=== PATIENT | female | born 1960 | race Caucasian/White ===

== ENCOUNTER → 2017-11-21 15:07 | Outpatient (CLI) | payer OTHER, SELFPAY ==
[2017-11-21 15:48] LABS: Absolute Neutrophil Count 3.5 X10^3/uL (2.0-7.7); Basophil# 0.02 X10^3/uL; Basophil% 0.3 % (0-1); Eosinophil# 0.22 X10^3/uL; Eosinophils% 3.3 % (0-5); Hematocrit 40.2 % (37-47); Hemoglobin 14.1 g/dl (12.0-15.0); Lymphocyte % 37.1 % (19-41); Mean Corp Hgb Conc 35.1 g/gl (32-36); Mean Corpuscular Hgb 29.1 pg (27.0-32.0); Mean Corpuscular Volume 82.9 fL (81-99); Mean Platelet Vol. 9.6 fl (6.2-12.0); Monocyte# 0.49 X10^3/uL; Monocyte% 7.3 % (0-10); Neutrophil % 51.9 % (47-70); Platelet Count 262 K/mm3 (150-450); RBC Distribution Width SD 39.2 fl (35.1-43.9); Red Blood Count 4.85 M/mm3 (4.2-5.4); White Blood Count 6.7 K/mm3 (4.4-11.0)
[2017-11-21 15:54] LABS: POSITIVE COUNT NO; POSITIVE DIFFERENTIAL NO; POSITIVE MORPHOLOGY NO
[2017-11-21 16:17] LABS: ALB/GLOB Ratio 1.4 RATIO (0.9-2.4); AST(SGOT) 40 U/L (15-37); Alanine Aminotransfer ALT/SGPT 40 U/L (13-56); Albumin, Serum 4.2 g/dL (3.2-5.0); Alkaline Phosphatase 118 U/L (45-117); Anion Gap 7 (5-15); BUN 13 mg/dL (7-18); BUN/Creat Ratio 18.6 RATIO (10-20); Calcium,Total 8.8 mg/dL (8.5-10.1); Chloride 103 mmol/L (98-107); EST Glomerular Filtration Rate 91 mL/min (>60); Est Glom Filt Rate - Afr Amer 111 mL/min (>60); Globulin 3.1 g/dL (2.2-4.2); Glucose 116 mg/dL (74-106); Potassium 3.9 mmol/L (3.5-5.1); Protein, Total 7.3 g/dL (6.4-8.2); Sodium Level 141 mmol/L (136-145)
== END ==
PROVIDERS: Family Provider Internal Medicine; PCP Internal Medicine; Visit Provider Internal Medicine Rheumatology
DX: L40.59 Other psoriatic arthropathy (principal); L40.8 Other psoriasis; K21.0 Gastro-esophageal reflux disease with esophagitis; H93.19 Tinnitus, unspecified ear; E78.5 Hyperlipidemia, unspecified; Z79.899 Other long term (current) drug therapy
CPT/HCPCS: 36415; 80053; 85025

== ENCOUNTER → 2018-02-07 10:54 | Outpatient (CLI) | payer OTHER, SELFPAY ==
[2018-02-07 12:28] LABS: ALB/GLOB Ratio 1.4 RATIO (0.9-2.4); AST(SGOT) 35 U/L (15-37); Alanine Aminotransfer ALT/SGPT 38 U/L (13-56); Albumin, Serum 4.2 g/dL (3.2-5.0); Alkaline Phosphatase 121 U/L (45-117); Anion Gap 6 (5-15); BUN 11 mg/dL (7-18); BUN/Creat Ratio 14.8 RATIO (10-20); Calcium,Total 8.9 mg/dL (8.5-10.1); Chloride 107 mmol/L (98-107); Creatinine, Serum 0.74 mg/dL (0.55-1.02); EST Glomerular Filtration Rate 85 mL/min (>60); Est Glom Filt Rate - Afr Amer 103 mL/min (>60); Glucose 111 mg/dL (74-106); Protein, Total 7.2 g/dL (6.4-8.2); Sodium Level 140 mmol/L (136-145)
== END ==
PROVIDERS: Family Provider Internal Medicine; PCP Internal Medicine; Visit Provider Internal Medicine Rheumatology
DX: L40.59 Other psoriatic arthropathy (principal); L40.8 Other psoriasis; K21.0 Gastro-esophageal reflux disease with esophagitis; H93.19 Tinnitus, unspecified ear; E78.5 Hyperlipidemia, unspecified; Z79.899 Other long term (current) drug therapy
CPT/HCPCS: 36415; 80053

== ENCOUNTER → 2018-05-07 13:33 | Outpatient (CLI) | payer OTHER, SELFPAY ==
[2018-05-07 15:15] LABS: Absolute Lymphocyte Count 1.66 X10^3/ul (0.83-4.51); Absolute Neutrophil Count 3.3 X10^3/uL (2.0-7.7); Basophil# 0.01 X10^3/uL; Basophil% 0.2 % (0-1); Eosinophil# 0.14 X10^3/uL; Eosinophils% 2.4 % (0-5); Hematocrit 39.2 % (37-47); Hemoglobin 13.5 g/dl (12.0-15.0); Lymphocyte # 1.66 X10^3/ul (4.0); Lymphocyte % 28.8 % (19-41); Mean Corp Hgb Conc 34.4 g/gl (32-36); Mean Corpuscular Hgb 28.8 pg (27.0-32.0); Mean Corpuscular Volume 83.8 fL (81-99); Mean Platelet Vol. 9.8 fl (6.2-12.0); Monocyte# 0.61 X10^3/uL; Monocyte% 10.6 % (0-10); Neutrophil # 3.34 X10^3/uL (2.7-7.7); Platelet Count 256 K/mm3 (150-450); RBC Distribution Width CV 13.2 % (11.6-14.6); RBC Distribution Width SD 39.8 fl (35.1-43.9); Red Blood Count 4.68 M/mm3 (4.2-5.4); White Blood Count 5.8 K/mm3 (4.4-11.0)
[2018-05-07 15:25] LABS: POSITIVE COUNT NO; POSITIVE DIFFERENTIAL NO; POSITIVE MORPHOLOGY NO
[2018-05-07 15:44] LABS: ALB/GLOB Ratio 1.4 RATIO (0.9-2.4); AST(SGOT) 37 U/L (15-37); Alanine Aminotransfer ALT/SGPT 39 U/L (13-56); Albumin, Serum 4.2 g/dL (3.2-5.0); Alkaline Phosphatase 106 U/L (45-117); Anion Gap 10 (5-15); BUN 13 mg/dL (7-18); BUN/Creat Ratio 19.5 RATIO (10-20); Calcium,Total 8.9 mg/dL (8.5-10.1); Chloride 102 mmol/L (98-107); Creatinine, Serum 0.67 mg/dL (0.55-1.02); EST Glomerular Filtration Rate 96 mL/min (>60); Est Glom Filt Rate - Afr Amer 116 mL/min (>60); Globulin 2.9 g/dL (2.2-4.2); Glucose 83 mg/dL (74-106); Protein, Total 7.1 g/dL (6.4-8.2); Sodium Level 140 mmol/L (136-145)
== END ==
PROVIDERS: Family Provider Internal Medicine; PCP Internal Medicine; Visit Provider Internal Medicine Rheumatology
DX: L40.8 Other psoriasis (principal); L40.59 Other psoriatic arthropathy; K21.0 Gastro-esophageal reflux disease with esophagitis; H93.19 Tinnitus, unspecified ear; E78.5 Hyperlipidemia, unspecified; I10 Essential (primary) hypertension; Z79.899 Other long term (current) drug therapy
CPT/HCPCS: 36415; 80053; 85025

== ENCOUNTER → 2018-07-29 11:06 | Outpatient (CLI) | payer OTHER, SELFPAY ==
[2018-07-29 12:24] LABS: Absolute Lymphocyte Count 2.22 X10^3/ul (0.83-4.51); Absolute Neutrophil Count 2.8 X10^3/uL (2.0-7.7); Basophil# 0.02 X10^3/uL; Basophil% 0.3 % (0-1); Eosinophils% 3.5 % (0-5); Hematocrit 41.2 % (37-47); Hemoglobin 14.3 g/dl (12.0-15.0); Lymphocyte # 2.22 X10^3/ul (4.0); Lymphocyte % 38.6 % (19-41); Mean Corp Hgb Conc 34.7 g/gl (32-36); Mean Corpuscular Hgb 29.2 pg (27.0-32.0); Mean Corpuscular Volume 84.3 fL (81-99); Mean Platelet Vol. 9.8 fl (6.2-12.0); Monocyte# 0.51 X10^3/uL; Monocyte% 8.9 % (0-10); Neutrophil # 2.79 X10^3/uL (2.7-7.7); Neutrophil % 48.5 % (47-70); Platelet Count 267 K/mm3 (150-450); RBC Distribution Width CV 13.3 % (11.6-14.6); RBC Distribution Width SD 40.2 fl (35.1-43.9); Red Blood Count 4.89 M/mm3 (4.2-5.4); White Blood Count 5.8 K/mm3 (4.4-11.0)
[2018-07-29 12:35] LABS: POSITIVE COUNT NO; POSITIVE DIFFERENTIAL NO; POSITIVE MORPHOLOGY NO
[2018-07-29 13:06] LABS: ALB/GLOB Ratio 1.3 RATIO (0.9-2.4); AST(SGOT) 41 U/L (15-37); Alanine Aminotransfer ALT/SGPT 41 U/L (13-56); Albumin, Serum 4.2 g/dL (3.2-5.0); Alkaline Phosphatase 129 U/L (45-117); Anion Gap 7 (5-15); BUN 16 mg/dL (7-18); BUN/Creat Ratio 22.2 RATIO (10-20); Calcium,Total 9.1 mg/dL (8.5-10.1); Chloride 105 mmol/L (98-107); Creatinine, Serum 0.72 mg/dL (0.55-1.02); EST Glomerular Filtration Rate 88 mL/min (>60); Est Glom Filt Rate - Afr Amer 106 mL/min (>60); Globulin 3.3 g/dL (2.2-4.2); Glucose 91 mg/dL (74-106); Potassium 4.2 mmol/L (3.5-5.1); Protein, Total 7.5 g/dL (6.4-8.2); Sodium Level 141 mmol/L (136-145)
--- OUTSIDE RECORDS SUMMARY | 2018-09-14 12:07 | XMS RPT_ITS ---
:1960 Author Organization OHIP Care Team Providers Name Role Phone Viviana Suggs Attending Unavailable Viviana Suggs Referring Unavailable Bonezzi, Jolly Primary Care Unavailable Viviana Suggs Attending Unavailable Es, Viviana Referring Unavailable Bonezzi, Jolly Primary Care Unavailable Viviana Suggs Attending Unavailable Joellanciara, Viviana Referring Unavailable Bonezzi, Jolly Primary Care Unavailable Viviana Suggs Attending Unavailable Joellanciara, Viviana Referring Unavailable Bonezzi, Jolly Primary Care Unavailable JoelViviana holt Attending Unavailable JoeltranViviana urbina Referring Unavailable Jolly Wright Primary Care Unavailable PROBLEMS PROBLEMS DATE TYPE CONDITION / CODE ATTENDING STATUS SOURCE 05/07/2018 Unknown Z79.899 - Other Es Viviana Active [facility] (current[facility] therapy / Repository Z79.899(ICD-10) 05/07/2018 Unknown L40.8 - Other Es Viviana Active [facility] psoriasis / Community L40.8(ICD-10) Hospital Repository 05/07/2018 Unknown K21.0 - Es Viviana Active [facility] reflux disease Hospital with esophagitis / Repository K21.0(ICD-10) 05/07/2018 Unknown H93.19 - Tinnitus, Es Viviana Active [facility] unspecified ear / Community H93.19(ICD-10) Hospital Repository 05/07/2018 Unknown E78.5 - Viviana Suggs Active [facility] Hyperlipidemia, Community unspecified / Hospital E78.5(ICD-10) Repository 05/07/2018 Unknown I10 - Essential Viviana Suggs Active [facility] (primary) [facility] hypertension / Hospital I10(ICD-10) Repository 02/07/2018 Unknown 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3 LAB L100.1820 35.1-43.9 fl Normal RDW SD 40.2 LAB L100.1900 150-450 K/mm3 Normal PLT 267 LAB L100.2000 6.2-12.0 fl Normal MPV 9.8 LAB L100.2100 47-70 % Normal NEUT% 48.5 LAB L100.2200 19-41 % Normal LY% 38.6 LAB L100.2300 0-10 % Normal MONO% 8.9 LAB L100.2400 0-5 % Normal EO% 3.5 LAB L100.2500 0-1 % Normal BASO% 0.3 LAB L100.2550 0.0-0.9 % Normal IM GRAN % 0.200 Result Comment: IG% - Immature Granulocytes (promyelocytes, myelocytes and metamyelocytes) > 1% indicates that a LEFT SHIFT is Present. LAB L100.2620 2.0-7.7 X10 3/uL Normal Absolute Neut 2.8 LAB L100.2720 0.83-4.51 X10 3/ul Normal Absolute Lymph 2.22 Performed By: #### L100.0100 #### [facility] [address] [place], [address] COMPREHENSIVE METABOLIC Collected: 07/29/2018 Status: F Source[facility] [place] [facility] CODE TESTS RESULT OUT OF RANGE REFERENCE UNITS LAB L501.0100 74-106 mg/dL Normal GLU 91 Result Comment: Please note revised GLUCOSE reference range effective 2017. LAB L501.1000 7-18 mg/dL Normal BUN 16 LAB L501.1100 0.55-1.02 mg/dL Normal CREAT,SERUM 0.72 Result Comment: The validity of the calculated GFR AND GFRAA in patients over 70 years has not been determined. Clinical correlation is essential. LAB L501.1110 >60 mL/min Normal EST GFR 88 Result Comment: Non- GFR Calc LAB L501.1115 >60 mL/min Normal EST GFR - AA 106 Result Comment: GFR Calc LAB L501.1300 10-20 RATIO High BUN/CRE 22.2 LAB L501.1500 6.4-8.2 g/dL T Normal PROT 7.5 LAB L501.1800 3.2-5.0 g/dL Normal ALB 4.2 LAB L501.1950 2.2-4.2 g/dL Normal GLOB 3.3 LAB L501.2000 0.9-2.4 RATIO Normal A/G 1.3 LAB L501.2200 8.5-10.1 mg/dL CA Normal 9.1 LAB L501.4100 15-37 U/L High AST 41 Result Comment: Moderate Hemolysis, Result may be falsely increased. LAB L501.4305 45-117 U/L High ALK P 129 LAB L501.4405 13-56 U/L Normal ALT 41 LAB L501.4600 0.20-1.00 mg/dL Normal T BILI 0.50 LAB L501.5300 136-145 mmol/L Normal NA 141 LAB L501.5600 3.5-5.1 mmol/L Normal K 4.2 Result Comment: Moderate Hemolysis, Result may be falsely increased. LAB L501.5900 98-107 mmol/L Normal CL 105 LAB L501.6100 21.0-32.0 mmol/L Normal CO2 29.0 LAB L501.6200 5-15 Normal 7 GAP Performed By: #### L500.4050 #### [facility] [address] [facility] [place], [place], [id number] CBC W/DIFF, AUTOMATED Collected: 05/07/2018 Status: F Source: [facility] 1:[place] [facility] [place] CODE TESTS RESULT OUT OF RANGE REFERENCE UNITS LAB L100.1000 4.4-11.0 K/mm3 Normal WBC 5.8 LAB L100.1200 4.2-5.4 M/mm3 Normal RBC 4.68 LAB L100.1300 12.0-15.0 g/dl Normal HGB 13.5 LAB L100.1400 37-47 % Normal HCT 39.2 LAB L100.1500 81-99 fL Normal MCV 83.8 LAB L100.1600 27.0-32.0 pg Normal MCH 28.8 LAB L100.1700 32-36 g/gl Normal MCHC 34.4 LAB L100.1810 11.6-14.6 % Normal RDW CV 13.2 LAB L100.1820 35.1-43.9 fl Normal RDW SD 39.8 LAB L100.1900 150-450 K/mm3 Normal PLT 256 LAB L100.2000 6.2-12.0 fl Normal MPV 9.8 LAB L100.2100 47-70 % Normal NEUT% 58.0 LAB L100.2200 19-41 % Normal LY% 28.8 LAB L100.2300 0-10 % High MONO% 10.6 LAB L100.2400 0-5 % Normal EO% 2.4 LAB L100.2500 0-1 % Normal BASO% 0.2 LAB L100.2550 0.0-0.9 % Normal IM GRAN % 0.000 Result Comment: IG% - Immature Granulocytes (promyelocytes, myelocytes and metamyelocytes) > 1% indicates that a LEFT SHIFT is Present. LAB L100.2620 2.0-7.7 X10 3/uL Normal Absolute Neut 3.3 LAB L100.2720 0.83-4.51 X10 3/ul Normal Absolute Lymph 1.66 Performed By: #### L100.0100 #### [facility] [address] [place] [place], [address] COMPREHENSIVE METABOLIC Collected: 05/07/2018 Status: F Source: [facility] 1[facility] [place] [facility] [place] CODE TESTS RESULT OUT OF RANGE REFERENCE UNITS LAB L501.0100 74-106 mg/dL Normal GLU 83 Result Comment: Please note revised GLUCOSE reference range effective 2017. LAB L501.1000 7-18 mg/dL Normal BUN 13 LAB L501.1100 0.55-1.02 mg/dL Normal CREAT,SERUM 0.67 Result Comment: The validity of the calculated GFR AND GFRAA in patients over 70 years has not been determined. Clinical correlation is essential. LAB L501.1110 >60 mL/min Normal EST GFR 96 Result Comment: Non- GFR Calc LAB L501.1115 >60 mL/min Normal EST GFR - AA 116 Result Comment: GFR Calc LAB L501.1300 10-20 RATIO Normal BUN/CRE 19.5 LAB L501.1500 6.4-8.2 g/dL T Normal PROT 7.1 LAB L501.1800 3.2-5.0 g/dL Normal ALB 4.2 LAB L501.1950 2.2-4.2 g/dL Normal GLOB 2.9 LAB L501.2000 0.9-2.4 RATIO Normal A/G 1.4 LAB L501.2200 8.5-10.1 mg/dL CA Normal 8.9 LAB L501.4100 15-37 U/L Normal AST 37 LAB L501.4305 45-117 U/L Normal ALK P 106 LAB L501.4405 13-56 U/L Normal ALT 39 LAB L501.4600 0.20-1.00 mg/dL T Normal BILI 0.60 LAB L501.5300 136-145 mmol/L NA Normal 140 LAB L501.5600 3.5-5.1 mmol/L K Normal 4.0 LAB L501.5900 98-107 mmol/L CL Normal 102 LAB L501.6100 21.0-32.0 mmol/L Normal CO2 28.0 LAB L501.6200 5-15 Normal GAP 10 Performed By: #### L500.4050 #### [facility] [address] [place] [place], [address] COMPREHENSIVE METABOLIC Collected: 02/07/2018 Status: F Source: [facility] 11:00 AM [facility] [place] CODE TESTS RESULT OUT OF RANGE REFERENCE UNITS LAB L501.0100 74-106 mg/dL High GLU 111 Result Comment: Fasting Glucose result from 100 to 125 mg/dL suggests IMPAIRED HOMEOSTASIS per A.D.A. criteria. Please note revised GLUCOSE reference range effective 2017. LAB L501.1000 7-18 mg/dL Normal BUN 11 LAB L501.1100 0.55-1.02 mg/dL Normal CREAT,SERUM 0.74 Result Comment: The validity of the calculated GFR AND GFRAA in patients over 70 years has not been determined. Clinical correlation is essential. LAB L501.1110 >60 mL/min Normal EST GFR 85 Result Comment: Non- GFR Calc LAB L501.1115 >60 mL/min Normal EST GFR - AA 103 Result Comment: GFR Calc LAB L501.1300 10-20 RATIO Normal BUN/CRE 14.8 LAB L501.1500 6.4-8.2 g/dL T Normal PROT 7.2 LAB L501.1800 3.2-5.0 g/dL Normal ALB 4.2 LAB L501.1950 2.2-4.2 g/dL Normal GLOB 3.0 LAB L501.2000 0.9-2.4 RATIO Normal A/G 1.4 LAB L501.2200 8.5-10.1 mg/dL CA Normal 8.9 LAB L501.4100 15-37 U/L Normal AST 35 LAB L501.4305 45-117 U/L High ALK P 121 LAB L501.4405 13-56 U/L Normal ALT 38 LAB L501.4600 0.20-1.00 mg/dL T Normal BILI 0.60 LAB L501.5300 136-145 mmol/L NA Normal 140 LAB L501.5600 3.5-5.1 mmol/L K Normal 4.0 LAB L501.5900 98-107 mmol/L CL Normal 107 LAB L501.6100 21.0-32.0 mmol/L Normal CO2 27.0 LAB L501.6200 5-15 Normal GAP 6 Performed By: #### L500.4050 #### [facility] [address] [place] [place], [address] CBC W/DIFF, AUTOMATED Collected: 11/21/2017 Status: F Source: [facility] 3:20 [place] [facility] [place] TYPE CODE TESTS RESULT OUT OF RANGE REFERENCE UNITS LAB L100.1000 4.4-11.0 K/mm3 Normal WBC 6.7 LAB L100.1200 4.2-5.4 M/mm3 Normal RBC 4.85 LAB L100.1300 12.0-15.0 g/dl Normal HGB 14.1 LAB L100.1400 37-47 % Normal HCT 40.2 LAB L100.1500 81-99 fL Normal MCV 82.9 LAB L100.1600 27.0-32.0 pg Normal MCH 29.1 LAB L100.1700 32-36 g/gl Normal MCHC 35.1 LAB L100.1810 11.6-14.6 % Normal RDW CV 13.0 LAB L100.1820 35.1-43.9 fl Normal RDW SD 39.2 LAB L100.1900 150-450 K/mm3 Normal PLT 262 LAB L100.2000 6.2-12.0 fl Normal MPV 9.6 LAB L100.2100 47-70 % Normal NEUT% 51.9 LAB L100.2200 19-41 % Normal LY% 37.1 LAB L100.2300 0-10 % Normal MONO% 7.3 LAB L100.2400 0-5 % Normal EO% 3.3 LAB L100.2500 0-1 % Normal BASO% 0.3 LAB L100.2550 0.0-0.9 % Normal IM GRAN % 0.100 Result Comment: IG% - Immature Granulocytes (promyelocytes, myelocytes and metamyelocytes) > 1% indicates that a LEFT SHIFT is Present. LAB L100.2620 2.0-7.7 X10 3/uL Normal Absolute Neut 3.5 LAB L100.2720 0.83-4.51 X10 3/ul Normal Absolute Lymph 2.50 Performed By: #### L100.0100 #### [facility] [address] [place], [address] COMPREHENSIVE METABOLIC Collected: 11/21/2017 Status: F Source: [facility] 3:20 PM [facility] [place] CODE TESTS RESULT OUT OF RANGE REFERENCE UNITS LAB L501.0100 74-106 mg/dL High GLU 116 Result Comment: Fasting Glucose result from 100 to 125 mg/dL suggests IMPAIRED HOMEOSTASIS per A.D.A. criteria. Please note revised GLUCOSE reference range effective 2017. LAB L501.1000 7-18 mg/dL Normal BUN 13 LAB L501.1100 0.55-1.02 mg/dL Normal CREAT,SERUM 0.70 Result Comment: The validity of the calculated GFR AND GFRAA in patients over 70 years has not been determined. Clinical correlation is essential. LAB L501.1110 >60 mL/min Normal EST GFR 91 Result Comment: Non- GFR Calc LAB L501.1115 >60 mL/min Normal EST GFR - AA 111 Result Comment: GFR Calc LAB L501.1300 10-20 RATIO Normal BUN/CRE 18.6 LAB L501.1500 6.4-8.2 g/dL T Normal PROT 7.3 LAB L501.1800 3.2-5.0 g/dL Normal ALB 4.2 LAB L501.1950 2.2-4.2 g/dL Normal GLOB 3.1 LAB L501.2000 0.9-2.4 RATIO Normal A/G 1.4 LAB L501.2200 8.5-10.1 mg/dL CA Normal 8.8 LAB L501.4100 15-37 U/L High AST 40 LAB L501.4305 45-117 U/L High ALK P 118 LAB L501.4405 13-56 U/L Normal ALT 40 Result Comment: Please note revised ALT reference range effective 2017. LAB L501.4600 0.20-1.00 mg/dL Normal T BILI 0.40 LAB L501.5300 136-145 mmol/L Normal NA 141 LAB L501.5600 3.5-5.1 mmol/L Normal K 3.9 LAB L501.5900 98-107 mmol/L Normal CL 103 LAB L501.6100 21.0-32.0 mmol/L Normal CO2 31.0 LAB L501.6200 5-15 Normal GAP 7 Performed By: #### L500.4050 #### [facility] [address] [place], [place] [address] [place], [address] CBC W/DIFF, AUTOMATED Collected: 09/10/2017 Status: F Source: [facility] 2:40 [place] [facility] [place] CODE TESTS RESULT OUT OF RANGE REFERENCE UNITS LAB L100.1000 4.4-11.0 K/mm3 Normal WBC 7.1 LAB L100.1200 4.2-5.4 M/mm3 Normal RBC 4.90 LAB L100.1300 12.0-15.0 g/dl Normal HGB 14.4 LAB L100.1400 37-47 % Normal HCT 41.2 LAB L100.1500 81-99 fL Normal MCV 84.1 LAB L100.1600 27.0-32.0 pg Normal MCH 29.4 LAB L100.1700 32-36 g/gl Normal MCHC 35.0 LAB L100.1810 11.6-14.6 % Normal RDW CV 12.8 LAB L100.1820 35.1-43.9 fl Normal RDW SD 38.6 LAB L100.1900 150-450 K/mm3 Normal PLT 296 LAB L100.2000 6.2-12.0 fl Normal MPV 10.1 LAB L100.2100 47-70 % Normal NEUT% 56.2 LAB L100.2200 19-41 % Normal LY% 32.8 LAB L100.2300 0-10 % Normal MONO% 8.5 LAB L100.2400 0-5 % Normal EO% 2.1 LAB L100.2500 0-1 % Normal BASO% 0.3 LAB L100.2550 0.0-0.9 % Normal IM GRAN % 0.100 Result Comment: IG% - Immature Granulocytes (promyelocytes, myelocytes and metamyelocytes) > 1% indicates that a LEFT SHIFT is Present. LAB L100.2620 2.0-7.7 X10 3/uL Normal Absolute Neut 4.0 LAB L100.2720 0.83-4.51 X10 3/ul Normal Absolute Lymph 2.31 Performed By: #### L100.0100 #### [facility] [address] [place], [address] COMPREHENSIVE METABOLIC Collected: 09/10/2017 Status: F Source: [facility] 2:40 PM [facility] [place] CODE TESTS RESULT OUT OF RANGE REFERENCE UNITS LAB L501.0100 70-110 mg/dL Normal GLU 95 LAB L501.1000 7-18 mg/dL Normal BUN 16 LAB L501.1100 0.55-1.02 mg/dL Normal 0.75 CREAT,SERUM Result Comment: The validity of the calculated GFR AND GFRAA in patients over 70 years has not been determined. Clinical correlation is essential. LAB L501.1110 >60 mL/min Normal EST GFR 85 Result Comment: Non- GFR Calc LAB L501.1115 >60 mL/min Normal EST GFR - AA 103 Result Comment: GFR Calc LAB L501.1300 10-20 RATIO High BUN/CRE 21.4 LAB L501.1500 6.4-8.2 g/dL T Normal PROT 7.3 LAB L501.1800 3.4-5.0 g/dL Normal ALB 4.4 Result Comment: Please note revised Albumin AND Globulin reference range effective 2017. LAB L501.1950 2.2-4.2 g/dL Normal GLOB 2.9 LAB L501.2000 0.9-2.4 RATIO Normal A/G 1.5 LAB L501.2200 8.5-10.1 mg/dL Normal CA 8.9 LAB L501.4100 15-37 U/L Normal AST 30 LAB L501.4305 45-117 U/L High ALK P 124 LAB L501.4405 12-78 U/L Normal ALT 39 LAB L501.4600 0.20-1.00 mg/dL Normal T BILI 0.70 LAB L501.5300 136-145 mmol/L Normal NA 140 LAB L501.5600 3.5-5.1 mmol/L Normal K 4.2 LAB L501.5900 98-107 mmol/L Normal CL 104 LAB L501.6100 21.0-32.0 mmol/L Normal CO2 29.0 LAB L501.6200 5-15 Normal GAP 7 Performed By: #### L500.4050 #### [facility] [address] [place], [address] ALLERGIES ALLERGIES No Allergies Records FoundENCOUNTERS ENCOUNTERS ADMIT/DISCHARGE ACCOUNT ADMITTING ENCOUNTER LOCATION SOURCE NUMBER CLASS 07/29/2018 [id number] [facility] ing:LAB Repository 05/07/2018 [id number] [facility] ing:LAB Repository 02/07/[id number] ing:LAB Repository 11/21/2017 [id number] [facility] 5 [facility] ing:LAB Repository 09/10/2017 [id number] [facility] 3 [facility] ing:LAB Repository PAYERS PAYERS ENCOUNTER GUARANTOR PAYER SUBSCRIBER SOURCE 07/29/2018 CHRISTINA Mcarthur Primary ALISON [id number] Insurance:MEDICAL HESSLERDOB: [facility] [id number] Number: Repository [address]Xsz: [phone] [id number] [phone] () Date:[id number] [address]BU: 07/29/2018 Secondary NOT GIVENSETH Stone Insurance:SELF PAY [facility] Number: Effective Repository Date:2018-07-29 05/07/2018 Christina Mcarthur Primary ALISON [id number] Insurance:MEDICAL HESSLERDOB: [facility] [id number] Number: Repository [id number]: 330 [id number] [phone] (HP) Date:3120-36-78GI [address] [place] [address]EV: 05/07/2018 Secondary NOT GIVENUNK [place] Insurance:SELF PAY [facility] Number: Effective Repository Date:2018-05-07 02/07/2018 Christina Mcarthur Primary ALISON Stone [id number] Insurance:MEDICAL HESSLERDOB: [facility] [id number] Number: Repository [id number]: 330 [id number] [phone] (HP) Date:7340-04-70TC [address] [address]CG: 02/07/2018 Secondary NOT GIVENUNK [place] Insurance:SELF PAY [facility] Number: Effective Repository Date:2018-02-07 11/21/2017 Christina Mcarthur Primary Alison Stone [id number] Insurance:MEDICAL HesslerDOB: [facility] [id number] Number: Repository [id number]: 330 [id number] [phone] (HP) Date:8651-96-48WN [address] [address]BZ: 11/21/2017 Secondary NOT GIVENUNK [place] Insurance:SELF PAY [facility] Number: Effective Repository Date:2017-11-21 09/10/2017 Christina Mcarthur Primary Alison Stone [id number] [facility] HesslerDOB: [facility] Number: [id number], [place] [id number] Repository [id number]: [phone]) Date:7722-96-64JM [phone] (HP) [address] [address]VL: 09/10/2017 Secondary NOT GIVENUNK [place] Insurance:SELF PAY [facility]: Effective Repository Date:2017-09-10
== END ==
PROVIDERS: Family Provider Internal Medicine; PCP Internal Medicine; Referring Provider Internal Medicine Rheumatology; Visit Provider Internal Medicine Rheumatology
DX: L40.59 Other psoriatic arthropathy (principal); L40.8 Other psoriasis; K21.0 Gastro-esophageal reflux disease with esophagitis; E78.5 Hyperlipidemia, unspecified; I10 Essential (primary) hypertension; Z79.899 Other long term (current) drug therapy
CPT/HCPCS: 36415; 80053; 85025

== ENCOUNTER → 2018-10-21 13:28 | Outpatient (CLI) | payer OTHER, SELFPAY ==
[2018-10-21 14:46] LABS: Absolute Lymphocyte Count 2.26 X10^3/ul (0.83-4.51); Absolute Neutrophil Count 4.1 X10^3/uL (2.0-7.7); Basophil# 0.03 X10^3/uL; Basophil% 0.4 % (0-1); Eosinophil# 0.18 X10^3/uL; Eosinophils% 2.5 % (0-5); Hematocrit 40.6 % (37-47); Hemoglobin 13.8 g/dl (12.0-15.0); Lymphocyte # 2.26 X10^3/ul (4.0); Lymphocyte % 31.8 % (19-41); Mean Corpuscular Hgb 28.9 pg (27.0-32.0); Mean Corpuscular Volume 85.1 fL (81-99); Monocyte# 0.52 X10^3/uL; Monocyte% 7.3 % (0-10); Neutrophil % 57.9 % (47-70); Platelet Count 260 K/mm3 (150-450); RBC Distribution Width CV 13.2 % (11.6-14.6); RBC Distribution Width SD 40.5 fl (35.1-43.9); Red Blood Count 4.77 M/mm3 (4.2-5.4); White Blood Count 7.1 K/mm3 (4.4-11.0)
[2018-10-21 14:49] LABS: POSITIVE COUNT NO; POSITIVE DIFFERENTIAL NO; POSITIVE MORPHOLOGY NO
[2018-10-21 15:07] LABS: ALB/GLOB Ratio 1.5 RATIO (0.9-2.4); AST(SGOT) 39 U/L (15-37); Alanine Aminotransfer ALT/SGPT 38 U/L (13-56); Albumin, Serum 4.3 g/dL (3.2-5.0); Alkaline Phosphatase 113 U/L (45-117); Anion Gap 5 (5-15); BUN 14 mg/dL (7-18); BUN/Creat Ratio 20.5 RATIO (10-20); Calcium,Total 8.8 mg/dL (8.5-10.1); Chloride 104 mmol/L (98-107); Creatinine, Serum 0.68 mg/dL (0.55-1.02); EST Glomerular Filtration Rate 94 mL/min (>60); Est Glom Filt Rate - Afr Amer 113 mL/min (>60); Globulin 2.9 g/dL (2.2-4.2); Glucose 90 mg/dL (74-106); Potassium 4.1 mmol/L (3.5-5.1); Protein, Total 7.2 g/dL (6.4-8.2); Sodium Level 138 mmol/L (136-145)
== END ==
PROVIDERS: Family Provider Internal Medicine; PCP Internal Medicine; Referring Provider Internal Medicine Rheumatology; Visit Provider Internal Medicine Rheumatology
DX: L40.59 Other psoriatic arthropathy (principal); L40.8 Other psoriasis; K21.0 Gastro-esophageal reflux disease with esophagitis; H93.19 Tinnitus, unspecified ear; E78.5 Hyperlipidemia, unspecified; I10 Essential (primary) hypertension; Z79.899 Other long term (current) drug therapy
CPT/HCPCS: 36415; 80053; 85025

== ENCOUNTER → 2019-01-26 | Outpatient (CLI) | payer OTHER, SELFPAY ==
[2019-01-26 15:01] LABS: Absolute Lymphocyte Count 2.12 X10^3/ul (0.83-4.51); Absolute Neutrophil Count 2.9 X10^3/uL (2.0-7.7); Basophil# 0.01 X10^3/uL; Basophil% 0.2 % (0-1); Eosinophil# 0.19 X10^3/uL; Eosinophils% 3.4 % (0-5); Hematocrit 38.4 % (37-47); Hemoglobin 13.1 g/dl (12.0-15.0); Lymphocyte # 2.12 X10^3/ul (4.0); Lymphocyte % 37.8 % (19-41); Mean Corp Hgb Conc 34.1 g/gl (32-36); Mean Corpuscular Hgb 28.7 pg (27.0-32.0); Mean Platelet Vol. 9.9 fl (6.2-12.0); Monocyte% 7.1 % (0-10); Neutrophil # 2.88 X10^3/uL (2.7-7.7); Neutrophil % 51.3 % (47-70); Platelet Count 230 K/mm3 (150-450); RBC Distribution Width CV 13.2 % (11.6-14.6); RBC Distribution Width SD 39.6 fl (35.1-43.9); Red Blood Count 4.57 M/mm3 (4.2-5.4); White Blood Count 5.6 K/mm3 (4.4-11.0)
[2019-01-26 15:03] LABS: POSITIVE COUNT NO; POSITIVE DIFFERENTIAL NO; POSITIVE MORPHOLOGY NO
[2019-01-26 15:21] LABS: ALB/GLOB Ratio 1.3 RATIO (0.9-2.4); AST(SGOT) 46 U/L (15-37); Alanine Aminotransfer ALT/SGPT 49 U/L (13-56); Alkaline Phosphatase 120 U/L (45-117); Anion Gap 9 (5-15); BUN 12 mg/dL (7-18); BUN/Creat Ratio 17.6 RATIO (10-20); Calcium,Total 9.3 mg/dL (8.5-10.1); Chloride 104 mmol/L (98-107); Creatinine, Serum 0.68 mg/dL (0.55-1.02); EST Glomerular Filtration Rate 94 mL/min (>60); Est Glom Filt Rate - Afr Amer 114 mL/min (>60); Glucose 102 mg/dL (74-106); Potassium 4.3 mmol/L (3.5-5.1); Sodium Level 144 mmol/L (136-145)
== END | disposition home or self-care (01) ==
LOC: LAB 14:27
PROVIDERS: Family Provider Internal Medicine; PCP Internal Medicine; Referring Provider Internal Medicine Rheumatology; Visit Provider Internal Medicine Rheumatology
DX: L40.59 Other psoriatic arthropathy (principal); L40.8 Other psoriasis; K21.0 Gastro-esophageal reflux disease with esophagitis; H93.19 Tinnitus, unspecified ear; E78.5 Hyperlipidemia, unspecified; I10 Essential (primary) hypertension; Z79.899 Other long term (current) drug therapy
CPT/HCPCS: 36415; 80053; 85025

== ENCOUNTER → 2019-03-24 | Outpatient (CLI) | payer OTHER, SELFPAY ==
--- NOTE | 2019-03-24 09:56 | BI_ITS ---
MAMMOGRAPHY - BILATERAL SCREENING REASON FOR EXAM: Female, 58 years old. Routine annual screening examination. PERTINENT HISTORY: Grandmother with breast cancer. TECHNIQUE: Digital bilateral breast alicia (3D mammographic acquisition) in the CC and MLO projections. 2-D mediolateral oblique (MLO) and craniocaudad (CC) views of both breasts were obtained. CAD: Full Field Digital Mammography with Computer Added Detection was performed. COMPARISON: Comparison is made with prior study dated September 18, 2016 and June 14, 2015. FINDINGS: Breast Composition: The breasts are heterogeneously dense, which may obscure small masses. There are no dominant masses or suspicious calcifications. No other significant abnormalities are identified. There has been no significant change since the prior study. BI/SCREEN MAMM (CAD) W/ALICIA BILAT IMPRESSION: Stable bilateral screening mammogram. Yearly follow-up mammogram recommended. (A) ASSESSMENT CATEGORY: BIRADS Category 1: Negative. A letter regarding these results will be sent to the patient by the facility within 30 days. Approximately 10% of breast cancers are not detected by mammography. A normal mammogram should not delay biopsy of a clinically suspicious abnormality. [id number] Electronically Signed: Sheldon Mcdaniel, at 12:32 EDT , Service support ,
--- NOTE | 2019-03-24 10:13 | BD_ITS ---
STUDY: DUAL ENERGY X-RAY ABSORPTIOMETRY / DXA REASON FOR EXAM: Female, 58 years old. The patient is postmenopausal. Loss of height. TECHNIQUE: Bone Mineral Density (BMD) measurements of lumbar spine and bilateral hips were obtained. COMPARISON: Comparison is made with prior study dated September 18, 2016. FINDINGS: Lumbar Spine (L1-L4): g/cm2 (0.934) / T-score (-1.9) / Z-score (-0.7) Findings are suggestive of osteopenia with a moderate fracture risk. Left Femur Total: g/cm2 (0.860) / T-score (-1.2) / Z-score (-0.3) Left Femoral Neck: g/cm2 (0.776) / T-score (-1.9) / Z-score (-0.7) Right Femur Total: g/cm2 (0.863) / T-score (-1.2) / Z-score (-0.2) Right Femoral Neck: g/cm2 (0.787) / T-score (-1.8) / Z-score (-0.6) The T-Scores on the most recent prior examination were: Lumbar Spine (L1-L4): There has been worsening of bone density since the previous examination. Left Femur Total: which represents a worsening of 6.3%. Right Femur Total: which represents a worsening of 2.8%. BD/Dexa Bone Density Study IMPRESSION: The patient is considered osteopenic as outlined below according to World Cristi Organization (WHO) criteria with a moderate fracture risk. There has been worsening of bone density since the previous examination. Reference Information: The T-score is the number of standard deviations above or below the standard which is normal for young adults at their peak bone mineral density. The World Health Organization (WHO) interprets the T-scores as follows: Above -1 Normal bone density Between -1 and -2.5 Osteopenia Equal to / or below -2.5 Osteoporosis As a practical clinical guideline, osteopenia may be graded as follows: Mild -1 through -1.5 Moderate -1.6 through -2.0 Severe -2.1 through -2.4 The Z-score is the number of standard deviations above or below age-matched controls. A Z-score of less than -1.5 would be considered abnormal. References: 1. NIH Osteoporosis and Related Bone Diseases http://www.osteo.org 2. International Society for Clinical Densitometry http://www.iscd.org 3. National Osteoporosis Foundation http://www.nof.org Electronically Signed: Sheldon Mcdaniel, at 15:54 EDT , Service support ,
== END | disposition home or self-care (01) ==
LOC: OPBD 09:53
PROVIDERS: Family Provider Internal Medicine; PCP Internal Medicine; Referring Provider Internal Medicine; Visit Provider Internal Medicine
DX: Z12.31 Encounter for screening mammogram for malignant neoplasm of breast (principal); M85.80 Other specified disorders of bone density and structure, unspecified site
CPT/HCPCS: 77063; 77067; 77080

== ENCOUNTER → 2019-04-24 | Outpatient (CLI) | payer OTHER, SELFPAY ==
[2019-04-24 13:59] LABS: Absolute Lymphocyte Count 1.82 X10^3/uL (0.83-4.51); Absolute Neutrophil Count 3.4 X10^3/uL (2.0-7.7); Basophil# 0.02 X10^3/uL; Basophil% 0.3 % (0-1); Eosinophils% 3.4 % (0-5); Hematocrit 39.7 % (37-47); Hemoglobin 13.4 g/dL (12.0-15.0); Lymphocyte # 1.82 X10^3/ul (4.0); Lymphocyte % 30.5 % (19-41); Mean Corp Hgb Conc 33.8 g/dL (32-36); Mean Corpuscular Hgb 28.8 pg (27.0-32.0); Mean Corpuscular Volume 85.4 fL (81-99); Mean Platelet Vol. 9.8 fl (6.2-12.0); Monocyte# 0.55 X10^3/uL; Monocyte% 9.2 % (0-10); NRBC Flagged by Analyzer 0 % (0-5); Neutrophil # 3.35 X10^3/uL (2.7-7.7); Neutrophil % 56.3 % (47-70); Platelet Count 238 K/mm3 (150-450); RBC Distribution Width CV 13.2 % (11.6-14.6); RBC Distribution Width SD 40.6 fl (35.1-43.9); Red Blood Count 4.65 M/mm3 (4.2-5.4)
[2019-04-24 14:25] LABS: BUN 13 mg/dL (7-18); Creatinine, Serum 0.73 mg/dL (0.55-1.02); Glucose 90 mg/dL (74-106)
[2019-04-24 14:26] LABS: ALB/GLOB Ratio 1.3 RATIO (0.9-2.4); AST(SGOT) 32 U/L (15-37); Alanine Aminotransfer ALT/SGPT 37 U/L (13-56); Albumin, Serum 4.1 g/dL (3.2-5.0); Alkaline Phosphatase 146 U/L (45-117); Anion Gap 2 (5-15); BUN/Creat Ratio 17.9 RATIO (10-20); Chloride 106 mmol/L (98-107); EST Glomerular Filtration Rate 87 mL/min (>60); Est Glom Filt Rate - Afr Amer 105 mL/min (>60); Globulin 3.1 g/dL (2.2-4.2); Protein, Total 7.2 g/dL (6.4-8.2); Sodium Level 139 mmol/L (136-145)
== END | disposition home or self-care (01) ==
LOC: LAB 13:30
PROVIDERS: Family Provider Internal Medicine; PCP Internal Medicine; Referring Provider Internal Medicine Rheumatology; Visit Provider Internal Medicine Rheumatology
DX: L40.59 Other psoriatic arthropathy (principal); L40.8 Other psoriasis; K21.0 Gastro-esophageal reflux disease with esophagitis; H93.19 Tinnitus, unspecified ear; E78.5 Hyperlipidemia, unspecified; I10 Essential (primary) hypertension; Z79.899 Other long term (current) drug therapy
CPT/HCPCS: 36415; 80053; 85025

== ENCOUNTER → 2019-07-24 13:19 | Outpatient (CLI) | payer OTHER, SELFPAY ==
[2019-07-24 14:08] LABS: Absolute Lymphocyte Count 2.15 X10^3/uL (0.83-4.51); Absolute Neutrophil Count 3.3 X10^3/uL (2.0-7.7); Basophil# 0.02 X10^3/uL; Basophil% 0.3 % (0-1); Eosinophil# 0.18 X10^3/uL; Eosinophils% 2.9 % (0-5); Hematocrit 41.2 % (37-47); Lymphocyte # 2.15 X10^3/ul (4.0); Lymphocyte % 34.7 % (19-41); Mean Corpuscular Hgb 29.1 pg (27.0-32.0); Mean Corpuscular Volume 85.7 fL (81-99); Mean Platelet Vol. 9.8 fl (6.2-12.0); Monocyte# 0.51 X10^3/uL; Monocyte% 8.2 % (0-10); NRBC Flagged by Analyzer 0 % (0-5); Neutrophil # 3.32 X10^3/uL (2.7-7.7); Neutrophil % 53.7 % (47-70); Platelet Count 263 K/mm3 (150-450); RBC Distribution Width SD 40.1 fl (35.1-43.9); Red Blood Count 4.81 M/mm3 (4.2-5.4); White Blood Count 6.2 K/mm3 (4.4-11.0)
[2019-07-24 14:24] LABS: ALB/GLOB Ratio 1.5 RATIO (0.9-2.4); AST(SGOT) 34 U/L (15-37); Alanine Aminotransfer ALT/SGPT 44 U/L (13-56); Albumin, Serum 4.4 g/dL (3.2-5.0); Alkaline Phosphatase 148 U/L (45-117); Anion Gap 5 (5-15); BUN 13 mg/dL (7-18); BUN/Creat Ratio 17.2 RATIO (10-20); Calcium,Total 9.3 mg/dL (8.5-10.1); Chloride 106 mmol/L (98-107); Creatinine, Serum 0.76 mg/dL (0.55-1.02); EST Glomerular Filtration Rate 83 mL/min (>60); Est Glom Filt Rate - Afr Amer 100 mL/min (>60); Glucose 90 mg/dL (74-106); Potassium 3.9 mmol/L (3.5-5.1); Protein, Total 7.4 g/dL (6.4-8.2); Sodium Level 141 mmol/L (136-145)
== END ==
PROVIDERS: Family Provider Internal Medicine; PCP Internal Medicine; Referring Provider Internal Medicine Rheumatology; Visit Provider Internal Medicine Rheumatology
DX: L40.59 Other psoriatic arthropathy (principal); L40.8 Other psoriasis; K21.0 Gastro-esophageal reflux disease with esophagitis; H93.19 Tinnitus, unspecified ear; E78.5 Hyperlipidemia, unspecified; I10 Essential (primary) hypertension; M65.351 Trigger finger, right little finger; Z79.899 Other long term (current) drug therapy
CPT/HCPCS: 36415; 80053; 85025

== ENCOUNTER → 2019-10-15 13:00 | Outpatient (CLI) | payer OTHER, SELFPAY ==
[2019-10-15 13:32] LABS: Absolute Lymphocyte Count 1.88 X10^3/uL (0.83-4.51); Absolute Neutrophil Count 3.7 X10^3/uL (2.0-7.7); Basophil# 0.03 X10^3/uL; Basophil% 0.5 % (0-1); Eosinophil# 0.14 X10^3/uL; Eosinophils% 2.3 % (0-5); Hematocrit 40.6 % (37-47); Hemoglobin 13.7 g/dL (12.0-15.0); Lymphocyte # 1.88 X10^3/ul (4.0); Lymphocyte % 30.9 % (19-41); Mean Corp Hgb Conc 33.7 g/dL (32-36); Mean Corpuscular Hgb 28.1 pg (27.0-32.0); Mean Corpuscular Volume 83.4 fL (81-99); Mean Platelet Vol. 9.5 fl (6.2-12.0); Monocyte# 0.38 X10^3/uL; Monocyte% 6.2 % (0-10); NRBC Flagged by Analyzer 0 % (0-5); Neutrophil # 3.65 X10^3/uL (2.7-7.7); Neutrophil % 59.9 % (47-70); Platelet Count 248 K/mm3 (150-450); RBC Distribution Width CV 13.2 % (11.6-14.6); RBC Distribution Width SD 40.2 fl (35.1-43.9); Red Blood Count 4.87 M/mm3 (4.2-5.4); White Blood Count 6.1 K/mm3 (4.4-11.0)
[2019-10-15 14:08] LABS: ALB/GLOB Ratio 1.2 RATIO (0.9-2.4); AST(SGOT) 36 U/L (15-37); Alanine Aminotransfer ALT/SGPT 45 U/L (13-56); Albumin, Serum 4.1 g/dL (3.2-5.0); Alkaline Phosphatase 133 U/L (45-117); Anion Gap 6 (5-15); BUN 11 mg/dL (7-18); BUN/Creat Ratio 13.9 RATIO (10-20); Chloride 105 mmol/L (98-107); Creatinine, Serum 0.79 mg/dL (0.55-1.02); EST Glomerular Filtration Rate 79 mL/min (>60); Est Glom Filt Rate - Afr Amer 95 mL/min (>60); Globulin 3.3 g/dL (2.2-4.2); Glucose 110 mg/dL (74-106); Protein, Total 7.4 g/dL (6.4-8.2); Sodium Level 138 mmol/L (136-145)
== END ==
PROVIDERS: PCP Internal Medicine; Visit Provider Internal Medicine Rheumatology
DX: L40.59 Other psoriatic arthropathy (principal); L40.8 Other psoriasis; K21.0 Gastro-esophageal reflux disease with esophagitis; H93.19 Tinnitus, unspecified ear; E78.5 Hyperlipidemia, unspecified; I10 Essential (primary) hypertension; M65.351 Trigger finger, right little finger; Z79.899 Other long term (current) drug therapy
CPT/HCPCS: 36415; 80053; 85025

== ENCOUNTER → 2020-01-14 08:49 | Outpatient (CLI) | payer OTHER, SELFPAY ==
[2020-01-14 09:55] LABS: Absolute Lymphocyte Count 1.55 X10^3/uL (0.83-4.51); Absolute Neutrophil Count 3.4 X10^3/uL (2.0-7.7); Basophil# 0.03 X10^3/uL; Basophil% 0.5 % (0-1); Eosinophil# 0.13 X10^3/uL; Eosinophils% 2.3 % (0-5); Hematocrit 43.1 % (37-47); Hemoglobin 14.2 g/dL (12.0-15.0); Lymphocyte # 1.55 X10^3/ul (4.0); Lymphocyte % 27.7 % (19-41); Mean Corp Hgb Conc 32.9 g/dL (32-36); Mean Corpuscular Hgb 28.6 pg (27.0-32.0); Mean Corpuscular Volume 86.7 fL (81-99); Mean Platelet Vol. 9.7 fl (6.2-12.0); Monocyte# 0.47 X10^3/uL; Monocyte% 8.4 % (0-10); NRBC Flagged by Analyzer 0 % (0-5); Neutrophil % 60.9 % (47-70); Platelet Count 295 K/mm3 (150-450); RBC Distribution Width CV 13.2 % (11.6-14.6); RBC Distribution Width SD 41.1 fl (35.1-43.9); Red Blood Count 4.97 M/mm3 (4.2-5.4); White Blood Count 5.6 K/mm3 (4.4-11.0)
[2020-01-14 10:26] LABS: ALB/GLOB Ratio 1.2 RATIO (0.9-2.4); AST(SGOT) 49 U/L (15-37); Alanine Aminotransfer ALT/SGPT 50 U/L (13-56); Alkaline Phosphatase 115 U/L (45-117); Anion Gap 5 (5-15); BUN 14 mg/dL (7-18); BUN/Creat Ratio 17.4 RATIO (10-20); Calcium,Total 9.3 mg/dL (8.5-10.1); Chloride 105 mmol/L (98-107); EST Glomerular Filtration Rate 77 mL/min (>60); Est Glom Filt Rate - Afr Amer 94 mL/min (>60); Globulin 3.4 g/dL (2.2-4.2); Glucose 103 mg/dL (74-106); Potassium 4.1 mmol/L (3.5-5.1); Protein, Total 7.4 g/dL (6.4-8.2); Sodium Level 140 mmol/L (136-145)
== END ==
PROVIDERS: PCP Internal Medicine; Referring Provider Internal Medicine Rheumatology; Visit Provider Internal Medicine Rheumatology
DX: L40.59 Other psoriatic arthropathy (principal); L40.8 Other psoriasis; K21.0 Gastro-esophageal reflux disease with esophagitis; H93.19 Tinnitus, unspecified ear; E78.5 Hyperlipidemia, unspecified; I10 Essential (primary) hypertension; M65.351 Trigger finger, right little finger; Z79.899 Other long term (current) drug therapy
CPT/HCPCS: 36415; 80053; 85025

== ENCOUNTER → 2020-03-10 09:01 | Outpatient (CLI) | payer OTHER, SELFPAY ==
[2020-03-10 09:36] LABS: Absolute Neutrophil Count 2.8 X10^3/uL (2.0-7.7); Basophil# 0.04 X10^3/uL; Basophil% 0.8 % (0-1); Eosinophil# 0.14 X10^3/uL; Eosinophils% 2.7 % (0-5); Hemoglobin 14.3 g/dL (12.0-15.0); Lymphocyte % 33.3 % (19-41); Mean Corp Hgb Conc 33.3 g/dL (32-36); Mean Corpuscular Hgb 28.9 pg (27.0-32.0); Mean Platelet Vol. 9.5 fl (6.2-12.0); Monocyte# 0.43 X10^3/uL; Monocyte% 8.4 % (0-10); NRBC Flagged by Analyzer 0 % (0-5); Neutrophil # 2.78 X10^3/uL (2.7-7.7); Neutrophil % 54.6 % (47-70); Platelet Count 243 K/mm3 (150-450); RBC Distribution Width CV 12.9 % (11.6-14.6); RBC Distribution Width SD 39.8 fl (35.1-43.9); Red Blood Count 4.94 M/mm3 (4.2-5.4); White Blood Count 5.1 K/mm3 (4.4-11.0)
[2020-03-10 09:57] LABS: ALB/GLOB Ratio 1.2 RATIO (0.9-2.4); AST(SGOT) 39 U/L (15-37); Alanine Aminotransfer ALT/SGPT 42 U/L (13-56); Alkaline Phosphatase 151 U/L (45-117); Anion Gap 1 (5-15); BUN 12 mg/dL (7-18); BUN/Creat Ratio 15.1 RATIO (10-20); Calcium,Total 8.8 mg/dL (8.5-10.1); Chloride 107 mmol/L (98-107); EST Glomerular Filtration Rate 78 mL/min (>60); Est Glom Filt Rate - Afr Amer 94 mL/min (>60); Globulin 3.3 g/dL (2.2-4.2); Glucose 99 mg/dL (74-106); Potassium 4.3 mmol/L (3.5-5.1); Protein, Total 7.3 g/dL (6.4-8.2); Sodium Level 139 mmol/L (136-145)
== END ==
PROVIDERS: PCP Internal Medicine; Referring Provider Internal Medicine Rheumatology; Visit Provider Internal Medicine Rheumatology
DX: L40.59 Other psoriatic arthropathy (principal); L40.8 Other psoriasis; K21.0 Gastro-esophageal reflux disease with esophagitis; H93.19 Tinnitus, unspecified ear; E78.5 Hyperlipidemia, unspecified; I10 Essential (primary) hypertension; M65.351 Trigger finger, right little finger; Z79.899 Other long term (current) drug therapy
CPT/HCPCS: 80053; 85025

== ENCOUNTER 2020-05-30 09:43 | Outpatient (RCR) | payer OTHER, SELFPAY ==
[2020-05-30 10:49] LABS: Absolute Lymphocyte Count 1.47 X10^3/uL (0.83-4.51); Absolute Neutrophil Count 2.9 X10^3/uL (2.0-7.7); Basophil# 0.03 X10^3/uL; Basophil% 0.6 % (0-1); Eosinophil# 0.15 X10^3/uL; Eosinophils% 3.1 % (0-5); Hemoglobin 13.8 g/dL (12.0-15.0); Lymphocyte # 1.47 X10^3/ul (4.0); Lymphocyte % 30.1 % (19-41); Mean Corp Hgb Conc 32.9 g/dL (32-36); Mean Corpuscular Hgb 28.3 pg (27.0-32.0); Mean Corpuscular Volume 86.2 fL (81-99); Mean Platelet Vol. 9.8 fl (6.2-12.0); Monocyte# 0.37 X10^3/uL; Monocyte% 7.6 % (0-10); NRBC Flagged by Analyzer 0 % (0-5); Neutrophil # 2.86 X10^3/uL (2.7-7.7); Neutrophil % 58.4 % (47-70); Platelet Count 278 K/mm3 (150-450); RBC Distribution Width SD 40.2 fl (35.1-43.9); Red Blood Count 4.87 M/mm3 (4.2-5.4); White Blood Count 4.9 K/mm3 (4.4-11.0)
[2020-05-30 11:22] LABS: ALB/GLOB Ratio 1.2 RATIO (0.9-2.4); AST(SGOT) 32 U/L (15-37); Alanine Aminotransfer ALT/SGPT 40 U/L (13-56); Alkaline Phosphatase 121 U/L (45-117); Anion Gap 4 (5-15); BUN 14 mg/dL (7-18); BUN/Creat Ratio 16.1 RATIO (10-20); Calcium,Total 9.2 mg/dL (8.5-10.1); Chloride 108 mmol/L (98-107); Creatinine, Serum 0.87 mg/dL (0.55-1.02); EST Glomerular Filtration Rate 70 mL/min (>60); Est Glom Filt Rate - Afr Amer 85 mL/min (>60); Globulin 3.3 g/dL (2.2-4.2); Glucose 92 mg/dL (74-106); Potassium 4.2 mmol/L (3.5-5.1); Protein, Total 7.3 g/dL (6.4-8.2); Sodium Level 141 mmol/L (136-145)
== END 2020-05-30 18:00 | disposition home or self-care (01) ==
LOC: LAB 09:43
PROVIDERS: PCP Internal Medicine; Referring Provider Internal Medicine Rheumatology; Visit Provider Internal Medicine Rheumatology
DX: L40.59 Other psoriatic arthropathy (principal); Z79.899 Other long term (current) drug therapy; L40.8 Other psoriasis; H93.19 Tinnitus, unspecified ear; E78.5 Hyperlipidemia, unspecified; I10 Essential (primary) hypertension; M65.351 Trigger finger, right little finger; K21.00 Gastro-esophageal reflux disease with esophagitis, without bleeding
CPT/HCPCS: 36415; 80053; 85025

== ENCOUNTER → 2020-06-15 07:08 | Outpatient (CLI) | payer OTHER, SELFPAY ==
[2020-06-15 08:10] LABS: ALB/GLOB Ratio 1.3 RATIO (0.9-2.4); AST(SGOT) 31 U/L (15-37); Alanine Aminotransfer ALT/SGPT 36 U/L (13-56); Albumin, Serum 4.1 g/dL (3.2-5.0); Alkaline Phosphatase 127 U/L (45-117); Anion Gap 1 (5-15); BUN 12 mg/dL (7-18); BUN/Creat Ratio 14.4 RATIO (10-20); Calcium,Total 9.1 mg/dL (8.5-10.1); Chloride 105 mmol/L (98-107); Cholesterol 194 mg/dL (200); Creatinine, Serum 0.84 mg/dL (0.55-1.02); EST Glomerular Filtration Rate 74 mL/min (>60); Est Glom Filt Rate - Afr Amer 89 mL/min (>60); Globulin 3.1 g/dL (2.2-4.2); Glucose 94 mg/dL (74-106); High Density Lipoprotein 36 mg/dL; Potassium 3.7 mmol/L (3.5-5.1); Protein, Total 7.2 g/dL (6.4-8.2); Sodium Level 138 mmol/L (136-145); Triglycerides 416 mg/dL
== END ==
PROVIDERS: PCP Internal Medicine; Referring Provider Internal Medicine; Visit Provider Internal Medicine
DX: I10 Essential (primary) hypertension (principal)
CPT/HCPCS: 36415; 80053; 80061

== ENCOUNTER 2020-07-22 09:30 | Outpatient (RCR) | payer OTHER, SELFPAY ==
[2020-07-22 10:52] LABS: Absolute Lymphocyte Count 2.12 X10^3/uL (0.83-4.51); Absolute Neutrophil Count 3.2 X10^3/uL (2.0-7.7); Basophil# 0.03 X10^3/uL; Basophil% 0.5 % (0-1); Eosinophil# 0.13 X10^3/uL; Eosinophils% 2.2 % (0-5); Hematocrit 41.1 % (37-47); Hemoglobin 13.6 g/dL (12.0-15.0); Lymphocyte # 2.12 X10^3/ul (4.0); Lymphocyte % 35.6 % (19-41); Mean Corp Hgb Conc 33.1 g/dL (32-36); Mean Corpuscular Hgb 28.3 pg (27.0-32.0); Mean Corpuscular Volume 85.4 fL (81-99); Mean Platelet Vol. 9.6 fl (6.2-12.0); Monocyte# 0.43 X10^3/uL; Monocyte% 7.2 % (0-10); NRBC Flagged by Analyzer 0 % (0-5); Neutrophil # 3.24 X10^3/uL (2.7-7.7); Neutrophil % 54.3 % (47-70); Platelet Count 254 K/mm3 (150-450); RBC Distribution Width CV 12.7 % (11.6-14.6); RBC Distribution Width SD 39.8 fl (35.1-43.9); Red Blood Count 4.81 M/mm3 (4.2-5.4)
[2020-07-22 11:04] LABS: ALB/GLOB Ratio 1.3 RATIO (0.9-2.4); AST(SGOT) 28 U/L (15-37); Alanine Aminotransfer ALT/SGPT 40 U/L (13-56); Albumin, Serum 3.9 g/dL (3.2-5.0); Alkaline Phosphatase 140 U/L (45-117); Anion Gap 4 (5-15); BUN 15 mg/dL (7-18); BUN/Creat Ratio 20.2 RATIO (10-20); Calcium,Total 8.9 mg/dL (8.5-10.1); Chloride 107 mmol/L (98-107); Creatinine, Serum 0.74 mg/dL (0.55-1.02); EST Glomerular Filtration Rate 84 mL/min (>60); Est Glom Filt Rate - Afr Amer 102 mL/min (>60); Glucose 91 mg/dL (74-106); Protein, Total 6.9 g/dL (6.4-8.2); Sodium Level 141 mmol/L (136-145)
== END 2020-07-22 18:00 | disposition home or self-care (01) ==
LOC: LAB 09:30
PROVIDERS: PCP Internal Medicine; Referring Provider Internal Medicine Rheumatology; Visit Provider Internal Medicine Rheumatology
DX: L40.59 Other psoriatic arthropathy (principal); Z79.899 Other long term (current) drug therapy; L40.8 Other psoriasis; K21.00 Gastro-esophageal reflux disease with esophagitis, without bleeding; H93.19 Tinnitus, unspecified ear; E78.5 Hyperlipidemia, unspecified; I10 Essential (primary) hypertension; M65.351 Trigger finger, right little finger
CPT/HCPCS: 36415; 80053; 85025

== ENCOUNTER 2020-10-06 13:03 | Outpatient (RCR) | payer OTHER, SELFPAY ==
[2020-10-06 13:37] LABS: Absolute Lymphocyte Count 1.93 X10^3/uL (0.83-4.51); Absolute Neutrophil Count 3.5 X10^3/uL (2.0-7.7); Basophil# 0.04 X10^3/uL; Basophil% 0.6 % (0-1); Eosinophil# 0.16 X10^3/uL; Eosinophils% 2.6 % (0-5); Hematocrit 39.8 % (37-47); Hemoglobin 13.4 g/dL (12.0-15.0); Lymphocyte # 1.93 X10^3/ul (4.0); Mean Corp Hgb Conc 33.7 g/dL (32-36); Mean Corpuscular Hgb 28.4 pg (27.0-32.0); Mean Corpuscular Volume 84.3 fL (81-99); Mean Platelet Vol. 9.7 fl (6.2-12.0); Monocyte# 0.56 X10^3/uL; NRBC Flagged by Analyzer 0 % (0-5); Neutrophil # 3.52 X10^3/uL (2.7-7.7); Neutrophil % 56.5 % (47-70); Platelet Count 256 K/mm3 (150-450); RBC Distribution Width SD 39.4 fl (35.1-43.9); Red Blood Count 4.72 M/mm3 (4.2-5.4); White Blood Count 6.2 K/mm3 (4.4-11.0)
[2020-10-06 14:12] LABS: ALB/GLOB Ratio 1.3 RATIO (0.9-2.4); AST(SGOT) 34 U/L (15-37); Alanine Aminotransfer ALT/SGPT 35 U/L (13-56); Alkaline Phosphatase 130 U/L (45-117); Anion Gap 3 (5-15); BUN 12 mg/dL (7-18); BUN/Creat Ratio 15.4 RATIO (10-20); Calcium,Total 8.8 mg/dL (8.5-10.1); Chloride 105 mmol/L (98-107); Creatinine, Serum 0.78 mg/dL (0.55-1.02); EST Glomerular Filtration Rate 80 mL/min (>60); Est Glom Filt Rate - Afr Amer 96 mL/min (>60); Glucose 94 mg/dL (74-106); Potassium 4.1 mmol/L (3.5-5.1); Sodium Level 139 mmol/L (136-145)
== END 2020-10-06 18:00 | disposition home or self-care (01) ==
LOC: LAB 13:03
PROVIDERS: PCP Internal Medicine; Referring Provider Internal Medicine Rheumatology; Visit Provider Internal Medicine Rheumatology
DX: L40.59 Other psoriatic arthropathy (principal); Z79.899 Other long term (current) drug therapy; L40.8 Other psoriasis; K21.00 Gastro-esophageal reflux disease with esophagitis, without bleeding; H93.19 Tinnitus, unspecified ear; E78.5 Hyperlipidemia, unspecified; I10 Essential (primary) hypertension; M65.351 Trigger finger, right little finger
CPT/HCPCS: 36415; 80053; 85025

== ENCOUNTER → 2020-12-29 10:56 | Outpatient (CLI) | payer OTHER, SELFPAY ==
[2020-12-29 11:54] LABS: Absolute Lymphocyte Count 1.75 X10^3/uL (0.83-4.51); Absolute Neutrophil Count 2.8 X10^3/uL (2.0-7.7); Basophil# 0.02 X10^3/uL; Basophil% 0.4 % (0-1); Eosinophil# 0.16 X10^3/uL; Eosinophils% 3.1 % (0-5); Hematocrit 39.4 % (37-47); Lymphocyte # 1.75 X10^3/ul (0.83-4.51); Lymphocyte % 33.7 % (19-41); Mean Corpuscular Hgb 28.7 pg (27.0-32.0); Mean Platelet Vol. 9.6 fl (6.2-12.0); Monocyte# 0.47 X10^3/uL; Monocyte% 9.1 % (0-10); NRBC Flagged by Analyzer 0 % (0-5); Neutrophil # 2.78 X10^3/uL (2.7-7.7); Neutrophil % 53.5 % (47-70); Platelet Count 259 K/mm3 (150-450); RBC Distribution Width CV 13.2 % (11.6-14.6); RBC Distribution Width SD 41.1 fl (35.1-43.9); Red Blood Count 4.53 M/mm3 (4.2-5.4); White Blood Count 5.2 K/mm3 (4.4-11.0)
[2020-12-29 12:13] LABS: ALB/GLOB Ratio 1.1 RATIO (0.9-2.4); AST(SGOT) 36 U/L (15-37); Alanine Aminotransfer ALT/SGPT 40 U/L (13-56); Albumin, Serum 3.7 g/dL (3.2-5.0); Alkaline Phosphatase 127 U/L (45-117); Anion Gap 4 (5-15); BUN 11 mg/dL (7-18); BUN/Creat Ratio 15.5 RATIO (10-20); Calcium,Total 8.8 mg/dL (8.5-10.1); Chloride 105 mmol/L (98-107); Creatinine, Serum 0.71 mg/dL (0.55-1.02); EST Glomerular Filtration Rate 89 mL/min (>60); Est Glom Filt Rate - Afr Amer 108 mL/min (>60); Globulin 3.3 g/dL (2.2-4.2); Glucose 100 mg/dL (74-106); Potassium 4.1 mmol/L (3.5-5.1); Sodium Level 138 mmol/L (136-145)
== END ==
PROVIDERS: PCP Internal Medicine; Referring Provider Internal Medicine Rheumatology; Visit Provider Internal Medicine Rheumatology
DX: L40.59 Other psoriatic arthropathy (principal); L40.8 Other psoriasis; K21.00 Gastro-esophageal reflux disease with esophagitis, without bleeding; H93.19 Tinnitus, unspecified ear; E78.5 Hyperlipidemia, unspecified; I10 Essential (primary) hypertension; M65.351 Trigger finger, right little finger; Z79.899 Other long term (current) drug therapy
CPT/HCPCS: 36415; 80053; 85025

== ENCOUNTER → 2021-01-06 08:44 | Outpatient (CLI) | payer OTHER, SELFPAY ==
--- NOTE | 2021-01-06 08:48 | BI_ITS ---
MAMMOGRAPHY - BILATERAL SCREENING 3-D TOMOSYNTHESIS REASON FOR EXAM: Female, 60 years old. Routine screening PERTINENT HISTORY: Grandmother with breast cancer.. TECHNIQUE: 2-D mammograms and 3-D Tomosynthesis of the breast (s) were performed. CAD was performed. COMPARISON: 03/24/2019 FINDINGS: The breast composition is composed of scattered fibroglandular density. Scattered benign calcifications are seen. No dense spiculated masses or suspicious microcalcifications are identified. No architectural distortion is identified. There is no skin thickening or retraction. There has been no significant change since the prior study. BI/SCRN MAMM (CAD)W/ALICIA BILAT IMPRESSION: No mammographic signs of malignancy. Routine yearly mammograms recommended. ASSESSMENT CATEGORY: BIRADS Category 2: Benign. A letter regarding these results will be sent to the patient by the facility within 30 days. FOLLOW UP RECOMMENDATION: Yearly follow up mammogram recommended. (A) Approximately 10% of breast cancers are not detected by mammography. A normal mammogram should not delay biopsy of a clinically suspicious abnormality. Electronically Signed: Agustin Lynne MD at 10:17 EDT , Service support ,
== END ==
PROVIDERS: PCP Internal Medicine; Referring Provider Internal Medicine; Visit Provider Internal Medicine
DX: Z12.31 Encounter for screening mammogram for malignant neoplasm of breast (principal)
CPT/HCPCS: 77063; 77067

== ENCOUNTER → 2021-03-28 09:49 | Outpatient (CLI) | payer OTHER, SELFPAY ==
--- NOTE | 2021-03-28 09:55 | BD_ITS ---
STUDY: DUAL ENERGY X-RAY ABSORPTIOMETRY / DXA REASON FOR EXAM: Female, 60 years old. [id number]. The patient is postmenopausal. TECHNIQUE: Bone Mineral Density (BMD) measurements of lumbar spine and bilateral hips were obtained. COMPARISON: Comparison is made with prior study 03/24/2019 and 09/18/2016. FINDINGS: Lumbar Spine (L1-L4): g/cm2 (0.812) / T-score (-1.5) / Z-score (0.1) Findings are suggestive of osteopenia with a low fracture risk. Left Femur Total: g/cm2 (0.803) / T-score (-1.1) / Z-score (-0.1) Left Femoral Neck: g/cm2 (0.605) / T-score (-2.2) / Z-score (-0.8) Right Femur Total: g/cm2 (0.774) / T-score (-1.4) / Z-score (-0.3) Right Femoral Neck: g/cm2 (0.624) / T-score (-2.0) / Z-score (-0.7) The T-Scores on the most recent prior examination were: Lumbar Spine (L1-L4): There has been worsening of bone density since the previous examination. Left Femur Total: which represents an improvement of 0.6%. Right Femur Total: which represents a worsening of 3.3%. BD/Dexa Bone Density Study IMPRESSION: The patient is considered osteopenic as outlined below according to World Cristi Organization (WHO) criteria with a high fracture risk. There has been worsening of bone density since the previous examination. Reference Information: The T-score is the number of standard deviations above or below the standard which is normal for young adults at their peak bone mineral density. The World Health Organization (WHO) interprets the T-scores as follows: Above -1 Normal bone density Between -1 and -2.5 Osteopenia Equal to / or below -2.5 Osteoporosis As a practical clinical guideline, osteopenia may be graded as follows: Mild -1 through -1.5 Moderate -1.6 through -2.0 Severe -2.1 through -2.4 The Z-score is the number of standard deviations above or below age-matched controls. A Z-score of less than -1.5 would be considered abnormal. References: 1. NIH Osteoporosis and Related Bone Diseases www osteo.org 2. International Society for Clinical Densitometry www iscd.org 3. National Osteoporosis Foundation www nof.org Electronically Signed: Sheldon Mcdaniel MD at 14:08 EDT , Service support ,
[2021-03-28 11:04] LABS: Absolute Lymphocyte Count 1.78 X10^3/uL (0.83-4.51); Absolute Neutrophil Count 3.7 X10^3/uL (2.0-7.7); Basophil# 0.05 X10^3/uL; Basophil% 0.8 % (0-1); Eosinophil# 0.19 X10^3/uL; Eosinophils% 3.1 % (0-5); Hematocrit 41.4 % (37-47); Hemoglobin 13.8 g/dL (12.0-15.0); Lymphocyte # 1.78 X10^3/ul (0.83-4.51); Lymphocyte % 28.6 % (19-41); Mean Corp Hgb Conc 33.3 g/dL (32-36); Mean Corpuscular Hgb 28.1 pg (27.0-32.0); Mean Corpuscular Volume 84.3 fL (81-99); Mean Platelet Vol. 9.5 fl (6.2-12.0); Monocyte# 0.49 X10^3/uL; Monocyte% 7.9 % (0-10); NRBC Flagged by Analyzer 0 % (0-5); Neutrophil # 3.69 X10^3/uL (2.7-7.7); Neutrophil % 59.3 % (47-70); Platelet Count 275 K/mm3 (150-450); RBC Distribution Width SD 39.6 fl (35.1-43.9); Red Blood Count 4.91 M/mm3 (4.2-5.4); White Blood Count 6.2 K/mm3 (4.4-11.0)
[2021-03-28 11:34] LABS: ALB/GLOB Ratio 1.3 RATIO (0.9-2.4); AST(SGOT) 29 U/L (15-37); Alanine Aminotransfer ALT/SGPT 40 U/L (13-56); Alkaline Phosphatase 122 U/L (45-117); Anion Gap 4 (5-15); BUN 12 mg/dL (7-18); BUN/Creat Ratio 17.9 RATIO (10-20); Calcium,Total 9.6 mg/dL (8.5-10.1); Chloride 104 mmol/L (98-107); Creatinine, Serum 0.67 mg/dL (0.55-1.02); EST Glomerular Filtration Rate 95 mL/min (>60); Est Glom Filt Rate - Afr Amer 115 mL/min (>60); Globulin 3.1 g/dL (2.2-4.2); Glucose 87 mg/dL (74-106); Potassium 4.5 mmol/L (3.5-5.1); Protein, Total 7.1 g/dL (6.4-8.2); Sodium Level 139 mmol/L (136-145)
== END ==
PROVIDERS: Internal Medicine Rheumatology; PCP Internal Medicine; Referring Provider Internal Medicine; Visit Provider Internal Medicine
DX: Z78.0 Asymptomatic menopausal state (principal); M85.80 Other specified disorders of bone density and structure, unspecified site; L40.59 Other psoriatic arthropathy; L40.8 Other psoriasis; H93.19 Tinnitus, unspecified ear; E78.5 Hyperlipidemia, unspecified; I10 Essential (primary) hypertension; M65.351 Trigger finger, right little finger; Z79.899 Other long term (current) drug therapy
CPT/HCPCS: 36415; 77080; 80053; 85025

== ENCOUNTER → 2021-05-05 12:30 | Outpatient (CLI) | payer SELFPAY ==
--- NOTE | 2021-05-05 12:41 | CT_ITS ---
STUDY: CARDIAC CALCIUM SCORING - CT CHEST REASON FOR EXAM: Female, 61 years old. SCREENING. Overread of the coronary calcium scoring examination. RADIATION DOSAGE (If Supplied By Facility): CTDIvol = ( 12.19 ) mGy, DLP = ( 219.42 ) mGycm TECHNIQUE: Axial non-enhanced images were acquired through the heart for the sole purpose of measuring coronary artery calcium. Individualized dose optimization techniques were used for this CT. COMPARISON: None. FINDINGS: Small mediastinal lymph nodes. Calcified right hilar lymph nodes. No pulmonary abnormalities. CT/Limited Chest CT w/CCTA IMPRESSION: No pulmonary abnormality is seen. Electronically Signed: Sheldon Mcdaniel MD at 13:42 EDT , Service support ,
[2021-05-05 12:49] VITALS: BP 136/81; PULSE 62; RESP 16; O2SAT 99; BMI 24.5
--- NOTE | 2021-05-05 17:25 | CA.SCORE ---
Calcium Scoring Date of Study:: 05/05/21 Coronary Calcium Scoring: High-resolution Computed Tomographic imaging of the chest was performed on 05/05/2021 with particular attention paid to the coronary arteries. Images from the examination were analyzed for the presence and extent of coronary artery calcification , using coronary calcium quantification software. The patient tolerated the procedure well and there were no complications. The results of the coronary calcification analysis are provided below. Findings Coronary Artery Left Main (LM): 0 Left Anterior Descending (LAD): 0 Left Circumflex (LCX): 0 Right Coronary Artery (RCA): 0 Total Agatston Score: 0 Percentile Ranking: Based on prepublished reference tables 25% of people of the same gender/similar age had the same/lower scores Calcium Scoring Interpretation: 0 No identifiable atherosclerotic plaque. Very low cardiovascular disease risk. <5% chance of presence coronary artery disease A Negative Examination 1-10 Minimal Plaque burden. Significant coronary artery disease very unlikely. 11-100 Mild plaque burden. Likely mild or minimal coronary atherosclerosis. 101-400 Moderate plaque burden Moderate non-obstructive coronary artery disease highly likely. Over 400 Extensive plaque burden. High likelihood of at least one significant coronary stenosis (>50% diameter) Calcium Score: 0 Negative Examination Conclusion: Continue cardiovascular risk factor evaluation and care as deemed appropriate. This note was generated using a voice recognition system and there may be incorrect words, spelling or punctuation that were not noted when reviewing the office note prior to saving.
== END | disposition home or self-care (01) ==
PROVIDERS: PCP Internal Medicine; Referring Provider Internal Medicine; Visit Provider Internal Medicine
DX: E78.1 Pure hyperglyceridemia (principal)
CPT/HCPCS: 75574; 76380

== ENCOUNTER → 2021-05-10 10:45 | Outpatient (CLI) | payer OTHER, SELFPAY ==
[2021-05-10 11:29] LABS: Absolute Lymphocyte Count 2.23 X10^3/uL (0.83-4.51); Absolute Neutrophil Count 3.9 X10^3/uL (2.0-7.7); Basophil# 0.03 X10^3/uL; Basophil% 0.4 % (0-1); Eosinophil# 0.13 X10^3/uL; Eosinophils% 1.9 % (0-5); Hematocrit 40.3 % (37-47); Hemoglobin 13.5 g/dL (12.0-15.0); Lymphocyte # 2.23 X10^3/ul (0.83-4.51); Lymphocyte % 32.4 % (19-41); Mean Corp Hgb Conc 33.5 g/dL (32-36); Mean Corpuscular Hgb 28.9 pg (27.0-32.0); Mean Corpuscular Volume 86.3 fL (81-99); Mean Platelet Vol. 9.6 fl (6.2-12.0); Monocyte% 8.7 % (0-10); NRBC Flagged by Analyzer 0 % (0-5); Neutrophil # 3.88 X10^3/uL (2.7-7.7); Neutrophil % 56.3 % (47-70); Platelet Count 274 K/mm3 (150-450); RBC Distribution Width CV 13.4 % (11.6-14.6); RBC Distribution Width SD 41.4 fl (35.1-43.9); Red Blood Count 4.67 M/mm3 (4.2-5.4); White Blood Count 6.9 K/mm3 (4.4-11.0)
[2021-05-10 12:04] LABS: ALB/GLOB Ratio 1.2 RATIO (0.9-2.4); AST(SGOT) 30 U/L (15-37); Alanine Aminotransfer ALT/SGPT 33 U/L (13-56); Albumin, Serum 3.8 g/dL (3.2-5.0); Alkaline Phosphatase 117 U/L (45-117); Anion Gap 4 (5-15); BUN 14 mg/dL (7-18); BUN/Creat Ratio 19.4 RATIO (10-20); Chloride 104 mmol/L (98-107); Creatinine, Serum 0.72 mg/dL (0.55-1.02); EST Glomerular Filtration Rate 87 mL/min (>60); Est Glom Filt Rate - Afr Amer 105 mL/min (>60); Ferritin 165 ng/mL (8-252); Globulin 3.3 g/dL (2.2-4.2); Glucose 87 mg/dL (74-106); Potassium 4.2 mmol/L (3.5-5.1); Protein, Total 7.1 g/dL (6.4-8.2); Sodium Level 137 mmol/L (136-145); Thyroid Stim Hormone (TSH) 0.88 uIU/mL (0.358-3.74)
[2021-05-11 10:32] LABS: Thyroid Peroxidase AB < 8 IU/mL (0-34)
[2021-05-11 17:11] LABS: ANTINUCLEAR ANTIBODIES DIRECT Negative (Negative)
== END ==
PROVIDERS: PCP Internal Medicine; Visit Provider Dermatology
DX: L65.9 Nonscarring hair loss, unspecified (principal)
CPT/HCPCS: 36415; 80053; 82728; 84439; 84443; 85025; 86038; 86376

== ENCOUNTER → 2021-06-15 07:49 | Outpatient (CLI) | payer OTHER, SELFPAY ==
[2021-06-15 09:14] LABS: Absolute Lymphocyte Count 1.96 X10^3/uL (0.83-4.51); Absolute Neutrophil Count 3.4 X10^3/uL (2.0-7.7); Basophil# 0.03 X10^3/uL; Basophil% 0.5 % (0-1); Eosinophil# 0.19 X10^3/uL; Eosinophils% 3.2 % (0-5); Hematocrit 41.8 % (37-47); Hemoglobin 14.3 g/dL (12.0-15.0); Lymphocyte # 1.96 X10^3/ul (0.83-4.51); Lymphocyte % 32.6 % (19-41); Mean Corp Hgb Conc 34.2 g/dL (32-36); Mean Corpuscular Hgb 28.9 pg (27.0-32.0); Mean Corpuscular Volume 84.6 fL (81-99); Mean Platelet Vol. 9.4 fl (6.2-12.0); Monocyte# 0.45 X10^3/uL; Monocyte% 7.5 % (0-10); NRBC Flagged by Analyzer 0 % (0-5); Neutrophil # 3.37 X10^3/uL (2.7-7.7); Neutrophil % 55.9 % (47-70); Platelet Count 293 K/mm3 (150-450); RBC Distribution Width CV 13.1 % (11.6-14.6); RBC Distribution Width SD 39.8 fl (35.1-43.9); Red Blood Count 4.94 M/mm3 (4.2-5.4)
[2021-06-15 09:43] LABS: ALB/GLOB Ratio 1.1 RATIO (0.9-2.4); AST(SGOT) 27 U/L (15-37); Alanine Aminotransfer ALT/SGPT 34 U/L (13-56); Albumin, Serum 3.9 g/dL (3.2-5.0); Alkaline Phosphatase 134 U/L (45-117); Anion Gap 6 (5-15); BUN 14 mg/dL (7-18); BUN/Creat Ratio 17.9 RATIO (10-20); Calcium,Total 9.2 mg/dL (8.5-10.1); Chloride 103 mmol/L (98-107); Cholesterol 183 mg/dL (200); Creatinine, Serum 0.78 mg/dL (0.55-1.02); EST Glomerular Filtration Rate 79 mL/min (>60); Est Glom Filt Rate - Afr Amer 96 mL/min (>60); Globulin 3.5 g/dL (2.2-4.2); Glucose 95 mg/dL (74-106); High Density Lipoprotein 38 mg/dL; Potassium 4.2 mmol/L (3.5-5.1); Protein, Total 7.4 g/dL (6.4-8.2); Sodium Level 140 mmol/L (136-145); Triglycerides 313 mg/dL; Very Low Density Lipoprotein 63 mg/dL (5-40)
== END ==
PROVIDERS: PCP Internal Medicine; Referring Provider Internal Medicine; Visit Provider Internal Medicine
DX: I10 Essential (primary) hypertension (principal); L40.59 Other psoriatic arthropathy; L40.8 Other psoriasis; K21.9 Gastro-esophageal reflux disease without esophagitis; H93.19 Tinnitus, unspecified ear; E78.5 Hyperlipidemia, unspecified; Z79.899 Other long term (current) drug therapy
CPT/HCPCS: 36415; 80053; 80061; 85025

== ENCOUNTER 2021-09-19 12:40 | Outpatient (CLI) | payer OTHER, SELFPAY ==
[2021-09-19 13:14] LABS: Absolute Lymphocyte Count 1.88 X10^3/uL (0.83-4.51); Absolute Neutrophil Count 3.8 X10^3/uL (2.0-7.7); Basophil# 0.03 X10^3/uL; Basophil% 0.5 % (0-1); Eosinophil# 0.16 X10^3/uL; Eosinophils% 2.5 % (0-5); Hematocrit 38.3 % (37-47); Hemoglobin 13.1 g/dL (12.0-15.0); Lymphocyte # 1.88 X10^3/ul (0.83-4.51); Lymphocyte % 29.4 % (19-41); Mean Corp Hgb Conc 34.2 g/dL (32-36); Mean Corpuscular Hgb 28.2 pg (27.0-32.0); Mean Corpuscular Volume 82.4 fL (81-99); Mean Platelet Vol. 9.4 fl (6.2-12.0); Monocyte# 0.53 X10^3/uL; Monocyte% 8.3 % (0-10); NRBC Flagged by Analyzer 0 % (0-5); Neutrophil # 3.78 X10^3/uL (2.7-7.7); Neutrophil % 59.1 % (47-70); Platelet Count 266 K/mm3 (150-450); RBC Distribution Width SD 38.4 fl (35.1-43.9); Red Blood Count 4.65 M/mm3 (4.2-5.4); White Blood Count 6.4 K/mm3 (4.4-11.0)
[2021-09-19 13:46] LABS: ALB/GLOB Ratio 1.2 RATIO (0.9-2.4); AST(SGOT) 27 U/L (15-37); Alanine Aminotransfer ALT/SGPT 34 U/L (13-56); Albumin, Serum 3.8 g/dL (3.2-5.0); Alkaline Phosphatase 117 U/L (45-117); Anion Gap 3 (5-15); BUN 16 mg/dL (7-18); Chloride 106 mmol/L (98-107); EST Glomerular Filtration Rate 77 mL/min (>60); Est Glom Filt Rate - Afr Amer 93 mL/min (>60); Globulin 3.1 g/dL (2.2-4.2); Glucose 97 mg/dL (74-106); Potassium 4.8 mmol/L (3.5-5.1); Protein, Total 6.9 g/dL (6.4-8.2); Sodium Level 138 mmol/L (136-145)
== END 2021-09-19 23:59 | disposition short-term general hospital (02) ==
LOC: LAB 12:44
PROVIDERS: PCP Internal Medicine; Visit Provider Internal Medicine Rheumatology
DX: L40.59 Other psoriatic arthropathy (principal); L40.8 Other psoriasis; K21.00 Gastro-esophageal reflux disease with esophagitis, without bleeding; H93.19 Tinnitus, unspecified ear; E78.5 Hyperlipidemia, unspecified; I10 Essential (primary) hypertension; M65.351 Trigger finger, right little finger; M85.80 Other specified disorders of bone density and structure, unspecified site
CPT/HCPCS: 36415; 80053; 85025

== ENCOUNTER → 2021-12-14 | Outpatient (CLI) | payer OTHER, SELFPAY ==
[2021-12-14 11:20] LABS: Absolute Lymphocyte Count 2.28 X10^3/uL (0.83-4.51); Absolute Neutrophil Count 3.6 X10^3/uL (2.0-7.7); Basophil# 0.04 X10^3/uL; Basophil% 0.6 % (0-1); Eosinophil# 0.15 X10^3/uL; Eosinophils% 2.3 % (0-5); Hematocrit 40.6 % (37-47); Hemoglobin 13.9 g/dL (12.0-15.0); Lymphocyte # 2.28 X10^3/ul (0.83-4.51); Lymphocyte % 34.4 % (19-41); Mean Corp Hgb Conc 34.2 g/dL (32-36); Mean Corpuscular Hgb 29.3 pg (27.0-32.0); Mean Corpuscular Volume 85.5 fL (81-99); Mean Platelet Vol. 9.6 fl (6.2-12.0); Monocyte# 0.54 X10^3/uL; Monocyte% 8.2 % (0-10); NRBC Flagged by Analyzer 0 % (0-5); Neutrophil % 54.3 % (47-70); Platelet Count 280 K/mm3 (150-450); RBC Distribution Width CV 12.9 % (11.6-14.6); RBC Distribution Width SD 39.6 fl (35.1-43.9); Red Blood Count 4.75 M/mm3 (4.2-5.4); White Blood Count 6.6 K/mm3 (4.4-11.0)
[2021-12-14 11:34] LABS: ALB/GLOB Ratio 1.4 RATIO (0.9-2.4); AST(SGOT) 34 U/L (15-37); Alanine Aminotransfer ALT/SGPT 39 U/L (13-56); Albumin, Serum 4.2 g/dL (3.2-5.0); Alkaline Phosphatase 110 U/L (45-117); Anion Gap 4 (5-15); BUN 15 mg/dL (7-18); BUN/Creat Ratio 19.4 RATIO (10-20); Calcium,Total 8.8 mg/dL (8.5-10.1); Chloride 104 mmol/L (98-107); Creatinine, Serum 0.77 mg/dL (0.55-1.02); EST Glomerular Filtration Rate 80 mL/min (>60); Est Glom Filt Rate - Afr Amer 97 mL/min (>60); Globulin 2.9 g/dL (2.2-4.2); Glucose 87 mg/dL (74-106); Potassium 4.6 mmol/L (3.5-5.1); Protein, Total 7.1 g/dL (6.4-8.2); Sodium Level 138 mmol/L (136-145)
== END | disposition home or self-care (01) ==
LOC: LAB 10:23
PROVIDERS: PCP Internal Medicine; Referring Provider Internal Medicine Rheumatology; Visit Provider Internal Medicine Rheumatology
DX: L40.59 Other psoriatic arthropathy (principal); L40.8 Other psoriasis; K21.00 Gastro-esophageal reflux disease with esophagitis, without bleeding; H93.19 Tinnitus, unspecified ear; E78.5 Hyperlipidemia, unspecified; I10 Essential (primary) hypertension; M65.351 Trigger finger, right little finger; M85.80 Other specified disorders of bone density and structure, unspecified site; Z79.899 Other long term (current) drug therapy
CPT/HCPCS: 36415; 80053; 85025

== ENCOUNTER 2022-03-09 12:34 | Outpatient (RCR) | payer OTHER, SELFPAY ==
[2022-03-09 13:57] LABS: Absolute Lymphocyte Count 1.69 X10^3/uL (0.83-4.51); Absolute Neutrophil Count 5.4 X10^3/uL (2.0-7.7); Basophil# 0.03 X10^3/uL; Basophil% 0.4 % (0-1); Eosinophil# 0.14 X10^3/uL; Eosinophils% 1.8 % (0-5); Hematocrit 40.4 % (37-47); Hemoglobin 13.7 g/dL (12.0-15.0); Lymphocyte # 1.69 X10^3/ul (0.83-4.51); Lymphocyte % 21.6 % (19-41); Mean Corp Hgb Conc 33.9 g/dL (32-36); Mean Corpuscular Hgb 28.8 pg (27.0-32.0); Mean Corpuscular Volume 84.9 fL (81-99); Mean Platelet Vol. 9.7 fl (6.2-12.0); Monocyte# 0.51 X10^3/uL; Monocyte% 6.5 % (0-10); NRBC Flagged by Analyzer 0 % (0-5); Neutrophil # 5.42 X10^3/uL (2.7-7.7); Neutrophil % 69.4 % (47-70); Platelet Count 301 K/mm3 (150-450); RBC Distribution Width CV 12.9 % (11.6-14.6); RBC Distribution Width SD 39.7 fl (35.1-43.9); Red Blood Count 4.76 M/mm3 (4.2-5.4); White Blood Count 7.8 K/mm3 (4.4-11.0)
[2022-03-09 14:34] LABS: ALB/GLOB Ratio 1.2 RATIO (0.9-2.4); AST(SGOT) 36 U/L (15-37); Alanine Aminotransfer ALT/SGPT 38 U/L (13-56); Albumin, Serum 3.9 g/dL (3.2-5.0); Alkaline Phosphatase 123 U/L (45-117); Anion Gap 5 (5-15); BUN 15 mg/dL (7-18); BUN/Creat Ratio 19.2 RATIO (10-20); Calcium,Total 9.2 mg/dL (8.5-10.1); Chloride 107 mmol/L (98-107); Creatinine, Serum 0.78 mg/dL (0.55-1.02); EST Glomerular Filtration Rate 79 mL/min (>60); Est Glom Filt Rate - Afr Amer 96 mL/min (>60); Globulin 3.2 g/dL (2.2-4.2); Glucose 102 mg/dL (74-106); Potassium 4.5 mmol/L (3.5-5.1); Protein, Total 7.1 g/dL (6.4-8.2); Sodium Level 140 mmol/L (136-145)
== END 2022-03-18 02:14 | disposition home or self-care (01) ==
LOC: LAB 12:34
PROVIDERS: PCP Internal Medicine; Referring Provider Internal Medicine Rheumatology; Visit Provider Internal Medicine Rheumatology
DX: L40.59 Other psoriatic arthropathy (principal); L40.8 Other psoriasis; K21.00 Gastro-esophageal reflux disease with esophagitis, without bleeding; H93.19 Tinnitus, unspecified ear; E78.5 Hyperlipidemia, unspecified; I10 Essential (primary) hypertension; M65.351 Trigger finger, right little finger; M85.80 Other specified disorders of bone density and structure, unspecified site; Z79.899 Other long term (current) drug therapy
CPT/HCPCS: 36415; 80053; 85025

== ENCOUNTER → 2022-09-05 | Outpatient (CLI) | payer OTHER, SELFPAY ==
[2022-09-05 10:59] LABS: Absolute Lymphocyte Count 1.78 X10^3/uL (0.83-4.51); Absolute Neutrophil Count 3.1 X10^3/uL (2.0-7.7); Basophil# 0.03 X10^3/uL; Basophil% 0.6 % (0-1); Eosinophil# 0.11 X10^3/uL; Hematocrit 39.4 % (37-47); Hemoglobin 13.4 g/dL (12.0-15.0); Lymphocyte # 1.78 X10^3/ul (0.83-4.51); Lymphocyte % 32.9 % (19-41); Mean Corpuscular Volume 85.3 fL (81-99); Mean Platelet Vol. 9.7 fl (6.2-12.0); Monocyte# 0.37 X10^3/uL; Monocyte% 6.8 % (0-10); NRBC Flagged by Analyzer 0 % (0-5); Neutrophil # 3.11 X10^3/uL (2.7-7.7); Neutrophil % 57.5 % (47-70); Platelet Count 268 K/mm3 (150-450); RBC Distribution Width CV 13.2 % (11.6-14.6); RBC Distribution Width SD 40.7 fl (35.1-43.9); Red Blood Count 4.62 M/mm3 (4.2-5.4); White Blood Count 5.4 K/mm3 (4.4-11.0)
[2022-09-05 11:25] LABS: ALB/GLOB Ratio 1.2 RATIO (0.9-2.4); AST(SGOT) 28 U/L (15-37); Alanine Aminotransfer ALT/SGPT 31 U/L (13-56); Alkaline Phosphatase 114 U/L (45-117); Anion Gap 5 (5-15); BUN 17 mg/dL (7-18); Calcium,Total 9.1 mg/dL (8.5-10.1); Chloride 104 mmol/L (98-107); Creatinine, Serum 0.85 mg/dL (0.55-1.02); EST Glomerular Filtration Rate 72 mL/min (>60); Est Glom Filt Rate - Afr Amer 87 mL/min (>60); Globulin 3.2 g/dL (2.2-4.2); Glucose 91 mg/dL (74-106); Potassium 4.3 mmol/L (3.5-5.1); Protein, Total 7.2 g/dL (6.4-8.2); Sodium Level 138 mmol/L (136-145)
== END | disposition home or self-care (01) ==
PROVIDERS: PCP Internal Medicine; Referring Provider Internal Medicine Rheumatology; Visit Provider Internal Medicine Rheumatology
DX: L40.59 Other psoriatic arthropathy (principal); L40.8 Other psoriasis; K21.00 Gastro-esophageal reflux disease with esophagitis, without bleeding; H93.A2 Pulsatile tinnitus, left ear; E78.5 Hyperlipidemia, unspecified; I10 Essential (primary) hypertension; M65.351 Trigger finger, right little finger; M85.80 Other specified disorders of bone density and structure, unspecified site; Z79.899 Other long term (current) drug therapy
CPT/HCPCS: 36415; 80053; 85025

== ENCOUNTER → 2022-09-25 | Outpatient (CLI) | payer OTHER, SELFPAY ==
--- NOTE | 2022-09-25 09:30 | BI_ITS ---
MAMMOGRAPHY - BILATERAL SCREENING REASON FOR EXAM: Female, 62 years old. Routine annual screening examination. PERTINENT HISTORY: Grandmothers with breast cancer. TECHNIQUE: Digital bilateral breast alicia (3D mammographic acquisition) in the CC and MLO projections. 2-D mediolateral oblique (MLO) and craniocaudad (CC) views of both breasts were obtained. CAD: Full Field Digital Mammography with Computer Added Detection was performed. COMPARISON: Comparison is made with prior study dated 01/06/2021 and 03/24/2019. FINDINGS: Breast Composition: There are scattered areas of fibroglandular density. There are no dominant masses or suspicious calcifications. No other significant abnormalities are identified. There has been no significant change since the prior study. BI/SCRN MAMM (CAD)W/ALICIA BILAT IMPRESSION: Stable bilateral screening mammogram. Yearly follow-up mammogram recommended. (A) ASSESSMENT CATEGORY: BIRADS Category 1: Negative. A letter regarding these results will be sent to the patient by the facility within 30 days. Approximately 10% of breast cancers are not detected by mammography. A normal mammogram should not delay biopsy of a clinically suspicious abnormality. [id number] Electronically Signed: Sheldon Mcdaniel MD at 11:27 EST ,
== END | disposition home or self-care (01) ==
LOC: OPBI 09:29
PROVIDERS: PCP Internal Medicine; Referring Provider Internal Medicine; Visit Provider Internal Medicine
DX: Z12.31 Encounter for screening mammogram for malignant neoplasm of breast (principal)
CPT/HCPCS: 77063; 77067

== ENCOUNTER → 2022-11-29 | Outpatient (CLI) | payer OTHER, SELFPAY ==
[2022-11-29 13:20] LABS: Absolute Lymphocyte Count 2.24 X10^3/uL (0.83-4.51); Absolute Neutrophil Count 3.2 X10^3/uL (2.0-7.7); Basophil# 0.04 X10^3/uL; Basophil% 0.7 % (0-1); Eosinophil# 0.13 X10^3/uL; Eosinophils% 2.1 % (0-5); Hematocrit 40.6 % (37-47); Hemoglobin 13.5 g/dL (12.0-15.0); Lymphocyte # 2.24 X10^3/ul (0.83-4.51); Lymphocyte % 36.5 % (19-41); Mean Corp Hgb Conc 33.3 g/dL (32-36); Mean Corpuscular Hgb 28.5 pg (27.0-32.0); Mean Corpuscular Volume 85.7 fL (81-99); Mean Platelet Vol. 9.7 fl (6.2-12.0); Monocyte% 8.1 % (0-10); NRBC Flagged by Analyzer 0 % (0-5); Neutrophil # 3.22 X10^3/uL (2.7-7.7); Neutrophil % 52.4 % (47-70); Platelet Count 288 K/mm3 (150-450); RBC Distribution Width SD 39.9 fl (35.1-43.9); Red Blood Count 4.74 M/mm3 (4.2-5.4); White Blood Count 6.1 K/mm3 (4.4-11.0)
[2022-11-29 13:55] LABS: ALB/GLOB Ratio 1.2 RATIO (0.9-2.4); AST(SGOT) 39 U/L (15-37); Alanine Aminotransfer ALT/SGPT 40 U/L (13-56); Albumin, Serum 3.9 g/dL (3.2-5.0); Alkaline Phosphatase 131 U/L (45-117); Anion Gap 4 (5-15); BUN 15 mg/dL (7-18); BUN/Creat Ratio 19.9 RATIO (10-20); Calcium,Total 9.1 mg/dL (8.5-10.1); Chloride 104 mmol/L (98-107); Creatinine, Serum 0.75 mg/dL (0.55-1.02); EST Glomerular Filtration Rate 82 mL/min (>60); Est Glom Filt Rate - Afr Amer 100 mL/min (>60); Globulin 3.2 g/dL (2.2-4.2); Glucose 95 mg/dL (74-106); Potassium 4.8 mmol/L (3.5-5.1); Protein, Total 7.1 g/dL (6.4-8.2); Sodium Level 136 mmol/L (136-145)
== END | disposition home or self-care (01) ==
PROVIDERS: PCP Internal Medicine; Referring Provider Internal Medicine Rheumatology; Visit Provider Internal Medicine Rheumatology
DX: L40.59 Other psoriatic arthropathy (principal); L40.8 Other psoriasis; K21.00 Gastro-esophageal reflux disease with esophagitis, without bleeding; H93.19 Tinnitus, unspecified ear; E78.5 Hyperlipidemia, unspecified; I10 Essential (primary) hypertension; M65.351 Trigger finger, right little finger; M85.80 Other specified disorders of bone density and structure, unspecified site; Z79.899 Other long term (current) drug therapy
CPT/HCPCS: 36415; 80053; 85025

== ENCOUNTER → 2022-12-20 | Outpatient (CLI) | payer OTHER, SELFPAY ==
--- NOTE | 2022-12-20 08:49 | ECHOCS_ITS ---
Reason For Study: MURMUR Procedure This was a 2D Doppler, Color Flow transthoracic echocardiogram. The study was technically difficult. Contrast injection was performed. Exam performed in department. Left Ventricle Normal left ventricle. The left ventricular ejection fraction is 65 %. Normal diastology for age. Right Ventricle Normal right ventricle. Atria The left and right atria are normal. Mitral Valve Trivial mitral valve insufficiency. Tricuspid Valve Trivial tricuspid valve insufficiency. Unable to estimate RV systolic pressure due to insufficient tricuspid regurgitant envelope. Aortic Valve The aortic valve is not well visualized in the short axis view. There is no aortic stenosis. No aortic valve insufficiency. Pulmonic Valve The pulmonic valve is not well visualized. Great Vessels Normal sized aortic root. Pericardium/Pleural No pericardial effusion. Medication 22 gauge I.V. with prn adaptor inserted into right arm. Diluted definity 1ml given slow IV push to enhance endocardial definition. MMode/2D Measurements & Calculations LVIDd: 4.4 cm IVSd: 0.79 cm Ao root diam: 2.7 cm LVIDs: 2.9 cm LVPWd: 0.87 cm FS: 35.3 % LAV(MOD-bp): 38.7 ml LVAd ap4: 28.2 cm2 SV(MOD-sp4): 46.8 ml LAV(MOD-bp) Indexed: 24.7 ml/m2 LVLd ap4: 7.9 cm LAV(MOD-sp2): 45.5 ml EDV(MOD-sp4): 83.9 ml LAV(MOD-sp4): 30.7 ml EDV(sp4-el): 85.6 ml LVAs ap4: 16.2 cm2 LVLs ap4: 6.2 cm ESV(MOD-sp4): 37.1 ml ESV(sp4-el): 35.8 ml EF(MOD-sp4): 55.8 % EF(sp4-el): 58.1 % SV(sp4-el): 49.8 ml LA A4 area: 13.4 cm2 LA dimension(2D): 2.9 cm RA A4 area: 16.7 cm2 Time Measurements MV dec time: 0.24 sec Doppler Measurements & Calculations MV E max joel: 60.2 cm/sec Lat Peak E' Joel: 11.2 cm/sec Med Peak E' Joel: 7.9 cm/sec MV A max joel: 68.3 cm/sec E/E' lat: 5.4 E/E' med: 7.6 MV E/A: 0.88 MV V2 max: 93.3 cm/sec MV dec slope: 271.1 cm/sec2 Ao V2 max: 143.8 cm/sec MV max P.5 mmHg Ao max P.3 mmHg MV V2 mean: 48.2 cm/sec Ao V2 mean: 95.4 cm/sec MV mean P.1 mmHg Ao mean P.2 mmHg MV V2 VTI: 24.4 cm Ao V2 VTI: 30.0 cm AV (velocity ratio): 0.81 LV V1 max: 121.9 cm/sec LV V1 max P.9 mmHg LV V1 mean P.9 mmHg LV V1 mean: 79.2 cm/sec LV V1 VTI: 24.4 cm ECHO/Echo Complete W/ Contrast Interpretation Summary The left ventricular ejection fraction is 65 %. Trivial to mild mitral valve insufficiency. Ordering Physician: Jolly Wright Referring Physician: Jolly Wright Performed By: Karina Bah RCS
== END | disposition home or self-care (01) ==
LOC: CVS 08:48
PROVIDERS: PCP Internal Medicine; Referring Provider Internal Medicine; Visit Provider Internal Medicine
DX: R01.1 Cardiac murmur, unspecified (principal)
CPT/HCPCS: 93306; Q9957; A4216; C8929

== ENCOUNTER → 2023-02-20 | Outpatient (CLI) | payer OTHER, SELFPAY ==
[2023-02-20 15:39] LABS: Absolute Lymphocyte Count 2.55 X10^3/uL (0.83-4.51); Absolute Neutrophil Count 4.1 X10^3/uL (2.0-7.7); Basophil# 0.04 X10^3/uL; Basophil% 0.5 % (0-1); Eosinophil# 0.25 X10^3/uL; Eosinophils% 3.3 % (0-5); Hematocrit 40.3 % (37-47); Hemoglobin 13.7 g/dL (12.0-15.0); Lymphocyte # 2.55 X10^3/ul (0.83-4.51); Lymphocyte % 33.4 % (19-41); Mean Corpuscular Hgb 29.2 pg (27.0-32.0); Mean Corpuscular Volume 85.9 fL (81-99); Mean Platelet Vol. 9.7 fl (6.2-12.0); Monocyte# 0.67 X10^3/uL; Monocyte% 8.8 % (0-10); NRBC Flagged by Analyzer 0 % (0-5); Neutrophil % 53.7 % (47-70); Platelet Count 290 K/mm3 (150-450); RBC Distribution Width CV 13.1 % (11.6-14.6); Red Blood Count 4.69 M/mm3 (4.2-5.4); White Blood Count 7.6 K/mm3 (4.4-11.0)
[2023-02-20 16:26] LABS: ALB/GLOB Ratio 1.2 RATIO (0.9-2.4); AST(SGOT) 31 U/L (15-37); Alanine Aminotransfer ALT/SGPT 42 U/L (13-56); Albumin, Serum 3.7 g/dL (3.2-5.0); Alkaline Phosphatase 136 U/L (45-117); Anion Gap 4 (5-15); BUN 13 mg/dL (7-18); BUN/Creat Ratio 16.9 RATIO (10-20); Calcium,Total 8.4 mg/dL (8.5-10.1); Chloride 105 mmol/L (98-107); Creatinine, Serum 0.77 mg/dL (0.55-1.02); EST Glomerular Filtration Rate 81 mL/min (>60); Est Glom Filt Rate - Afr Amer 97 mL/min (>60); Globulin 3.2 g/dL (2.2-4.2); Glucose 120 mg/dL (74-106); Potassium 4.1 mmol/L (3.5-5.1); Protein, Total 6.9 g/dL (6.4-8.2); Sodium Level 137 mmol/L (136-145)
== END | disposition home or self-care (01) ==
LOC: LAB 15:00
PROVIDERS: PCP Internal Medicine; Referring Provider Internal Medicine Rheumatology; Visit Provider Internal Medicine Rheumatology
DX: L40.59 Other psoriatic arthropathy (principal); Z79.899 Other long term (current) drug therapy
CPT/HCPCS: 36415; 80053; 85025

== ENCOUNTER → 2023-04-02 | Outpatient (CLI) | payer OTHER, SELFPAY ==
--- NOTE | 2023-04-02 09:57 | BD_ITS ---
STUDY: DUAL ENERGY X-RAY ABSORPTIOMETRY / DXA REASON FOR EXAM: Female, 62 years old. 733.90OsteopeniaBONE DENSITY REASON FOR EXAM TECHNIQUE: Bone Mineral Density (BMD) measurements of lumbar spine and bilateral hips were obtained. COMPARISON: Comparison is made with prior study March 28, 2021. FINDINGS: Lumbar Spine (L1-L4): g/cm2 (0.859) / T-score (-1.4) / Z-score (0.2) Findings are suggestive of osteopenia with a low fracture risk. Left Femur Total: g/cm2 (0.814) / T-score (-1.0) / Z-score (0.1) Left Femoral Neck: g/cm2 (0.615) / T-score (-2.1) / Z-score (-0.6) Right Femur Total: g/cm2 (0.770) / T-score (-1.4) / Z-score (-0.2) Right Femoral Neck: g/cm2 (0.596) / T-score (-2.3) / Z-score (-0.8) The T-Scores on the most recent prior examination were: Lumbar Spine (L1-L4): There has been worsening of bone density since the previous examination. Left Femur Total: which represents an improvement of 1.4%. Right Femur Total: which represents a worsening of 0.5%. BD/Dexa Bone Density Study IMPRESSION: The patient is considered osteopenic as outlined below according to World Cristi Organization (WHO) criteria with a high fracture risk. There has been worsening of bone density since the previous examination. Reference Information: The T-score is the number of standard deviations above or below the standard which is normal for young adults at their peak bone mineral density. The World Health Organization (WHO) interprets the T-scores as follows: Above -1 Normal bone density Between -1 and -2.5 Osteopenia Equal to / or below -2.5 Osteoporosis As a practical clinical guideline, osteopenia may be graded as follows: Mild -1 through -1.5 Moderate -1.6 through -2.0 Severe -2.1 through -2.4 The Z-score is the number of standard deviations above or below age-matched controls. A Z-score of less than -1.5 would be considered abnormal. References: 1. NIH Osteoporosis and Related Bone Diseases www osteo.org 2. International Society for Clinical Densitometry www iscd.org 3. National Osteoporosis Foundation www nof.org Electronically Signed: Sheldon Mcdaniel MD at 10:44 EDT ,
== END | disposition home or self-care (01) ==
LOC: OPBD 09:49
PROVIDERS: PCP Internal Medicine; Referring Provider Internal Medicine; Visit Provider Internal Medicine
DX: M85.80 Other specified disorders of bone density and structure, unspecified site (principal)
CPT/HCPCS: 77080

== ENCOUNTER → 2023-04-30 | Outpatient (CLI) | payer OTHER, SELFPAY ==
--- NOTE | 2023-04-30 14:18 | US_ITS ---
STUDY: ULTRASOUND BREAST - RIGHT REASON FOR EXAM: Female, 63 years old. Nipple discharge in the right breast. TECHNIQUE: Axial and longitudinal images of the RIGHT breast were performed with a high resolution ultrasound transducer. # OF IMAGES: 15 COMPARISON: Comparison is made with prior mammogram dated April 30, 2023. FINDINGS: RIGHT Breast: The retroareolar region of the right breast was examined with ultrasound. No sonographic abnormality is seen. US/Breast Limited Unilateral IMPRESSION: Unremarkable targeted ultrasound of the right breast. ASSESSMENT CATEGORY: BIRADS Category 1: Negative. A letter regarding these results will be sent to the patient by the facility within 30 days. Electronically Signed: Sheldon Mcdaniel MD at 14:59 EDT ,
--- NOTE | 2023-04-30 14:18 | BI_ITS ---
MAMMOGRAPHY - UNILATERAL DIAGNOSTIC: RIGHT BREAST REASON FOR EXAM: Female, 63 years old. Right nipple dimpling with clear discharge. PERTINENT HISTORY: Sister with breast cancer. Grandmothers with breast cancer. TECHNIQUE: Digital unilateral breast jazmin (3D mammographic acquisition) in the CC and MLO projections. 2-D mediolateral oblique (MLO) and craniocaudad (CC) views of both breasts were obtained. CAD: Full Field Digital Mammography with Computer Added Detection was performed. COMPARISON: Comparison is made with prior study dated September 25, 2022 and January 06, 2021. FINDINGS: Breast Composition: The breasts are heterogeneously dense, which may obscure small masses. There are no dominant masses or suspicious calcifications. No other significant abnormalities are identified. There has been no significant change since the prior study. BI/DIAG MAMM W/CAD, UNILAT IMPRESSION: Stable unilateral diagnostic mammogram. With the patient''s history of left nipple dimpling and discharge sonographic correlation is recommended. ASSESSMENT CATEGORY: BIRADS Category 0: Incomplete. Need additional imaging evaluation. A letter regarding these results will be sent to the patient by the facility within 30 days. Approximately 10% of breast cancers are not detected by mammography. A normal mammogram should not delay biopsy of a clinically suspicious abnormality. Electronically Signed: Sheldon Mcdaniel MD at 15:21 EDT ,
== END | disposition home or self-care (01) ==
PROVIDERS: PCP Internal Medicine; Referring Provider Internal Medicine; Visit Provider Internal Medicine
DX: N64.52 Nipple discharge (principal)
CPT/HCPCS: 76642; 77061; 77065; G0279

== ENCOUNTER → 2023-05-27 | Outpatient (CLI) | payer OTHER, SELFPAY ==
[2023-05-27 10:12] LABS: Absolute Lymphocyte Count 1.74 X10^3/uL (0.83-4.51); Absolute Neutrophil Count 4.2 X10^3/uL (2.0-7.7); Basophil# 0.04 X10^3/uL; Basophil% 0.6 % (0-1); Eosinophil# 0.14 X10^3/uL; Eosinophils% 2.1 % (0-5); Hematocrit 40.3 % (37-47); Hemoglobin 13.3 g/dL (12.0-15.0); Lymphocyte # 1.74 X10^3/ul (0.83-4.51); Lymphocyte % 26.3 % (19-41); Mean Corpuscular Hgb 28.7 pg (27.0-32.0); Mean Corpuscular Volume 86.9 fL (81-99); Mean Platelet Vol. 9.6 fl (6.2-12.0); Monocyte# 0.47 X10^3/uL; Monocyte% 7.1 % (0-10); NRBC Flagged by Analyzer 0 % (0-5); Neutrophil # 4.21 X10^3/uL (2.7-7.7); Neutrophil % 63.7 % (47-70); Platelet Count 267 K/mm3 (150-450); RBC Distribution Width CV 13.1 % (11.6-14.6); RBC Distribution Width SD 41.1 fl (35.1-43.9); Red Blood Count 4.64 M/mm3 (4.2-5.4); White Blood Count 6.6 K/mm3 (4.4-11.0)
[2023-05-27 11:11] LABS: ALB/GLOB Ratio 1.4 RATIO (0.9-2.4); AST(SGOT) 26 U/L (15-37); Alanine Aminotransfer ALT/SGPT 36 U/L (13-56); Albumin, Serum 4.1 g/dL (3.2-5.0); Alkaline Phosphatase 132 U/L (45-117); Anion Gap 7 (5-15); BUN 10 mg/dL (7-18); BUN/Creat Ratio 14.5 RATIO (10-20); Calcium,Total 8.8 mg/dL (8.5-10.1); Chloride 105 mmol/L (98-107); Creatinine, Serum 0.69 mg/dL (0.55-1.02); EST Glomerular Filtration Rate 91 mL/min (>60); Est Glom Filt Rate - Afr Amer 110 mL/min (>60); Glucose 90 mg/dL (74-106); Potassium 3.8 mmol/L (3.5-5.1); Protein, Total 7.1 g/dL (6.4-8.2); Sodium Level 141 mmol/L (136-145)
== END | disposition home or self-care (01) ==
LOC: LAB 09:37
PROVIDERS: PCP Internal Medicine; Referring Provider Internal Medicine Rheumatology; Visit Provider Internal Medicine Rheumatology
DX: L40.59 Other psoriatic arthropathy (principal); L40.8 Other psoriasis; Z79.899 Other long term (current) drug therapy
CPT/HCPCS: 36415; 80053; 85025

== ENCOUNTER → 2023-06-12 | Outpatient (CLI) | payer OTHER, SELFPAY ==
--- NOTE | 2023-06-12 11:19 | MRI_ITS ---
STUDY: BILATERAL BREAST MR WITHOUT AND WITH CONTRAST REASON FOR EXAM: Female, 63 years old. Sister with breast cancer. Right nipple discharge. TECHNIQUE: Multi-sequence multi-echo imaging of both breasts was performed with a dedicated breast coil. T1-weighted and T2-weighted images were performed before the administration of contrast. T1-weighted images were also performed after the intravenous administration of 12ml of Clariscan. COMPARISON: Bilateral mammograms dated April 02, 2023 and September 25, 2022. Unilateral right mammogram dated April 30, 2023 and right breast ultrasound dated April 30, 2023. FINDINGS: RIGHT BREAST: Scattered fibroglandular densities with minimal background enhancement. Nicol abnormal enhancing masses or areas of non-mass enhancement in the right breast. LEFT BREAST: Scattered fibroglandular densities with minimal background enhancement. Nicol abnormal enhancing masses or areas of non-mass enhancement in the right breast. No enlarged or abnormal lymph nodes. No abnormality in the visualized regions of the chest or liver. MRI/Breast Bilateral W/O and W IMPRESSION: No abnormality on the breast MRI examination with contrast. Follow-up annual mammogram recommended. CATEGORY: BIRADS Category 2: Benign. A letter regarding these results will be sent to the patient by the facility within 30 days. Electronically Signed: Kishan Watson MD at 14:12 EDT ,
== END | disposition home or self-care (01) ==
PROVIDERS: PCP Internal Medicine; Referring Provider Internal Medicine; Visit Provider Internal Medicine
DX: N64.52 Nipple discharge (principal)
CPT/HCPCS: 77049; A9575; A4216; C8908

== ENCOUNTER → 2023-08-22 | Outpatient (CLI) | payer OTHER, SELFPAY ==
--- OUTSIDE RECORDS SUMMARY | 2023-08-22 09:38 | XMS RPT_ITS | CCD ---
Author Name Unknown Address [address] [place] [address] Organization [facility] Care Team Providers Care Acid Treater Name Role Phone Jolly Wright Unavailable Skylar Sanchez Unavailable Miles Oconnor Unavailable SHI Harrell Unavailable Unavailable Unavailable Unavailable Jolly Wright MD Unavailable Skylar Sanchez Unavailable Miles Oconnor MD Unavailable SHI Harrell LPN Unavailable Unavailable Starla Miller CMA Unavailable Unavailabl e Unavailable Unavailable Jolly Wright MD Unavailable Gwendolyn Juan LPN Unavailable Unavailable Beatriz Barnett MA Unavailable Unavailable Jolly Wright MD Attending Unavailable Jolly Wright MD Referring Unavailable Jolly Wright MD Consulting Unavailable Medications Current Medications Medication Drug Class(es) Dates Sig (Normalized) Sig (Original) ramipril 2.5 mg oral capsule (20 sources) Angiotensin Converting Enzyme Inhibitor Start: 06-10-2023 take 1 capsule by mouth in the morning ramipriL 2.5 mg oral capsule 1 (one) Capsule in am for 30 days Quantity: 30 {Capsule} Refills: 6 Ordered: 10-Jun-2023 Jolly Wright MD, MD, Dana M Start : 10-Jun-2023 Active Completed/Discontinued Medications Medication Drug Class(es) Dates Sig (Normalized) Sig (Original) acetaminophen 500 mg oral capsule (20 sources) End: 06-26-2013 take 1 capsule by mouth once as needed TYLENOL, 500MG (PO Cap) 1 PRN for 0 days Refills: 0 Ordered: 26-Jun-2013 Julio Cesar AMIESHI End : 26-Jun-2013 Discontinued Comments: This order discontinued per -Span. Problems Active Problems Problem Classification Problem Date Documented Da te Episodic/Chronic Administrative/social admission (2 sources) Pneumococcal vaccination given; Translations: [Pneumococcal vaccination given] Resolved: 02-21-2017 02-21-2017 Episodic Anxiety disorders (20 sources) Acute stress disorder; Translations: [Stress reaction (Renamed from Acute reaction to stress)] 02-10-2019 Chronic Past or Other Problems Problem Classification Problem Date Documented Da te Episodic/Chronic Other non-traumatic joint disorders (19 sources) Knee pain; Translations: [Acute pain of right knee] Resolved: 02-21-2017 02-21-2017 Episodic Results Test Name Value Interpretation Reference Range Facil ity Vital Signs Date Time Vital Sign Value Performing Clinician Facility 04-25-2023 14:55-0400 Body height 154.43 cm Gwendolyn Juan LPN [facility]; [facility] Work Phone: 04-25-2023 14:55-0400 Body mass index (BMI) [Ratio] 24.53 kg/m2 Gwendolyn Juan LPN [facility]; [facility] Work Phone: 04-25-2023 14:55-0400 Body surface area Derived from formula 1.56 m2 [facility]; [facility] Work Phone: 04-25-2023 14:55-0400 Body temperature 98 [degF] Gwendolyn Juan LPN [facility]; [facility] Work Phone: 04-25-2023 14:55-0400 Body weight 58.51 kg Gwendolyn Juan LPN [facility]; [facility] Work Phone: 04-25-2023 14:55-0400 Diastolic blood pressure 90 mm[Hg] Gwendolyn Juan LPN [facility]; [facility] Work Phone: Encounters Encounter Date Encounter Type Care Provider Facility Start: 05-17-2023 Review Jolly Chavira Work Phone: [facility] Start: 05-07-2023 End: 05-07-2023 Annotation/Addendum Jolly Wright MD Work Phone: [facility] Start: 04-25-2023 End: 04-25-2023 Office outpatient visit 15 minutes Jolly Wright MD Work Phone: [facility] Start: 11-21-2022 End: 11-21-2022 Office outpatient visit 25 minutes Jolly Wright MD Work Phone: [facility] Start: 11-21-2022 End: 11-21-2022 Patient encounter status Jolly Wright MD Work Phone: [facility] Work Phone: Procedures Date Procedure Procedure Detail Performing Clinician Start: 04-30-2023 End: 05-01-2023 Breast Limited Unilateral Procedure Note: See Note; NOTES: [facility] Services [address] [place] [address] Breast Limited Unilateral MR#: [id number] Acct: [id number] Name: CHRISTINA US Rep #: [id number] : 1960 F 63 From: Sheldon mcdonough MD PCP: Dr. Jolly Wright MD Status: REG CLI Study: Breast Limited Unilateral Date of Exam: Exam# [id number] Ordering Dr: Jolly Wright MD STUDY: ULTRASOUND BREAST - RIGHT REASON FOR EXAM: Female, 63 years old. Nipple discharge in the right breast. TECHNIQUE: Axial and longitudinal images of the RIGHT breast were performed with a high resolution ultrasound transducer. # OF IMAGES: 15 COMPARISON: Comparison is made with prior mammogram dated April 30, 2023. FINDINGS: RIGHT Breast: The retroareolar region of the right breast was examined with ultrasound. No sonographic abnormality is seen. US/Breast Limited Unilateral IMPRESSION: Unremarkable targeted ultrasound of the right breast. ASSESSMENT CATEGORY: BIRADS Category 1: Negative. A letter regarding these results will be sent to the patient by the facility within 30 days. Electronically Signed: Sheldon Mcdaniel MD at 14:59 EDT , CC: Dr. Jolly Wright MD Associate Trainer: Signed Jolly Wright MD Work Phone: Start: 04-30-2023 End: 04-30-2023 DIAG MAMM W/CAD, UNILAT Procedure Note: See Note; NOTES: Imaging Services [address] [place] [address] DIAG MAMM W/CAD, UNILAT MR#: [id number] Acct: [id number] Name: CHRISTINA US Rep #: [id number] : 1960 F 63 From: Sheldon mcdonough MD PCP: Dr. Jolly Wright MD Status: [facility] Study: DIAG MAMM W/CAD, UNILAT Date of Exam: 04/30/23 Exam# [id number] Ordering Dr: Jolly Wright MD MAMMOGRAPHY - UNILATERAL DIAGNOSTIC: RIGHT BREAST REASON FOR EXAM: Female, 63 years old. Right nipple dimpling with clear discharge. PERTINENT HISTORY: Sister with breast cancer. Grandmothers with breast cancer. TECHNIQUE: Digital unilateral breast alicia (3D mammographic acquisition) in the CC and MLO projections. 2-D mediolateral oblique (MLO) and craniocaudad (CC) views of both breasts were obtained. CAD: Full Field Digital Mammography with Computer Added Detection was performed. COMPARISON: Comparison is made with prior study dated September 25, 2022 and January 06, 2021. FINDINGS: Breast Composition: The breasts are heterogeneously dense, which may obscure small masses. There are no dominant masses or suspicious calcifications. No other significant abnormalities are identified. There has been no significant change since the prior study. BI/DIAG MAMM W/CAD, UNILAT IMPRESSION: Stable unilateral diagnostic mammogram. With the patient''s history of left nipple dimpling and discharge sonographic correlation is recommended. ASSESSMENT CATEGORY: BIRADS Category 0: Incomplete. Need additional imaging evaluation. A letter regarding these results will be sent to the patient by the facility within 30 days. Approximately 10% of breast cancers are not detected by mammography. A normal mammogram should not delay biopsy of a clinically suspicious abnormality. Electronically Signed: Sheldon Mcdaniel MD at 15:21 EDT Reading Location ID and State: [facility] / [place] , Service support , CC: Dr. Jolly Wright MD Associate Trainer: Signed Jolly Wright MD Work Phone: Start: 04-02-2023 End: 04-03-2023 Dexa Bone Density Study Procedure Note: See Note; NOTES: Imaging Services [address] [place] [address] Dexa Bone Density Study MR#: [id number] Acct: [id number] Name: CHRISTINA US Rep #: [id number] : 1960 F 62 From: Sheldon mcdonough MD PCP: Dr. Jolly Wright MD Status: [facility] Study: Dexa Bone Density Study Date of Exam: 04/02/23 Exam# [id number] Ordering Dr: Jolly Wright MD STUDY: DUAL ENERGY X-RAY ABSORPTIOMETRY / DXA REASON FOR EXAM: Female, 62 years old. 733.90OsteopeniaBONE DENSITY REASON FOR EXAM TECHNIQUE: Bone Mineral Density (BMD) measurements of lumbar spine and bilateral hips were obtained. COMPARISON: Comparison is made with prior study March 28, 2021. FINDINGS: Lumbar Spine (L1-L4): g/cm2 (0.859) / T-score (-1.4) / Z-score (0.2) Findings are suggestive of osteopenia with a low fracture risk. Left Femur Total: g/cm2 (0.814) / T-score (-1.0) / Z-score (0.1) Left Femoral Neck: g/cm2 (0.615) / T-score (-2.1) / Z-score (-0.6) Right Femur Total: g/cm2 (0.770) / T-score (-1.4) / Z-score (-0.2) Right Femoral Neck: g/cm2 (0.596) / T-score (-2.3) / Z-score (-0.8) The T-Scores on the most recent prior examination were: Lumbar Spine (L1-L4): There has been worsening of bone density since the previous examination. Left Femur Total: which represents an improvement of 1.4%. Right Femur Total: which represents a worsening of 0.5%. BD/Dexa Bone Density Study IMPRESSION: The patient is considered osteopenic as outlined below according to World Cristi Organization (WHO) criteria with a high fracture risk. There has been worsening of bone density since the previous examination. Reference Information: The T-score is the number of standard deviations above or below the standard which is normal for young adults at their peak bone mineral density. The World Health Organization (WHO) interprets the T-scores as follows: Above -1 Normal bone density Between -1 and -2.5 Osteopenia Equal to / or below -2.5 Osteoporosis As a practical clinical guideline, osteopenia may be graded as follows: Mild -1 through -1.5 Moderate -1.6 through -2.0 Severe -2.1 through -2.4 The Z-score is the number of standard deviations above or below age-matched controls. A Z-score of less than -1.5 would be considered abnormal. References: 1. NIH Osteoporosis and Related Bone Diseases www osteo.org 2. International Society for Clinical Densitometry www iscd.org 3. National Osteoporosis Foundation www nof.org Electronically Signed: Sheldon Mcdaniel MD at 10:44 EDT Reading Location ID and State: [facility] / [place] , Service support , CC: Dr. Jolly Wright MD Associate Trainer: Signed Jolly Wright MD Work Phone: Start: 12-20-2022 End: 12-20-2022 Echo Complete W/ Contrast Procedure Note: See Note; NOTES: [facility] [address] [place] [address] Echo Complete W/ Contrast 12/20/22 0856 MR#: [id number] Acct: [id number] Name: CHRISTINA US Rep #: [id number] : 1960 62 From: James Armas MD Attending Dr: Dr. Jolly Wright MD Status: REG CLI Ordering Dr: Jolly Wright MD Date: 12/20/22 Location: [facility] Sex: F C Admitted: Reason For Study: MURMUR Procedure This was a 2D Doppler, Color Flow transthoracic echocardiogram. The study was technically difficult. Contrast injection was performed. Exam performed in department. Left Ventricle Normal left ventricle. The left ventricular ejection fraction is 65 %. Normal diastology for age. Right Ventricle Normal right ventricle. Atria The left and right atria are normal. Mitral Valve Trivial mitral valve insufficiency. Tricuspid Valve Trivial tricuspid valve insufficiency. Unable to estimate RV systolic pressure due to insufficient tricuspid regurgitant envelope. Aortic Valve The aortic valve is not well visualized in the short axis view. There is no aortic stenosis. No aortic valve insufficiency. Pulmonic Valve The pulmonic valve is not well visualized. Great Vessels Normal sized aortic root. Pericardium/Pleural No pericardial effusion. Medication 22 gauge I.V. with prn adaptor inserted into right arm. Diluted definity 1ml given slow IV push to enhance endocardial definition. MMode/2D Measurements Calculations LVIDd: 4.4 cm IVSd: 0.79 cm Ao root diam: 2.7 cm LVIDs: 2.9 cm LVPWd: 0.87 cm FS: 35.3 % LAV(MOD-bp): 38.7 ml LVAd ap4: 28.2 cm2 SV(MOD-sp4): 46.8 ml LAV(MOD-bp) Indexed: 24.7 ml/m2 LVLd ap4: 7.9 cm LAV(MOD-sp2): 45.5 ml EDV(MOD-sp4): 83.9 ml LAV(MOD-sp4): 30.7 ml EDV(sp4-el): 85.6 ml LVAs ap4: 16.2 cm2 LVLs ap4: 6.2 cm ESV(MOD-sp4): 37.1 ml ESV(sp4-el): 35.8 ml EF(MOD-sp4): 55.8 % EF(sp4-el): 58.1 % SV(sp4-el): 49.8 ml LA A4 area: 13.4 cm2 LA dimension(2D): 2.9 cm RA A4 area: 16.7 cm2 Time Measurements MV dec time: 0.24 sec Doppler Measurements Calculations MV E max joel: 60.2 cm/sec Lat Peak E' Joel: 11.2 cm/sec Med Peak E' Joel: 7.9 cm/sec MV A max joel: 68.3 cm/sec E/E' lat: 5.4 E/E' med: 7.6 MV E/A: 0.88 MV V2 max: 93.3 cm/sec MV dec slope: 271.1 cm/sec2 Ao V2 max: 143.8 cm/sec MV max P.5 mmHg Ao max P.3 mmHg MV V2 mean: 48.2 cm/sec Ao V2 mean: 95.4 cm/sec MV mean P.1 mmHg Ao mean P.2 mmHg MV V2 VTI: 24.4 cm Ao V2 VTI: 30.0 cm AV (velocity ratio): 0.81 LV V1 max: 121.9 cm/sec LV V1 max P.9 mmHg LV V1 mean P.9 mmHg LV V1 mean: 79.2 cm/sec LV V1 VTI: 24.4 cm ECHO/Echo Complete W/ Contrast Interpretation Summary The left ventricular ejection fraction is 65 %. Trivial to mild mitral valve insufficiency. Ordering Physician: Jolly Wright Referring Physician: Jolly Wright Performed By: Karina Bah RCS 12/20/22 1304 Date James Armas MD CC: Dr. Jolly Wright MD Date Dictated: 12/20/2256 Date Transcribed: 12/20/22 1304 Associate Trainer: Signed Jolly Wright MD Work Phone: Start: 09-25-2022 End: 09-25-2022 SCRN MAMM (CAD)W/ALICIA BILAT Procedure Note: See Note; NOTES: Imaging Services [address] [place] [address] SCRN MAMM (CAD)W/ALICIA BILAT MR#: [id number] Acct: [id number] Name: CHRISTINA US Rep #: [id number] : 1960 F 62 From: Sheldon mcdonough MD PCP: Dr. Jolly Wright MD Status: [facility] Study: SCRN MAMM (CAD)W/ALICIA BILAT Date of Exam: 03/10 Exam# [id number] Ordering Dr: Jolly Wright MD MAMMOGRAPHY - BILATERAL SCREENING REASON FOR EXAM: Female, 62 years old. Routine annual screening examination. PERTINENT HISTORY: Grandmothers with breast cancer. TECHNIQUE: Digital bilateral breast alicia (3D mammographic acquisition) in the CC and MLO projections. 2-D mediolateral oblique (MLO) and craniocaudad (CC) views of both breasts were obtained. CAD: Full Field Digital Mammography with Computer Added Detection was performed. COMPARISON: Comparison is made with prior study dated 01/06/2021 and 03/24/2019. FINDINGS: Breast Composition: There are scattered areas of fibroglandular density. There are no dominant masses or suspicious calcifications. No other significant abnormalities are identified. There has been no significant change since the prior study. BI/SCRN MAMM (CAD)W/ALICIA BILAT IMPRESSION: Stable bilateral screening mammogram. Yearly follow-up mammogram recommended. (A) ASSESSMENT CATEGORY: BIRADS Category 1: Negative. A letter regarding these results will be sent to the patient by the facility within 30 days. Approximately 10% of breast cancers are not detected by mammography. A normal mammogram should not delay biopsy of a clinically suspicious abnormality. [id number] Electronically Signed: Sheldon Mcdaniel MD at 11:27 EST Reading Location ID and State: [facility] / [place] , Service support , CC: Dr. Jolly Wright MD Associate Trainer: Signed Jolly Wright MD Work Phone: Start: 05-05-2021 End: 05-05-[address] Comments: See Note; NOTES: Imaging Services [address] [place] [address] 05/05/21 1725 MR#: [id number] Acct: [id number] Name: MAGENCHRISTINA RAI Rep #: [id number] : 1960 61 From: Jad Mason MD PCP: Dr. Jolly Wright MD Status:REG CLI Y Location: CT Calcium Scoring Date of Study:: 05/05/21 Coronary Calcium Scoring: High-resolution Computed Tomographic imaging of the chest was performed on 05/05/2021 with particular attention paid to the coronary arteries. Images from the examination were analyzed for the presence and extent of coronary artery calcification , using coronary calcium quantification software. The patient tolerated the procedure well and there were no complications. The results of the coronary calcification analysis are provided below. Findings Coronary Artery Left Main (LM): 0 Left Anterior Descending (LAD): 0 Left Circumflex (LCX): 0 Right Coronary Artery (RCA): 0 Total Agatston Score: 0 Percentile Ranking: Based on prepublished reference tables 25% of people of the same gender/similar age had the same/lower scores Calcium Scoring Interpretation: 0 No identifiable atherosclerotic plaque. Very low cardiovascular disease risk. <5% chance of presence coronary artery disease A Negative Examination 1-10 Minimal Plaque burden. Significant coronary artery disease very unlikely. 11-100 Mild plaque burden. Likely mild or minimal coronary atherosclerosis. 101-400 Moderate plaque burden Moderate non-obstructive coronary artery disease highly likely. Over 400 Extensive plaque burden. High likelihood of at least one significant coronary stenosis (>50% diameter) Calcium Score: 0 Negative Examination Conclusion: Continue cardiovascular risk factor evaluation and care as deemed appropriate. This note was generated using a voice recognition system and there may be incorrect words, spelling or punctuation that were not noted when reviewing the office note prior to saving. 05/05/21 1726 <Electronically signed by Jad Mason MD> Date Jad Mason MD Cosigner Signature (if applicable): Date CC: Dr. Jolly Wright MD Signed Jolly Wright MD Work Phone: Start: 05-05-2021 End: 05-05-[address] w/CCTA Comments: See Note; NOTES: Imaging Services [address] [place] [address] w/CCTA MR#: [id number] Acct: [id number] Name: CHRISTINA US Rep #: [id number] : 1960 F 61 From: Sheldon mcdonough MD PCP: Dr. Jolly Wright MD Status: [facility] Study: Limited Chest CT w/CCTA Date of Exam: 05/05/21 Exam# [id number] Ordering Dr: Jolly Wright MD STUDY: CARDIAC CALCIUM SCORING - CT CHEST REASON FOR EXAM: Female, 61 years old. SCREENING. Overread of the coronary calcium scoring examination. RADIATION DOSAGE (If Supplied By Facility): CTDIvol = ( 12.19 ) mGy, DLP = ( 219.42 ) mGycm TECHNIQUE: Axial non-enhanced images were acquired through the heart for the sole purpose of measuring coronary artery calcium. Individualized dose optimization techniques were used for this CT. COMPARISON: None. FINDINGS: Small mediastinal lymph nodes. Calcified right hilar lymph nodes. No pulmonary abnormalities. CT/Limited Chest CT w/CCTA IMPRESSION: No pulmonary abnormality is seen. Electronically Signed: Sheldon Mcdaniel MD at 13:42 EDT , Service support , CC: Dr. Jolly Wright MD Associate Trainer: Signed Jolly Wright MD Work Phone: Start: 03-28-2021 End: 03-29-2021 Dexa Bone Density Study Comments: See Note; NOTES: Imaging Services [address] [place] [address] Dexa Bone Density Study MR#: [id number] Acct: [id number] Name: CHRISTINA US Rep #: [id number] : 1960 F 60 From: Sheldon mcdonough MD PCP: Dr. Jolly Wright MD Status: [facility] Study: Dexa Bone Density Study Date of Exam: 03/28/21 Exam# [id number] Ordering Dr: Jolly Wright MD STUDY: DUAL ENERGY X-RAY ABSORPTIOMETRY / DXA REASON FOR EXAM: Female, 60 years old. [id number]. The patient is postmenopausal. TECHNIQUE: Bone Mineral Density (BMD) measurements of lumbar spine and bilateral hips were obtained. COMPARISON: Comparison is made with prior study 03/24/2019 and 09/18/2016. FINDINGS: Lumbar Spine (L1-L4): g/cm2 (0.812) / T-score (-1.5) / Z-score (0.1) Findings are suggestive of osteopenia with a low fracture risk. Left Femur Total: g/cm2 (0.803) / T-score (-1.1) / Z-score (-0.1) Left Femoral Neck: g/cm2 (0.605) / T-score (-2.2) / Z-score (-0.8) Right Femur Total: g/cm2 (0.774) / T-score (-1.4) / Z-score (-0.3) Right Femoral Neck: g/cm2 (0.624) / T-score (-2.0) / Z-score (-0.7) The T-Scores on the most recent prior examination were: Lumbar Spine (L1-L4): There has been worsening of bone density since the previous examination. Left Femur Total: which represents an improvement of 0.6%. Right Femur Total: which represents a worsening of 3.3%. BD/Dexa Bone Density Study IMPRESSION: The patient is considered osteopenic as outlined below according to World Cristi Organization (WHO) criteria with a high fracture risk. There has been worsening of bone density since the previous examination. Reference Information: The T-score is the number of standard deviations above or below the standard which is normal for young adults at their peak bone mineral density. The World Health Organization (WHO) interprets the T-scores as follows: Above -1 Normal bone density Between -1 and -2.5 Osteopenia Equal to / or below -2.5 Osteoporosis As a practical clinical guideline, osteopenia may be graded as follows: Mild -1 through -1.5 Moderate -1.6 through -2.0 Severe -2.1 through -2.4 The Z-score is the number of standard deviations above or below age-matched controls. A Z-score of less than -1.5 would be considered abnormal. References: 1. NIH Osteoporosis and Related Bone Diseases www osteo.org 2. International Society for Clinical Densitometry www iscd.org 3. National Osteoporosis Foundation www nof.org Electronically Signed: Sheldon Mcdaniel MD at 14:08 EDT , Service support , CC: Dr. Jolly Wright MD Associate Trainer: Signed Jolly Wright MD Work Phone: Start: 01-06-2021 End: 01-06-2021 SCRN MAMM (CAD)W/ALICIA BILAT Comments: See Note; NOTES: Imaging Services [address] [place] [address] SCRN MAMM (CAD)W/ALICIA BILAT MR#: [id number] Acct: [id number] Name: CHRISTINA US Rep #: [id number] : 1960 F 60 From: Dandy Lynne MD PCP: Dr. Jolly Wright MD Status: REG CLI Study: SCRN MAMM (CAD)W/ALICIA BILAT Date of Exam: 12/18 09/08 Exam# [id number] Ordering Dr: Jolly Wright MD MAMMOGRAPHY - BILATERAL SCREENING 3-D TOMOSYNTHESIS REASON FOR EXAM: Female, 60 years old. Routine screening PERTINENT HISTORY: Grandmother with breast cancer.. TECHNIQUE: 2-D mammograms and 3-D Tomosynthesis of the breast (s) were performed. CAD was performed. COMPARISON: 03/24/2019 FINDINGS: The breast composition is composed of scattered fibroglandular density. Scattered benign calcifications are seen. No dense spiculated masses or suspicious microcalcifications are identified. No architectural distortion is identified. There is no skin thickening or retraction. There has been no significant change since the prior study. BI/SCRN MAMM (CAD)W/ALICIA BILAT IMPRESSION: No mammographic signs of malignancy. Routine yearly mammograms recommended. ASSESSMENT CATEGORY: BIRADS Category 2: Benign. A letter regarding these results will be sent to the patient by the facility within 30 days. FOLLOW UP RECOMMENDATION: Yearly follow up mammogram recommended. (A) Approximately 10% of breast cancers are not detected by mammography. A normal mammogram should not delay biopsy of a clinically suspicious abnormality. Electronically Signed: Agustin Lynne MD at 10:17 EDT , Service support , CC: Dr. Jolly Wright MD Associate Trainer: Signed Jolly Wright MD Work Phone: Start: 03-24-2019 End: 03-24-2019 Dexa Bone Density Study Comments: See Note; NOTES: Imaging Services [address] [place] [address] Dexa Bone Density Study MR#: [id number] Acct: [id number] Name: CHRISTINA US Rep #: [id number] : 1960 F 58 From: Sheldon Mcdaniel MD PCP: Jolly Wright MD Status: REG CLI Study: Dexa Bone Density Study Date of Exam: 03/24/19 Exam# [id number] Ordering Dr: Jolly Wright MD STUDY: DUAL ENERGY X-RAY ABSORPTIOMETRY / DXA REASON FOR EXAM: Female, 58 years old. The patient is postmenopausal. Loss of height. TECHNIQUE: Bone Mineral Density (BMD) measurements of lumbar spine and bilateral hips were obtained. COMPARISON: Comparison is made with prior study dated September 18, 2016. FINDINGS: Lumbar Spine (L1-L4): g/cm2 (0.934) / T-score (-1.9) / Z-score (-0.7) Findings are suggestive of osteopenia with a moderate fracture risk. Left Femur Total: g/cm2 (0.860) / T-score (-1.2) / Z-score (-0.3) Left Femoral Neck: g/cm2 (0.776) / T-score (-1.9) / Z-score (-0.7) Right Femur Total: g/cm2 (0.863) / T-score (-1.2) / Z-score (-0.2) Right Femoral Neck: g/cm2 (0.787) / T-score (-1.8) / Z-score (-0.6) The T-Scores on the most recent prior examination were: Lumbar Spine (L1-L4): There has been worsening of bone density since the previous examination. Left Femur Total: which represents a worsening of 6.3%. Right Femur Total: which represents a worsening of 2.8%. BD/Dexa Bone Density Study IMPRESSION: The patient is considered osteopenic as outlined below according to World Cristi Organization (WHO) criteria with a moderate fracture risk. There has been worsening of bone density since the previous examination. Reference Information: The T-score is the number of standard deviations above or below the standard which is normal for young adults at their peak bone mineral density. The World Health Organization (WHO) interprets the T-scores as follows: Above -1 Normal bone density Between -1 and -2.5 Osteopenia Equal to / or below -2.5 Osteoporosis As a practical clinical guideline, osteopenia may be graded as follows: Mild -1 through -1.5 Moderate -1.6 through -2.0 Severe -2.1 through -2.4 The Z-score is the number of standard deviations above or below age-matched controls. A Z-score of less than -1.5 would be considered abnormal. References: 1. NIH Osteoporosis and Related Bone Diseases http://www.osteo.org 2. International Society for Clinical Densitometry http://www.iscd.org 3. National Osteoporosis Foundation http://www.nof.org Electronically Signed: Sheldon Mcdaniel, at 15:54 EDT , Service support , CC: Jolly Wright MD Associate Trainer: Signed oJlly Wright Work Phone: Start: 03-24-2019 End: 03-24-2019 SCREEN MAMM (CAD) W/ALICIA BILAT Comments: See Note; NOTES: Imaging Services [address] [place] [address] SCREEN MAMM (CAD) W/ALICIA BILAT MR#: [id number] Acct: [id number] Name: CHRISTINA US Rep #: [id number] : 1960 F 58 From: Sheldon cMdaniel MD PCP: Jolly Wright MD Status: REG CLI Study: SCREEN MAMM (CAD) W/ALICIA BILAT Date of Exam: 03/24/19 Exam# [id number] Ordering Dr: Jolly Wright MD MAMMOGRAPHY - BILATERAL SCREENING REASON FOR EXAM: Female, 58 years old. Routine annual screening examination. PERTINENT HISTORY: Grandmother with breast cancer. TECHNIQUE: Digital bilateral breast alicia (3D mammographic acquisition) in the CC and MLO projections. 2-D mediolateral oblique (MLO) and craniocaudad (CC) views of both breasts were obtained. CAD: Full Field Digital Mammography with Computer Added Detection was performed. COMPARISON: Comparison is made with prior study dated September 18, 2016 and June 14, 2015. FINDINGS: Breast Composition: The breasts are heterogeneously dense, which may obscure small masses. There are no dominant masses or suspicious calcifications. No other significant abnormalities are identified. There has been no significant change since the prior study. BI/SCREEN MAMM (CAD) W/ALICIA BILAT IMPRESSION: Stable bilateral screening mammogram. Yearly follow-up mammogram recommended. (A) ASSESSMENT CATEGORY: BIRADS Category 1: Negative. A letter regarding these results will be sent to the patient by the facility within 30 days. Approximately 10% of breast cancers are not detected by mammography. A normal mammogram should not delay biopsy of a clinically suspicious abnormality. [id number] Electronically Signed: Sheldon Mcdaniel, at 12:32 EDT , Service support , CC: Jolly Wright MD Associate Trainer: Signed Jolly Wright Work Phone: Start: 05-27-2017 End: 05-27-2017 Echocardiogram Complete Comments: See Note; NOTES: Cardiovascular Services [address] [place] [address] Echo Complete 05/27/17 1054 MR#: [id number] Acct: [id number] Name: MAGENCHRISTINA L Rep #: [id number] : 1960 57 From: Jad Mason MD Attending Dr: Jolly Wright MD Status: REG CLI Ordering Dr: Jolly Wright MD Date: 05/27/17 Location: [facility] Sex: F C Admitted: Reason For Study: murmur Procedure This was a 2D Doppler, Color Flow transthoracic echocardiogram. The exam was of adequate technical quality. Exam performed in department. Left Ventricle Normal LV size. Apical false tendon noted. Left ventricular systolic function is normal. The estimated ejection fraction is 65 %. No regional wall motion abnormalities noted. Right Ventricle Normal RV size. Normal systolic function. Atria Normal left atrium. Normal right atrium. No doppler evidence for ASD. Mitral Valve There is no mitral annular calcification. Normal mitral valve. Mild (1+) mitral valve insufficiency. Tricuspid Valve Normal tricuspid valve. Mild eccentric tricuspid valve insufficiency. Right ventricular systolic pressure estimated to be 20 mmHg. Aortic Valve Trisinus/trileaflet aortic valve. Mild focal aortic valve thickening. Pulmonic Valve The pulmonic valve is not well visualized. Great Vessels Normal sized aortic root. Pericardium/Pleural No pericardial effusion. MMode/2D Measurements AND Calculations LVIDd: 4.5 cm IVSd: 0.76 cm Ao root diam: 2.5 cm LVIDs: 3.1 cm LVPWd: 0.81 cm LA dimension: 3.8 cm RVDd: 3.1 cm FS: 30.6 % LAV(MOD-bp): 42.4 ml LA A4 area: 15.2 cm2 RA A4 area: 15.5 cm2 LAV(MOD-bp) Indexed: 27.6 ml/m2 LAV(MOD-sp2): 49.2 ml LAV(MOD-sp4): 36.9 ml Doppler Measurements AND Calculations MV E max joel: 81.4 cm/sec Lat Peak E' Joel: 9.5 cm/sec Med Peak E' Joel: 11.0 cm/sec MV A max joel: 81.4 cm/sec E/E' lat: 8.6 E/E' med: 7.4 MV E/A: 1.0 Ao V2 max: 133.3 cm/sec LV V1 max: 114.5 cm/sec PA V2 max: 73.9 cm/sec Ao max P.1 mmHg LV V1 max P.2 mmHg TR max joel: 206.2 cm/sec TR max P.0 mmHg Interpretation Summary Left ventricular systolic function is normal. The estimated ejection fraction is 65 %. Apical false tendon noted. Mild (1+) mitral valve insufficiency. Mild eccentric tricuspid valve insufficiency. Mild focal aortic valve thickening. Right ventricular systolic pressure estimated to be 20 mmHg. Ordering Physician: Jolly Wright Performed By: Fouzia Darnell, TIAGO, RVT 05/27/17 1547 Date Jad Mason MD CC: Jolly Wright MD Date Dictated: 05/27/17 1054 Date Transcribed: 05/27/17 1547 Associate Trainer: Signed Jolly Wright Work Phone: Start: 09-24-2016 End: 09-24-2016 Breast Limited Unilateral Comments: See Note; NOTES: Imaging Services [address] [place] [address] Verdana 4d Breast Limited Unilateral MR#: [id number] Acct: [id number] Name: CHRISTINA US Rep #: [id number] : 1960 F 56 From: Sheldon Mcdaniel MD PCP: Jolly Wright MD Status: REG CLI Study: Breast Limited Unilateral Date of Exam: 09/24/16 Exam# [id number] Ordering Dr: Jolly Wright MD STUDY: ULTRASOUND BREAST - LEFT REASON FOR EXAM: Female, 56 years old. Abnormal screening mammogram. TECHNIQUE: Axial and longitudinal images of the LEFT breast were performed with a high resolution ultrasound transducer. COMPARISON: Comparison is made with prior mammogram dated September 18, 2016 and September 24, 2016. FINDINGS: LEFT Breast: The lateral aspect of the left breast was examined. No abnormality is seen. US/Breast Limited Unilateral IMPRESSION: Unremarkable examination. ASSESSMENT CATEGORY: BIRADS Category 1: Negative. A letter regarding these results will be sent to the patient by the facility within 30 days. Electronically Signed: Sheldon Mcdaniel MD at 10:55 EST Tel [phone], Service support [phone], CC: Jolly Wright MD Associate Trainer: Signed Jolly Wright Work Phone: Start: 09-24-2016 End: 09-24-2016 DIAG MAMM W/CAD, UNILAT Comments: See Note; NOTES: Imaging Services [address] [place] [address] Verdana 4d DIAG MAMM W/CAD, UNILAT MR#: [id number] Acct: [id number] Name: CHRISTINA US Rep #: [id number] : 1960 F 56 From: Sheldon Mcdaniel MD PCP: Jolly Wright MD Status: REG CLI Study: DIAG MAMM W/CAD, UNILAT Date of Exam: 09/24/16 Exam# [id number] Ordering Dr: Jolly Wright MD MAMMOGRAPHY - UNILATERAL DIAGNOSTIC: LEFT BREAST REASON FOR EXAM: Female, 56 years old. The patient was recalled for additional views of the left breast. PERTINENT HISTORY: TECHNIQUE: Rolled medial and lateral views of the left breast were obtained. CAD: Full Field Digital Mammography with Computer Added Detection was performed. COMPARISON: Comparison is made with prior study dated September 18, 2016. FINDINGS: Breast Composition: The breasts are heterogeneously dense, which may obscure small masses. There are no dominant masses or suspicious calcifications. No other significant abnormalities are identified. Correlation with ultrasound is recommended. [facility]/DIAG MAMM W/CAD, UNILAT IMPRESSION: Stable unilateral diagnostic mammogram. Correlation with ultrasound is recommended. ASSESSMENT CATEGORY: BIRADS Category 0: Incomplete. Need additional imaging evaluation. A letter regarding these results will be sent to the patient by the facility within 30 days. Approximately 10% of breast cancers are not detected by mammography. A normal mammogram should not delay biopsy of a clinically suspicious abnormality. Electronically Signed: Sheldon Mcdaniel MD at 12:23 EST Tel [phone], Service support [phone], CC: Jolly Wright MD Associate Trainer: Signed Jolly Wright Work Phone: Start: 09-18-2016 End: 09-18-2016 Dexa Bone Density Study (HP) Comments: See Note; NOTES: Imaging Services [address] [place] [address] Verdana 4d Dexa Bone Density Study (HP) MR#: [id number] Acct: [id number] Name: CHRISTINA US Rep #: [id number] : 1960 F 56 From: Sheldon Mcdaniel MD PCP: Jolly Wright MD Status: REG CLI Study: Dexa Bone Density Study (HP) Date of Exam: 09/18/16 Exam# [id number] Ordering Dr: Jolly Wright MD STUDY: DUAL ENERGY X-RAY ABSORPTIOMETRY / DXA REASON FOR EXAM: Female, 56 years old. The patient is postmenopausal. Loss of height. TECHNIQUE: Bone Mineral Density (BMD) measurements of lumbar spine and bilateral hips were obtained. COMPARISON: Comparison is made with prior study dated June 18, 2013. FINDINGS: Lumbar Spine (L1-L4): g/cm2 (1.120) / T-score (-0.4) / Z-score (0.6) Findings are suggestive of normal bone density with a low fracture risk. Left Femur Total: g/cm2 (0.918) / T-score (-0.7) / Z-score (0.1) Left Femoral Neck: g/cm2 (0.826) / T-score (-1.5) / Z-score (-0.4) Right Femur Total: g/cm2 (0.888) / T-score (-0.9) / Z-score (-0.2) Right Femoral Neck: g/cm2 (0.825) / T-score (-1.5) / Z-score (-0.4) The T-Scores on the most recent prior examination were: Lumbar Spine (L1-L4): There has been worsening of bone density since the previous examination. Left Femur Total: which represents a worsening of 3.8%. Right Femur Total: which represents a worsening of 3.2%. HPBD/Dexa Bone Density Study (HP) IMPRESSION: The patient is considered osteopenic at the level of the femoral neck as outlined below according to World Cristi Organization (WHO) criteria with a moderate fracture risk. There has been worsening of bone density since the previous examination. Reference Information: The T-score is the number of standard deviations above or below the standard which is normal for young adults at their peak bone mineral density. The World Health Organization (WHO) interprets the T-scores as follows: Above -1 Normal bone density Between -1 and -2.5 Osteopenia Equal to / or below -2.5 Osteoporosis As a practical clinical guideline, osteopenia may be graded as follows: Mild -1 through -1.5 Moderate -1.6 through -2.0 Severe -2.1 through -2.4 The Z-score is the number of standard deviations above or below age-matched controls. A Z-score of less than -1.5 would be considered abnormal. References: 1. NIH Osteoporosis and Related Bone Diseases http://www.osteo.org 2. International Society for Clinical Densitometry http://www.iscd.org 3. National Osteoporosis Foundation http://www.nof.org Electronically Signed: Sheldon Mcdaniel MD at 15:46 EST Tel [phone], Service support [phone], CC: Jolly Wright MD Associate Trainer: Signed Jolly Wright Work Phone: Start: 09-18-2016 End: 09-19-2016 SCREENING MAMM (CAD), BILAT Comments: See Note; NOTES: [facility] Imaging Services [address] [place] [address] Verdana 4d SCREENING MAMM (CAD), BILAT MR#: [id number] Acct: [id number] Name: CHRISTINA US Rep #: [id number] : 1960 F 56 From: Sheldon Mcdaniel MD PCP: Jolly Wright MD Status: REG CLI Study: SCREENING MAMM (CAD), BILAT Date of Exam: 09/18/16 Exam# [id number] Ordering Dr: Jolly Wright MD MAMMOGRAPHY - BILATERAL SCREENING REASON FOR EXAM: Female, 56 years old. Routine annual screening examination. PERTINENT HISTORY: Grandmother with breast cancer. TECHNIQUE: Digital bilateral breast alicia (3D mammographic acquisition) in the CC and MLO projections. 2-D mediolateral oblique (MLO) and craniocaudad (CC) views of both breasts were obtained. CAD: Full Field Digital Mammography with Computer Added Detection was performed. COMPARISON: Comparison is made with prior study dated June 14, 2015 and June 18, 2013. FINDINGS: Breast Composition: The breasts are heterogeneously dense, which may obscure small masses. There is a focal area of architectural distortion in the lateral aspect of the left breast as seen on the craniocaudad view. The patient will be recalled for additional views including compression spot views. No other significant abnormalities are identified. HPBI/SCREENING MAMM (CAD), BILAT IMPRESSION: Focal area of architectural distortion in the outer aspect of the left breast as seen on the craniocaudad view. The patient will be recalled for additional views including compression spot views. Recall Side: Left Breast ASSESSMENT CATEGORY: BIRADS Category 0: Incomplete. Need additional imaging evaluation. A letter regarding these results will be sent to the patient by the facility within 30 days. Approximately 10% of breast cancers are not detected by mammography. A normal mammogram should not delay biopsy of a clinically suspicious abnormality. [id number] Electronically Signed: Sheldon Mcdaniel MD at 7:52 EST Tel [phone], Service support [phone], CC: Jolly Wright MD Associate Trainer: Signed Jolly Wright Work Phone: Start: 02-10-2016 End: 02-10-2016 PT D/C Summary (1) Comments: See Note; NOTES: [facility] [facility] [place] [address] Fax REHABILITATION SERVICES DISCHARGE SUMMARY MR#: [id number] Acct: [id number] Name: CHRISTINA US Rep #: [id number] : 1960 55 From: Nelida Patel MPT Referring Dr.: Jolly Wright MD Status: REG R Insurance: [employer] - PT D/C Summary It has been my pleasure to treat CHRISTINA US under orders from Jolly Wright, for the diagnosis of It Band, Hip bursitis for a total of 12 visit(s). Discharge Date: 02/10/16 Please see the following information for a summary of their discharge status. - Subjective Subjective: Pt wants to start an exercise program at home as well as through [facility]. - Pain R hip and leg pain Pain Intensity (Out of 10): 1 - Objective Objective/Function: LE mmt: hip flex, hip abd, knee flex and knee ext bilat 4/5. - Goals Goal 1:: I HEP Goal Progress: Goal Met Goal 2:: Decrease R hip pain to 1/10 with ADL's Goal Progress: Goal Met Goal 3:: Increase R hip and LE strength to 4+/5 R hip abd, knee flex, and knee ext. Goal Progress: Progressing - Plan Plan: DC PT to [facility]. Pt was given [facility] and [facility] program sheet to set up an appointment with [facility]. - D/C Information Discharge Comments: DC to [facility] and [facility] If there are questions or concerns regarding this patient's physical therapy, please feel free to call me at [phone]. Thank you for the referral of this patient. Sincerely, Nelida Patel <Electronically signed by Nelida HERNANDEZ> 02/10/16 1418 CC: Jolly Wright MD Signed Jolly Wright Start: 01-04-2016 End: 01-04-2016 Inital Evaluation (1) - PT Comments: See Note; NOTES: [facility] [address] [place], [place] [address] Fax REHABILITATION SERVICES INITIAL EVALUATION MR#: [id number] Acct: [id number] Name: CHRISTINA US Rep #: [id number] : 1960 55 From: Nelida HERANNDEZ Referring Dr.: Jolly Wright MD Status: REG RCR Insurance: [employer] Patient's Visit Information CHRISTINA US is a 55 year old F referred to Physical Therapy by Jolly Wright with a diagnosis of It Band, Hip bursitis. Date of Evaluation: 01/04/16 Physical Therapist: Nelida Patel - Visit Plan Frequency: 2x /Week Duration: 6 Weeks - Subjective Subjective: Pt was Dx 6 years ago with RA and sees Dr miller. Pt has R hip pain and pains down the leg. Dr Wright said IT Band and hip bursitis and gave her a shot in the R lateral side of her hip. X-ray of the hip was good. Pt already on pain meds and that was not helping the R hip pain for months. It wakes her up in the middle of the night. There is no rhyme or reason to her pain. Pain goes down the front of the thigh and down the side fo the leg. Pt has N AND T all the way down the leg....not really bad but it goes sometimes into the feet. Pain only lasts 2-5 minutes. Pt is able to lay on the R hip. Pt may have some slight discomfort possibly at the end of the day with stairs. Pt has some weakness that is transient when the pain comes on. Pt feels that her leg is twisted in the wrong direction. The episodes have increased to daily and then on the bad days it was like every hour. Pt has had back problems on and off over the years for just back pain. Pt feels that the shot may have helped some cause she feels she has had less sharp pain episodes. - Pain R hip and leg pain Pain Intensity (Out of 10): 3 Pain Intensity Range: 9 - Objective Gait: Pt ambulates with normal gait. Trunk AROM of Lumbar spine: flex 100%, ext 25%, SB bilat 50%. Pt could only get to 1/4 normal ROM press up. LE MMT: hip flex 4-/5 bilat, hip abd 4-/5 bilat, knee flex and knee ext bilat 4-/5. Pt is able to heel and toe walk....Some increase discomfort with walking on heels in the R hip. Pt has tight R piriformis and tight bilat HS. Pt's IT Band is tight on the R. Palpation: pt was tender on the R grt trochanter to palpation and along the length of the IT band on the R. - Goals Goal 1:: I HEP Goal Time Frame: 4-6 Weeks Goal 2:: Decrease R hip pain to 1/10 with ADL's Goal Time Frame: 4-6 Weeks Goal 3:: Increase R hip and LE strength to 4+/5 R hip abd, knee flex, and knee ext. Goal Time Frame: 4-6 Weeks - Rehabilitation Potential Rehabilitation Potential: Good - Anticipated Interventions Therapeutic Exercise to Include: Strength training, Flexibilty training, Active ROM, Dynamic Lumbar Stabilization For the Purpose of:: To increase ROM, To improve muscle performance and motor function, To increase flexibility/ROM Manual Therapy Techniques to Include: Passive ROM, Soft tissue mobilization, Other Comment: manual foam roll For the Purpose of:: To decrease pain, To increase ROM, To decrease soft tissue restriction, To increase flexibility/ROM Cryotherapy (ice pack, ice massage): Yes Ultrasound (thermal/non thermal): Yes For the Purpose of:: To decrease pain, To decrease swelling/inflammation, To increase ROM, To improve nutrient delivery to tissue, To decrease soft tissue restriction Thank you for the opportunity to evaluate your patient. For Medicare and Medicare HMO plans, please review the plan of care and approve it. It will need to be FAXED BACK to us at [phone] for Medicare purposes. Please let me know if there are questions or concerns regarding this plan of care. Physician Signature: ___Date: <Electronically signed by Nelida Patel MPT> 01/04/16 1414 CC: Jolly Wright MD Signed For Medicare only, by signing this I certify the plan of care. Physicians Signature Date Jolly Wright Start: 12-30-2015 End: 12-30-2015 Hip 2-3 Views with Pelvis Comments: See Note; NOTES: Imaging Services [address] [place] [address] Ver[place] 4d Hip 2-3 Views with Pelvis MR#: [id number] Acct: [id number] Name: CHRISTINA US Rep #: [id number] : 1960 F 55 From: Sheldon Mcdaniel MD PCP: Jolly Wright MD Status: REG CLI Study: Hip 2-3 Views with Pelvis Date of Exam: 12/30/15 Exam# [id number] Ordering Dr: Jolly Wright MD STUDY: X-RAY - PELVIS AND RIGHT HIP REASON FOR EXAM: Female, 55 years old. Pain. History of rheumatoid arthritis. TECHNIQUE: Radiological exam, hip, unilateral, with pelvis when performed; 2 or 3 views. COMPARISON: None. FINDINGS: Large amount of fecal material is seen in the colon. There are multiple calcified phleboliths. Disc space narrowing of the lower lumbar spine. Normal bilateral iliac wings, sacroiliac joints and visualized sacrum. Normal bilateral superior and inferior pubic rami. Normal pubic symphysis. Normal bilateral ischial tuberosities. Normal visualized femoral head. Normal acetabulum. Normal hip joint. IMPRESSION: Degenerative changes in the lower lumbar spine. Electronically Signed: Sheldon Mcdaniel MD at 14:37 EDT Tel [phone], Service support [phone], RAD/Hip 2-3 Views with Pelvis IMPRESSION: Degenerative changes in the lower lumbar spine. Electronically Signed: Sheldon Mcdaniel MD at 14:37 EDT Tel [phone], Service support [phone], CC: Jolly Wrihgt MD Associate Trainer: Signed Jolly Wright Work Phone: Start: 12-30-2015 End: 12-30-2015 Knee 4 or More Views Comments: See Note; NOTES: Imaging Services [address] [place] [address] [place] 4d Knee 4 or More Views MR#: [id number] Acct: [id number] Name: CHRISTINA US Rep #: [id number] : 1960 F 55 From: Sheldon Mcdaniel MD PCP: Jolly Wright MD Status: REG CLI Study: Knee 4 or More Views Date of Exam: 12/30/15 Exam# [id number] Ordering Dr: Jolly Wright MD STUDY: X-RAY - RIGHT KNEE REASON FOR EXAM: Female, 55 years old. Knee pain. History of rheumatoid arthritis. TECHNIQUE: 4 view(s) of the knee. COMPARISON: None. FINDINGS: Normal visualized distal femur. Normal visualized proximal tibia and fibula. Normal proximal tibiofibular articulation. Normal medial femorotibial compartment. Normal lateral femorotibial compartment. Normal patellofemoral articulation. The soft tissue structures are unremarkable. IMPRESSION: Normal x-ray examination of the knee. Electronically Signed: Sheldon Mcdaniel MD at 14:39 EDT Tel [phone], Service support [phone], RAD/Knee 4 or More Views IMPRESSION: Normal x-ray examination of the knee. Electronically Signed: Sheldon Mcdaniel MD at 14:39 EDT Tel [phone], Service support [phone], CC: Jolly Wright MD Associate Trainer: Signed Jolly Wright Work Phone: Start: 06-14-2015 End: 06-14-2015 Bilat Scrn Digital AND CAD Comments: See Note; NOTES: Imaging Services [address] [place] [address] Verd[place] 4d Bilat Scrn Digital AND CAD MR#: [id number] Acct: [id number] Name: CHRISTINA US Rep #: [id number] : 1960 F 55 From: Sheldon Mcdaniel MD PCP: Jolly Wright MD Status: REG CLI Study: Bilat Scrn Digital AND CAD Date of Exam: 06/14/15 Exam# [id number] Ordering Dr: Jolly Wright MD MAMMOGRAPHY - BILATERAL SCREENING REASON FOR EXAM: Female, 55 years old. Routine annual screening examination. PERTINENT HISTORY: Grandmother with breast cancer. TECHNIQUE: Digital examination. Mediolateral oblique (MLO) and craniocaudad (CC) views of both breasts were obtained. CAD: CAD was performed on this study. COMPARISON: Comparison is made with prior examination dated June 18, 2013 and January 23, 2011. FINDINGS: Breast Composition: There are scattered areas of fibroglandular density. There are no dominant masses or suspicious calcifications. No other significant abnormalities are identified. There has been no significant change since the prior study. IMPRESSION: Stable bilateral screening mammogram. Yearly follow-up recommended. (A) ASSESSMENT CATEGORY: BIRADS Category 1: Negative. A letter regarding these results will be sent to the patient by the facility within 30 days. Approximately 10% of breast cancers are not detected by mammography. A normal mammogram should not delay biopsy of a clinically suspicious abnormality. Electronically Signed: Sheldon Mcdaniel MD at 15:42 EDT Tel [phone], Service support [phone], CC: Jolly Wright MD Associate Trainer: Signed Jolly Wright Work Phone: Start: 06-18-2013 End: 06-18-2013 Bilat Scrn Digital & CAD Comments: See Note; NOTES: Imaging Services [address] [place] [address] Breast Imaging Report MR#: [id number] Acct: [id number] Name: CHRISTINA US Rep #: [id number] : 1960 F 53 From: Sheldon Mcdaniel MD PCP: Status: REG [facility] Exam# [id number] Ordering Dr: Jolly Wright MD MAMMOGRAPHY - BILATERAL SCREENING REASON FOR EXAM: Female, 53 years old. Routine annual screening examination. PERTINENT HISTORY: Grandmother with breast cancer. TECHNIQUE: Digital examination. Mediolateral oblique (MLO) and craniocaudad (CC) views of both breasts were obtained. CAD: CAD was performed on this study. COMPARISON: Comparison is made with prior study dated January 23, 2011 and September 21, 2009. FINDINGS: The breast composition is heterogeneously dense - ranging from 51% to 75% of the breast tissue. There are no dominant masses or suspicious calcifications. No other significant abnormalities are identified. There has been no significant change since the prior study. IMPRESSION: Stable bilateral screening mammogram. Yearly follow-up recommended. (A) ASSESSMENT CATEGORY: BIRADS Category 2: Benign finding(s). A letter regarding these results will be sent to the patient by the facility within 30 days. Approximately 10% of breast cancers are not detected by mammography. A normal mammogram should not delay biopsy of a clinically suspicious abnormality. Signed: Sheldon Mcdaniel M.D. June 18, 2013 at 1:28:42 PM EDT [phone] Electronically Signed GP/GP If you are the referring physician and would like to consult with the radiologist who provided this interpretation, please contact Sheldon Mcdaniel M.D. at [phone]. If this radiologist is unavailable, you will be directed to another radiologist to assist. If you are a patient with a question regarding this report, please contact your referring physician directly. Professional Interpretation Provided By: [employer], Phone , These documents contain legally protected and confidential health information intended only for the use of the individual or entity named above. If you are not the intended recipient, you are hereby notified that any disclosure, copying, distribution, or other use of these documents is strictly prohibited. If you have received this information in error, please notify the sender immediately and arrange for the return or destruction of these documents. CC: Jolly Wright MD Associate Trainer: Signed Jolly Wright Work Phone: Start: 06-18-2013 End: 06-18-2013 Dexa Bone Density Study (HP) Comments: See Note; NOTES: [facility] [address] [place] [id number] Bone Density Report MR#: [id number] Acct: [id number] Name: CHRISTINA US Rep #: [id number] : 1960 F 53 From: Sheldon Mcdaniel MD PCP: Status: REG CLI Study: Dexa Bone Density Study () Date of Exam: 06/18/13 Exam# [id number] Ordering Dr: Jolly Wright MD STUDY: DUAL ENERGY X-RAY ABSORPTIOMETRY / DXA REASON FOR EXAM: Female, 53 years old. The patient is postmenopausal. TECHNIQUE: Bone Mineral Density (BMD) measurements of lumbar spine and bilateral hips were obtained. COMPARISON: Comparison is made with prior study dated January 23, 2011. FINDINGS: Lumbar Spine (L1-L4): g/cm2 (1.146) / T-score (-0.2) / Z-score (0.6) Findings are suggestive of normal bone density with a low fracture risk. Left Femur Total: g/cm2 (0.954) / T-score (-0.4) / Z-score (0.2) Left Femoral Neck: g/cm2 (0.869) / T-score (-1.2) / Z-score (-0.2) Right Femur Total: g/cm2 (0.917) / T-score (-0.7) / Z-score (-0.1) Right Femoral Neck: g/cm2 (0.838) / T-score (-1.4) / Z-score (-0.5) The T-Scores on the most recent prior examination were: Lumbar Spine (L1-L4): There has been worsening of bone density since the previous examination. Left Femur Total: which represents a worsening of 6.7%. Right Femur Total: which represents a worsening of 7.7%. IMPRESSION: The patient is considered osteopenic as outlined below according to World Cristi Organization (WHO) criteria with a moderate fracture risk. There has been worsening of bone density since the previous examination. Reference Information: The T-score is the number of standard deviations above or below the standard which is normal for young adults at their peak bone mineral density. The World Health Organization (WHO) interprets the T-scores as follows: Above -1 Normal bone density Between -1 and -2.5 Osteopenia Equal to / or below -2.5 Osteoporosis As a practical clinical guideline, osteopenia may be graded as follows: Mild -1 through -1.5 Moderate -1.6 through -2.0 Severe -2.1 through -2.4 The Z-score is the number of standard deviations above or below age-matched controls. A Z-score of less than -1.5 would be considered abnormal. References: 1. NIH Osteoporosis and Related Bone Diseases http://www.osteo.org 2. International Society for Clinical Densitometry http://www.iscd.org 3. National Osteoporosis Foundation http://www.nof.org Signed: Sheldon Mcdaniel M.D. June 18, 2013 at 2:12:42 PM EDT [phone] Electronically Signed GP/GP If you are the referring physician and would like to consult with the radiologist who provided this interpretation, please contact Sheldon Mcdaniel M.D. at [phone]. If this radiologist is unavailable, you will be directed to another radiologist to assist. If you are a patient with a question regarding this report, please contact your referring physician directly. Professional Interpretation Provided By: [employer], Phone , These documents contain legally protected and confidential health information intended only for the use of the individual or entity named above. If you are not the intended recipient, you are hereby notified that any disclosure, copying, distribution, or other use of these documents is strictly prohibited. If you have received this information in error, please notify the sender immediately and arrange for the return or destruction of these documents. CC: Jolly Wright MD Associate Trainer: Signed Jolly Wright Work Phone: section [facility] section Jolly estrada Work Phone: section Jolly estrada Work Phone: section [facility] H/O: section Jolly Wright Work Phone: H/O: section SHICARLENE Harerll H/O: section Jolly Wright MD Work Phone: H/O: section Gwendolyn Drake COMPONENT DESIGN ENGINEER H/O: section Beatriz Barnett MA H/O: section Gwendolyn Drake COMPONENT DESIGN ENGINEER H/O: tubal ligation Jolly rm Work Phone: H/O: tubal ligation [facility] jackson H/O: tubal ligation Jolly rm MD Work Phone: H/O: tubal ligation Gwendolyn Co ffman COMPONENT DESIGN ENGINEER H/O: tubal ligation Beatriz brooks MA H/O: tubal ligation Gwendolyn Co ffman COMPONENT DESIGN ENGINEER Ligation of fallopia n tube [facility] Julio Cesar Ligation of fallopia n tube Jolly Wright Work Phone: Ligation of fallopia n tube Jolly Wright Work Phone: Ligation of fallopia n tube [facility] Julio Csear Plan of Treatment Date Care Activity Detail Author Start: 04-25-2023 Cytp smrs any oth sr c prepj scr&interpj CYTOPATHOLOGY,PREP/ SCREEN/INTERPRET (40802) [facility] Work Phone: Immunizations Immunization Date Immunization Notes Care Provider Fa cili 07-19-2022 influenza, injectabl e, quadrivalent, preservative free Jolly Wright MD Work Phone: [facility] Work Phone: Payers Date Payer Category Payer Unknown [id number] 2020 Unknown [id number] 2018 Unknown [id number] 2016 Unknown [id number] 2010 Unknown [id number] 2007 Unknown [id number] 1960 Unknown [id number] Unknown Social History Date Type Detail Facility Alcohol Use Never smoker [facility] Work Phone: Clinical Notes Note Date & Type Note Facility [facility] Work Phone: Instructions* Name Dates Details Patient Instructions Indication:Hypertriglyceridemia, essential Start:04-Oct-2020 Instruction Type:Provider Instructions for Treatment How to Access Health Informa tion Online using Patient Portal and [employer] Apps Indication:Hypertriglyceridemia, essential Start:04-Oct-2020 Instruction Type:Patient Education How to access health informa tion online Indication:Well Woman Exam (V72.31) (Pap,Mammo,Routine Female) (Renamed from Well Woman Exam (Pap,Mammo,Routine Female)) Start:20-Jun-2020 Instruction Type:Patient Education How to access health informa tion online - Detail Indication:Well Woman Exam (V72.31) (Pap,Mammo,Routine Female) (Renamed from Well Woman Exam (Pap,Mammo,Routine Female)) Start:20-Jun-2020 Instruction Type:Patient Education Patient Instructions Indication:Well Woman Exam (V72.31) (Pap,Mammo,Routine Female) (Renamed from Well Woman Exam (Pap,Mammo,Routine Female)) Start:20-Jun-2020 Instruction Type:Provider Instructions for Treatment How to access health informa tion online Indication:Well Woman Exam (V72.31) (Pap,Mammo,Routine Female) (Renamed from Well Woman Exam (Pap,Mammo,Routine Female)) Start:10-Feb-2019 Instruction Type:Patient Education How to access health informa tion online - Detail Indication:Well Woman Exam (V72.31) (Pap,Mammo,Routine Female) (Renamed from Well Woman Exam (Pap,Mammo,Routine Female)) Start:10-Feb-2019 Instruction Type:Patient Education Patient Instructions Indication:Well Woman Exam (V72.31) (Pap,Mammo,Routine Female) (Renamed from Well Woman Exam (Pap,Mammo,Routine Female)) Start:10-Feb-2019 Instruction Type:Provider Instructions for Treatment How to access health informa tion online Indication:Well Woman Exam (V72.31) (Pap,Mammo,Routine Female) (Renamed from Well Woman Exam (Pap,Mammo,Routine Female)) Start:19-Dec-2017 Instruction Type:Patient Education How to access health informa tion online - Detail Indication:Well Woman Exam (V72.31) (Pap,Mammo,Routine Female) (Renamed from Well Woman Exam (Pap,Mammo,Routine Female)) Start:19-Dec-2017 Instruction Type:Patient Education Patient Instructions Indication:Well Woman Exam (V72.31) (Pap,Mammo,Routine Female) (Renamed from Well Woman Exam (Pap,Mammo,Routine Female)) Start:19-Dec-2017 Instruction Type:Provider Instructions for Treatment How to access health informa tion online Indication:BMI 22.0-22.9, adult Start:14-Jun-2017 Instruction Type:Patient Education How to access health informa tion online - Detail Indication:BMI 22.0-22.9, adult Start:14-Jun-2017 Instruction Type:Patient Education Patient Instructions Indication:BMI 22.0-22.9, adult Start:14-Jun-2017 Instruction Type:Provider Instructions for Treatment How to access health informa tion online Indication:Blood pressure elevated without history of HTN Start:08-Feb-2017 Instruction Type:Patient Education How to access health informa tion online - Detail Indication:Blood pressure elevated without history of HTN Start:08-Feb-2017 Instruction Type:Patient Education Patient Instructions Indication:Blood pressure elevated without history of HTN Start:08-Feb-2017 Instruction Type:Provider Instructions for Treatment How to access health informa tion online Indication:Body mass index (BMI) of 24.0 to 24.9 in adult Start:09-Oct-2016 Instruction Type:Patient Education How to access health informa tion online - Detail Indication:Body mass index (BMI) of 24.0 to 24.9 in adult Start:09-Oct-2016 Instruction Type:Patient Education Patient Instructions Indication:Body mass index (BMI) of 24.0 to 24.9 in adult Start:09-Oct-2016 Instruction Type:Provider Instructions for Treatment How to access health informa tion online Indication:BMI 25.0-25.9,adult Start:27-Aug-2016 Instruction Type:Patient Education How to access health informa tion online - Detail Indication:BMI 25.0-25.9,adult Start:27-Aug-2016 Instruction Type:Patient Education Patient Instructions Indication:BMI 25.0-25.9,adult Start:27-Aug-2016 Instruction Type:Provider Instructions for Treatment How to access health informa tion online Indication:Hip pain, acute, right Start:13-Jan-2016 Instruction Type:Patient Education How to access health informa tion online - Detail Indication:Hip pain, acute, right Start:13-Jan-2016 Instruction Type:Patient Education Patient Instructions Indication:Hip pain, acute, right Start:13-Jan-2016 Instruction Type:Provider Instructions for Treatment How to access health informa tion online Indication:Hip pain, acute, right Start:30-Dec-2015 Instruction Type:Patient Education How to access health informa tion online - Detail Indication:Hip pain, acute, right Start:30-Dec-2015 Instruction Type:Patient Education Patient Instructions Indication:Hip pain, acute, right Start:30-Dec-2015 Instruction Type:Provider Instructions for Treatment How to access health informa tion online Indication:Vaginal irritation Start:08-Jul-2015 Instruction Type:Patient Education How to access health informa tion online - Detail Indication:Vaginal irritation Start:08-Jul-2015 Instruction Type:Patient Education Patient Instructions Indication:Vaginal irritation Start:08-Jul-2015 Instruction Type:Provider Instructions for Treatment How to access health informa tion online Indication:Vaginal irritation Start:27-May-2015 Instruction Type:Patient Education How to access health informa tion online - Detail Indication:Vaginal irritation Start:27-May-2015 Instruction Type:Patient Education Patient Instructions Indication:Vaginal irritation Start:27-May-2015 Instruction Type:Provider Instructions for Treatment Patient Instructions Indication:Well Woman Exam (V72.31) (Pap,Mammo,Routine Female) (Renamed from Well Woman Exam (Pap,Mammo,Routine Female)) Start:26-Jun-2013 Instruction Type:Provider Instructions for Treatment [facility] Work Phone: Instructions* Name Dates Details Patient Instructions Indication:Hypertriglyceridemia, essential Start:04-Oct-2020 Instruction Type:Provider Instructions for Treatment How to Access Health Informa tion Online using Patient Portal and [employer] Apps Indication:Hypertriglyceridemia, essential Start:04-Oct-2020 Instruction Type:Patient Education How to access health informa tion online Indication:Well Woman Exam (V72.31) (Pap,Mammo,Routine Female) (Renamed from Well Woman Exam (Pap,Mammo,Routine Female)) Start:20-Jun-2020 Instruction Type:Patient Education How to access health informa tion online - Detail Indication:Well Woman Exam (V72.31) (Pap,Mammo,Routine Female) (Renamed from Well Woman Exam (Pap,Mammo,Routine Female)) Start:20-Jun-2020 Instruction Type:Patient Education Patient Instructions Indication:Well Woman Exam (V72.31) (Pap,Mammo,Routine Female) (Renamed from Well Woman Exam (Pap,Mammo,Routine Female)) Start:20-Jun-2020 Instruction Type:Provider Instructions for Treatment How to access health informa tion online Indication:Well Woman Exam (V72.31) (Pap,Mammo,Routine Female) (Renamed from Well Woman Exam (Pap,Mammo,Routine Female)) Start:10-Feb-2019 Instruction Type:Patient Education How to access health informa tion online - Detail Indication:Well Woman Exam (V72.31) (Pap,Mammo,Routine Female) (Renamed from Well Woman Exam (Pap,Mammo,Routine Female)) Start:10-Feb-2019 Instruction Type:Patient Education Patient Instructions Indication:Well Woman Exam (V72.31) (Pap,Mammo,Routine Female) (Renamed from Well Woman Exam (Pap,Mammo,Routine Female)) Start:10-Feb-2019 Instruction Type:Provider Instructions for Treatment How to access health informa tion online Indication:Well Woman Exam (V72.31) (Pap,Mammo,Routine Female) (Renamed from Well Woman Exam (Pap,Mammo,Routine Female)) Start:19-Dec-2017 Instruction Type:Patient Education How to access health informa tion online - Detail Indication:Well Woman Exam (V72.31) (Pap,Mammo,Routine Female) (Renamed from Well Woman Exam (Pap,Mammo,Routine Female)) Start:19-Dec-2017 Instruction Type:Patient Education Patient Instructions Indication:Well Woman Exam (V72.31) (Pap,Mammo,Routine Female) (Renamed from Well Woman Exam (Pap,Mammo,Routine Female)) Start:19-Dec-2017 Instruction Type:Provider Instructions for Treatment How to access health informa tion online Indication:BMI 22.0-22.9, adult Start:14-Jun-2017 Instruction Type:Patient Education How to access health informa tion online - Detail Indication:BMI 22.0-22.9, adult Start:14-Jun-2017 Instruction Type:Patient Education Patient Instructions Indication:BMI 22.0-22.9, adult Start:14-Jun-2017 Instruction Type:Provider Instructions for Treatment How to access health informa tion online Indication:Blood pressure elevated without history of HTN Start:08-Feb-2017 Instruction Type:Patient Education How to access health informa tion online - Detail Indication:Blood pressure elevated without history of HTN Start:08-Feb-2017 Instruction Type:Patient Education Patient Instructions Indication:Blood pressure elevated without history of HTN Start:08-Feb-2017 Instruction Type:Provider Instructions for Treatment How to access health informa tion online Indication:Body mass index (BMI) of 24.0 to 24.9 in adult Start:09-Oct-2016 Instruction Type:Patient Education How to access health informa tion online - Detail Indication:Body mass index (BMI) of 24.0 to 24.9 in adult Start:09-Oct-2016 Instruction Type:Patient Education Patient Instructions Indication:Body mass index (BMI) of 24.0 to 24.9 in adult Start:09-Oct-2016 Instruction Type:Provider Instructions for Treatment How to access health informa tion online Indication:BMI 25.0-25.9,adult Start:27-Aug-2016 Instruction Type:Patient Education How to access health informa tion online - Detail Indication:BMI 25.0-25.9,adult Start:27-Aug-2016 Instruction Type:Patient Education Patient Instructions Indication:BMI 25.0-25.9,adult Start:27-Aug-2016 Instruction Type:Provider Instructions for Treatment How to access health informa tion online Indication:Hip pain, acute, right Start:13-Jan-2016 Instruction Type:Patient Education How to access health informa tion online - Detail Indication:Hip pain, acute, right Start:13-Jan-2016 Instruction Type:Patient Education Patient Instructions Indication:Hip pain, acute, right Start:13-Jan-2016 Instruction Type:Provider Instructions for Treatment How to access health informa tion online Indication:Hip pain, acute, right Start:30-Dec-2015 Instruction Type:Patient Education How to access health informa tion online - Detail Indication:Hip pain, acute, right Start:30-Dec-2015 Instruction Type:Patient Education Patient Instructions Indication:Hip pain, acute, right Start:30-Dec-2015 Instruction Type:Provider Instructions for Treatment How to access health informa tion online Indication:Vaginal irritation Start:08-Jul-2015 Instruction Type:Patient Education How to access health informa tion online - Detail Indication:Vaginal irritation Start:08-Jul-2015 Instruction Type:Patient Education Patient Instructions Indication:Vaginal irritation Start:08-Jul-2015 Instruction Type:Provider Instructions for Treatment How to access health informa tion online Indication:Vaginal irritation Start:27-May-2015 Instruction Type:Patient Education How to access health informa tion online - Detail Indication:Vaginal irritation Start:27-May-2015 Instruction Type:Patient Education Patient Instructions Indication:Vaginal irritation Start:27-May-2015 Instruction Type:Provider Instructions for Treatment Patient Instructions Indication:Well Woman Exam (V72.31) (Pap,Mammo,Routine Female) (Renamed from Well Woman Exam (Pap,Mammo,Routine Female)) Start:26-Jun-2013 Instruction Type:Provider Instructions for Treatment [facility] Work Phone: Instructions* Name Dates Details Patient Instructions Indication:Hypertriglyceridemia, essential Start:04-Oct-2020 Instruction Type:Provider Instructions for Treatment How to Access Health Informa tion Online using Patient Portal and [employer] Apps Indication:Hypertriglyceridemia, essential Start:04-Oct-2020 Instruction Type:Patient Education How to access health informa tion online Indication:Well Woman Exam (V72.31) (Pap,Mammo,Routine Female) (Renamed from Well Woman Exam (Pap,Mammo,Routine Female)) Start:20-Jun-2020 Instruction Type:Patient Education How to access health informa tion online - Detail Indication:Well Woman Exam (V72.31) (Pap,Mammo,Routine Female) (Renamed from Well Woman Exam (Pap,Mammo,Routine Female)) Start:20-Jun-2020 Instruction Type:Patient Education Patient Instructions Indication:Well Woman Exam (V72.31) (Pap,Mammo,Routine Female) (Renamed from Well Woman Exam (Pap,Mammo,Routine Female)) Start:20-Jun-2020 Instruction Type:Provider Instructions for Treatment How to access health informa tion online Indication:Well Woman Exam (V72.31) (Pap,Mammo,Routine Female) (Renamed from Well Woman Exam (Pap,Mammo,Routine Female)) Start:10-Feb-2019 Instruction Type:Patient Education How to access health informa tion online - Detail Indication:Well Woman Exam (V72.31) (Pap,Mammo,Routine Female) (Renamed from Well Woman Exam (Pap,Mammo,Routine Female)) Start:10-Feb-2019 Instruction Type:Patient Education Patient Instructions Indication:Well Woman Exam (V72.31) (Pap,Mammo,Routine Female) (Renamed from Well Woman Exam (Pap,Mammo,Routine Female)) Start:10-Feb-2019 Instruction Type:Provider Instructions for Treatment How to access health informa tion online Indication:Well Woman Exam (V72.31) (Pap,Mammo,Routine Female) (Renamed from Well Woman Exam (Pap,Mammo,Routine Female)) Start:19-Dec-2017 Instruction Type:Patient Education How to access health informa tion online - Detail Indication:Well Woman Exam (V72.31) (Pap,Mammo,Routine Female) (Renamed from Well Woman Exam (Pap,Mammo,Routine Female)) Start:19-Dec-2017 Instruction Type:Patient Education Patient Instructions Indication:Well Woman Exam (V72.31) (Pap,Mammo,Routine Female) (Renamed from Well Woman Exam (Pap,Mammo,Routine Female)) Start:19-Dec-2017 Instruction Type:Provider Instructions for Treatment How to access health informa tion online Indication:BMI 22.0-22.9, adult Start:14-Jun-2017 Instruction Type:Patient Education How to access health informa tion online - Detail Indication:BMI 22.0-22.9, adult Start:14-Jun-2017 Instruction Type:Patient Education Patient Instructions Indication:BMI 22.0-22.9, adult Start:14-Jun-2017 Instruction Type:Provider Instructions for Treatment How to access health informa tion online Indication:Blood pressure elevated without history of HTN Start:08-Feb-2017 Instruction Type:Patient Education How to access health informa tion online - Detail Indication:Blood pressure elevated without history of HTN Start:08-Feb-2017 Instruction Type:Patient Education Patient Instructions Indication:Blood pressure elevated without history of HTN Start:08-Feb-2017 Instruction Type:Provider Instructions for Treatment How to access health informa tion online Indication:Body mass index (BMI) of 24.0 to 24.9 in adult Start:09-Oct-2016 Instruction Type:Patient Education How to access health informa tion online - Detail Indication:Body mass index (BMI) of 24.0 to 24.9 in adult Start:09-Oct-2016 Instruction Type:Patient Education Patient Instructions Indication:Body mass index (BMI) of 24.0 to 24.9 in adult Start:09-Oct-2016 Instruction Type:Provider Instructions for Treatment How to access health informa tion online Indication:BMI 25.0-25.9,adult Start:27-Aug-2016 Instruction Type:Patient Education How to access health informa tion online - Detail Indication:BMI 25.0-25.9,adult Start:27-Aug-2016 Instruction Type:Patient Education Patient Instructions Indication:BMI 25.0-25.9,adult Start:27-Aug-2016 Instruction Type:Provider Instructions for Treatment How to access health informa tion online Indication:Hip pain, acute, right Start:13-Jan-2016 Instruction Type:Patient Education How to access health informa tion online - Detail Indication:Hip pain, acute, right Start:13-Jan-2016 Instruction Type:Patient Education Patient Instructions Indication:Hip pain, acute, right Start:13-Jan-2016 Instruction Type:Provider Instructions for Treatment How to access health informa tion online Indication:Hip pain, acute, right Start:30-Dec-2015 Instruction Type:Patient Education How to access health informa tion online - Detail Indication:Hip pain, acute, right Start:30-Dec-2015 Instruction Type:Patient Education Patient Instructions Indication:Hip pain, acute, right Start:30-Dec-2015 Instruction Type:Provider Instructions for Treatment How to access health informa tion online Indication:Vaginal irritation Start:08-Jul-2015 Instruction Type:Patient Education How to access health informa tion online - Detail Indication:Vaginal irritation Start:08-Jul-2015 Instruction Type:Patient Education Patient Instructions Indication:Vaginal irritation Start:08-Jul-2015 Instruction Type:Provider Instructions for Treatment How to access health informa tion online Indication:Vaginal irritation Start:27-May-2015 Instruction Type:Patient Education How to access health informa tion online - Detail Indication:Vaginal irritation Start:27-May-2015 Instruction Type:Patient Education Patient Instructions Indication:Vaginal irritation Start:27-May-2015 Instruction Type:Provider Instructions for Treatment Patient Instructions Indication:Well Woman Exam (V72.31) (Pap,Mammo,Routine Female) (Renamed from Well Woman Exam (Pap,Mammo,Routine Female)) Start:26-Jun-2013 Instruction Type:Provider Instructions for Treatment [facility]; [facility] Work Phone: Instructions* Name Dates Details Patient Instructions Indication:Hypertriglyceridemia, essential Start:04-Oct-2020 Instruction Type:Provider Instructions for Treatment How to Access Health Informa tion Online using Patient Portal and [employer] Apps Indication:Hypertriglyceridemia, essential Start:04-Oct-2020 Instruction Type:Patient Education How to access health informa tion online Indication:Well Woman Exam (V72.31) (Pap,Mammo,Routine Female) (Renamed from Well Woman Exam (Pap,Mammo,Routine Female)) Start:20-Jun-2020 Instruction Type:Patient Education How to access health informa tion online - Detail Indication:Well Woman Exam (V72.31) (Pap,Mammo,Routine Female) (Renamed from Well Woman Exam (Pap,Mammo,Routine Female)) Start:20-Jun-2020 Instruction Type:Patient Education Patient Instructions Indication:Well Woman Exam (V72.31) (Pap,Mammo,Routine Female) (Renamed from Well Woman Exam (Pap,Mammo,Routine Female)) Start:20-Jun-2020 Instruction Type:Provider Instructions for Treatment How to access health informa tion online Indication:Well Woman Exam (V72.31) (Pap,Mammo,Routine Female) (Renamed from Well Woman Exam (Pap,Mammo,Routine Female)) Start:10-Feb-2019 Instruction Type:Patient Education How to access health informa tion online - Detail Indication:Well Woman Exam (V72.31) (Pap,Mammo,Routine Female) (Renamed from Well Woman Exam (Pap,Mammo,Routine Female)) Start:10-Feb-2019 Instruction Type:Patient Education Patient Instructions Indication:Well Woman Exam (V72.31) (Pap,Mammo,Routine Female) (Renamed from Well Woman Exam (Pap,Mammo,Routine Female)) Start:10-Feb-2019 Instruction Type:Provider Instructions for Treatment How to access health informa tion online Indication:Well Woman Exam (V72.31) (Pap,Mammo,Routine Female) (Renamed from Well Woman Exam (Pap,Mammo,Routine Female)) Start:19-Dec-2017 Instruction Type:Patient Education How to access health informa tion online - Detail Indication:Well Woman Exam (V72.31) (Pap,Mammo,Routine Female) (Renamed from Well Woman Exam (Pap,Mammo,Routine Female)) Start:19-Dec-2017 Instruction Type:Patient Education Patient Instructions Indication:Well Woman Exam (V72.31) (Pap,Mammo,Routine Female) (Renamed from Well Woman Exam (Pap,Mammo,Routine Female)) Start:19-Dec-2017 Instruction Type:Provider Instructions for Treatment How to access health informa tion online Indication:BMI 22.0-22.9, adult Start:14-Jun-2017 Instruction Type:Patient Education How to access health informa tion online - Detail Indication:BMI 22.0-22.9, adult Start:14-Jun-2017 Instruction Type:Patient Education Patient Instructions Indication:BMI 22.0-22.9, adult Start:14-Jun-2017 Instruction Type:Provider Instructions for Treatment How to access health informa tion online Indication:Blood pressure elevated without history of HTN Start:08-Feb-2017 Instruction Type:Patient Education How to access health informa tion online - Detail Indication:Blood pressure elevated without history of HTN Start:08-Feb-2017 Instruction Type:Patient Education Patient Instructions Indication:Blood pressure elevated without history of HTN Start:08-Feb-2017 Instruction Type:Provider Instructions for Treatment How to access health informa tion online Indication:Body mass index (BMI) of 24.0 to 24.9 in adult Start:09-Oct-2016 Instruction Type:Patient Education How to access health informa tion online - Detail Indication:Body mass index (BMI) of 24.0 to 24.9 in adult Start:09-Oct-2016 Instruction Type:Patient Education Patient Instructions Indication:Body mass index (BMI) of 24.0 to 24.9 in adult Start:09-Oct-2016 Instruction Type:Provider Instructions for Treatment How to access health informa tion online Indication:BMI 25.0-25.9,adult Start:27-Aug-2016 Instruction Type:Patient Education How to access health informa tion online - Detail Indication:BMI 25.0-25.9,adult Start:27-Aug-2016 Instruction Type:Patient Education Patient Instructions Indication:BMI 25.0-25.9,adult Start:27-Aug-2016 Instruction Type:Provider Instructions for Treatment How to access health informa tion online Indication:Hip pain, acute, right Start:13-Jan-2016 Instruction Type:Patient Education How to access health informa tion online - Detail Indication:Hip pain, acute, right Start:13-Jan-2016 Instruction Type:Patient Education Patient Instructions Indication:Hip pain, acute, right Start:13-Jan-2016 Instruction Type:Provider Instructions for Treatment How to access health informa tion online Indication:Hip pain, acute, right Start:30-Dec-2015 Instruction Type:Patient Education How to access health informa tion online - Detail Indication:Hip pain, acute, right Start:30-Dec-2015 Instruction Type:Patient Education Patient Instructions Indication:Hip pain, acute, right Start:30-Dec-2015 Instruction Type:Provider Instructions for Treatment How to access health informa tion online Indication:Vaginal irritation Start:08-Jul-2015 Instruction Type:Patient Education How to access health informa tion online - Detail Indication:Vaginal irritation Start:08-Jul-2015 Instruction Type:Patient Education Patient Instructions Indication:Vaginal irritation Start:08-Jul-2015 Instruction Type:Provider Instructions for Treatment How to access health informa tion online Indication:Vaginal irritation Start:27-May-2015 Instruction Type:Patient Education How to access health informa tion online - Detail Indication:Vaginal irritation Start:27-May-2015 Instruction Type:Patient Education Patient Instructions Indication:Vaginal irritation Start:27-May-2015 Instruction Type:Provider Instructions for Treatment Patient Instructions Indication:Well Woman Exam (V72.31) (Pap,Mammo,Routine Female) (Renamed from Well Woman Exam (Pap,Mammo,Routine Female)) Start:26-Jun-2013 Instruction Type:Provider Instructions for Treatment [facility]; [facility] Work Phone: Instructions* Name Dates Details Patient Instructions Indication:Hypertriglyceridemia, essential Start:04-Oct-2020 Instruction Type:Provider Instructions for Treatment How to Access Health Informa tion Online using Patient Portal and [employer] Apps Indication:Hypertriglyceridemia, essential Start:04-Oct-2020 Instruction Type:Patient Education How to access health informa tion online Indication:Well Woman Exam (V72.31) (Pap,Mammo,Routine Female) (Renamed from Well Woman Exam (Pap,Mammo,Routine Female)) Start:20-Jun-2020 Instruction Type:Patient Education How to access health informa tion online - Detail Indication:Well Woman Exam (V72.31) (Pap,Mammo,Routine Female) (Renamed from Well Woman Exam (Pap,Mammo,Routine Female)) Start:20-Jun-2020 Instruction Type:Patient Education Patient Instructions Indication:Well Woman Exam (V72.31) (Pap,Mammo,Routine Female) (Renamed from Well Woman Exam (Pap,Mammo,Routine Female)) Start:20-Jun-2020 Instruction Type:Provider Instructions for Treatment How to access health informa tion online Indication:Well Woman Exam (V72.31) (Pap,Mammo,Routine Female) (Renamed from Well Woman Exam (Pap,Mammo,Routine Female)) Start:10-Feb-2019 Instruction Type:Patient Education How to access health informa tion online - Detail Indication:Well Woman Exam (V72.31) (Pap,Mammo,Routine Female) (Renamed from Well Woman Exam (Pap,Mammo,Routine Female)) Start:10-Feb-2019 Instruction Type:Patient Education Patient Instructions Indication:Well Woman Exam (V72.31) (Pap,Mammo,Routine Female) (Renamed from Well Woman Exam (Pap,Mammo,Routine Female)) Start:10-Feb-2019 Instruction Type:Provider Instructions for Treatment How to access health informa tion online Indication:Well Woman Exam (V72.31) (Pap,Mammo,Routine Female) (Renamed from Well Woman Exam (Pap,Mammo,Routine Female)) Start:19-Dec-2017 Instruction Type:Patient Education How to access health informa tion online - Detail Indication:Well Woman Exam (V72.31) (Pap,Mammo,Routine Female) (Renamed from Well Woman Exam (Pap,Mammo,Routine Female)) Start:19-Dec-2017 Instruction Type:Patient Education Patient Instructions Indication:Well Woman Exam (V72.31) (Pap,Mammo,Routine Female) (Renamed from Well Woman Exam (Pap,Mammo,Routine Female)) Start:19-Dec-2017 Instruction Type:Provider Instructions for Treatment How to access health informa tion online Indication:BMI 22.0-22.9, adult Start:14-Jun-2017 Instruction Type:Patient Education How to access health informa tion online - Detail Indication:BMI 22.0-22.9, adult Start:14-Jun-2017 Instruction Type:Patient Education Patient Instructions Indication:BMI 22.0-22.9, adult Start:14-Jun-2017 Instruction Type:Provider Instructions for Treatment How to access health informa tion online Indication:Blood pressure elevated without history of HTN Start:08-Feb-2017 Instruction Type:Patient Education How to access health informa tion online - Detail Indication:Blood pressure elevated without history of HTN Start:08-Feb-2017 Instruction Type:Patient Education Patient Instructions Indication:Blood pressure elevated without history of HTN Start:08-Feb-2017 Instruction Type:Provider Instructions for Treatment How to access health informa tion online Indication:Body mass index (BMI) of 24.0 to 24.9 in adult Start:09-Oct-2016 Instruction Type:Patient Education How to access health informa tion online - Detail Indication:Body mass index (BMI) of 24.0 to 24.9 in adult Start:09-Oct-2016 Instruction Type:Patient Education Patient Instructions Indication:Body mass index (BMI) of 24.0 to 24.9 in adult Start:09-Oct-2016 Instruction Type:Provider Instructions for Treatment How to access health informa tion online Indication:BMI 25.0-25.9,adult Start:27-Aug-2016 Instruction Type:Patient Education How to access health informa tion online - Detail Indication:BMI 25.0-25.9,adult Start:27-Aug-2016 Instruction Type:Patient Education Patient Instructions Indication:BMI 25.0-25.9,adult Start:27-Aug-2016 Instruction Type:Provider Instructions for Treatment How to access health informa tion online Indication:Hip pain, acute, right Start:13-Jan-2016 Instruction Type:Patient Education How to access health informa tion online - Detail Indication:Hip pain, acute, right Start:13-Jan-2016 Instruction Type:Patient Education Patient Instructions Indication:Hip pain, acute, right Start:13-Jan-2016 Instruction Type:Provider Instructions for Treatment How to access health informa tion online Indication:Hip pain, acute, right Start:30-Dec-2015 Instruction Type:Patient Education How to access health informa tion online - Detail Indication:Hip pain, acute, right Start:30-Dec-2015 Instruction Type:Patient Education Patient Instructions Indication:Hip pain, acute, right Start:30-Dec-2015 Instruction Type:Provider Instructions for Treatment How to access health informa tion online Indication:Vaginal irritation Start:08-Jul-2015 Instruction Type:Patient Education How to access health informa tion online - Detail Indication:Vaginal irritation Start:08-Jul-2015 Instruction Type:Patient Education Patient Instructions Indication:Vaginal irritation Start:08-Jul-2015 Instruction Type:Provider Instructions for Treatment How to access health informa tion online Indication:Vaginal irritation Start:27-May-2015 Instruction Type:Patient Education How to access health informa tion online - Detail Indication:Vaginal irritation Start:27-May-2015 Instruction Type:Patient Education Patient Instructions Indication:Vaginal irritation Start:27-May-2015 Instruction Type:Provider Instructions for Treatment Patient Instructions Indication:Well Woman Exam (V72.31) (Pap,Mammo,Routine Female) (Renamed from Well Woman Exam (Pap,Mammo,Routine Female)) Start:26-Jun-2013 Instruction Type:Provider Instructions for Treatment [facility]; [facility] Work Phone: Instructions* Name Dates Details Patient Instructions Indication:Hypertriglyceridemia, essential Start:04-Oct-2020 Instruction Type:Provider Instructions for Treatment How to Access Health Informa tion Online using Patient Portal and [employer] Apps Indication:Hypertriglyceridemia, essential Start:04-Oct-2020 Instruction Type:Patient Education How to access health informa tion online Indication:Well Woman Exam (V72.31) (Pap,Mammo,Routine Female) (Renamed from Well Woman Exam (Pap,Mammo,Routine Female)) Start:20-Jun-2020 Instruction Type:Patient Education How to access health informa tion online - Detail Indication:Well Woman Exam (V72.31) (Pap,Mammo,Routine Female) (Renamed from Well Woman Exam (Pap,Mammo,Routine Female)) Start:20-Jun-2020 Instruction Type:Patient Education Patient Instructions Indication:Well Woman Exam (V72.31) (Pap,Mammo,Routine Female) (Renamed from Well Woman Exam (Pap,Mammo,Routine Female)) Start:20-Jun-2020 Instruction Type:Provider Instructions for Treatment How to access health informa tion online Indication:Well Woman Exam (V72.31) (Pap,Mammo,Routine Female) (Renamed from Well Woman Exam (Pap,Mammo,Routine Female)) Start:10-Feb-2019 Instruction Type:Patient Education How to access health informa tion online - Detail Indication:Well Woman Exam (V72.31) (Pap,Mammo,Routine Female) (Renamed from Well Woman Exam (Pap,Mammo,Routine Female)) Start:10-Feb-2019 Instruction Type:Patient Education Patient Instructions Indication:Well Woman Exam (V72.31) (Pap,Mammo,Routine Female) (Renamed from Well Woman Exam (Pap,Mammo,Routine Female)) Start:10-Feb-2019 Instruction Type:Provider Instructions for Treatment How to access health informa tion online Indication:Well Woman Exam (V72.31) (Pap,Mammo,Routine Female) (Renamed from Well Woman Exam (Pap,Mammo,Routine Female)) Start:19-Dec-2017 Instruction Type:Patient Education How to access health informa tion online - Detail Indication:Well Woman Exam (V72.31) (Pap,Mammo,Routine Female) (Renamed from Well Woman Exam (Pap,Mammo,Routine Female)) Start:19-Dec-2017 Instruction Type:Patient Education Patient Instructions Indication:Well Woman Exam (V72.31) (Pap,Mammo,Routine Female) (Renamed from Well Woman Exam (Pap,Mammo,Routine Female)) Start:19-Dec-2017 Instruction Type:Provider Instructions for Treatment How to access health informa tion online Indication:BMI 22.0-22.9, adult Start:14-Jun-2017 Instruction Type:Patient Education How to access health informa tion online - Detail Indication:BMI 22.0-22.9, adult Start:14-Jun-2017 Instruction Type:Patient Education Patient Instructions Indication:BMI 22.0-22.9, adult Start:14-Jun-2017 Instruction Type:Provider Instructions for Treatment How to access health informa tion online Indication:Blood pressure elevated without history of HTN Start:08-Feb-2017 Instruction Type:Patient Education How to access health informa tion online - Detail Indication:Blood pressure elevated without history of HTN Start:08-Feb-2017 Instruction Type:Patient Education Patient Instructions Indication:Blood pressure elevated without history of HTN Start:08-Feb-2017 Instruction Type:Provider Instructions for Treatment How to access health informa tion online Indication:Body mass index (BMI) of 24.0 to 24.9 in adult Start:09-Oct-2016 Instruction Type:Patient Education How to access health informa tion online - Detail Indication:Body mass index (BMI) of 24.0 to 24.9 in adult Start:09-Oct-2016 Instruction Type:Patient Education Patient Instructions Indication:Body mass index (BMI) of 24.0 to 24.9 in adult Start:09-Oct-2016 Instruction Type:Provider Instructions for Treatment How to access health informa tion online Indication:BMI 25.0-25.9,adult Start:27-Aug-2016 Instruction Type:Patient Education How to access health informa tion online - Detail Indication:BMI 25.0-25.9,adult Start:27-Aug-2016 Instruction Type:Patient Education Patient Instructions Indication:BMI 25.0-25.9,adult Start:27-Aug-2016 Instruction Type:Provider Instructions for Treatment How to access health informa tion online Indication:Hip pain, acute, right Start:13-Jan-2016 Instruction Type:Patient Education How to access health informa tion online - Detail Indication:Hip pain, acute, right Start:13-Jan-2016 Instruction Type:Patient Education Patient Instructions Indication:Hip pain, acute, right Start:13-Jan-2016 Instruction Type:Provider Instructions for Treatment How to access health informa tion online Indication:Hip pain, acute, right Start:30-Dec-2015 Instruction Type:Patient Education How to access health informa tion online - Detail Indication:Hip pain, acute, right Start:30-Dec-2015 Instruction Type:Patient Education Patient Instructions Indication:Hip pain, acute, right Start:30-Dec-2015 Instruction Type:Provider Instructions for Treatment How to access health informa tion online Indication:Vaginal irritation Start:08-Jul-2015 Instruction Type:Patient Education How to access health informa tion online - Detail Indication:Vaginal irritation Start:08-Jul-2015 Instruction Type:Patient Education Patient Instructions Indication:Vaginal irritation Start:08-Jul-2015 Instruction Type:Provider Instructions for Treatment How to access health informa tion online Indication:Vaginal irritation Start:27-May-2015 Instruction Type:Patient Education How to access health informa tion online - Detail Indication:Vaginal irritation Start:27-May-2015 Instruction Type:Patient Education Patient Instructions Indication:Vaginal irritation Start:27-May-2015 Instruction Type:Provider Instructions for Treatment Patient Instructions Indication:Well Woman Exam (V72.31) (Pap,Mammo,Routine Female) (Renamed from Well Woman Exam (Pap,Mammo,Routine Female)) Start:26-Jun-2013 Instruction Type:Provider Instructions for Treatment [facility]; [facility] Work Phone: Instructions* Name Dates Details Patient Instructions Indication:Hypertriglyceridemia, essential Start:04-Oct-2020 Instruction Type:Provider Instructions for Treatment How to Access Health Informa tion Online using Patient Portal and [employer] Apps Indication:Hypertriglyceridemia, essential Start:04-Oct-2020 Instruction Type:Patient Education How to access health informa tion online Indication:Well Woman Exam (V72.31) (Pap,Mammo,Routine Female) (Renamed from Well Woman Exam (Pap,Mammo,Routine Female)) Start:20-Jun-2020 Instruction Type:Patient Education How to access health informa tion online - Detail Indication:Well Woman Exam (V72.31) (Pap,Mammo,Routine Female) (Renamed from Well Woman Exam (Pap,Mammo,Routine Female)) Start:20-Jun-2020 Instruction Type:Patient Education Patient Instructions Indication:Well Woman Exam (V72.31) (Pap,Mammo,Routine Female) (Renamed from Well Woman Exam (Pap,Mammo,Routine Female)) Start:20-Jun-2020 Instruction Type:Provider Instructions for Treatment How to access health informa tion online Indication:Well Woman Exam (V72.31) (Pap,Mammo,Routine Female) (Renamed from Well Woman Exam (Pap,Mammo,Routine Female)) Start:10-Feb-2019 Instruction Type:Patient Education How to access health informa tion online - Detail Indication:Well Woman Exam (V72.31) (Pap,Mammo,Routine Female) (Renamed from Well Woman Exam (Pap,Mammo,Routine Female)) Start:10-Feb-2019 Instruction Type:Patient Education Patient Instructions Indication:Well Woman Exam (V72.31) (Pap,Mammo,Routine Female) (Renamed from Well Woman Exam (Pap,Mammo,Routine Female)) Start:10-Feb-2019 Instruction Type:Provider Instructions for Treatment How to access health informa tion online Indication:Well Woman Exam (V72.31) (Pap,Mammo,Routine Female) (Renamed from Well Woman Exam (Pap,Mammo,Routine Female)) Start:19-Dec-2017 Instruction Type:Patient Education How to access health informa tion online - Detail Indication:Well Woman Exam (V72.31) (Pap,Mammo,Routine Female) (Renamed from Well Woman Exam (Pap,Mammo,Routine Female)) Start:19-Dec-2017 Instruction Type:Patient Education Patient Instructions Indication:Well Woman Exam (V72.31) (Pap,Mammo,Routine Female) (Renamed from Well Woman Exam (Pap,Mammo,Routine Female)) Start:19-Dec-2017 Instruction Type:Provider Instructions for Treatment How to access health informa tion online Indication:BMI 22.0-22.9, adult Start:14-Jun-2017 Instruction Type:Patient Education How to access health informa tion online - Detail Indication:BMI 22.0-22.9, adult Start:14-Jun-2017 Instruction Type:Patient Education Patient Instructions Indication:BMI 22.0-22.9, adult Start:14-Jun-2017 Instruction Type:Provider Instructions for Treatment How to access health informa tion online Indication:Blood pressure elevated without history of HTN Start:08-Feb-2017 Instruction Type:Patient Education How to access health informa tion online - Detail Indication:Blood pressure elevated without history of HTN Start:08-Feb-2017 Instruction Type:Patient Education Patient Instructions Indication:Blood pressure elevated without history of HTN Start:08-Feb-2017 Instruction Type:Provider Instructions for Treatment How to access health informa tion online Indication:Body mass index (BMI) of 24.0 to 24.9 in adult Start:09-Oct-2016 Instruction Type:Patient Education How to access health informa tion online - Detail Indication:Body mass index (BMI) of 24.0 to 24.9 in adult Start:09-Oct-2016 Instruction Type:Patient Education Patient Instructions Indication:Body mass index (BMI) of 24.0 to 24.9 in adult Start:09-Oct-2016 Instruction Type:Provider Instructions for Treatment How to access health informa tion online Indication:BMI 25.0-25.9,adult Start:27-Aug-2016 Instruction Type:Patient Education How to access health informa tion online - Detail Indication:BMI 25.0-25.9,adult Start:27-Aug-2016 Instruction Type:Patient Education Patient Instructions Indication:BMI 25.0-25.9,adult Start:27-Aug-2016 Instruction Type:Provider Instructions for Treatment How to access health informa tion online Indication:Hip pain, acute, right Start:13-Jan-2016 Instruction Type:Patient Education How to access health informa tion online - Detail Indication:Hip pain, acute, right Start:13-Jan-2016 Instruction Type:Patient Education Patient Instructions Indication:Hip pain, acute, right Start:13-Jan-2016 Instruction Type:Provider Instructions for Treatment How to access health informa tion online Indication:Hip pain, acute, right Start:30-Dec-2015 Instruction Type:Patient Education How to access health informa tion online - Detail Indication:Hip pain, acute, right Start:30-Dec-2015 Instruction Type:Patient Education Patient Instructions Indication:Hip pain, acute, right Start:30-Dec-2015 Instruction Type:Provider Instructions for Treatment How to access health informa tion online Indication:Vaginal irritation Start:08-Jul-2015 Instruction Type:Patient Education How to access health informa tion online - Detail Indication:Vaginal irritation Start:08-Jul-2015 Instruction Type:Patient Education Patient Instructions Indication:Vaginal irritation Start:08-Jul-2015 Instruction Type:Provider Instructions for Treatment How to access health informa tion online Indication:Vaginal irritation Start:27-May-2015 Instruction Type:Patient Education How to access health informa tion online - Detail Indication:Vaginal irritation Start:27-May-2015 Instruction Type:Patient Education Patient Instructions Indication:Vaginal irritation Start:27-May-2015 Instruction Type:Provider Instructions for Treatment Patient Instructions Indication:Well Woman Exam (V72.31) (Pap,Mammo,Routine Female) (Renamed from Well Woman Exam (Pap,Mammo,Routine Female)) Start:26-Jun-2013 Instruction Type:Provider Instructions for Treatment [facility]; [facility] Work Phone: Instructions* Name Dates Details Patient Instructions Indication:Body mass index [BMI] 23.0-23.9, adult Start:22-May-2022 Instruction Type:Provider Instructions for Treatment How to Access Health Informa tion Online using Patient Portal and [employer] Indication:Body mass index [BMI] 23.0-23.9, adult Start:22-May-2022 Instruction Type:Patient Education Patient Instructions Indication:Hypertriglyceridemia, essential Start:04-Oct-2020 Instruction Type:Provider Instructions for Treatment How to Access Health Informa tion Online using Patient Portal and [employer] Apps Indication:Hypertriglyceridemia, essential Start:04-Oct-2020 Instruction Type:Patient Education How to access health informa tion online Indication:Encounter for well adult exam with abnormal findings Start:20-Jun-2020 Instruction Type:Patient Education How to access health informa tion online - Detail Indication:Encounter for well adult exam with abnormal findings Start:20-Jun-2020 Instruction Type:Patient Education Patient Instructions Indication:Encounter for well adult exam with abnormal findings Start:20-Jun-2020 Instruction Type:Provider Instructions for Treatment How to access health informa tion online Indication:Encounter for well adult exam with abnormal findings Start:10-Feb-2019 Instruction Type:Patient Education How to access health informa tion online - Detail Indication:Encounter for well adult exam with abnormal findings Start:10-Feb-2019 Instruction Type:Patient Education Patient Instructions Indication:Encounter for well adult exam with abnormal findings Start:10-Feb-2019 Instruction Type:Provider Instructions for Treatment How to access health informa tion online Indication:Encounter for well adult exam with abnormal findings Start:19-Dec-2017 Instruction Type:Patient Education How to access health informa tion online - Detail Indication:Encounter for well adult exam with abnormal findings Start:19-Dec-2017 Instruction Type:Patient Education Patient Instructions Indication:Encounter for well adult exam with abnormal findings Start:19-Dec-2017 Instruction Type:Provider Instructions for Treatment How to access health informa tion online Indication:BMI 22.0-22.9, adult Start:14-Jun-2017 Instruction Type:Patient Education How to access health informa tion online - Detail Indication:BMI 22.0-22.9, adult Start:14-Jun-2017 Instruction Type:Patient Education Patient Instructions Indication:BMI 22.0-22.9, adult Start:14-Jun-2017 Instruction Type:Provider Instructions for Treatment How to access health informa tion online Indication:Blood pressure elevated without history of HTN Start:08-Feb-2017 Instruction Type:Patient Education How to access health informa tion online - Detail Indication:Blood pressure elevated without history of HTN Start:08-Feb-2017 Instruction Type:Patient Education Patient Instructions Indication:Blood pressure elevated without history of HTN Start:08-Feb-2017 Instruction Type:Provider Instructions for Treatment How to access health informa tion online Indication:Body mass index (BMI) of 24.0 to 24.9 in adult Start:09-Oct-2016 Instruction Type:Patient Education How to access health informa tion online - Detail Indication:Body mass index (BMI) of 24.0 to 24.9 in adult Start:09-Oct-2016 Instruction Type:Patient Education Patient Instructions Indication:Body mass index (BMI) of 24.0 to 24.9 in adult Start:09-Oct-2016 Instruction Type:Provider Instructions for Treatment How to access health informa tion online Indication:BMI 25.0-25.9,adult Start:27-Aug-2016 Instruction Type:Patient Education How to access health informa tion online - Detail Indication:BMI 25.0-25.9,adult Start:27-Aug-2016 Instruction Type:Patient Education Patient Instructions Indication:BMI 25.0-25.9,adult Start:27-Aug-2016 Instruction Type:Provider Instructions for Treatment How to access health informa tion online Indication:Hip pain, acute, right Start:13-Jan-2016 Instruction Type:Patient Education How to access health informa tion online - Detail Indication:Hip pain, acute, right Start:13-Jan-2016 Instruction Type:Patient Education Patient Instructions Indication:Hip pain, acute, right Start:13-Jan-2016 Instruction Type:Provider Instructions for Treatment How to access health informa tion online Indication:Hip pain, acute, right Start:30-Dec-2015 Instruction Type:Patient Education How to access health informa tion online - Detail Indication:Hip pain, acute, right Start:30-Dec-2015 Instruction Type:Patient Education Patient Instructions Indication:Hip pain, acute, right Start:30-Dec-2015 Instruction Type:Provider Instructions for Treatment How to access health informa tion online Indication:Vaginal irritation Start:08-Jul-2015 Instruction Type:Patient Education How to access health informa tion online - Detail Indication:Vaginal irritation Start:08-Jul-2015 Instruction Type:Patient Education Patient Instructions Indication:Vaginal irritation Start:08-Jul-2015 Instruction Type:Provider Instructions for Treatment How to access health informa tion online Indication:Vaginal irritation Start:27-May-2015 Instruction Type:Patient Education How to access health informa tion online - Detail Indication:Vaginal irritation Start:27-May-2015 Instruction Type:Patient Education Patient Instructions Indication:Vaginal irritation Start:27-May-2015 Instruction Type:Provider Instructions for Treatment Patient Instructions Indication:Encounter for well adult exam with abnormal findings Start:26-Jun-2013 Instruction Type:Provider Instructions for Treatment [facility]; [facility] Work Phone: Instructions* Name Dates Details Patient Instructions Indication:Body mass index [BMI] 23.0-23.9, adult Start:22-May-2022 Instruction Type:Provider Instructions for Treatment How to Access Health Informa tion Online using Patient Portal and [employer] Apps Indication:Body mass index [BMI] 23.0-23.9, adult Start:22-May-2022 Instruction Type:Patient Education Patient Instructions Indication:Hypertriglyceridemia, essential Start:04-Oct-2020 Instruction Type:Provider Instructions for Treatment How to Access Health Informa tion Online using Patient Portal and [employer] Apps Indication:Hypertriglyceridemia, essential Start:04-Oct-2020 Instruction Type:Patient Education How to access health informa tion online Indication:Encounter for well adult exam with abnormal findings Start:20-Jun-2020 Instruction Type:Patient Education How to access health informa tion online - Detail Indication:Encounter for well adult exam with abnormal findings Start:20-Jun-2020 Instruction Type:Patient Education Patient Instructions Indication:Encounter for well adult exam with abnormal findings Start:20-Jun-2020 Instruction Type:Provider Instructions for Treatment How to access health informa tion online Indication:Encounter for well adult exam with abnormal findings Start:10-Feb-2019 Instruction Type:Patient Education How to access health informa tion online - Detail Indication:Encounter for well adult exam with abnormal findings Start:10-Feb-2019 Instruction Type:Patient Education Patient Instructions Indication:Encounter for well adult exam with abnormal findings Start:10-Feb-2019 Instruction Type:Provider Instructions for Treatment How to access health informa tion online Indication:Encounter for well adult exam with abnormal findings Start:19-Dec-2017 Instruction Type:Patient Education How to access health informa tion online - Detail Indication:Encounter for well adult exam with abnormal findings Start:19-Dec-2017 Instruction Type:Patient Education Patient Instructions Indication:Encounter for well adult exam with abnormal findings Start:19-Dec-2017 Instruction Type:Provider Instructions for Treatment How to access health informa tion online Indication:BMI 22.0-22.9, adult Start:14-Jun-2017 Instruction Type:Patient Education How to access health informa tion online - Detail Indication:BMI 22.0-22.9, adult Start:14-Jun-2017 Instruction Type:Patient Education Patient Instructions Indication:BMI 22.0-22.9, adult Start:14-Jun-2017 Instruction Type:Provider Instructions for Treatment How to access health informa tion online Indication:Blood pressure elevated without history of HTN Start:08-Feb-2017 Instruction Type:Patient Education How to access health informa tion online - Detail Indication:Blood pressure elevated without history of HTN Start:08-Feb-2017 Instruction Type:Patient Education Patient Instructions Indication:Blood pressure elevated without history of HTN Start:08-Feb-2017 Instruction Type:Provider Instructions for Treatment How to access health informa tion online Indication:Body mass index (BMI) of 24.0 to 24.9 in adult Start:09-Oct-2016 Instruction Type:Patient Education How to access health informa tion online - Detail Indication:Body mass index (BMI) of 24.0 to 24.9 in adult Start:09-Oct-2016 Instruction Type:Patient Education Patient Instructions Indication:Body mass index (BMI) of 24.0 to 24.9 in adult Start:09-Oct-2016 Instruction Type:Provider Instructions for Treatment How to access health informa tion online Indication:BMI 25.0-25.9,adult Start:27-Aug-2016 Instruction Type:Patient Education How to access health informa tion online - Detail Indication:BMI 25.0-25.9,adult Start:27-Aug-2016 Instruction Type:Patient Education Patient Instructions Indication:BMI 25.0-25.9,adult Start:27-Aug-2016 Instruction Type:Provider Instructions for Treatment How to access health informa tion online Indication:Hip pain, acute, right Start:13-Jan-2016 Instruction Type:Patient Education How to access health informa tion online - Detail Indication:Hip pain, acute, right Start:13-Jan-2016 Instruction Type:Patient Education Patient Instructions Indication:Hip pain, acute, right Start:13-Jan-2016 Instruction Type:Provider Instructions for Treatment How to access health informa tion online Indication:Hip pain, acute, right Start:30-Dec-2015 Instruction Type:Patient Education How to access health informa tion online - Detail Indication:Hip pain, acute, right Start:30-Dec-2015 Instruction Type:Patient Education Patient Instructions Indication:Hip pain, acute, right Start:30-Dec-2015 Instruction Type:Provider Instructions for Treatment How to access health informa tion online Indication:Vaginal irritation Start:08-Jul-2015 Instruction Type:Patient Education How to access health informa tion online - Detail Indication:Vaginal irritation Start:08-Jul-2015 Instruction Type:Patient Education Patient Instructions Indication:Vaginal irritation Start:08-Jul-2015 Instruction Type:Provider Instructions for Treatment How to access health informa tion online Indication:Vaginal irritation Start:27-May-2015 Instruction Type:Patient Education How to access health informa tion online - Detail Indication:Vaginal irritation Start:27-May-2015 Instruction Type:Patient Education Patient Instructions Indication:Vaginal irritation Start:27-May-2015 Instruction Type:Provider Instructions for Treatment Patient Instructions Indication:Encounter for well adult exam with abnormal findings Start:26-Jun-2013 Instruction Type:Provider Instructions for Treatment [facility]; [facility] Work Phone: Instructions* Name Dates Details Patient Instructions Indication:Body mass index [BMI] 23.0-23.9, adult Start:22-May-2022 Instruction Type:Provider Instructions for Treatment How to Access Health Informa tion Online using Patient Portal and [employer] Indication:Body mass index [BMI] 23.0-23.9, adult Start:22-May-2022 Instruction Type:Patient Education Patient Instructions Indication:Hypertriglyceridemia, essential Start:04-Oct-2020 Instruction Type:Provider Instructions for Treatment How to Access Health Informa tion Online using Patient Portal and [employer] Indication:Hypertriglyceridemia, essential Start:04-Oct-2020 Instruction Type:Patient Education How to access health informa tion online Indication:Encounter for well adult exam with abnormal findings Start:20-Jun-2020 Instruction Type:Patient Education How to access health informa tion online - Detail Indication:Encounter for well adult exam with abnormal findings Start:20-Jun-2020 Instruction Type:Patient Education Patient Instructions Indication:Encounter for well adult exam with abnormal findings Start:20-Jun-2020 Instruction Type:Provider Instructions for Treatment How to access health informa tion online Indication:Encounter for well adult exam with abnormal findings Start:10-Feb-2019 Instruction Type:Patient Education How to access health informa tion online - Detail Indication:Encounter for well adult exam with abnormal findings Start:10-Feb-2019 Instruction Type:Patient Education Patient Instructions Indication:Encounter for well adult exam with abnormal findings Start:10-Feb-2019 Instruction Type:Provider Instructions for Treatment How to access health informa tion online Indication:Encounter for well adult exam with abnormal findings Start:19-Dec-2017 Instruction Type:Patient Education How to access health informa tion online - Detail Indication:Encounter for well adult exam with abnormal findings Start:19-Dec-2017 Instruction Type:Patient Education Patient Instructions Indication:Encounter for well adult exam with abnormal findings Start:19-Dec-2017 Instruction Type:Provider Instructions for Treatment How to access health informa tion online Indication:BMI 22.0-22.9, adult Start:14-Jun-2017 Instruction Type:Patient Education How to access health informa tion online - Detail Indication:BMI 22.0-22.9, adult Start:14-Jun-2017 Instruction Type:Patient Education Patient Instructions Indication:BMI 22.0-22.9, adult Start:14-Jun-2017 Instruction Type:Provider Instructions for Treatment How to access health informa tion online Indication:Blood pressure elevated without history of HTN Start:08-Feb-2017 Instruction Type:Patient Education How to access health informa tion online - Detail Indication:Blood pressure elevated without history of HTN Start:08-Feb-2017 Instruction Type:Patient Education Patient Instructions Indication:Blood pressure elevated without history of HTN Start:08-Feb-2017 Instruction Type:Provider Instructions for Treatment How to access health informa tion online Indication:Body mass index (BMI) of 24.0 to 24.9 in adult Start:09-Oct-2016 Instruction Type:Patient Education How to access health informa tion online - Detail Indication:Body mass index (BMI) of 24.0 to 24.9 in adult Start:09-Oct-2016 Instruction Type:Patient Education Patient Instructions Indication:Body mass index (BMI) of 24.0 to 24.9 in adult Start:09-Oct-2016 Instruction Type:Provider Instructions for Treatment How to access health informa tion online Indication:BMI 25.0-25.9,adult Start:27-Aug-2016 Instruction Type:Patient Education How to access health informa tion online - Detail Indication:BMI 25.0-25.9,adult Start:27-Aug-2016 Instruction Type:Patient Education Patient Instructions Indication:BMI 25.0-25.9,adult Start:27-Aug-2016 Instruction Type:Provider Instructions for Treatment How to access health informa tion online Indication:Hip pain, acute, right Start:13-Jan-2016 Instruction Type:Patient Education How to access health informa tion online - Detail Indication:Hip pain, acute, right Start:13-Jan-2016 Instruction Type:Patient Education Patient Instructions Indication:Hip pain, acute, right Start:13-Jan-2016 Instruction Type:Provider Instructions for Treatment How to access health informa tion online Indication:Hip pain, acute, right Start:30-Dec-2015 Instruction Type:Patient Education How to access health informa tion online - Detail Indication:Hip pain, acute, right Start:30-Dec-2015 Instruction Type:Patient Education Patient Instructions Indication:Hip pain, acute, right Start:30-Dec-2015 Instruction Type:Provider Instructions for Treatment How to access health informa tion online Indication:Vaginal irritation Start:08-Jul-2015 Instruction Type:Patient Education How to access health informa tion online - Detail Indication:Vaginal irritation Start:08-Jul-2015 Instruction Type:Patient Education Patient Instructions Indication:Vaginal irritation Start:08-Jul-2015 Instruction Type:Provider Instructions for Treatment How to access health informa tion online Indication:Vaginal irritation Start:27-May-2015 Instruction Type:Patient Education How to access health informa tion online - Detail Indication:Vaginal irritation Start:27-May-2015 Instruction Type:Patient Education Patient Instructions Indication:Vaginal irritation Start:27-May-2015 Instruction Type:Provider Instructions for Treatment Patient Instructions Indication:Encounter for well adult exam with abnormal findings Start:26-Jun-2013 Instruction Type:Provider Instructions for Treatment [facility]; [facility] Work Phone: Instructions* Name Dates Details Patient Instructions Indication:Body mass index [BMI] 23.0-23.9, adult Start:22-May-2022 Instruction Type:Provider Instructions for Treatment How to Access Health Informa tion Online using Patient Portal and [employer] Indication:Body mass index [BMI] 23.0-23.9, adult Start:22-May-2022 Instruction Type:Patient Education Patient Instructions Indication:Hypertriglyceridemia, essential Start:04-Oct-2020 Instruction Type:Provider Instructions for Treatment How to Access Health Informa tion Online using Patient Portal and [employer] Indication:Hypertriglyceridemia, essential Start:04-Oct-2020 Instruction Type:Patient Education How to access health informa tion online Indication:Encounter for well adult exam with abnormal findings Start:20-Jun-2020 Instruction Type:Patient Education How to access health informa tion online - Detail Indication:Encounter for well adult exam with abnormal findings Start:20-Jun-2020 Instruction Type:Patient Education Patient Instructions Indication:Encounter for well adult exam with abnormal findings Start:20-Jun-2020 Instruction Type:Provider Instructions for Treatment How to access health informa tion online Indication:Encounter for well adult exam with abnormal findings Start:10-Feb-2019 Instruction Type:Patient Education How to access health informa tion online - Detail Indication:Encounter for well adult exam with abnormal findings Start:10-Feb-2019 Instruction Type:Patient Education Patient Instructions Indication:Encounter for well adult exam with abnormal findings Start:10-Feb-2019 Instruction Type:Provider Instructions for Treatment How to access health informa tion online Indication:Encounter for well adult exam with abnormal findings Start:19-Dec-2017 Instruction Type:Patient Education How to access health informa tion online - Detail Indication:Encounter for well adult exam with abnormal findings Start:19-Dec-2017 Instruction Type:Patient Education Patient Instructions Indication:Encounter for well adult exam with abnormal findings Start:19-Dec-2017 Instruction Type:Provider Instructions for Treatment How to access health informa tion online Indication:BMI 22.0-22.9, adult Start:14-Jun-2017 Instruction Type:Patient Education How to access health informa tion online - Detail Indication:BMI 22.0-22.9, adult Start:14-Jun-2017 Instruction Type:Patient Education Patient Instructions Indication:BMI 22.0-22.9, adult Start:14-Jun-2017 Instruction Type:Provider Instructions for Treatment How to access health informa tion online Indication:Blood pressure elevated without history of HTN Start:08-Feb-2017 Instruction Type:Patient Education How to access health informa tion online - Detail Indication:Blood pressure elevated without history of HTN Start:08-Feb-2017 Instruction Type:Patient Education Patient Instructions Indication:Blood pressure elevated without history of HTN Start:08-Feb-2017 Instruction Type:Provider Instructions for Treatment How to access health informa tion online Indication:Body mass index (BMI) of 24.0 to 24.9 in adult Start:09-Oct-2016 Instruction Type:Patient Education How to access health informa tion online - Detail Indication:Body mass index (BMI) of 24.0 to 24.9 in adult Start:09-Oct-2016 Instruction Type:Patient Education Patient Instructions Indication:Body mass index (BMI) of 24.0 to 24.9 in adult Start:09-Oct-2016 Instruction Type:Provider Instructions for Treatment How to access health informa tion online Indication:BMI 25.0-25.9,adult Start:27-Aug-2016 Instruction Type:Patient Education How to access health informa tion online - Detail Indication:BMI 25.0-25.9,adult Start:27-Aug-2016 Instruction Type:Patient Education Patient Instructions Indication:BMI 25.0-25.9,adult Start:27-Aug-2016 Instruction Type:Provider Instructions for Treatment How to access health informa tion online Indication:Hip pain, acute, right Start:13-Jan-2016 Instruction Type:Patient Education How to access health informa tion online - Detail Indication:Hip pain, acute, right Start:13-Jan-2016 Instruction Type:Patient Education Patient Instructions Indication:Hip pain, acute, right Start:13-Jan-2016 Instruction Type:Provider Instructions for Treatment How to access health informa tion online Indication:Hip pain, acute, right Start:30-Dec-2015 Instruction Type:Patient Education How to access health informa tion online - Detail Indication:Hip pain, acute, right Start:30-Dec-2015 Instruction Type:Patient Education Patient Instructions Indication:Hip pain, acute, right Start:30-Dec-2015 Instruction Type:Provider Instructions for Treatment How to access health informa tion online Indication:Vaginal irritation Start:08-Jul-2015 Instruction Type:Patient Education How to access health informa tion online - Detail Indication:Vaginal irritation Start:08-Jul-2015 Instruction Type:Patient Education Patient Instructions Indication:Vaginal irritation Start:08-Jul-2015 Instruction Type:Provider Instructions for Treatment How to access health informa tion online Indication:Vaginal irritation Start:27-May-2015 Instruction Type:Patient Education How to access health informa tion online - Detail Indication:Vaginal irritation Start:27-May-2015 Instruction Type:Patient Education Patient Instructions Indication:Vaginal irritation Start:27-May-2015 Instruction Type:Provider Instructions for Treatment Patient Instructions Indication:Encounter for well adult exam with abnormal findings Start:26-Jun-2013 Instruction Type:Provider Instructions for Treatment [facility]; [facility] Work Phone: Instructions* Name Dates Details Patient Instructions Indication:Body mass index [BMI] 23.0-23.9, adult Start:22-May-2022 Instruction Type:Provider Instructions for Treatment How to Access Health Informa tion Online using Patient Portal and [employer] Indication:Body mass index [BMI] 23.0-23.9, adult Start:22-May-2022 Instruction Type:Patient Education Patient Instructions Indication:Hypertriglyceridemia, essential Start:04-Oct-2020 Instruction Type:Provider Instructions for Treatment How to Access Health Informa tion Online using Patient Portal and [employer] Indication:Hypertriglyceridemia, essential Start:04-Oct-2020 Instruction Type:Patient Education How to access health informa tion online Indication:Encounter for well adult exam with abnormal findings Start:20-Jun-2020 Instruction Type:Patient Education How to access health informa tion online - Detail Indication:Encounter for well adult exam with abnormal findings Start:20-Jun-2020 Instruction Type:Patient Education Patient Instructions Indication:Encounter for well adult exam with abnormal findings Start:20-Jun-2020 Instruction Type:Provider Instructions for Treatment How to access health informa tion online Indication:Encounter for well adult exam with abnormal findings Start:10-Feb-2019 Instruction Type:Patient Education How to access health informa tion online - Detail Indication:Encounter for well adult exam with abnormal findings Start:10-Feb-2019 Instruction Type:Patient Education Patient Instructions Indication:Encounter for well adult exam with abnormal findings Start:10-Feb-2019 Instruction Type:Provider Instructions for Treatment How to access health informa tion online Indication:Encounter for well adult exam with abnormal findings Start:19-Dec-2017 Instruction Type:Patient Education How to access health informa tion online - Detail Indication:Encounter for well adult exam with abnormal findings Start:19-Dec-2017 Instruction Type:Patient Education Patient Instructions Indication:Encounter for well adult exam with abnormal findings Start:19-Dec-2017 Instruction Type:Provider Instructions for Treatment How to access health informa tion online Indication:BMI 22.0-22.9, adult Start:14-Jun-2017 Instruction Type:Patient Education How to access health informa tion online - Detail Indication:BMI 22.0-22.9, adult Start:14-Jun-2017 Instruction Type:Patient Education Patient Instructions Indication:BMI 22.0-22.9, adult Start:14-Jun-2017 Instruction Type:Provider Instructions for Treatment How to access health informa tion online Indication:Blood pressure elevated without history of HTN Start:08-Feb-2017 Instruction Type:Patient Education How to access health informa tion online - Detail Indication:Blood pressure elevated without history of HTN Start:08-Feb-2017 Instruction Type:Patient Education Patient Instructions Indication:Blood pressure elevated without history of HTN Start:08-Feb-2017 Instruction Type:Provider Instructions for Treatment How to access health informa tion online Indication:Body mass index (BMI) of 24.0 to 24.9 in adult Start:09-Oct-2016 Instruction Type:Patient Education How to access health informa tion online - Detail Indication:Body mass index (BMI) of 24.0 to 24.9 in adult Start:09-Oct-2016 Instruction Type:Patient Education Patient Instructions Indication:Body mass index (BMI) of 24.0 to 24.9 in adult Start:09-Oct-2016 Instruction Type:Provider Instructions for Treatment How to access health informa tion online Indication:BMI 25.0-25.9,adult Start:27-Aug-2016 Instruction Type:Patient Education How to access health informa tion online - Detail Indication:BMI 25.0-25.9,adult Start:27-Aug-2016 Instruction Type:Patient Education Patient Instructions Indication:BMI 25.0-25.9,adult Start:27-Aug-2016 Instruction Type:Provider Instructions for Treatment How to access health informa tion online Indication:Hip pain, acute, right Start:13-Jan-2016 Instruction Type:Patient Education How to access health informa tion online - Detail Indication:Hip pain, acute, right Start:13-Jan-2016 Instruction Type:Patient Education Patient Instructions Indication:Hip pain, acute, right Start:13-Jan-2016 Instruction Type:Provider Instructions for Treatment How to access health informa tion online Indication:Hip pain, acute, right Start:30-Dec-2015 Instruction Type:Patient Education How to access health informa tion online - Detail Indication:Hip pain, acute, right Start:30-Dec-2015 Instruction Type:Patient Education Patient Instructions Indication:Hip pain, acute, right Start:30-Dec-2015 Instruction Type:Provider Instructions for Treatment How to access health informa tion online Indication:Vaginal irritation Start:08-Jul-2015 Instruction Type:Patient Education How to access health informa tion online - Detail Indication:Vaginal irritation Start:08-Jul-2015 Instruction Type:Patient Education Patient Instructions Indication:Vaginal irritation Start:08-Jul-2015 Instruction Type:Provider Instructions for Treatment How to access health informa tion online Indication:Vaginal irritation Start:27-May-2015 Instruction Type:Patient Education How to access health informa tion online - Detail Indication:Vaginal irritation Start:27-May-2015 Instruction Type:Patient Education Patient Instructions Indication:Vaginal irritation Start:27-May-2015 Instruction Type:Provider Instructions for Treatment Patient Instructions Indication:Encounter for well adult exam with abnormal findings Start:26-Jun-2013 Instruction Type:Provider Instructions for Treatment [facility]; [facility] Work Phone: Instructions* Name Dates Details Patient Instructions Indication:Current nonsmoker (Renamed from Current non-smoker) Start:21-Nov-2022 Instruction Type:Provider Instructions for Treatment How to Access Health Informa tion Online using Patient Portal and [employer]rd [employer] Apps Indication:Current nonsmoker (Renamed from Current non-smoker) Start:21-Nov-2022 Instruction Type:Patient Education Patient Instructions Indication:Body mass index [BMI] 23.0-23.9, adult Start:22-May-2022 Instruction Type:Provider Instructions for Treatment How to Access Health Informa tion Online using Patient Portal and [employer]rd [employer] Apps Indication:Body mass index [BMI] 23.0-23.9, adult Start:22-May-2022 Instruction Type:Patient Education Patient Instructions Indication:Hypertriglyceridemia, essential Start:04-Oct-2020 Instruction Type:Provider Instructions for Treatment How to Access Health Informa tion Online using Patient Portal and [employer]rd [employer] Apps Indication:Hypertriglyceridemia, essential Start:04-Oct-2020 Instruction Type:Patient Education How to access health informa tion online Indication:Encounter for well adult exam with abnormal findings Start:20-Jun-2020 Instruction Type:Patient Education How to access health informa tion online - Detail Indication:Encounter for well adult exam with abnormal findings Start:20-Jun-2020 Instruction Type:Patient Education Patient Instructions Indication:Encounter for well adult exam with abnormal findings Start:20-Jun-2020 Instruction Type:Provider Instructions for Treatment How to access health informa tion online Indication:Encounter for well adult exam with abnormal findings Start:10-Feb-2019 Instruction Type:Patient Education How to access health informa tion online - Detail Indication:Encounter for well adult exam with abnormal findings Start:10-Feb-2019 Instruction Type:Patient Education Patient Instructions Indication:Encounter for well adult exam with abnormal findings Start:10-Feb-2019 Instruction Type:Provider Instructions for Treatment How to access health informa tion online Indication:Encounter for well adult exam with abnormal findings Start:19-Dec-2017 Instruction Type:Patient Education How to access health informa tion online - Detail Indication:Encounter for well adult exam with abnormal findings Start:19-Dec-2017 Instruction Type:Patient Education Patient Instructions Indication:Encounter for well adult exam with abnormal findings Start:19-Dec-2017 Instruction Type:Provider Instructions for Treatment How to access health informa tion online Indication:BMI 22.0-22.9, adult Start:14-Jun-2017 Instruction Type:Patient Education How to access health informa tion online - Detail Indication:BMI 22.0-22.9, adult Start:14-Jun-2017 Instruction Type:Patient Education Patient Instructions Indication:BMI 22.0-22.9, adult Start:14-Jun-2017 Instruction Type:Provider Instructions for Treatment How to access health informa tion online Indication:Blood pressure elevated without history of HTN Start:08-Feb-2017 Instruction Type:Patient Education How to access health informa tion online - Detail Indication:Blood pressure elevated without history of HTN Start:08-Feb-2017 Instruction Type:Patient Education Patient Instructions Indication:Blood pressure elevated without history of HTN Start:08-Feb-2017 Instruction Type:Provider Instructions for Treatment How to access health informa tion online Indication:Body mass index (BMI) of 24.0 to 24.9 in adult Start:09-Oct-2016 Instruction Type:Patient Education How to access health informa tion online - Detail Indication:Body mass index (BMI) of 24.0 to 24.9 in adult Start:09-Oct-2016 Instruction Type:Patient Education Patient Instructions Indication:Body mass index (BMI) of 24.0 to 24.9 in adult Start:09-Oct-2016 Instruction Type:Provider Instructions for Treatment How to access health informa tion online Indication:BMI 25.0-25.9,adult Start:27-Aug-2016 Instruction Type:Patient Education How to access health informa tion online - Detail Indication:BMI 25.0-25.9,adult Start:27-Aug-2016 Instruction Type:Patient Education Patient Instructions Indication:BMI 25.0-25.9,adult Start:27-Aug-2016 Instruction Type:Provider Instructions for Treatment How to access health informa tion online Indication:Hip pain, acute, right Start:13-Jan-2016 Instruction Type:Patient Education How to access health informa tion online - Detail Indication:Hip pain, acute, right Start:13-Jan-2016 Instruction Type:Patient Education Patient Instructions Indication:Hip pain, acute, right Start:13-Jan-2016 Instruction Type:Provider Instructions for Treatment How to access health informa tion online Indication:Hip pain, acute, right Start:30-Dec-2015 Instruction Type:Patient Education How to access health informa tion online - Detail Indication:Hip pain, acute, right Start:30-Dec-2015 Instruction Type:Patient Education Patient Instructions Indication:Hip pain, acute, right Start:30-Dec-2015 Instruction Type:Provider Instructions for Treatment How to access health informa tion online Indication:Vaginal irritation Start:08-Jul-2015 Instruction Type:Patient Education How to access health informa tion online - Detail Indication:Vaginal irritation Start:08-Jul-2015 Instruction Type:Patient Education Patient Instructions Indication:Vaginal irritation Start:08-Jul-2015 Instruction Type:Provider Instructions for Treatment How to access health informa tion online Indication:Vaginal irritation Start:27-May-2015 Instruction Type:Patient Education How to access health informa tion online - Detail Indication:Vaginal irritation Start:27-May-2015 Instruction Type:Patient Education Patient Instructions Indication:Vaginal irritation Start:27-May-2015 Instruction Type:Provider Instructions for Treatment Patient Instructions Indication:Encounter for well adult exam with abnormal findings Start:26-Jun-2013 Instruction Type:Provider Instructions for Treatment [facility]; [facility] Work Phone: Instructions* Name Dates Details Patient Instructions Indication:Current nonsmoker (Renamed from Current non-smoker) Start:21-Nov-2022 Instruction Type:Provider Instructions for Treatment How to Access Health Informa tion Online using Patient Portal and [employer]rd [employer] Apps Indication:Current nonsmoker (Renamed from Current non-smoker) Start:21-Nov-2022 Instruction Type:Patient Education Patient Instructions Indication:Body mass index [BMI] 23.0-23.9, adult Start:22-May-2022 Instruction Type:Provider Instructions for Treatment How to Access Health Informa tion Online using Patient Portal and [employer]rd [employer] Apps Indication:Body mass index [BMI] 23.0-23.9, adult Start:22-May-2022 Instruction Type:Patient Education Patient Instructions Indication:Hypertriglyceridemia, essential Start:04-Oct-2020 Instruction Type:Provider Instructions for Treatment How to Access Health Informa tion Online using Patient Portal and [employer]rd [employer] Apps Indication:Hypertriglyceridemia, essential Start:04-Oct-2020 Instruction Type:Patient Education How to access health informa tion online Indication:Encounter for well adult exam with abnormal findings Start:20-Jun-2020 Instruction Type:Patient Education How to access health informa tion online - Detail Indication:Encounter for well adult exam with abnormal findings Start:20-Jun-2020 Instruction Type:Patient Education Patient Instructions Indication:Encounter for well adult exam with abnormal findings Start:20-Jun-2020 Instruction Type:Provider Instructions for Treatment How to access health informa tion online Indication:Encounter for well adult exam with abnormal findings Start:10-Feb-2019 Instruction Type:Patient Education How to access health informa tion online - Detail Indication:Encounter for well adult exam with abnormal findings Start:10-Feb-2019 Instruction Type:Patient Education Patient Instructions Indication:Encounter for well adult exam with abnormal findings Start:10-Feb-2019 Instruction Type:Provider Instructions for Treatment How to access health informa tion online Indication:Encounter for well adult exam with abnormal findings Start:19-Dec-2017 Instruction Type:Patient Education How to access health informa tion online - Detail Indication:Encounter for well adult exam with abnormal findings Start:19-Dec-2017 Instruction Type:Patient Education Patient Instructions Indication:Encounter for well adult exam with abnormal findings Start:19-Dec-2017 Instruction Type:Provider Instructions for Treatment How to access health informa tion online Indication:BMI 22.0-22.9, adult Start:14-Jun-2017 Instruction Type:Patient Education How to access health informa tion online - Detail Indication:BMI 22.0-22.9, adult Start:14-Jun-2017 Instruction Type:Patient Education Patient Instructions Indication:BMI 22.0-22.9, adult Start:14-Jun-2017 Instruction Type:Provider Instructions for Treatment How to access health informa tion online Indication:Blood pressure elevated without history of HTN Start:08-Feb-2017 Instruction Type:Patient Education How to access health informa tion online - Detail Indication:Blood pressure elevated without history of HTN Start:08-Feb-2017 Instruction Type:Patient Education Patient Instructions Indication:Blood pressure elevated without history of HTN Start:08-Feb-2017 Instruction Type:Provider Instructions for Treatment How to access health informa tion online Indication:Body mass index (BMI) of 24.0 to 24.9 in adult Start:09-Oct-2016 Instruction Type:Patient Education How to access health informa tion online - Detail Indication:Body mass index (BMI) of 24.0 to 24.9 in adult Start:09-Oct-2016 Instruction Type:Patient Education Patient Instructions Indication:Body mass index (BMI) of 24.0 to 24.9 in adult Start:09-Oct-2016 Instruction Type:Provider Instructions for Treatment How to access health informa tion online Indication:BMI 25.0-25.9,adult Start:27-Aug-2016 Instruction Type:Patient Education How to access health informa tion online - Detail Indication:BMI 25.0-25.9,adult Start:27-Aug-2016 Instruction Type:Patient Education Patient Instructions Indication:BMI 25.0-25.9,adult Start:27-Aug-2016 Instruction Type:Provider Instructions for Treatment How to access health informa tion online Indication:Hip pain, acute, right Start:13-Jan-2016 Instruction Type:Patient Education How to access health informa tion online - Detail Indication:Hip pain, acute, right Start:13-Jan-2016 Instruction Type:Patient Education Patient Instructions Indication:Hip pain, acute, right Start:13-Jan-2016 Instruction Type:Provider Instructions for Treatment How to access health informa tion online Indication:Hip pain, acute, right Start:30-Dec-2015 Instruction Type:Patient Education How to access health informa tion online - Detail Indication:Hip pain, acute, right Start:30-Dec-2015 Instruction Type:Patient Education Patient Instructions Indication:Hip pain, acute, right Start:30-Dec-2015 Instruction Type:Provider Instructions for Treatment How to access health informa tion online Indication:Vaginal irritation Start:08-Jul-2015 Instruction Type:Patient Education How to access health informa tion online - Detail Indication:Vaginal irritation Start:08-Jul-2015 Instruction Type:Patient Education Patient Instructions Indication:Vaginal irritation Start:08-Jul-2015 Instruction Type:Provider Instructions for Treatment How to access health informa tion online Indication:Vaginal irritation Start:27-May-2015 Instruction Type:Patient Education How to access health informa tion online - Detail Indication:Vaginal irritation Start:27-May-2015 Instruction Type:Patient Education Patient Instructions Indication:Vaginal irritation Start:27-May-2015 Instruction Type:Provider Instructions for Treatment Patient Instructions Indication:Encounter for well adult exam with abnormal findings Start:26-Jun-2013 Instruction Type:Provider Instructions for Treatment [facility]; [facility] Work Phone: Instructions* Name Dates Details Patient Instructions Indication:Current nonsmoker (Renamed from Current non-smoker) Start:21-Nov-2022 Instruction Type:Provider Instructions for Treatment How to Access Health Informa tion Online using Patient Portal and [employer]rd [employer] Apps Indication:Current nonsmoker (Renamed from Current non-smoker) Start:21-Nov-2022 Instruction Type:Patient Education Patient Instructions Indication:Body mass index [BMI] 23.0-23.9, adult Start:22-May-2022 Instruction Type:Provider Instructions for Treatment How to Access Health Informa tion Online using Patient Portal and [employer]rd [employer] Apps Indication:Body mass index [BMI] 23.0-23.9, adult Start:22-May-2022 Instruction Type:Patient Education Patient Instructions Indication:Hypertriglyceridemia, essential Start:04-Oct-2020 Instruction Type:Provider Instructions for Treatment How to Access Health Informa tion Online using Patient Portal and [employer]rd [employer] Apps Indication:Hypertriglyceridemia, essential Start:04-Oct-2020 Instruction Type:Patient Education How to access health informa tion online Indication:Encounter for well adult exam with abnormal findings Start:20-Jun-2020 Instruction Type:Patient Education How to access health informa tion online - Detail Indication:Encounter for well adult exam with abnormal findings Start:20-Jun-2020 Instruction Type:Patient Education Patient Instructions Indication:Encounter for well adult exam with abnormal findings Start:20-Jun-2020 Instruction Type:Provider Instructions for Treatment How to access health informa tion online Indication:Encounter for well adult exam with abnormal findings Start:10-Feb-2019 Instruction Type:Patient Education How to access health informa tion online - Detail Indication:Encounter for well adult exam with abnormal findings Start:10-Feb-2019 Instruction Type:Patient Education Patient Instructions Indication:Encounter for well adult exam with abnormal findings Start:10-Feb-2019 Instruction Type:Provider Instructions for Treatment How to access health informa tion online Indication:Encounter for well adult exam with abnormal findings Start:19-Dec-2017 Instruction Type:Patient Education How to access health informa tion online - Detail Indication:Encounter for well adult exam with abnormal findings Start:19-Dec-2017 Instruction Type:Patient Education Patient Instructions Indication:Encounter for well adult exam with abnormal findings Start:19-Dec-2017 Instruction Type:Provider Instructions for Treatment How to access health informa tion online Indication:BMI 22.0-22.9, adult Start:14-Jun-2017 Instruction Type:Patient Education How to access health informa tion online - Detail Indication:BMI 22.0-22.9, adult Start:14-Jun-2017 Instruction Type:Patient Education Patient Instructions Indication:BMI 22.0-22.9, adult Start:14-Jun-2017 Instruction Type:Provider Instructions for Treatment How to access health informa tion online Indication:Blood pressure elevated without history of HTN Start:08-Feb-2017 Instruction Type:Patient Education How to access health informa tion online - Detail Indication:Blood pressure elevated without history of HTN Start:08-Feb-2017 Instruction Type:Patient Education Patient Instructions Indication:Blood pressure elevated without history of HTN Start:08-Feb-2017 Instruction Type:Provider Instructions for Treatment How to access health informa tion online Indication:Body mass index (BMI) of 24.0 to 24.9 in adult Start:09-Oct-2016 Instruction Type:Patient Education How to access health informa tion online - Detail Indication:Body mass index (BMI) of 24.0 to 24.9 in adult Start:09-Oct-2016 Instruction Type:Patient Education Patient Instructions Indication:Body mass index (BMI) of 24.0 to 24.9 in adult Start:09-Oct-2016 Instruction Type:Provider Instructions for Treatment How to access health informa tion online Indication:BMI 25.0-25.9,adult Start:27-Aug-2016 Instruction Type:Patient Education How to access health informa tion online - Detail Indication:BMI 25.0-25.9,adult Start:27-Aug-2016 Instruction Type:Patient Education Patient Instructions Indication:BMI 25.0-25.9,adult Start:27-Aug-2016 Instruction Type:Provider Instructions for Treatment How to access health informa tion online Indication:Hip pain, acute, right Start:13-Jan-2016 Instruction Type:Patient Education How to access health informa tion online - Detail Indication:Hip pain, acute, right Start:13-Jan-2016 Instruction Type:Patient Education Patient Instructions Indication:Hip pain, acute, right Start:13-Jan-2016 Instruction Type:Provider Instructions for Treatment How to access health informa tion online Indication:Hip pain, acute, right Start:30-Dec-2015 Instruction Type:Patient Education How to access health informa tion online - Detail Indication:Hip pain, acute, right Start:30-Dec-2015 Instruction Type:Patient Education Patient Instructions Indication:Hip pain, acute, right Start:30-Dec-2015 Instruction Type:Provider Instructions for Treatment How to access health informa tion online Indication:Vaginal irritation Start:08-Jul-2015 Instruction Type:Patient Education How to access health informa tion online - Detail Indication:Vaginal irritation Start:08-Jul-2015 Instruction Type:Patient Education Patient Instructions Indication:Vaginal irritation Start:08-Jul-2015 Instruction Type:Provider Instructions for Treatment How to access health informa tion online Indication:Vaginal irritation Start:27-May-2015 Instruction Type:Patient Education How to access health informa tion online - Detail Indication:Vaginal irritation Start:27-May-2015 Instruction Type:Patient Education Patient Instructions Indication:Vaginal irritation Start:27-May-2015 Instruction Type:Provider Instructions for Treatment Patient Instructions Indication:Encounter for well adult exam with abnormal findings Start:26-Jun-2013 Instruction Type:Provider Instructions for Treatment [facility]; [facility] Work Phone: Instructions* Name Dates Details Patient Instructions Indication:BMI 25.0-25.9,adult Start:25-Apr-2023 Instruction Type:Provider Instructions for Treatment How to Access Health Informa tion Online using Patient Portal and [employer]rd [employer] Apps Indication:BMI 25.0-25.9,adult Start:25-Apr-2023 Instruction Type:Patient Education Patient Instructions Indication:Current nonsmoker (Renamed from Current non-smoker) Start:21-Nov-2022 Instruction Type:Provider Instructions for Treatment How to Access Health Informa tion Online using Patient Portal and [employer]rd [employer] Apps Indication:Current nonsmoker (Renamed from Current non-smoker) Start:21-Nov-2022 Instruction Type:Patient Education Patient Instructions Indication:Body mass index [BMI] 23.0-23.9, adult Start:22-May-2022 Instruction Type:Provider Instructions for Treatment How to Access Health Informa tion Online using Patient Portal and [employer]rd [employer] Apps Indication:Body mass index [BMI] 23.0-23.9, adult Start:22-May-2022 Instruction Type:Patient Education Patient Instructions Indication:Hypertriglyceridemia, essential Start:04-Oct-2020 Instruction Type:Provider Instructions for Treatment How to Access Health Informa tion Online using Patient Portal and [employer]rd [employer] Apps Indication:Hypertriglyceridemia, essential Start:04-Oct-2020 Instruction Type:Patient Education How to access health informa tion online Indication:Encounter for well adult exam with abnormal findings Start:20-Jun-2020 Instruction Type:Patient Education How to access health informa tion online - Detail Indication:Encounter for well adult exam with abnormal findings Start:20-Jun-2020 Instruction Type:Patient Education Patient Instructions Indication:Encounter for well adult exam with abnormal findings Start:20-Jun-2020 Instruction Type:Provider Instructions for Treatment How to access health informa tion online Indication:Encounter for well adult exam with abnormal findings Start:10-Feb-2019 Instruction Type:Patient Education How to access health informa tion online - Detail Indication:Encounter for well adult exam with abnormal findings Start:10-Feb-2019 Instruction Type:Patient Education Patient Instructions Indication:Encounter for well adult exam with abnormal findings Start:10-Feb-2019 Instruction Type:Provider Instructions for Treatment How to access health informa tion online Indication:Encounter for well adult exam with abnormal findings Start:19-Dec-2017 Instruction Type:Patient Education How to access health informa tion online - Detail Indication:Encounter for well adult exam with abnormal findings Start:19-Dec-2017 Instruction Type:Patient Education Patient Instructions Indication:Encounter for well adult exam with abnormal findings Start:19-Dec-2017 Instruction Type:Provider Instructions for Treatment How to access health informa tion online Indication:BMI 22.0-22.9, adult Start:14-Jun-2017 Instruction Type:Patient Education How to access health informa tion online - Detail Indication:BMI 22.0-22.9, adult Start:14-Jun-2017 Instruction Type:Patient Education Patient Instructions Indication:BMI 22.0-22.9, adult Start:14-Jun-2017 Instruction Type:Provider Instructions for Treatment How to access health informa tion online Indication:Blood pressure elevated without history of HTN Start:08-Feb-2017 Instruction Type:Patient Education How to access health informa tion online - Detail Indication:Blood pressure elevated without history of HTN Start:08-Feb-2017 Instruction Type:Patient Education Patient Instructions Indication:Blood pressure elevated without history of HTN Start:08-Feb-2017 Instruction Type:Provider Instructions for Treatment How to access health informa tion online Indication:Body mass index (BMI) of 24.0 to 24.9 in adult Start:09-Oct-2016 Instruction Type:Patient Education How to access health informa tion online - Detail Indication:Body mass index (BMI) of 24.0 to 24.9 in adult Start:09-Oct-2016 Instruction Type:Patient Education Patient Instructions Indication:Body mass index (BMI) of 24.0 to 24.9 in adult Start:09-Oct-2016 Instruction Type:Provider Instructions for Treatment How to access health informa tion online Indication:BMI 25.0-25.9,adult Start:27-Aug-2016 Instruction Type:Patient Education How to access health informa tion online - Detail Indication:BMI 25.0-25.9,adult Start:27-Aug-2016 Instruction Type:Patient Education Patient Instructions Indication:BMI 25.0-25.9,adult Start:27-Aug-2016 Instruction Type:Provider Instructions for Treatment How to access health informa tion online Indication:Hip pain, acute, right Start:13-Jan-2016 Instruction Type:Patient Education How to access health informa tion online - Detail Indication:Hip pain, acute, right Start:13-Jan-2016 Instruction Type:Patient Education Patient Instructions Indication:Hip pain, acute, right Start:13-Jan-2016 Instruction Type:Provider Instructions for Treatment How to access health informa tion online Indication:Hip pain, acute, right Start:30-Dec-2015 Instruction Type:Patient Education How to access health informa tion online - Detail Indication:Hip pain, acute, right Start:30-Dec-2015 Instruction Type:Patient Education Patient Instructions Indication:Hip pain, acute, right Start:30-Dec-2015 Instruction Type:Provider Instructions for Treatment How to access health informa tion online Indication:Vaginal irritation Start:08-Jul-2015 Instruction Type:Patient Education How to access health informa tion online - Detail Indication:Vaginal irritation Start:08-Jul-2015 Instruction Type:Patient Education Patient Instructions Indication:Vaginal irritation Start:08-Jul-2015 Instruction Type:Provider Instructions for Treatment How to access health informa tion online Indication:Vaginal irritation Start:27-May-2015 Instruction Type:Patient Education How to access health informa tion online - Detail Indication:Vaginal irritation Start:27-May-2015 Instruction Type:Patient Education Patient Instructions Indication:Vaginal irritation Start:27-May-2015 Instruction Type:Provider Instructions for Treatment Patient Instructions Indication:Encounter for well adult exam with abnormal findings Start:26-Jun-2013 Instruction Type:Provider Instructions for Treatment [facility]; [facility] Work Phone: Family History Unknown Family Member Name Dates Details Brother 1 Comments:healthy Status:Active Father Comments:Low HDL, High trigl ycerides, afib Status:Active Maternal Grandfather Comments:Colon cancer deceas ed Status:Active Maternal Grandmother Comments:Breast cancer decea sed Status:Active Mother Comments:FBD Status:Active Paternal Grandfather Comments:Heart disease decea sed Status:Active Paternal Grandmother Comments:breast cancer, dece ased Status:Active Sister 1 Comments:Healthy Status:Active Sister 4 Comments[place] Status:Active Son 1 Status:Active Son 2 Status:Active Unknown Family Member Name Dates Details Brother 1 Comments:healthy Status:Active Father Comments:Low HDL, High trigl ycerides, afib Status:Active Maternal Grandfather Comments:Colon cancer deceas ed Status:Active Maternal Grandmother Comments:Breast cancer decea sed Status:Active Mother Comments:FBD Status:Active Paternal Grandfather Comments:Heart disease decea sed Status:Active Paternal Grandmother Comments:breast cancer, dece ased Status:Active Sister 1 Comments:Healthy Status:Active Sister 4 Comments:skin [place] Status:Active Son 1 Status:Active Son 2 Status:Active Unknown Family Member Name Dates Details Brother 1 Comments:healthy Status:Active Father Comments:Low HDL, High trigl ycerides, afib Status:Active Maternal Grandfather Comments:Colon cancer deceas ed Status:Active Maternal Grandmother Comments:Breast cancer decea sed Status:Active Mother Comments:FBD Status:Active Paternal Grandfather Comments:Heart disease decea sed Status:Active Paternal Grandmother Comments:breast cancer, dece ased Status:Active Sister 1 Comments:Healthy Status:Active Sister 4 Comments:skin [place] Status:Active Son 1 Status:Active Son 2 Status:Active Unknown Family Member Name Dates Details Brother 1 Comments:healthy Status:Active Father Comments:Low HDL, High trigl ycerides, afib Status:Active Maternal Grandfather Comments:Colon cancer deceas ed Status:Active Maternal Grandmother Comments:Breast cancer decea sed Status:Active Mother Comments:FBD Status:Active Paternal Grandfather Comments:Heart disease decea sed Status:Active Paternal Grandmother Comments:breast cancer, dece ased Status:Active Sister 1 Comments:Healthy Status:Active Sister 4 Comments:skin [place] Status:Active Son 1 Status:Active Son 2 Status:Active Unknown Family Member Name Dates Details Brother 1 Comments:healthy Status:Active Father Comments:Low HDL, High trigl ycerides, afib Status:Active Maternal Grandfather Comments:Colon cancer deceas ed Status:Active Maternal Grandmother Comments:Breast cancer decea sed Status:Active Mother Comments:FBD, PMR Status:Active Paternal Grandfather Comments:Heart disease decea sed Status:Active Paternal Grandmother Comments:breast cancer, dece ased Status:Active Sister 1 Comments:Healthy Status:Active Sister 4 Comments:skin [place] Status:Active Son 1 Status:Active Son 2 Status:Active Unknown Family Member Name Dates Details Brother 1 Comments:healthy Status:Active Father Comments:Low HDL, High trigl ycerides, afib Status:Active Maternal Grandfather Comments:Colon cancer deceas ed Status:Active Maternal Grandmother Comments:Breast cancer decea sed Status:Active Mother Comments:FBD, PMR Status:Active Paternal Grandfather Comments:Heart disease decea sed Status:Active Paternal Grandmother Comments:breast cancer, dece ased Status:Active Sister 1 Comments:Healthy Status:Active Sister 4 Comments:skin [place] Status:Active Son 1 Status:Active Son 2 Status:Active Unknown Family Member Name Dates Details Brother 1 Comments:healthy Status:Active Father Comments:Low HDL, High trigl ycerides, afib Status:Active Maternal Grandfather Comments:Colon cancer deceas ed Status:Active Maternal Grandmother Comments:Breast cancer decea sed Status:Active Mother Comments:FBD, PMR Status:Active Paternal Grandfather Comments:Heart disease decea sed Status:Active Paternal Grandmother Comments:breast cancer, dece ased Status:Active Sister 1 Comments:Healthy Status:Active Sister 4 Comments:skin [place] Status:Active Son 1 Status:Active Son 2 Status:Active Unknown Family Member Name Dates Details Brother 1 Comments:healthy Status:Active Father Comments:Low HDL, High trigl ycerides, afib Status:Active Maternal Grandfather Comments:Colon cancer deceas ed Status:Active Maternal Grandmother Comments:Breast cancer decea sed Status:Active Mother Comments:FBD Status:Active Paternal Grandfather Comments:Heart disease decea sed Status:Active Paternal Grandmother Comments:breast cancer, dece ased Status:Active Sister 1 Comments:Healthy Status:Active Sister 4 Comments:skin [place] Status:Active Son 1 Status:Active Son 2 Status:Active Unknown Family Member Name Dates Details Brother 1 Comments:healthy Status:Active Father Comments:Low HDL, High trigl ycerides, afib Status:Active Maternal Grandfather Comments:Colon cancer deceas ed Status:Active Maternal Grandmother Comments:Breast cancer decea sed Status:Active Mother Comments:FBD Status:Active Paternal Grandfather Comments:Heart disease decea sed Status:Active Paternal Grandmother Comments:breast cancer, dece ased Status:Active Sister 1 Comments:Healthy Status:Active Sister 4 Comments:skin [place] Status:Active Son 1 Status:Active Son 2 Status:Active Unknown Family Member Name Dates Details Brother 1 Comments:healthy Status:Active Father Comments:Low HDL, High trigl ycerides, afib Status:Active Maternal Grandfather Comments:Colon cancer deceas ed Status:Active Maternal Grandmother Comments:Breast cancer decea sed Status:Active Mother Comments:FBD, PMR Status:Active Paternal Grandfather Comments:Heart disease decea sed Status:Active Paternal Grandmother Comments:breast cancer, dece ased Status:Active Sister 1 Comments:Healthy Status:Active Sister 4 Comments:skin [place] Status:Active Son 1 Status:Active Son 2 Status:Active Unknown Family Member Name Dates Details Brother 1 Comments:healthy Status:Active Father Comments:Low HDL, High trigl ycerides, afib Status:Active Maternal Grandfather Comments:Colon cancer deceas ed Status:Active Maternal Grandmother Comments:Breast cancer decea sed Status:Active Mother Comments:FBD, PMR Status:Active Paternal Grandfather Comments:Heart disease decea sed Status:Active Paternal Grandmother Comments:breast cancer, dece ased Status:Active Sister 1 Comments:Healthy Status:Active Sister 4 Comments:skin [place] Status:Active Son 1 Status:Active Son 2 Status:Active Unknown Family Member Name Dates Details Brother 1 Comments:healthy Status:Active Father Comments:Low HDL, High trigl ycerides, afib Status:Active Maternal Grandfather Comments:Colon cancer deceas ed Status:Active Maternal Grandmother Comments:Breast cancer decea sed Status:Active Mother Comments:FBD Status:Active Paternal Grandfather Comments:Heart disease decea sed Status:Active Paternal Grandmother Comments:breast cancer, dece ased Status:Active Sister 1 Comments:Healthy Status:Active Sister 4 Comments:skin [place] Status:Active Son 1 Status:Active Son 2 Status:Active Unknown Family Member Name Dates Details Brother 1 Comments:healthy Status:Active Father Comments:Low HDL, High trigl ycerides, afib Status:Active Maternal Grandfather Comments:Colon cancer deceas ed Status:Active Maternal Grandmother Comments:Breast cancer decea sed Status:Active Mother Comments:FBD, PMR Status:Active Paternal Grandfather Comments:Heart disease decea sed Status:Active Paternal Grandmother Comments:breast cancer, dece ased Status:Active Sister 1 Comments:Healthy Status:Active Sister 4 Comments:skin [place] Status:Active Son 1 Status:Active Son 2 Status:Active Unknown Family Member Name Dates Details Brother 1 Comments:healthy Status:Active Father Comments:Low HDL, High trigl ycerides, afib Status:Active Maternal Grandfather Comments:Colon cancer deceas ed Status:Active Maternal Grandmother Comments:Breast cancer decea sed Status:Active Mother Comments:FBD, PMR Status:Active Paternal Grandfather Comments:Heart disease decea sed Status:Active Paternal Grandmother Comments:breast cancer, dece ased Status:Active Sister 1 Comments:Healthy Status:Active Sister 4 Comments:skin [place] Status:Active Son 1 Status:Active Son 2 Status:Active Unknown Family Member Name Dates Details Brother 1 Comments:healthy Status:Active Father Comments:Low HDL, High trigl ycerides, afib Status:Active Maternal Grandfather Comments:Colon cancer deceas ed Status:Active Maternal Grandmother Comments:Breast cancer decea sed Status:Active Mother Comments:FBD, PMR Status:Active Paternal Grandfather Comments:Heart disease decea sed Status:Active Paternal Grandmother Comments:breast cancer, dece ased Status:Active Sister 1 Comments:Healthy Status:Active Sister 4 Comments:skin [place] Status:Active Son 1 Status:Active Son 2 Status:Active Unknown Family Member Name Dates Details Brother 1 Comments:healthy Status:Active Father Comments:Low HDL, High trigl ycerides, afib Status:Active Maternal Grandfather Comments:Colon cancer deceas ed Status:Active Maternal Grandmother Comments:Breast cancer decea sed Status:Active Mother Comments:FBD, PMR Status:Active Paternal Grandfather Comments:Heart disease decea sed Status:Active Paternal Grandmother Comments:breast cancer, dece ased Status:Active Sister 1 Comments:Healthy Status:Active Sister 4 Comments:skin [place] Status:Active Son 1 Status:Active Son 2 Status:Active Unknown Family Member Name Dates Details Brother 1 Comments:healthy Status:Active Father Comments:Low HDL, High trigl ycerides, afib Status:Active Maternal Grandfather Comments:Colon cancer deceas ed Status:Active Maternal Grandmother Comments:Breast cancer decea sed Status:Active Mother Comments:FBD, PMR Status:Active Paternal Grandfather Comments:Heart disease decea sed Status:Active Paternal Grandmother Comments:breast cancer, dece ased Status:Active Sister 1 Comments:Healthy Status:Active Sister 4 Comments:skin [place] Status:Active Son 1 Status:Active Son 2 Status:Active Unknown Family Member Name Dates Details Brother 1 Comments:healthy Status:Active Father Comments:Low HDL, High trigl ycerides, afib Status:Active Maternal Grandfather Comments:Colon cancer deceas ed Status:Active Maternal Grandmother Comments:Breast cancer decea sed Status:Active Mother Comments:FBD, PMR Status:Active Paternal Grandfather Comments:Heart disease decea sed Status:Active Paternal Grandmother Comments:breast cancer, dece ased Status:Active Sister 1 Comments:Healthy Status:Active Sister 4 Comments:skin [place] Status:Active Son 1 Status:Active Son 2 Status:Active Unknown Family Member Name Dates Details Brother 1 Comments:healthy Status:Active Father Comments:Low HDL, High trigl ycerides, afib Status:Active Maternal Grandfather Comments:Colon cancer deceas ed Status:Active Maternal Grandmother Comments:Breast cancer decea sed Status:Active Mother Comments:FBD, PMR Status:Active Paternal Grandfather Comments:Heart disease decea sed Status:Active Paternal Grandmother Comments:breast cancer, dece ased Status:Active Sister 1 Comments:Healthy Status:Active Sister 4 Comments:skin [place] Status:Active Son 1 Status:Active Son 2 Status:Active Unknown Family Member Name Dates Details Brother 1 Comments:healthy Status:Active Father Comments:Low HDL, High trigl ycerides, afib Status:Active Maternal Grandfather Comments:Colon cancer deceas ed Status:Active Maternal Grandmother Comments:Breast cancer decea sed Status:Active Mother Comments:FBD, PMR Status:Active Paternal Grandfather Comments:Heart disease decea sed Status:Active Paternal Grandmother Comments:breast cancer, dece ased Status:Active Sister 1 Comments:Healthy Status:Active Sister 4 Comments:skin [place] Status:Active Son 1 Status:Active Son 2 Status:Active Unknown Family Member Name Dates Details Brother 1 Comments:healthy Status:Active Father Comments:Low HDL, High trigl ycerides, afib Status:Active Maternal Grandfather Comments:Colon cancer deceas ed Status:Active Maternal Grandmother Comments:Breast cancer decea sed Status:Active Mother Comments:FBD, PMR Status:Active Paternal Grandfather Comments:Heart disease decea sed Status:Active Paternal Grandmother Comments:breast cancer, dece ased Status:Active Sister 1 Comments:Healthy Status:Active Sister 4 Comments:skin [place] Status:Active Son 1 Status:Active Son 2 Status:Active Unknown Family Member Name Dates Details Brother 1 Comments:healthy Status:Active Father Comments:Low HDL, High trigl ycerides, afib Status:Active Maternal Grandfather Comments:Colon cancer deceas ed Status:Active Maternal Grandmother Comments:Breast cancer decea sed Status:Active Mother Comments:FBD, PMR Status:Active Paternal Grandfather Comments:Heart disease decea sed Status:Active Paternal Grandmother Comments:breast cancer, dece ased Status:Active Sister 1 Comments:Healthy Status:Active Sister 4 Comments:skin [place] Status:Active Son 1 Status:Active Son 2 Status:Active Unknown Family Member Name Dates Details Brother 1 Comments:healthy Status:Active Father Comments:Low HDL, High trigl ycerides, afib Status:Active Maternal Grandfather Comments:Colon cancer deceas ed Status:Active Maternal Grandmother Comments:Breast cancer decea sed Status:Active Mother Comments:FBD, PMR Status:Active Paternal Grandfather Comments:Heart disease decea sed Status:Active Paternal Grandmother Comments:breast cancer, dece ased Status:Active Sister 1 Comments:Healthy Status:Active Sister 4 Comments:skin melanoma [place] Status:Active Son 1 Status:Active Son 2 Status:Active Unknown Family Member Name Dates Details Brother 1 Comments:healthy Status:Active Father Comments:Low HDL, High trigl ycerides, afib Status:Active Maternal Grandfather Comments:Colon cancer deceas ed Status:Active Maternal Grandmother Comments:Breast cancer decea sed Status:Active Mother Comments:FBD, PMR Status:Active Paternal Grandfather Comments:Heart disease decea sed Status:Active Paternal Grandmother Comments:breast cancer, dece ased Status:Active Sister 1 Comments:Healthy Status:Active Sister 4 Comments:skin melanoma [place] Status:Active Son 1 Status:Active Son 2 Status:Active Unknown Family Member Name Dates Details Brother 1 Comments:healthy Status:Active Father Comments:Low HDL, High trigl ycerides, afib Status:Active Maternal Grandfather Comments:Colon cancer deceas ed Status:Active Maternal Grandmother Comments:Breast cancer decea sed Status:Active Mother Comments:FBD, PMR Status:Active Paternal Grandfather Comments:Heart disease decea sed Status:Active Paternal Grandmother Comments:breast cancer, dece ased Status:Active Sister 1 Comments:Healthy Status:Active Sister 4 Comments:skin [place] Status:Active Son 1 Status:Active Son 2 Status:Active Unknown Family Member Name Dates Details Brother 1 Comments:healthy Status:Active Father Comments:Low HDL, High trigl ycerides, afib Status:Active Maternal Grandfather Comments:Colon cancer deceas ed Status:Active Maternal Grandmother Comments:Breast cancer decea sed Status:Active Mother Comments:FBD, PMR Status:Active Paternal Grandfather Comments:Heart disease decea sed Status:Active Paternal Grandmother Comments:breast cancer, dece ased Status:Active Sister 1 Comments:Healthy Status:Active Sister 4 Comments:skin melanoma [place] Status:Active Son 1 Status:Active Son 2 Status:Active Unknown Family Member Name Dates Details Brother 1 Comments:healthy Status:Active Father Comments:Low HDL, High trigl ycerides, afib Status:Active Maternal Grandfather Comments:Colon cancer deceas ed Status:Active Maternal Grandmother Comments:Breast cancer decea sed Status:Active Mother Comments:FBD, PMR Status:Active Paternal Grandfather Comments:Heart disease decea sed Status:Active Paternal Grandmother Comments:breast cancer, dece ased Status:Active Sister 1 Comments:Healthy Status:Active Sister 4 Comments:skin melanoma [place] Status:Active Son 1 Status:Active Son 2 Status:Active Unknown Family Member Name Dates Details Brother 1 Comments:healthy Status:Active Father Comments:Low HDL, High trigl ycerides, afib Status:Active Maternal Grandfather Comments:Colon cancer deceas ed Status:Active Maternal Grandmother Comments:Breast cancer decea sed Status:Active Mother Comments:FBD, PMR Status:Active Paternal Grandfather Comments:Heart disease decea sed Status:Active Paternal Grandmother Comments:breast cancer, dece ased Status:Active Sister 1 Comments:Healthy Status:Active Sister 4 Comments:skin melanoma [place] Status:Active Son 1 Status:Active Son 2 Status:Active Unknown Family Member Name Dates Details Brother 1 Comments:healthy Status:Active Father Comments:Low HDL, High trigl ycerides, afib Status:Active Maternal Grandfather Comments:Colon cancer deceas ed Status:Active Maternal Grandmother Comments:Breast cancer decea sed Status:Active Mother Comments:FBD, PMR Status:Active Paternal Grandfather Comments:Heart disease decea sed Status:Active Paternal Grandmother Comments:breast cancer, dece ased Status:Active Sister 1 Comments:breast cancer neg B RCA 60's Status:Active Sister 4 Comments:skin [place] Status:Active Son 1 Status:Active Son 2 Status:Active Instructions Name Dates Details How to access health informa tion online Indication:Well Woman Exam (V72.31) (Pap,Mammo,Routine Female) (Renamed from Well Woman Exam (Pap,Mammo,Routine Female)) Start:10-Feb-2019 Instruction Type:Patient Education How to access health informa tion online - Detail Indication:Well Woman Exam (V72.31) (Pap,Mammo,Routine Female) (Renamed from Well Woman Exam (Pap,Mammo,Routine Female)) Start:10-Feb-2019 Instruction Type:Patient Education Patient Instructions Indication:Well Woman Exam (V72.31) (Pap,Mammo,Routine Female) (Renamed from Well Woman Exam (Pap,Mammo,Routine Female)) Start:10-Feb-2019 Instruction Type:Provider Instructions for Treatment How to access health informa tion online Indication:Well Woman Exam (V72.31) (Pap,Mammo,Routine Female) (Renamed from Well Woman Exam (Pap,Mammo,Routine Female)) Start:19-Dec-2017 Instruction Type:Patient Education How to access health informa tion online - Detail Indication:Well Woman Exam (V72.31) (Pap,Mammo,Routine Female) (Renamed from Well Woman Exam (Pap,Mammo,Routine Female)) Start:19-Dec-2017 Instruction Type:Patient Education Patient Instructions Indication:Well Woman Exam (V72.31) (Pap,Mammo,Routine Female) (Renamed from Well Woman Exam (Pap,Mammo,Routine Female)) Start:19-Dec-2017 Instruction Type:Provider Instructions for Treatment How to access health informa tion online Indication:BMI 22.0-22.9, adult Start:14-Jun-2017 Instruction Type:Patient Education How to access health informa tion online - Detail Indication:BMI 22.0-22.9, adult Start:14-Jun-2017 Instruction Type:Patient Education Patient Instructions Indication:BMI 22.0-22.9, adult Start:14-Jun-2017 Instruction Type:Provider Instructions for Treatment How to access health informa tion online Indication:Blood pressure elevated without history of HTN Start:08-Feb-2017 Instruction Type:Patient Education How to access health informa tion online - Detail Indication:Blood pressure elevated without history of HTN Start:08-Feb-2017 Instruction Type:Patient Education Patient Instructions Indication:Blood pressure elevated without history of HTN Start:08-Feb-2017 Instruction Type:Provider Instructions for Treatment How to access health informa tion online Indication:Body mass index (BMI) of 24.0 to 24.9 in adult Start:09-Oct-2016 Instruction Type:Patient Education How to access health informa tion online - Detail Indication:Body mass index (BMI) of 24.0 to 24.9 in adult Start:09-Oct-2016 Instruction Type:Patient Education Patient Instructions Indication:Body mass index (BMI) of 24.0 to 24.9 in adult Start:09-Oct-2016 Instruction Type:Provider Instructions for Treatment How to access health informa tion online Indication:BMI 25.0-25.9,adult Start:27-Aug-2016 Instruction Type:Patient Education How to access health informa tion online - Detail Indication:BMI 25.0-25.9,adult Start:27-Aug-2016 Instruction Type:Patient Education Patient Instructions Indication:BMI 25.0-25.9,adult Start:27-Aug-2016 Instruction Type:Provider Instructions for Treatment How to access health informa tion online Indication:Hip pain, acute, right Start:13-Jan-2016 Instruction Type:Patient Education How to access health informa tion online - Detail Indication:Hip pain, acute, right Start:13-Jan-2016 Instruction Type:Patient Education Patient Instructions Indication:Hip pain, acute, right Start:13-Jan-2016 Instruction Type:Provider Instructions for Treatment How to access health informa tion online Indication:Hip pain, acute, right Start:30-Dec-2015 Instruction Type:Patient Education How to access health informa tion online - Detail Indication:Hip pain, acute, right Start:30-Dec-2015 Instruction Type:Patient Education Patient Instructions Indication:Hip pain, acute, right Start:30-Dec-2015 Instruction Type:Provider Instructions for Treatment How to access health informa tion online Indication:Vaginal irritation Start:08-Jul-2015 Instruction Type:Patient Education How to access health informa tion online - Detail Indication:Vaginal irritation Start:08-Jul-2015 Instruction Type:Patient Education Patient Instructions Indication:Vaginal irritation Start:08-Jul-2015 Instruction Type:Provider Instructions for Treatment How to access health informa tion online Indication:Vaginal irritation Start:27-May-2015 Instruction Type:Patient Education How to access health informa tion online - Detail Indication:Vaginal irritation Start:27-May-2015 Instruction Type:Patient Education Patient Instructions Indication:Vaginal irritation Start:27-May-2015 Instruction Type:Provider Instructions for Treatment Patient Instructions Indication:Well Woman Exam (V72.31) (Pap,Mammo,Routine Female) (Renamed from Well Woman Exam (Pap,Mammo,Routine Female)) Start:26-Jun-2013 Instruction Type:Provider Instructions for Treatment Name Dates Details How to access health informa tion online Indication:Well Woman Exam (V72.31) (Pap,Mammo,Routine Female) (Renamed from Well Woman Exam (Pap,Mammo,Routine Female)) Start:10-Feb-2019 Instruction Type:Patient Education How to access health informa tion online - Detail Indication:Well Woman Exam (V72.31) (Pap,Mammo,Routine Female) (Renamed from Well Woman Exam (Pap,Mammo,Routine Female)) Start:10-Feb-2019 Instruction Type:Patient Education Patient Instructions Indication:Well Woman Exam (V72.31) (Pap,Mammo,Routine Female) (Renamed from Well Woman Exam (Pap,Mammo,Routine Female)) Start:10-Feb-2019 Instruction Type:Provider Instructions for Treatment How to access health informa tion online Indication:Well Woman Exam (V72.31) (Pap,Mammo,Routine Female) (Renamed from Well Woman Exam (Pap,Mammo,Routine Female)) Start:19-Dec-2017 Instruction Type:Patient Education How to access health informa tion online - Detail Indication:Well Woman Exam (V72.31) (Pap,Mammo,Routine Female) (Renamed from Well Woman Exam (Pap,Mammo,Routine Female)) Start:19-Dec-2017 Instruction Type:Patient Education Patient Instructions Indication:Well Woman Exam (V72.31) (Pap,Mammo,Routine Female) (Renamed from Well Woman Exam (Pap,Mammo,Routine Female)) Start:19-Dec-2017 Instruction Type:Provider Instructions for Treatment How to access health informa tion online Indication:BMI 22.0-22.9, adult Start:14-Jun-2017 Instruction Type:Patient Education How to access health informa tion online - Detail Indication:BMI 22.0-22.9, adult Start:14-Jun-2017 Instruction Type:Patient Education Patient Instructions Indication:BMI 22.0-22.9, adult Start:14-Jun-2017 Instruction Type:Provider Instructions for Treatment How to access health informa tion online Indication:Blood pressure elevated without history of HTN Start:08-Feb-2017 Instruction Type:Patient Education How to access health informa tion online - Detail Indication:Blood pressure elevated without history of HTN Start:08-Feb-2017 Instruction Type:Patient Education Patient Instructions Indication:Blood pressure elevated without history of HTN Start:08-Feb-2017 Instruction Type:Provider Instructions for Treatment How to access health informa tion online Indication:Body mass index (BMI) of 24.0 to 24.9 in adult Start:09-Oct-2016 Instruction Type:Patient Education How to access health informa tion online - Detail Indication:Body mass index (BMI) of 24.0 to 24.9 in adult Start:09-Oct-2016 Instruction Type:Patient Education Patient Instructions Indication:Body mass index (BMI) of 24.0 to 24.9 in adult Start:09-Oct-2016 Instruction Type:Provider Instructions for Treatment How to access health informa tion online Indication:BMI 25.0-25.9,adult Start:27-Aug-2016 Instruction Type:Patient Education How to access health informa tion online - Detail Indication:BMI 25.0-25.9,adult Start:27-Aug-2016 Instruction Type:Patient Education Patient Instructions Indication:BMI 25.0-25.9,adult Start:27-Aug-2016 Instruction Type:Provider Instructions for Treatment How to access health informa tion online Indication:Hip pain, acute, right Start:13-Jan-2016 Instruction Type:Patient Education How to access health informa tion online - Detail Indication:Hip pain, acute, right Start:13-Jan-2016 Instruction Type:Patient Education Patient Instructions Indication:Hip pain, acute, right Start:13-Jan-2016 Instruction Type:Provider Instructions for Treatment How to access health informa tion online Indication:Hip pain, acute, right Start:30-Dec-2015 Instruction Type:Patient Education How to access health informa tion online - Detail Indication:Hip pain, acute, right Start:30-Dec-2015 Instruction Type:Patient Education Patient Instructions Indication:Hip pain, acute, right Start:30-Dec-2015 Instruction Type:Provider Instructions for Treatment How to access health informa tion online Indication:Vaginal irritation Start:08-Jul-2015 Instruction Type:Patient Education How to access health informa tion online - Detail Indication:Vaginal irritation Start:08-Jul-2015 Instruction Type:Patient Education Patient Instructions Indication:Vaginal irritation Start:08-Jul-2015 Instruction Type:Provider Instructions for Treatment How to access health informa tion online Indication:Vaginal irritation Start:27-May-2015 Instruction Type:Patient Education How to access health informa tion online - Detail Indication:Vaginal irritation Start:27-May-2015 Instruction Type:Patient Education Patient Instructions Indication:Vaginal irritation Start:27-May-2015 Instruction Type:Provider Instructions for Treatment Patient Instructions Indication:Well Woman Exam (V72.31) (Pap,Mammo,Routine Female) (Renamed from Well Woman Exam (Pap,Mammo,Routine Female)) Start:26-Jun-2013 Instruction Type:Provider Instructions for Treatment Name Dates Details How to access health informa tion online Indication:Well Woman Exam (V72.31) (Pap,Mammo,Routine Female) (Renamed from Well Woman Exam (Pap,Mammo,Routine Female)) Start:10-Feb-2019 Instruction Type:Patient Education How to access health informa tion online - Detail Indication:Well Woman Exam (V72.31) (Pap,Mammo,Routine Female) (Renamed from Well Woman Exam (Pap,Mammo,Routine Female)) Start:10-Feb-2019 Instruction Type:Patient Education Patient Instructions Indication:Well Woman Exam (V72.31) (Pap,Mammo,Routine Female) (Renamed from Well Woman Exam (Pap,Mammo,Routine Female)) Start:10-Feb-2019 Instruction Type:Provider Instructions for Treatment How to access health informa tion online Indication:Well Woman Exam (V72.31) (Pap,Mammo,Routine Female) (Renamed from Well Woman Exam (Pap,Mammo,Routine Female)) Start:19-Dec-2017 Instruction Type:Patient Education How to access health informa tion online - Detail Indication:Well Woman Exam (V72.31) (Pap,Mammo,Routine Female) (Renamed from Well Woman Exam (Pap,Mammo,Routine Female)) Start:19-Dec-2017 Instruction Type:Patient Education Patient Instructions Indication:Well Woman Exam (V72.31) (Pap,Mammo,Routine Female) (Renamed from Well Woman Exam (Pap,Mammo,Routine Female)) Start:19-Dec-2017 Instruction Type:Provider Instructions for Treatment How to access health informa tion online Indication:BMI 22.0-22.9, adult Start:14-Jun-2017 Instruction Type:Patient Education How to access health informa tion online - Detail Indication:BMI 22.0-22.9, adult Start:14-Jun-2017 Instruction Type:Patient Education Patient Instructions Indication:BMI 22.0-22.9, adult Start:14-Jun-2017 Instruction Type:Provider Instructions for Treatment How to access health informa tion online Indication:Blood pressure elevated without history of HTN Start:08-Feb-2017 Instruction Type:Patient Education How to access health informa tion online - Detail Indication:Blood pressure elevated without history of HTN Start:08-Feb-2017 Instruction Type:Patient Education Patient Instructions Indication:Blood pressure elevated without history of HTN Start:08-Feb-2017 Instruction Type:Provider Instructions for Treatment How to access health informa tion online Indication:Body mass index (BMI) of 24.0 to 24.9 in adult Start:09-Oct-2016 Instruction Type:Patient Education How to access health informa tion online - Detail Indication:Body mass index (BMI) of 24.0 to 24.9 in adult Start:09-Oct-2016 Instruction Type:Patient Education Patient Instructions Indication:Body mass index (BMI) of 24.0 to 24.9 in adult Start:09-Oct-2016 Instruction Type:Provider Instructions for Treatment How to access health informa tion online Indication:BMI 25.0-25.9,adult Start:27-Aug-2016 Instruction Type:Patient Education How to access health informa tion online - Detail Indication:BMI 25.0-25.9,adult Start:27-Aug-2016 Instruction Type:Patient Education Patient Instructions Indication:BMI 25.0-25.9,adult Start:27-Aug-2016 Instruction Type:Provider Instructions for Treatment How to access health informa tion online Indication:Hip pain, acute, right Start:13-Jan-2016 Instruction Type:Patient Education How to access health informa tion online - Detail Indication:Hip pain, acute, right Start:13-Jan-2016 Instruction Type:Patient Education Patient Instructions Indication:Hip pain, acute, right Start:13-Jan-2016 Instruction Type:Provider Instructions for Treatment How to access health informa tion online Indication:Hip pain, acute, right Start:30-Dec-2015 Instruction Type:Patient Education How to access health informa tion online - Detail Indication:Hip pain, acute, right Start:30-Dec-2015 Instruction Type:Patient Education Patient Instructions Indication:Hip pain, acute, right Start:30-Dec-2015 Instruction Type:Provider Instructions for Treatment How to access health informa tion online Indication:Vaginal irritation Start:08-Jul-2015 Instruction Type:Patient Education How to access health informa tion online - Detail Indication:Vaginal irritation Start:08-Jul-2015 Instruction Type:Patient Education Patient Instructions Indication:Vaginal irritation Start:08-Jul-2015 Instruction Type:Provider Instructions for Treatment How to access health informa tion online Indication:Vaginal irritation Start:27-May-2015 Instruction Type:Patient Education How to access health informa tion online - Detail Indication:Vaginal irritation Start:27-May-2015 Instruction Type:Patient Education Patient Instructions Indication:Vaginal irritation Start:27-May-2015 Instruction Type:Provider Instructions for Treatment Patient Instructions Indication:Well Woman Exam (V72.31) (Pap,Mammo,Routine Female) (Renamed from Well Woman Exam (Pap,Mammo,Routine Female)) Start:26-Jun-2013 Instruction Type:Provider Instructions for Treatment Name Dates Details How to access health informa tion online Indication:Well Woman Exam (V72.31) (Pap,Mammo,Routine Female) (Renamed from Well Woman Exam (Pap,Mammo,Routine Female)) Start:10-Feb-2019 Instruction Type:Patient Education How to access health informa tion online - Detail Indication:Well Woman Exam (V72.31) (Pap,Mammo,Routine Female) (Renamed from Well Woman Exam (Pap,Mammo,Routine Female)) Start:10-Feb-2019 Instruction Type:Patient Education Patient Instructions Indication:Well Woman Exam (V72.31) (Pap,Mammo,Routine Female) (Renamed from Well Woman Exam (Pap,Mammo,Routine Female)) Start:10-Feb-2019 Instruction Type:Provider Instructions for Treatment How to access health informa tion online Indication:Well Woman Exam (V72.31) (Pap,Mammo,Routine Female) (Renamed from Well Woman Exam (Pap,Mammo,Routine Female)) Start:19-Dec-2017 Instruction Type:Patient Education How to access health informa tion online - Detail Indication:Well Woman Exam (V72.31) (Pap,Mammo,Routine Female) (Renamed from Well Woman Exam (Pap,Mammo,Routine Female)) Start:19-Dec-2017 Instruction Type:Patient Education Patient Instructions Indication:Well Woman Exam (V72.31) (Pap,Mammo,Routine Female) (Renamed from Well Woman Exam (Pap,Mammo,Routine Female)) Start:19-Dec-2017 Instruction Type:Provider Instructions for Treatment How to access health informa tion online Indication:BMI 22.0-22.9, adult Start:14-Jun-2017 Instruction Type:Patient Education How to access health informa tion online - Detail Indication:BMI 22.0-22.9, adult Start:14-Jun-2017 Instruction Type:Patient Education Patient Instructions Indication:BMI 22.0-22.9, adult Start:14-Jun-2017 Instruction Type:Provider Instructions for Treatment How to access health informa tion online Indication:Blood pressure elevated without history of HTN Start:08-Feb-2017 Instruction Type:Patient Education How to access health informa tion online - Detail Indication:Blood pressure elevated without history of HTN Start:08-Feb-2017 Instruction Type:Patient Education Patient Instructions Indication:Blood pressure elevated without history of HTN Start:08-Feb-2017 Instruction Type:Provider Instructions for Treatment How to access health informa tion online Indication:Body mass index (BMI) of 24.0 to 24.9 in adult Start:09-Oct-2016 Instruction Type:Patient Education How to access health informa tion online - Detail Indication:Body mass index (BMI) of 24.0 to 24.9 in adult Start:09-Oct-2016 Instruction Type:Patient Education Patient Instructions Indication:Body mass index (BMI) of 24.0 to 24.9 in adult Start:09-Oct-2016 Instruction Type:Provider Instructions for Treatment How to access health informa tion online Indication:BMI 25.0-25.9,adult Start:27-Aug-2016 Instruction Type:Patient Education How to access health informa tion online - Detail Indication:BMI 25.0-25.9,adult Start:27-Aug-2016 Instruction Type:Patient Education Patient Instructions Indication:BMI 25.0-25.9,adult Start:27-Aug-2016 Instruction Type:Provider Instructions for Treatment How to access health informa tion online Indication:Hip pain, acute, right Start:13-Jan-2016 Instruction Type:Patient Education How to access health informa tion online - Detail Indication:Hip pain, acute, right Start:13-Jan-2016 Instruction Type:Patient Education Patient Instructions Indication:Hip pain, acute, right Start:13-Jan-2016 Instruction Type:Provider Instructions for Treatment How to access health informa tion online Indication:Hip pain, acute, right Start:30-Dec-2015 Instruction Type:Patient Education How to access health informa tion online - Detail Indication:Hip pain, acute, right Start:30-Dec-2015 Instruction Type:Patient Education Patient Instructions Indication:Hip pain, acute, right Start:30-Dec-2015 Instruction Type:Provider Instructions for Treatment How to access health informa tion online Indication:Vaginal irritation Start:08-Jul-2015 Instruction Type:Patient Education How to access health informa tion online - Detail Indication:Vaginal irritation Start:08-Jul-2015 Instruction Type:Patient Education Patient Instructions Indication:Vaginal irritation Start:08-Jul-2015 Instruction Type:Provider Instructions for Treatment How to access health informa tion online Indication:Vaginal irritation Start:27-May-2015 Instruction Type:Patient Education How to access health informa tion online - Detail Indication:Vaginal irritation Start:27-May-2015 Instruction Type:Patient Education Patient Instructions Indication:Vaginal irritation Start:27-May-2015 Instruction Type:Provider Instructions for Treatment Patient Instructions Indication:Well Woman Exam (V72.31) (Pap,Mammo,Routine Female) (Renamed from Well Woman Exam (Pap,Mammo,Routine Female)) Start:26-Jun-2013 Instruction Type:Provider Instructions for Treatment Name Dates Details How to access health informa tion online Indication:Well Woman Exam (V72.31) (Pap,Mammo,Routine Female) (Renamed from Well Woman Exam (Pap,Mammo,Routine Female)) Start:20-Jun-2020 Instruction Type:Patient Education How to access health informa tion online - Detail Indication:Well Woman Exam (V72.31) (Pap,Mammo,Routine Female) (Renamed from Well Woman Exam (Pap,Mammo,Routine Female)) Start:20-Jun-2020 Instruction Type:Patient Education Patient Instructions Indication:Well Woman Exam (V72.31) (Pap,Mammo,Routine Female) (Renamed from Well Woman Exam (Pap,Mammo,Routine Female)) Start:20-Jun-2020 Instruction Type:Provider Instructions for Treatment How to access health informa tion online Indication:Well Woman Exam (V72.31) (Pap,Mammo,Routine Female) (Renamed from Well Woman Exam (Pap,Mammo,Routine Female)) Start:10-Feb-2019 Instruction Type:Patient Education How to access health informa tion online - Detail Indication:Well Woman Exam (V72.31) (Pap,Mammo,Routine Female) (Renamed from Well Woman Exam (Pap,Mammo,Routine Female)) Start:10-Feb-2019 Instruction Type:Patient Education Patient Instructions Indication:Well Woman Exam (V72.31) (Pap,Mammo,Routine Female) (Renamed from Well Woman Exam (Pap,Mammo,Routine Female)) Start:10-Feb-2019 Instruction Type:Provider Instructions for Treatment How to access health informa tion online Indication:Well Woman Exam (V72.31) (Pap,Mammo,Routine Female) (Renamed from Well Woman Exam (Pap,Mammo,Routine Female)) Start:19-Dec-2017 Instruction Type:Patient Education How to access health informa tion online - Detail Indication:Well Woman Exam (V72.31) (Pap,Mammo,Routine Female) (Renamed from Well Woman Exam (Pap,Mammo,Routine Female)) Start:19-Dec-2017 Instruction Type:Patient Education Patient Instructions Indication:Well Woman Exam (V72.31) (Pap,Mammo,Routine Female) (Renamed from Well Woman Exam (Pap,Mammo,Routine Female)) Start:19-Dec-2017 Instruction Type:Provider Instructions for Treatment How to access health informa tion online Indication:BMI 22.0-22.9, adult Start:14-Jun-2017 Instruction Type:Patient Education How to access health informa tion online - Detail Indication:BMI 22.0-22.9, adult Start:14-Jun-2017 Instruction Type:Patient Education Patient Instructions Indication:BMI 22.0-22.9, adult Start:14-Jun-2017 Instruction Type:Provider Instructions for Treatment How to access health informa tion online Indication:Blood pressure elevated without history of HTN Start:08-Feb-2017 Instruction Type:Patient Education How to access health informa tion online - Detail Indication:Blood pressure elevated without history of HTN Start:08-Feb-2017 Instruction Type:Patient Education Patient Instructions Indication:Blood pressure elevated without history of HTN Start:08-Feb-2017 Instruction Type:Provider Instructions for Treatment How to access health informa tion online Indication:Body mass index (BMI) of 24.0 to 24.9 in adult Start:09-Oct-2016 Instruction Type:Patient Education How to access health informa tion online - Detail Indication:Body mass index (BMI) of 24.0 to 24.9 in adult Start:09-Oct-2016 Instruction Type:Patient Education Patient Instructions Indication:Body mass index (BMI) of 24.0 to 24.9 in adult Start:09-Oct-2016 Instruction Type:Provider Instructions for Treatment How to access health informa tion online Indication:BMI 25.0-25.9,adult Start:27-Aug-2016 Instruction Type:Patient Education How to access health informa tion online - Detail Indication:BMI 25.0-25.9,adult Start:27-Aug-2016 Instruction Type:Patient Education Patient Instructions Indication:BMI 25.0-25.9,adult Start:27-Aug-2016 Instruction Type:Provider Instructions for Treatment How to access health informa tion online Indication:Hip pain, acute, right Start:13-Jan-2016 Instruction Type:Patient Education How to access health informa tion online - Detail Indication:Hip pain, acute, right Start:13-Jan-2016 Instruction Type:Patient Education Patient Instructions Indication:Hip pain, acute, right Start:13-Jan-2016 Instruction Type:Provider Instructions for Treatment How to access health informa tion online Indication:Hip pain, acute, right Start:30-Dec-2015 Instruction Type:Patient Education How to access health informa tion online - Detail Indication:Hip pain, acute, right Start:30-Dec-2015 Instruction Type:Patient Education Patient Instructions Indication:Hip pain, acute, right Start:30-Dec-2015 Instruction Type:Provider Instructions for Treatment How to access health informa tion online Indication:Vaginal irritation Start:08-Jul-2015 Instruction Type:Patient Education How to access health informa tion online - Detail Indication:Vaginal irritation Start:08-Jul-2015 Instruction Type:Patient Education Patient Instructions Indication:Vaginal irritation Start:08-Jul-2015 Instruction Type:Provider Instructions for Treatment How to access health informa tion online Indication:Vaginal irritation Start:27-May-2015 Instruction Type:Patient Education How to access health informa tion online - Detail Indication:Vaginal irritation Start:27-May-2015 Instruction Type:Patient Education Patient Instructions Indication:Vaginal irritation Start:27-May-2015 Instruction Type:Provider Instructions for Treatment Patient Instructions Indication:Well Woman Exam (V72.31) (Pap,Mammo,Routine Female) (Renamed from Well Woman Exam (Pap,Mammo,Routine Female)) Start:26-Jun-2013 Instruction Type:Provider Instructions for Treatment Name Dates Details How to access health informa tion online Indication:Well Woman Exam (V72.31) (Pap,Mammo,Routine Female) (Renamed from Well Woman Exam (Pap,Mammo,Routine Female)) Start:20-Jun-2020 Instruction Type:Patient Education How to access health informa tion online - Detail Indication:Well Woman Exam (V72.31) (Pap,Mammo,Routine Female) (Renamed from Well Woman Exam (Pap,Mammo,Routine Female)) Start:20-Jun-2020 Instruction Type:Patient Education Patient Instructions Indication:Well Woman Exam (V72.31) (Pap,Mammo,Routine Female) (Renamed from Well Woman Exam (Pap,Mammo,Routine Female)) Start:20-Jun-2020 Instruction Type:Provider Instructions for Treatment How to access health informa tion online Indication:Well Woman Exam (V72.31) (Pap,Mammo,Routine Female) (Renamed from Well Woman Exam (Pap,Mammo,Routine Female)) Start:10-Feb-2019 Instruction Type:Patient Education How to access health informa tion online - Detail Indication:Well Woman Exam (V72.31) (Pap,Mammo,Routine Female) (Renamed from Well Woman Exam (Pap,Mammo,Routine Female)) Start:10-Feb-2019 Instruction Type:Patient Education Patient Instructions Indication:Well Woman Exam (V72.31) (Pap,Mammo,Routine Female) (Renamed from Well Woman Exam (Pap,Mammo,Routine Female)) Start:10-Feb-2019 Instruction Type:Provider Instructions for Treatment How to access health informa tion online Indication:Well Woman Exam (V72.31) (Pap,Mammo,Routine Female) (Renamed from Well Woman Exam (Pap,Mammo,Routine Female)) Start:19-Dec-2017 Instruction Type:Patient Education How to access health informa tion online - Detail Indication:Well Woman Exam (V72.31) (Pap,Mammo,Routine Female) (Renamed from Well Woman Exam (Pap,Mammo,Routine Female)) Start:19-Dec-2017 Instruction Type:Patient Education Patient Instructions Indication:Well Woman Exam (V72.31) (Pap,Mammo,Routine Female) (Renamed from Well Woman Exam (Pap,Mammo,Routine Female)) Start:19-Dec-2017 Instruction Type:Provider Instructions for Treatment How to access health informa tion online Indication:BMI 22.0-22.9, adult Start:14-Jun-2017 Instruction Type:Patient Education How to access health informa tion online - Detail Indication:BMI 22.0-22.9, adult Start:14-Jun-2017 Instruction Type:Patient Education Patient Instructions Indication:BMI 22.0-22.9, adult Start:14-Jun-2017 Instruction Type:Provider Instructions for Treatment How to access health informa tion online Indication:Blood pressure elevated without history of HTN Start:08-Feb-2017 Instruction Type:Patient Education How to access health informa tion online - Detail Indication:Blood pressure elevated without history of HTN Start:08-Feb-2017 Instruction Type:Patient Education Patient Instructions Indication:Blood pressure elevated without history of HTN Start:08-Feb-2017 Instruction Type:Provider Instructions for Treatment How to access health informa tion online Indication:Body mass index (BMI) of 24.0 to 24.9 in adult Start:09-Oct-2016 Instruction Type:Patient Education How to access health informa tion online - Detail Indication:Body mass index (BMI) of 24.0 to 24.9 in adult Start:09-Oct-2016 Instruction Type:Patient Education Patient Instructions Indication:Body mass index (BMI) of 24.0 to 24.9 in adult Start:09-Oct-2016 Instruction Type:Provider Instructions for Treatment How to access health informa tion online Indication:BMI 25.0-25.9,adult Start:27-Aug-2016 Instruction Type:Patient Education How to access health informa tion online - Detail Indication:BMI 25.0-25.9,adult Start:27-Aug-2016 Instruction Type:Patient Education Patient Instructions Indication:BMI 25.0-25.9,adult Start:27-Aug-2016 Instruction Type:Provider Instructions for Treatment How to access health informa tion online Indication:Hip pain, acute, right Start:13-Jan-2016 Instruction Type:Patient Education How to access health informa tion online - Detail Indication:Hip pain, acute, right Start:13-Jan-2016 Instruction Type:Patient Education Patient Instructions Indication:Hip pain, acute, right Start:13-Jan-2016 Instruction Type:Provider Instructions for Treatment How to access health informa tion online Indication:Hip pain, acute, right Start:30-Dec-2015 Instruction Type:Patient Education How to access health informa tion online - Detail Indication:Hip pain, acute, right Start:30-Dec-2015 Instruction Type:Patient Education Patient Instructions Indication:Hip pain, acute, right Start:30-Dec-2015 Instruction Type:Provider Instructions for Treatment How to access health informa tion online Indication:Vaginal irritation Start:08-Jul-2015 Instruction Type:Patient Education How to access health informa tion online - Detail Indication:Vaginal irritation Start:08-Jul-2015 Instruction Type:Patient Education Patient Instructions Indication:Vaginal irritation Start:08-Jul-2015 Instruction Type:Provider Instructions for Treatment How to access health informa tion online Indication:Vaginal irritation Start:27-May-2015 Instruction Type:Patient Education How to access health informa tion online - Detail Indication:Vaginal irritation Start:27-May-2015 Instruction Type:Patient Education Patient Instructions Indication:Vaginal irritation Start:27-May-2015 Instruction Type:Provider Instructions for Treatment Patient Instructions Indication:Well Woman Exam (V72.31) (Pap,Mammo,Routine Female) (Renamed from Well Woman Exam (Pap,Mammo,Routine Female)) Start:26-Jun-2013 Instruction Type:Provider Instructions for Treatment Name Dates Details How to access health informa tion online Indication:Well Woman Exam (V72.31) (Pap,Mammo,Routine Female) (Renamed from Well Woman Exam (Pap,Mammo,Routine Female)) Start:20-Jun-2020 Instruction Type:Patient Education How to access health informa tion online - Detail Indication:Well Woman Exam (V72.31) (Pap,Mammo,Routine Female) (Renamed from Well Woman Exam (Pap,Mammo,Routine Female)) Start:20-Jun-2020 Instruction Type:Patient Education Patient Instructions Indication:Well Woman Exam (V72.31) (Pap,Mammo,Routine Female) (Renamed from Well Woman Exam (Pap,Mammo,Routine Female)) Start:20-Jun-2020 Instruction Type:Provider Instructions for Treatment How to access health informa tion online Indication:Well Woman Exam (V72.31) (Pap,Mammo,Routine Female) (Renamed from Well Woman Exam (Pap,Mammo,Routine Female)) Start:10-Feb-2019 Instruction Type:Patient Education How to access health informa tion online - Detail Indication:Well Woman Exam (V72.31) (Pap,Mammo,Routine Female) (Renamed from Well Woman Exam (Pap,Mammo,Routine Female)) Start:10-Feb-2019 Instruction Type:Patient Education Patient Instructions Indication:Well Woman Exam (V72.31) (Pap,Mammo,Routine Female) (Renamed from Well Woman Exam (Pap,Mammo,Routine Female)) Start:10-Feb-2019 Instruction Type:Provider Instructions for Treatment How to access health informa tion online Indication:Well Woman Exam (V72.31) (Pap,Mammo,Routine Female) (Renamed from Well Woman Exam (Pap,Mammo,Routine Female)) Start:19-Dec-2017 Instruction Type:Patient Education How to access health informa tion online - Detail Indication:Well Woman Exam (V72.31) (Pap,Mammo,Routine Female) (Renamed from Well Woman Exam (Pap,Mammo,Routine Female)) Start:19-Dec-2017 Instruction Type:Patient Education Patient Instructions Indication:Well Woman Exam (V72.31) (Pap,Mammo,Routine Female) (Renamed from Well Woman Exam (Pap,Mammo,Routine Female)) Start:19-Dec-2017 Instruction Type:Provider Instructions for Treatment How to access health informa tion online Indication:BMI 22.0-22.9, adult Start:14-Jun-2017 Instruction Type:Patient Education How to access health informa tion online - Detail Indication:BMI 22.0-22.9, adult Start:14-Jun-2017 Instruction Type:Patient Education Patient Instructions Indication:BMI 22.0-22.9, adult Start:14-Jun-2017 Instruction Type:Provider Instructions for Treatment How to access health informa tion online Indication:Blood pressure elevated without history of HTN Start:08-Feb-2017 Instruction Type:Patient Education How to access health informa tion online - Detail Indication:Blood pressure elevated without history of HTN Start:08-Feb-2017 Instruction Type:Patient Education Patient Instructions Indication:Blood pressure elevated without history of HTN Start:08-Feb-2017 Instruction Type:Provider Instructions for Treatment How to access health informa tion online Indication:Body mass index (BMI) of 24.0 to 24.9 in adult Start:09-Oct-2016 Instruction Type:Patient Education How to access health informa tion online - Detail Indication:Body mass index (BMI) of 24.0 to 24.9 in adult Start:09-Oct-2016 Instruction Type:Patient Education Patient Instructions Indication:Body mass index (BMI) of 24.0 to 24.9 in adult Start:09-Oct-2016 Instruction Type:Provider Instructions for Treatment How to access health informa tion online Indication:BMI 25.0-25.9,adult Start:27-Aug-2016 Instruction Type:Patient Education How to access health informa tion online - Detail Indication:BMI 25.0-25.9,adult Start:27-Aug-2016 Instruction Type:Patient Education Patient Instructions Indication:BMI 25.0-25.9,adult Start:27-Aug-2016 Instruction Type:Provider Instructions for Treatment How to access health informa tion online Indication:Hip pain, acute, right Start:13-Jan-2016 Instruction Type:Patient Education How to access health informa tion online - Detail Indication:Hip pain, acute, right Start:13-Jan-2016 Instruction Type:Patient Education Patient Instructions Indication:Hip pain, acute, right Start:13-Jan-2016 Instruction Type:Provider Instructions for Treatment How to access health informa tion online Indication:Hip pain, acute, right Start:30-Dec-2015 Instruction Type:Patient Education How to access health informa tion online - Detail Indication:Hip pain, acute, right Start:30-Dec-2015 Instruction Type:Patient Education Patient Instructions Indication:Hip pain, acute, right Start:30-Dec-2015 Instruction Type:Provider Instructions for Treatment How to access health informa tion online Indication:Vaginal irritation Start:08-Jul-2015 Instruction Type:Patient Education How to access health informa tion online - Detail Indication:Vaginal irritation Start:08-Jul-2015 Instruction Type:Patient Education Patient Instructions Indication:Vaginal irritation Start:08-Jul-2015 Instruction Type:Provider Instructions for Treatment How to access health informa tion online Indication:Vaginal irritation Start:27-May-2015 Instruction Type:Patient Education How to access health informa tion online - Detail Indication:Vaginal irritation Start:27-May-2015 Instruction Type:Patient Education Patient Instructions Indication:Vaginal irritation Start:27-May-2015 Instruction Type:Provider Instructions for Treatment Patient Instructions Indication:Well Woman Exam (V72.31) (Pap,Mammo,Routine Female) (Renamed from Well Woman Exam (Pap,Mammo,Routine Female)) Start:26-Jun-2013 Instruction Type:Provider Instructions for Treatment Name Dates Details How to access health informa tion online Indication:Well Woman Exam (V72.31) (Pap,Mammo,Routine Female) (Renamed from Well Woman Exam (Pap,Mammo,Routine Female)) Start:10-Feb-2019 Instruction Type:Patient Education How to access health informa tion online - Detail Indication:Well Woman Exam (V72.31) (Pap,Mammo,Routine Female) (Renamed from Well Woman Exam (Pap,Mammo,Routine Female)) Start:10-Feb-2019 Instruction Type:Patient Education Patient Instructions Indication:Well Woman Exam (V72.31) (Pap,Mammo,Routine Female) (Renamed from Well Woman Exam (Pap,Mammo,Routine Female)) Start:10-Feb-2019 Instruction Type:Provider Instructions for Treatment How to access health informa tion online Indication:Well Woman Exam (V72.31) (Pap,Mammo,Routine Female) (Renamed from Well Woman Exam (Pap,Mammo,Routine Female)) Start:19-Dec-2017 Instruction Type:Patient Education How to access health informa tion online - Detail Indication:Well Woman Exam (V72.31) (Pap,Mammo,Routine Female) (Renamed from Well Woman Exam (Pap,Mammo,Routine Female)) Start:19-Dec-2017 Instruction Type:Patient Education Patient Instructions Indication:Well Woman Exam (V72.31) (Pap,Mammo,Routine Female) (Renamed from Well Woman Exam (Pap,Mammo,Routine Female)) Start:19-Dec-2017 Instruction Type:Provider Instructions for Treatment How to access health informa tion online Indication:BMI 22.0-22.9, adult Start:14-Jun-2017 Instruction Type:Patient Education How to access health informa tion online - Detail Indication:BMI 22.0-22.9, adult Start:14-Jun-2017 Instruction Type:Patient Education Patient Instructions Indication:BMI 22.0-22.9, adult Start:14-Jun-2017 Instruction Type:Provider Instructions for Treatment How to access health informa tion online Indication:Blood pressure elevated without history of HTN Start:08-Feb-2017 Instruction Type:Patient Education How to access health informa tion online - Detail Indication:Blood pressure elevated without history of HTN Start:08-Feb-2017 Instruction Type:Patient Education Patient Instructions Indication:Blood pressure elevated without history of HTN Start:08-Feb-2017 Instruction Type:Provider Instructions for Treatment How to access health informa tion online Indication:Body mass index (BMI) of 24.0 to 24.9 in adult Start:09-Oct-2016 Instruction Type:Patient Education How to access health informa tion online - Detail Indication:Body mass index (BMI) of 24.0 to 24.9 in adult Start:09-Oct-2016 Instruction Type:Patient Education Patient Instructions Indication:Body mass index (BMI) of 24.0 to 24.9 in adult Start:09-Oct-2016 Instruction Type:Provider Instructions for Treatment How to access health informa tion online Indication:BMI 25.0-25.9,adult Start:27-Aug-2016 Instruction Type:Patient Education How to access health informa tion online - Detail Indication:BMI 25.0-25.9,adult Start:27-Aug-2016 Instruction Type:Patient Education Patient Instructions Indication:BMI 25.0-25.9,adult Start:27-Aug-2016 Instruction Type:Provider Instructions for Treatment How to access health informa tion online Indication:Hip pain, acute, right Start:13-Jan-2016 Instruction Type:Patient Education How to access health informa tion online - Detail Indication:Hip pain, acute, right Start:13-Jan-2016 Instruction Type:Patient Education Patient Instructions Indication:Hip pain, acute, right Start:13-Jan-2016 Instruction Type:Provider Instructions for Treatment How to access health informa tion online Indication:Hip pain, acute, right Start:30-Dec-2015 Instruction Type:Patient Education How to access health informa tion online - Detail Indication:Hip pain, acute, right Start:30-Dec-2015 Instruction Type:Patient Education Patient Instructions Indication:Hip pain, acute, right Start:30-Dec-2015 Instruction Type:Provider Instructions for Treatment How to access health informa tion online Indication:Vaginal irritation Start:08-Jul-2015 Instruction Type:Patient Education How to access health informa tion online - Detail Indication:Vaginal irritation Start:08-Jul-2015 Instruction Type:Patient Education Patient Instructions Indication:Vaginal irritation Start:08-Jul-2015 Instruction Type:Provider Instructions for Treatment How to access health informa tion online Indication:Vaginal irritation Start:27-May-2015 Instruction Type:Patient Education How to access health informa tion online - Detail Indication:Vaginal irritation Start:27-May-2015 Instruction Type:Patient Education Patient Instructions Indication:Vaginal irritation Start:27-May-2015 Instruction Type:Provider Instructions for Treatment Patient Instructions Indication:Well Woman Exam (V72.31) (Pap,Mammo,Routine Female) (Renamed from Well Woman Exam (Pap,Mammo,Routine Female)) Start:26-Jun-2013 Instruction Type:Provider Instructions for Treatment Name Dates Details How to access health informa tion online Indication:Well Woman Exam (V72.31) (Pap,Mammo,Routine Female) (Renamed from Well Woman Exam (Pap,Mammo,Routine Female)) Start:10-Feb-2019 Instruction Type:Patient Education How to access health informa tion online - Detail Indication:Well Woman Exam (V72.31) (Pap,Mammo,Routine Female) (Renamed from Well Woman Exam (Pap,Mammo,Routine Female)) Start:10-Feb-2019 Instruction Type:Patient Education Patient Instructions Indication:Well Woman Exam (V72.31) (Pap,Mammo,Routine Female) (Renamed from Well Woman Exam (Pap,Mammo,Routine Female)) Start:10-Feb-2019 Instruction Type:Provider Instructions for Treatment How to access health informa tion online Indication:Well Woman Exam (V72.31) (Pap,Mammo,Routine Female) (Renamed from Well Woman Exam (Pap,Mammo,Routine Female)) Start:19-Dec-2017 Instruction Type:Patient Education How to access health informa tion online - Detail Indication:Well Woman Exam (V72.31) (Pap,Mammo,Routine Female) (Renamed from Well Woman Exam (Pap,Mammo,Routine Female)) Start:19-Dec-2017 Instruction Type:Patient Education Patient Instructions Indication:Well Woman Exam (V72.31) (Pap,Mammo,Routine Female) (Renamed from Well Woman Exam (Pap,Mammo,Routine Female)) Start:19-Dec-2017 Instruction Type:Provider Instructions for Treatment How to access health informa tion online Indication:BMI 22.0-22.9, adult Start:14-Jun-2017 Instruction Type:Patient Education How to access health informa tion online - Detail Indication:BMI 22.0-22.9, adult Start:14-Jun-2017 Instruction Type:Patient Education Patient Instructions Indication:BMI 22.0-22.9, adult Start:14-Jun-2017 Instruction Type:Provider Instructions for Treatment How to access health informa tion online Indication:Blood pressure elevated without history of HTN Start:08-Feb-2017 Instruction Type:Patient Education How to access health informa tion online - Detail Indication:Blood pressure elevated without history of HTN Start:08-Feb-2017 Instruction Type:Patient Education Patient Instructions Indication:Blood pressure elevated without history of HTN Start:08-Feb-2017 Instruction Type:Provider Instructions for Treatment How to access health informa tion online Indication:Body mass index (BMI) of 24.0 to 24.9 in adult Start:09-Oct-2016 Instruction Type:Patient Education How to access health informa tion online - Detail Indication:Body mass index (BMI) of 24.0 to 24.9 in adult Start:09-Oct-2016 Instruction Type:Patient Education Patient Instructions Indication:Body mass index (BMI) of 24.0 to 24.9 in adult Start:09-Oct-2016 Instruction Type:Provider Instructions for Treatment How to access health informa tion online Indication:BMI 25.0-25.9,adult Start:27-Aug-2016 Instruction Type:Patient Education How to access health informa tion online - Detail Indication:BMI 25.0-25.9,adult Start:27-Aug-2016 Instruction Type:Patient Education Patient Instructions Indication:BMI 25.0-25.9,adult Start:27-Aug-2016 Instruction Type:Provider Instructions for Treatment How to access health informa tion online Indication:Hip pain, acute, right Start:13-Jan-2016 Instruction Type:Patient Education How to access health informa tion online - Detail Indication:Hip pain, acute, right Start:13-Jan-2016 Instruction Type:Patient Education Patient Instructions Indication:Hip pain, acute, right Start:13-Jan-2016 Instruction Type:Provider Instructions for Treatment How to access health informa tion online Indication:Hip pain, acute, right Start:30-Dec-2015 Instruction Type:Patient Education How to access health informa tion online - Detail Indication:Hip pain, acute, right Start:30-Dec-2015 Instruction Type:Patient Education Patient Instructions Indication:Hip pain, acute, right Start:30-Dec-2015 Instruction Type:Provider Instructions for Treatment How to access health informa tion online Indication:Vaginal irritation Start:08-Jul-2015 Instruction Type:Patient Education How to access health informa tion online - Detail Indication:Vaginal irritation Start:08-Jul-2015 Instruction Type:Patient Education Patient Instructions Indication:Vaginal irritation Start:08-Jul-2015 Instruction Type:Provider Instructions for Treatment How to access health informa tion online Indication:Vaginal irritation Start:27-May-2015 Instruction Type:Patient Education How to access health informa tion online - Detail Indication:Vaginal irritation Start:27-May-2015 Instruction Type:Patient Education Patient Instructions Indication:Vaginal irritation Start:27-May-2015 Instruction Type:Provider Instructions for Treatment Patient Instructions Indication:Well Woman Exam (V72.31) (Pap,Mammo,Routine Female) (Renamed from Well Woman Exam (Pap,Mammo,Routine Female)) Start:26-Jun-2013 Instruction Type:Provider Instructions for Treatment Name Dates Details Patient Instructions Indication:Hypertriglyceridemia, essential Start:04-Oct-2020 Instruction Type:Provider Instructions for Treatment How to Access Health Informa tion Online using Patient Portal and [employer]rd [employer] Apps Indication:Hypertriglyceridemia, essential Start:04-Oct-2020 Instruction Type:Patient Education How to access health informa tion online Indication:Well Woman Exam (V72.31) (Pap,Mammo,Routine Female) (Renamed from Well Woman Exam (Pap,Mammo,Routine Female)) Start:20-Jun-2020 Instruction Type:Patient Education How to access health informa tion online - Detail Indication:Well Woman Exam (V72.31) (Pap,Mammo,Routine Female) (Renamed from Well Woman Exam (Pap,Mammo,Routine Female)) Start:20-Jun-2020 Instruction Type:Patient Education Patient Instructions Indication:Well Woman Exam (V72.31) (Pap,Mammo,Routine Female) (Renamed from Well Woman Exam (Pap,Mammo,Routine Female)) Start:20-Jun-2020 Instruction Type:Provider Instructions for Treatment How to access health informa tion online Indication:Well Woman Exam (V72.31) (Pap,Mammo,Routine Female) (Renamed from Well Woman Exam (Pap,Mammo,Routine Female)) Start:10-Feb-2019 Instruction Type:Patient Education How to access health informa tion online - Detail Indication:Well Woman Exam (V72.31) (Pap,Mammo,Routine Female) (Renamed from Well Woman Exam (Pap,Mammo,Routine Female)) Start:10-Feb-2019 Instruction Type:Patient Education Patient Instructions Indication:Well Woman Exam (V72.31) (Pap,Mammo,Routine Female) (Renamed from Well Woman Exam (Pap,Mammo,Routine Female)) Start:10-Feb-2019 Instruction Type:Provider Instructions for Treatment How to access health informa tion online Indication:Well Woman Exam (V72.31) (Pap,Mammo,Routine Female) (Renamed from Well Woman Exam (Pap,Mammo,Routine Female)) Start:19-Dec-2017 Instruction Type:Patient Education How to access health informa tion online - Detail Indication:Well Woman Exam (V72.31) (Pap,Mammo,Routine Female) (Renamed from Well Woman Exam (Pap,Mammo,Routine Female)) Start:19-Dec-2017 Instruction Type:Patient Education Patient Instructions Indication:Well Woman Exam (V72.31) (Pap,Mammo,Routine Female) (Renamed from Well Woman Exam (Pap,Mammo,Routine Female)) Start:19-Dec-2017 Instruction Type:Provider Instructions for Treatment How to access health informa tion online Indication:BMI 22.0-22.9, adult Start:14-Jun-2017 Instruction Type:Patient Education How to access health informa tion online - Detail Indication:BMI 22.0-22.9, adult Start:14-Jun-2017 Instruction Type:Patient Education Patient Instructions Indication:BMI 22.0-22.9, adult Start:14-Jun-2017 Instruction Type:Provider Instructions for Treatment How to access health informa tion online Indication:Blood pressure elevated without history of HTN Start:08-Feb-2017 Instruction Type:Patient Education How to access health informa tion online - Detail Indication:Blood pressure elevated without history of HTN Start:08-Feb-2017 Instruction Type:Patient Education Patient Instructions Indication:Blood pressure elevated without history of HTN Start:08-Feb-2017 Instruction Type:Provider Instructions for Treatment How to access health informa tion online Indication:Body mass index (BMI) of 24.0 to 24.9 in adult Start:09-Oct-2016 Instruction Type:Patient Education How to access health informa tion online - Detail Indication:Body mass index (BMI) of 24.0 to 24.9 in adult Start:09-Oct-2016 Instruction Type:Patient Education Patient Instructions Indication:Body mass index (BMI) of 24.0 to 24.9 in adult Start:09-Oct-2016 Instruction Type:Provider Instructions for Treatment How to access health informa tion online Indication:BMI 25.0-25.9,adult Start:27-Aug-2016 Instruction Type:Patient Education How to access health informa tion online - Detail Indication:BMI 25.0-25.9,adult Start:27-Aug-2016 Instruction Type:Patient Education Patient Instructions Indication:BMI 25.0-25.9,adult Start:27-Aug-2016 Instruction Type:Provider Instructions for Treatment How to access health informa tion online Indication:Hip pain, acute, right Start:13-Jan-2016 Instruction Type:Patient Education How to access health informa tion online - Detail Indication:Hip pain, acute, right Start:13-Jan-2016 Instruction Type:Patient Education Patient Instructions Indication:Hip pain, acute, right Start:13-Jan-2016 Instruction Type:Provider Instructions for Treatment How to access health informa tion online Indication:Hip pain, acute, right Start:30-Dec-2015 Instruction Type:Patient Education How to access health informa tion online - Detail Indication:Hip pain, acute, right Start:30-Dec-2015 Instruction Type:Patient Education Patient Instructions Indication:Hip pain, acute, right Start:30-Dec-2015 Instruction Type:Provider Instructions for Treatment How to access health informa tion online Indication:Vaginal irritation Start:08-Jul-2015 Instruction Type:Patient Education How to access health informa tion online - Detail Indication:Vaginal irritation Start:08-Jul-2015 Instruction Type:Patient Education Patient Instructions Indication:Vaginal irritation Start:08-Jul-2015 Instruction Type:Provider Instructions for Treatment How to access health informa tion online Indication:Vaginal irritation Start:27-May-2015 Instruction Type:Patient Education How to access health informa tion online - Detail Indication:Vaginal irritation Start:27-May-2015 Instruction Type:Patient Education Patient Instructions Indication:Vaginal irritation Start:27-May-2015 Instruction Type:Provider Instructions for Treatment Patient Instructions Indication:Well Woman Exam (V72.31) (Pap,Mammo,Routine Female) (Renamed from Well Woman Exam (Pap,Mammo,Routine Female)) Start:26-Jun-2013 Instruction Type:Provider Instructions for Treatment Name Dates Details How to access health informa tion online Indication:Well Woman Exam (V72.31) (Pap,Mammo,Routine Female) (Renamed from Well Woman Exam (Pap,Mammo,Routine Female)) Start:20-Jun-2020 Instruction Type:Patient Education How to access health informa tion online - Detail Indication:Well Woman Exam (V72.31) (Pap,Mammo,Routine Female) (Renamed from Well Woman Exam (Pap,Mammo,Routine Female)) Start:20-Jun-2020 Instruction Type:Patient Education Patient Instructions Indication:Well Woman Exam (V72.31) (Pap,Mammo,Routine Female) (Renamed from Well Woman Exam (Pap,Mammo,Routine Female)) Start:20-Jun-2020 Instruction Type:Provider Instructions for Treatment How to access health informa tion online Indication:Well Woman Exam (V72.31) (Pap,Mammo,Routine Female) (Renamed from Well Woman Exam (Pap,Mammo,Routine Female)) Start:10-Feb-2019 Instruction Type:Patient Education How to access health informa tion online - Detail Indication:Well Woman Exam (V72.31) (Pap,Mammo,Routine Female) (Renamed from Well Woman Exam (Pap,Mammo,Routine Female)) Start:10-Feb-2019 Instruction Type:Patient Education Patient Instructions Indication:Well Woman Exam (V72.31) (Pap,Mammo,Routine Female) (Renamed from Well Woman Exam (Pap,Mammo,Routine Female)) Start:10-Feb-2019 Instruction Type:Provider Instructions for Treatment How to access health informa tion online Indication:Well Woman Exam (V72.31) (Pap,Mammo,Routine Female) (Renamed from Well Woman Exam (Pap,Mammo,Routine Female)) Start:19-Dec-2017 Instruction Type:Patient Education How to access health informa tion online - Detail Indication:Well Woman Exam (V72.31) (Pap,Mammo,Routine Female) (Renamed from Well Woman Exam (Pap,Mammo,Routine Female)) Start:19-Dec-2017 Instruction Type:Patient Education Patient Instructions Indication:Well Woman Exam (V72.31) (Pap,Mammo,Routine Female) (Renamed from Well Woman Exam (Pap,Mammo,Routine Female)) Start:19-Dec-2017 Instruction Type:Provider Instructions for Treatment How to access health informa tion online Indication:BMI 22.0-22.9, adult Start:14-Jun-2017 Instruction Type:Patient Education How to access health informa tion online - Detail Indication:BMI 22.0-22.9, adult Start:14-Jun-2017 Instruction Type:Patient Education Patient Instructions Indication:BMI 22.0-22.9, adult Start:14-Jun-2017 Instruction Type:Provider Instructions for Treatment How to access health informa tion online Indication:Blood pressure elevated without history of HTN Start:08-Feb-2017 Instruction Type:Patient Education How to access health informa tion online - Detail Indication:Blood pressure elevated without history of HTN Start:08-Feb-2017 Instruction Type:Patient Education Patient Instructions Indication:Blood pressure elevated without history of HTN Start:08-Feb-2017 Instruction Type:Provider Instructions for Treatment How to access health informa tion online Indication:Body mass index (BMI) of 24.0 to 24.9 in adult Start:09-Oct-2016 Instruction Type:Patient Education How to access health informa tion online - Detail Indication:Body mass index (BMI) of 24.0 to 24.9 in adult Start:09-Oct-2016 Instruction Type:Patient Education Patient Instructions Indication:Body mass index (BMI) of 24.0 to 24.9 in adult Start:09-Oct-2016 Instruction Type:Provider Instructions for Treatment How to access health informa tion online Indication:BMI 25.0-25.9,adult Start:27-Aug-2016 Instruction Type:Patient Education How to access health informa tion online - Detail Indication:BMI 25.0-25.9,adult Start:27-Aug-2016 Instruction Type:Patient Education Patient Instructions Indication:BMI 25.0-25.9,adult Start:27-Aug-2016 Instruction Type:Provider Instructions for Treatment How to access health informa tion online Indication:Hip pain, acute, right Start:13-Jan-2016 Instruction Type:Patient Education How to access health informa tion online - Detail Indication:Hip pain, acute, right Start:13-Jan-2016 Instruction Type:Patient Education Patient Instructions Indication:Hip pain, acute, right Start:13-Jan-2016 Instruction Type:Provider Instructions for Treatment How to access health informa tion online Indication:Hip pain, acute, right Start:30-Dec-2015 Instruction Type:Patient Education How to access health informa tion online - Detail Indication:Hip pain, acute, right Start:30-Dec-2015 Instruction Type:Patient Education Patient Instructions Indication:Hip pain, acute, right Start:30-Dec-2015 Instruction Type:Provider Instructions for Treatment How to access health informa tion online Indication:Vaginal irritation Start:08-Jul-2015 Instruction Type:Patient Education How to access health informa tion online - Detail Indication:Vaginal irritation Start:08-Jul-2015 Instruction Type:Patient Education Patient Instructions Indication:Vaginal irritation Start:08-Jul-2015 Instruction Type:Provider Instructions for Treatment How to access health informa tion online Indication:Vaginal irritation Start:27-May-2015 Instruction Type:Patient Education How to access health informa tion online - Detail Indication:Vaginal irritation Start:27-May-2015 Instruction Type:Patient Education Patient Instructions Indication:Vaginal irritation Start:27-May-2015 Instruction Type:Provider Instructions for Treatment Patient Instructions Indication:Well Woman Exam (V72.31) (Pap,Mammo,Routine Female) (Renamed from Well Woman Exam (Pap,Mammo,Routine Female)) Start:26-Jun-2013 Instruction Type:Provider Instructions for Treatment Name Dates Details How to access health informa tion online Indication:Well Woman Exam (V72.31) (Pap,Mammo,Routine Female) (Renamed from Well Woman Exam (Pap,Mammo,Routine Female)) Start:19-Dec-2017 Instruction Type:Patient Education How to access health informa tion online - Detail Indication:Well Woman Exam (V72.31) (Pap,Mammo,Routine Female) (Renamed from Well Woman Exam (Pap,Mammo,Routine Female)) Start:19-Dec-2017 Instruction Type:Patient Education Patient Instructions Indication:Well Woman Exam (V72.31) (Pap,Mammo,Routine Female) (Renamed from Well Woman Exam (Pap,Mammo,Routine Female)) Start:19-Dec-2017 Instruction Type:Provider Instructions for Treatment How to access health informa tion online Indication:BMI 22.0-22.9, adult Start:14-Jun-2017 Instruction Type:Patient Education How to access health informa tion online - Detail Indication:BMI 22.0-22.9, adult Start:14-Jun-2017 Instruction Type:Patient Education Patient Instructions Indication:BMI 22.0-22.9, adult Start:14-Jun-2017 Instruction Type:Provider Instructions for Treatment How to access health informa tion online Indication:Blood pressure elevated without history of HTN Start:08-Feb-2017 Instruction Type:Patient Education How to access health informa tion online - Detail Indication:Blood pressure elevated without history of HTN Start:08-Feb-2017 Instruction Type:Patient Education Patient Instructions Indication:Blood pressure elevated without history of HTN Start:08-Feb-2017 Instruction Type:Provider Instructions for Treatment How to access health informa tion online Indication:Body mass index (BMI) of 24.0 to 24.9 in adult Start:09-Oct-2016 Instruction Type:Patient Education How to access health informa tion online - Detail Indication:Body mass index (BMI) of 24.0 to 24.9 in adult Start:09-Oct-2016 Instruction Type:Patient Education Patient Instructions Indication:Body mass index (BMI) of 24.0 to 24.9 in adult Start:09-Oct-2016 Instruction Type:Provider Instructions for Treatment How to access health informa tion online Indication:BMI 25.0-25.9,adult Start:27-Aug-2016 Instruction Type:Patient Education How to access health informa tion online - Detail Indication:BMI 25.0-25.9,adult Start:27-Aug-2016 Instruction Type:Patient Education Patient Instructions Indication:BMI 25.0-25.9,adult Start:27-Aug-2016 Instruction Type:Provider Instructions for Treatment How to access health informa tion online Indication:Hip pain, acute, right Start:13-Jan-2016 Instruction Type:Patient Education How to access health informa tion online - Detail Indication:Hip pain, acute, right Start:13-Jan-2016 Instruction Type:Patient Education Patient Instructions Indication:Hip pain, acute, right Start:13-Jan-2016 Instruction Type:Provider Instructions for Treatment How to access health informa tion online Indication:Hip pain, acute, right Start:30-Dec-2015 Instruction Type:Patient Education How to access health informa tion online - Detail Indication:Hip pain, acute, right Start:30-Dec-2015 Instruction Type:Patient Education Patient Instructions Indication:Hip pain, acute, right Start:30-Dec-2015 Instruction Type:Provider Instructions for Treatment How to access health informa tion online Indication:Vaginal irritation Start:08-Jul-2015 Instruction Type:Patient Education How to access health informa tion online - Detail Indication:Vaginal irritation Start:08-Jul-2015 Instruction Type:Patient Education Patient Instructions Indication:Vaginal irritation Start:08-Jul-2015 Instruction Type:Provider Instructions for Treatment How to access health informa tion online Indication:Vaginal irritation Start:27-May-2015 Instruction Type:Patient Education How to access health informa tion online - Detail Indication:Vaginal irritation Start:27-May-2015 Instruction Type:Patient Education Patient Instructions Indication:Vaginal irritation Start:27-May-2015 Instruction Type:Provider Instructions for Treatment Patient Instructions Indication:Well Woman Exam (V72.31) (Pap,Mammo,Routine Female) (Renamed from Well Woman Exam (Pap,Mammo,Routine Female)) Start:26-Jun-2013 Instruction Type:Provider Instructions for Treatment Advance Directives Name Dates Details Immunization Registry [place] - Effective on 01/13/2021. Expiration date unspecified Effective:13-Jan-2021 Name Dates Details Immunization Registry [place] - Effective on 01/13/2021. Expiration date unspecified Effective:13-Jan-2021 Name Dates Details Immunization Registry [place] - Effective on 01/13/2021. Expiration date unspecified Effective:13-Jan-2021 Name Dates Details Immunization Registry [place] - Effective on 01/13/2021. Expiration date unspecified Effective:13-Jan-2021 Name Dates Details Immunization Registry [place] - Effective on 01/13/2021. Expiration date unspecified Effective:13-Jan-2021 Name Dates Details Immunization Registry [place] - Effective on 01/13/2021. Expiration date unspecified Effective:13-Jan-2021 Name Dates Details Immunization Registry [place] - Effective on 01/13/2021. Expiration date unspecified Effective:13-Jan-2021 Name Dates Details Immunization Registry [place] - Effective on 01/13/2021. Expiration date unspecified Effective:13-Jan-2021 Name Dates Details Immunization Registry [place] - Effective on 01/13/2021. Expiration date unspecified Effective:13-Jan-2021 Name Dates Details Immunization Registry [place] - Effective on 01/13/2021. Expiration date unspecified Effective:13-Jan-2021 Name Dates Details Immunization Registry [place] - Effective on 01/13/2021. Expiration date unspecified Effective:13-Jan-2021 Name Dates Details Immunization Registry [place] - Effective on 01/13/2021. Expiration date unspecified Effective:13-Jan-2021 Name Dates Details Immunization Registry [place] - Effective on 01/13/2021. Expiration date unspecified Effective:13-Jan-2021 Name Dates Details Immunization Registry [place] - Effective on 01/13/2021. Expiration date unspecified Effective:13-Jan-2021 Summary Purpose Additional Source Comments INFORMATION SOURCE (unrecogn ized section and content) FOR RECORDS PERTAINING TO PATIENTS WHO ARE OR HAVE BEEN ENROLLED IN A CHEMICAL DEPENDENCY/SUBSTANCEABUSE PROGRAM, SOME INFORMATION MAY BE OMITTED. This clinical summary was aggregated from multiple sources. Caution should be exercised in using it in the provision of clinical care. This summary normalizes information from multiple sources, and as a consequence, information in this document may materially change the coding, format and clinical context of patient data. In addition, data may be omitted in some cases. CLINICAL DECISIONS SHOULD BE BASED ON THE PRIMARY CLINICAL RECORDS. [email or web address]. provides no warranty or guarantee of the accuracy or completeness of information in this document.
[2023-08-22 09:54] LABS: Absolute Lymphocyte Count 1.76 X10^3/uL (0.83-4.51); Absolute Neutrophil Count 4.4 X10^3/uL (2.0-7.7); Basophil# 0.04 X10^3/uL; Basophil% 0.6 % (0-1); Eosinophil# 0.14 X10^3/uL; Hematocrit 42.3 % (37-47); Lymphocyte # 1.76 X10^3/ul (0.83-4.51); Lymphocyte % 25.7 % (19-41); Mean Corp Hgb Conc 33.1 g/dL (32-36); Mean Corpuscular Hgb 28.4 pg (27.0-32.0); Mean Corpuscular Volume 85.8 fL (81-99); Mean Platelet Vol. 9.5 fl (6.2-12.0); Monocyte# 0.52 X10^3/uL; Monocyte% 7.6 % (0-10); NRBC Flagged by Analyzer 0 % (0-5); Neutrophil # 4.37 X10^3/uL (2.7-7.7); Neutrophil % 63.7 % (47-70); Platelet Count 265 K/mm3 (150-450); RBC Distribution Width CV 13.1 % (11.6-14.6); RBC Distribution Width SD 40.2 fl (35.1-43.9); Red Blood Count 4.93 M/mm3 (4.2-5.4); White Blood Count 6.9 K/mm3 (4.4-11.0)
[2023-08-22 10:20] LABS: ALB/GLOB Ratio 1.3 RATIO (0.9-2.4); AST(SGOT) 29 U/L (15-37); Alanine Aminotransfer ALT/SGPT 36 U/L (13-56); Alkaline Phosphatase 136 U/L (45-117); Anion Gap 8 (5-15); BUN 14 mg/dL (7-18); BUN/Creat Ratio 17.4 RATIO (10-20); Calcium,Total 9.2 mg/dL (8.5-10.1); Chloride 104 mmol/L (98-107); EST Glomerular Filtration Rate 76 mL/min (>60); Est Glom Filt Rate - Afr Amer 92 mL/min (>60); Glucose 89 mg/dL (74-106); Sodium Level 141 mmol/L (136-145)
== END | disposition home or self-care (01) ==
LOC: LAB 09:11
PROVIDERS: PCP Internal Medicine; Referring Provider Internal Medicine Rheumatology; Visit Provider Internal Medicine Rheumatology
DX: L40.59 Other psoriatic arthropathy (principal); L40.8 Other psoriasis; K21.00 Gastro-esophageal reflux disease with esophagitis, without bleeding; H93.19 Tinnitus, unspecified ear; E78.5 Hyperlipidemia, unspecified; I10 Essential (primary) hypertension; M65.351 Trigger finger, right little finger; M85.80 Other specified disorders of bone density and structure, unspecified site; Z79.899 Other long term (current) drug therapy
CPT/HCPCS: 36415; 80053; 85025

== ENCOUNTER → 2023-10-01 | Outpatient (CLI) | payer OTHER, SELFPAY ==
--- NOTE | 2023-10-01 09:48 | BI_ITS ---
MAMMOGRAPHY - BILATERAL SCREENING REASON FOR EXAM: Female, 63 years old. Routine annual screening examination. PERTINENT HISTORY: Sister with breast cancer. Grandmother with breast cancer. Aunt with breast cancer. TECHNIQUE: Digital bilateral breast alicia (3D mammographic acquisition) in the CC and MLO projections. 2-D mediolateral oblique (MLO) and craniocaudad (CC) views of both breasts were obtained. CAD: Full Field Digital Mammography with Computer Added Detection was performed. COMPARISON: Comparison is made with prior study dated September 25, 2022 and April 30, 2023. FINDINGS: Breast Composition: The breasts are heterogeneously dense, which may obscure small masses. There are no dominant masses or suspicious calcifications. Stable right axillary lymph nodes. No other significant abnormalities are identified. There has been no significant change since the prior study. BI/SCRN MAMM (CAD)W/ALICIA BILAT IMPRESSION: Stable bilateral screening mammogram. Yearly follow-up mammogram recommended. (A) ASSESSMENT CATEGORY: BIRADS Category 2: Benign. A letter regarding these results will be sent to the patient by the facility within 30 days. Approximately 10% of breast cancers are not detected by mammography. A normal mammogram should not delay biopsy of a clinically suspicious abnormality. [id number] Electronically Signed: Sheldon Mcdaniel MD at 11:26 EST ,
--- OUTSIDE RECORDS SUMMARY | 2023-10-01 10:25 | XMS RPT_ITS | CCD ---
Author Name Unknown Address [address] [place] [address] Organization [facility] Care Team Providers Care Dampener Name Role Phone Jolly Wright Unavailable Skylar Sanchez Unavailable Miles Oconnor Unavailable SHI Harrell Unavailable Unavailable Unavailable Unavailable Jolly Wright MD Unavailable [phone] Skylar Sanchez Unavailable Miles Oconnor MD Unavailable [...] Limited Unilateral Procedure Note: See Note; NOTES: [facility] Imaging Services [address] [place] [address] Breast Limited Unilateral MR#: [id number] Acct: [id number] Name: CHRISTINA US Rep #: [id number] : 1960 F 63 From: Sheldon mcdonough MD PCP: Dr. Jolly Wright MD Status: REG CLI Study: Breast Limited Unilateral Date of Exam: Exam# [id number] Ordering Dr: Jolly Wright MD STUDY: ULTRASOUND [...] EDT , CC: Dr. Jolly Wright MD Manager Sourcing: Signed Jolly Wright MD Work Phone: Start: 04-30-2023 End: 04-30-2023 DIAG MAMM W/CAD, UNILAT Procedure Note: See Note; NOTES: [facility] Imaging Services [address] [place] [address] DIAG MAMM W/CAD, UNILAT MR#: [id number] Acct: [id number] Name: CHRISTINA US Rep #: [id number] : 1960 F 63 From: Sheldon mcdonough MD PCP: Dr. Jolly Wright MD Status: [facility] Study: DIAG MAMM W/CAD, UNILAT Date of Exam: 04/30/23 Exam# [id number] Ordering Dr: Jolly Wright MD MAMMOGRAPHY - [...] 15:21 EDT Reading Location ID and State: [facility] / [place] , Service support , CC: Dr. Jolly Wright MD Manager Sourcing: Signed Jolly Wright MD Work Phone: Start: 04-02-2023 End: 04-03-2023 Dexa Bone Density Study Procedure Note: See Note; NOTES: [facility] Imaging Services [address] [place] [address] Dexa Bone Density Study MR#: [id number] Acct: [id number] Name: CHRISTINA US Rep #: [id number] : 1960 F 62 From: Sheldon mcdonough MD PCP: Dr. Jolly Wright MD Status: [facility] Study: Dexa Bone Density Study Date of Exam: 04/02/23 Exam# [id number] Ordering Dr: Jolly Wright MD STUDY: DUAL [...] 10:44 EDT Reading Location ID and State: [facility] / [place] , Service support , CC: Dr. Jolly Wright MD Manager Sourcing: Signed Jolly Wright MD Work Phone: Start: 12-20-2022 End: 12-20-2022 Echo Complete W/ Contrast Procedure Note: See Note; NOTES: [facility] Cardiovascular Services [address] [place] [address] Echo Complete W/ Contrast 12/20/22 0856 MR#: [id number] Acct: [id number] Name: CHRISTINA US Rep #: [id number] : 1960 62 From: James Armas MD Attending Dr: Dr. Jolly Wright MD Status: REG CLI Ordering Dr: Jolly Wright MD Date: 12/20/22 Location: [facility] Sex: F C Admitted: Reason For [...] Date Dictated: 12/20/2256 Date Transcribed: 12/20/22 1304 Manager Sourcing: Signed Jolly Wright MD Work Phone: Start: 09-25-2022 End: 09-25-2022 SCRN MAMM (CAD)W/ALICIA BILAT Procedure Note: See Note; NOTES: [facility] Imaging Services [address] [place] [address] SCRN MAMM (CAD)W/ALICIA BILAT MR#: [id number] Acct: [id number] Name: CHRISTINA US Rep #: [id number] : 1960 F 62 From: Sheldon mcdonough MD PCP: Dr. Jolly Wright MD Status: [facility] Study: SCRN MAMM (CAD)W/ALICIA BILAT Date of Exam: 03/10 Exam# [id number] Ordering Dr: Jolly Wright MD MAMMOGRAPHY - [...] delay biopsy of a clinically suspicious abnormality. [id number] Electronically Signed: Sheldon Mcdaniel MD at 11:27 EST Reading Location ID and State: [facility] / [place] , Service support , CC: Dr. Jolly Wright MD Manager Sourcing: Signed Jolly Wright MD Work Phone: Start: 05-05-2021 End: 05-05-[address] Comments: See Note; NOTES: [facility] Imaging Services [address] [place] [address] 05/05/21 1725 MR#: [id number] Acct: [id number] Name: MAGENCHRISTINA RAI Rep #: [id number] : 1960 61 From: Jad Mason MD [...] Chest CT w/CCTA Comments: See Note; NOTES: [facility] Imaging Services [address] [place] [address] w/CCTA MR#: [id number] Acct: [id number] Name: CHRISTINA US Rep #: [id number] : 1960 F 61 From: Sheldon mcdonough MD PCP: Dr. Jolly Wright MD Status: [facility] Study: Limited Chest CT w/CCTA Date of Exam: 05/05/21 Exam# [id number] Ordering Dr: Jolly Wright MD STUDY: CARDIAC [...] support , CC: Dr. Jolly Wright MD Manager Sourcing: Signed Jolly Wright MD Work Phone: Start: 03-28-2021 End: 03-29-2021 Dexa Bone Density Study Comments: See Note; NOTES: [facility] Imaging Services [address] [place] [address] Dexa Bone Density Study MR#: [id number] Acct: [id number] Name: CHRISTINA US Rep #: [id number] : 1960 F 60 From: Sheldon mcdonough MD PCP: Dr. Jolly Wright MD Status: [facility] Study: Dexa Bone Density Study Date of Exam: 03/28/21 Exam# [id number] Ordering Dr: Jolly Wright MD STUDY: DUAL [...] support , CC: Dr. Jolly Wright MD Manager Sourcing: Signed Jolly Wright MD Work Phone: Start: 01-06-2021 End: 01-06-2021 SCRN MAMM (CAD)W/ALICIA BILAT Comments: See Note; NOTES: [facility] Imaging Services [address] [place] [address] SCRN MAMM (CAD)W/ALICIA BILAT MR#: [id number] Acct: [id number] Name: CHRISTINA US Rep #: [id number] : 1960 F 60 From: Dandy Lynne MD PCP: Dr. Jolly Wright MD Status: REG CLI Study: SCRN MAMM (CAD)W/ALICIA BILAT Date of Exam: 12/18 09/08 Exam# [id number] Ordering Dr: Jolly Wright MD MAMMOGRAPHY - [...] support , CC: Dr. Jolly Wright MD Manager Sourcing: Signed Jolly Wright MD Work Phone: Start: 03-24-2019 End: 03-24-2019 Dexa Bone Density Study Comments: See Note; NOTES: [facility] Imaging Services [address] [place] [address] Dexa Bone Density Study MR#: [id number] Acct: [id number] Name: CHRISTINA US Rep #: [id number] : 1960 F 58 From: Sheldon Mcdaniel MD PCP: Jolly Wright MD Status: REG CLI Study: Dexa Bone Density Study Date of Exam: 03/24/19 Exam# [id number] Ordering Dr: Jolly Wright MD STUDY: DUAL [...] Service support , CC: Jolly Wright MD Manager Sourcing: Signed Jolly Wright Work Phone: Start: 03-24-2019 End: 03-24-2019 SCREEN MAMM (CAD) W/ALICIA BILAT Comments: See Note; NOTES: [facility] Imaging Services [address] [place] [address] SCREEN MAMM (CAD) W/ALICIA BILAT MR#: [id number] Acct: [id number] Name: CHRISTINA US Rep #: [id number] : 1960 F 58 From: Sheldon Mcdaniel MD PCP: Jolly Wright MD Status: REG CLI Study: SCREEN MAMM (CAD) W/ALICIA BILAT Date of Exam: 03/24/19 Exam# [id number] Ordering Dr: Jolly Wright MD MAMMOGRAPHY - [...] delay biopsy of a clinically suspicious abnormality. [id number] Electronically Signed: Sheldon Mcdaniel, at 12:32 EDT , Service support , CC: Jolly Wright MD Manager Sourcing: Signed Jolly Wright Work Phone: Start: 05-27-2017 End: 05-27-2017 Echocardiogram Complete Comments: See Note; NOTES: [facility] Cardiovascular Services [address] [place] [address] Echo Complete 05/27/17 1054 MR#: [id number] Acct: [id number] Name: MAGENCHRISTINA L Rep #: [id number] : 1960 57 From: Jad Mason MD [...] Dictated: 05/27/17 1054 Date Transcribed: 05/27/17 1547 Manager Sourcing: Signed Jolly Wright Work Phone: Start: 09-24-2016 End: 09-24-2016 Breast Limited Unilateral Comments: See Note; NOTES: [facility] Imaging Services [address] [place] [address] Verdana 4d Breast Limited Unilateral MR#: [id number] Acct: [id number] Name: CHRISTINA US Rep #: [id number] : 1960 F 56 From: Sheldon Mcdaniel MD PCP: Jolly Wright MD Status: REG CLI Study: Breast Limited Unilateral Date of Exam: 09/24/16 Exam# [id number] Ordering Dr: Jolly Wright MD STUDY: ULTRASOUND [...] Sheldon Mcdaniel MD at 10:55 EST Tel [phone], Service support [phone], CC: Jolly Wright MD Manager Sourcing: Signed Jolly Wright Work Phone: Start: 09-24-2016 End: 09-24-2016 DIAG MAMM W/CAD, UNILAT Comments: See Note; NOTES: [facility] Imaging Services [address] [place] [address] Verdana 4d DIAG MAMM W/CAD, UNILAT MR#: [id number] Acct: [id number] Name: CHRISTINA US Rep #: [id number] : 1960 F 56 From: Sheldon Mcdaniel MD PCP: Jolly Wright MD Status: REG CLI Study: DIAG MAMM W/CAD, UNILAT Date of Exam: 09/24/16 Exam# [id number] Ordering Dr: Jolly Wright MD MAMMOGRAPHY - [...] are identified. Correlation with ultrasound is recommended. [facility]/DIAG MAMM W/CAD, UNILAT IMPRESSION: Stable unilateral diagnostic [...] Sheldon Mcdaniel MD at 12:23 EST Tel [phone], Service support [phone], CC: Jolly Wright MD Manager Sourcing: Signed Jolly Wright Work Phone: Start: 09-18-2016 End: 09-18-2016 Dexa Bone Density Study (HP) Comments: See Note; NOTES: [facility] Imaging Services [address] [place] [address] Verdana 4d Dexa Bone Density Study (HP) MR#: [id number] Acct: [id number] Name: CHRISTINA US Rep #: [id number] : 1960 F 56 From: Sheldon Mcdaniel MD PCP: Jolly Wright MD Status: REG CLI Study: Dexa Bone Density Study (HP) Date of Exam: 09/18/16 Exam# [id number] Ordering Dr: Jolly Wright MD STUDY: DUAL [...] Sheldon Mcdaniel MD at 15:46 EST Tel [phone], Service support [phone], CC: Jolly Wright MD Manager Sourcing: Signed Jolly Wright Work Phone: Start: 09-18-2016 End: 09-19-2016 SCREENING MAMM (CAD), BILAT Comments: See Note; NOTES: [facility] Imaging Services [address] [place] [address] Verdana 4d SCREENING MAMM (CAD), BILAT MR#: [id number] Acct: [id number] Name: CHRISTINA US Rep #: [id number] : 1960 F 56 From: Sheldon Mcdaniel MD PCP: Jolly Wright MD Status: REG CLI Study: SCREENING MAMM (CAD), BILAT Date of Exam: 09/18/16 Exam# [id number] Ordering Dr: Jolly Wright MD MAMMOGRAPHY - [...] delay biopsy of a clinically suspicious abnormality. [id number] Electronically Signed: Sheldon Mcdaniel MD at 7:52 EST Tel [phone], Service support [phone], CC: Jolly Wright MD Manager Sourcing: Signed Jolly Wright Work Phone: Start: 02-10-2016 End: 02-10-2016 PT D/C Summary (1) Comments: See Note; NOTES: [facility] Physical Therapy [facility] [place] [address] Fax REHABILITATION SERVICES DISCHARGE SUMMARY MR#: [id number] Acct: [id number] Name: CHRISTINA US Rep #: [id number] : 1960 55 From: Nelida Patel MPT Referring Dr.: Jolly Wright MD Status: REG R Insurance: [employer] - PT D/C Summary It has been [...] please feel free to call me at [phone]. Thank you for the referral of this patient. Sincerely, Nelida Patel <Electronically signed by Nelida HERNANDEZ> 02/10/16 1418 CC: Jolly Wright MD Signed Jolly Wright Start: 01-04-2016 End: 01-04-2016 Inital Evaluation (1) - PT Comments: See Note; NOTES: [facility] Physical Therapy [facility] [address] [place], [place] [address] Fax REHABILITATION SERVICES INITIAL EVALUATION MR#: [id number] Acct: [id number] Name: CHRISTINA US Rep #: [id number] : 1960 55 From: Nelida HERNANDEZ Referring Dr.: Jolly Wright MD Status: REG RCR Insurance: [employer] Patient's Visit Information CHRISTINA US is a [...] to be FAXED BACK to us at [phone] for Medicare purposes. Please let me know [...] Views with Pelvis Comments: See Note; NOTES: [facility] Imaging Services [address] [place] [address] Verdana 4d Hip 2-3 Views with Pelvis MR#: [id number] Acct: [id number] Name: CHRISTINA US Rep #: [id number] : 1960 F 55 From: Sheldon Mcdaniel MD PCP: Jolly Wright MD Status: REG CLI Study: Hip 2-3 Views with Pelvis Date of Exam: 12/30/15 Exam# [id number] Ordering Dr: Jolly Wright MD STUDY: X-RAY [...] Sheldon Mcdaniel MD at 14:37 EDT Tel [phone], Service support [phone], RAD/Hip 2-3 Views with Pelvis IMPRESSION: Degenerative changes in the lower lumbar spine. Electronically Signed: Sheldon Mcdaniel MD at 14:37 EDT Tel [phone], Service support [phone], CC: Jolly Wright MD Manager Sourcing: Signed Jolly Wright Work Phone: Start: 12-30-2015 End: 12-30-2015 Knee 4 or More Views Comments: See Note; NOTES: [facility] Imaging Services [address] [place] [address] [place] 4d Knee 4 or More Views MR#: [id number] Acct: [id number] Name: CHRISTINA US Rep #: [id number] : 1960 F 55 From: Sheldon Mcdaniel MD PCP: Jolly Wright MD Status: REG CLI Study: Knee 4 or More Views Date of Exam: 12/30/15 Exam# [id number] Ordering Dr: Jolly Wright MD STUDY: X-RAY [...] Sheldon Mcdaniel MD at 14:39 EDT Tel [phone], Service support [phone], RAD/Knee 4 or More Views IMPRESSION: Normal x-ray examination of the knee. Electronically Signed: Sheldon Mcdaniel MD at 14:39 EDT Tel [phone], Service support [phone], CC: Jolly Wright MD Manager Sourcing: Signed Jolly Wright Work Phone: Start: 06-14-2015 End: 06-14-2015 Bilat Scrn Digital AND CAD Comments: See Note; NOTES: [facility] Imaging Services [address] [place] [address] Verd[place] 4d Bilat Scrn Digital AND CAD MR#: [id number] Acct: [id number] Name: CHRISTINA US Rep #: [id number] : 1960 F 55 From: Sheldon Mcdaniel MD PCP: Jolly Wright MD Status: REG CLI Study: Bilat Scrn Digital AND CAD Date of Exam: 06/14/15 Exam# [id number] Ordering Dr: Jolly Wright MD MAMMOGRAPHY - [...] Sheldon Mcdaniel MD at 15:42 EDT Tel [phone], Service support [phone], CC: Jolly Wright MD Manager Sourcing: Signed Jolly Wright Work Phone: Start: 06-18-2013 End: 06-18-2013 Bilat Scrn Digital & CAD Comments: See Note; NOTES: [facility] Imaging Services [address] [place] [address] Breast Imaging Report MR#: [id number] Acct: [id number] Name: CHRISTINA US Rep #: [id number] : 1960 F 53 From: Sheldon Mcdaniel MD PCP: Status: REG [facility] Exam# [id number] Ordering Dr: Jolly Wright MD MAMMOGRAPHY - [...] June 18, 2013 at 1:28:42 PM EDT [phone] Electronically Signed GP/GP If you are the referring physician and would like to consult with the radiologist who provided this interpretation, please contact Sheldon Mcdaniel M.D. at [phone]. If this radiologist is unavailable, you will be directed to another radiologist to assist. If you are a patient with a question regarding this report, please contact your referring physician directly. Professional Interpretation Provided By: [employer], Phone , These documents contain legally protected [...] of these documents. CC: Jolly Wright MD Manager Sourcing: Signed Jolly Wright Work Phone: Start: 06-18-2013 End: 06-18-2013 Dexa Bone Density Study (HP) Comments: See Note; NOTES: [facility] Imaging Services [address] [place] [address] Bone Density Report MR#: [id number] Acct: [id number] Name: CHRISTINA US Rep #: [id number] : 1960 F 53 From: Sheldon Mcdaniel MD PCP: Status: REG CLI Study: Dexa Bone Density Study () Date of Exam: 06/18/13 Exam# [id number] Ordering Dr: Jolly Wright MD STUDY: DUAL [...] June 18, 2013 at 2:12:42 PM EDT [phone] Electronically Signed GP/GP If you are the referring physician and would like to consult with the radiologist who provided this interpretation, please contact Sheldon Mcdaniel M.D. at [phone]. If this radiologist is unavailable, you will be directed to another radiologist to assist. If you are a patient with a question regarding this report, please contact your referring physician directly. Professional Interpretation Provided By: [employer], Phone , These documents contain legally protected [...] of these documents. CC: Jolly Wright MD Manager Sourcing: Signed Jolly Wright Work Phone: section SHI roe section Jolly estrada Work Phone: section Jolly estrada Work Phone: section SHI roe H/O: section Jolly Wright Work Phone: H/O: section SHICARLENE Harrell H/O: section Jolly Wright MD Work Phone: H/O: section Gwendolyn Drake LANDING WORKER H/O: section Beatriz Barnett MA H/O: section Gwendolyn Drake LANDING WORKER H/O: tubal ligation Jolly rm Work Phone: H/O: tubal ligation SHI jackson H/O: tubal ligation Jolly rm MD Work Phone: H/O: tubal ligation Gwendolyn Co ffman LANDING WORKER H/O: tubal ligation Beatriz brooks MA H/O: tubal ligation Gwendolyn Co ffman LANDING WORKER Ligation of fallopia n tube SHI Julio Cesar Ligation of fallopia n tube Jolly Wright Work Phone: Ligation of fallopia n tube Jolly Wright Work Phone: Ligation of fallopia n tube SHI Julio Cesar Plan of Treatment Date Care Activity Detail Author Start: 04-25-2023 Cytp smrs any oth sr c prepj scr&interpj CYTOPATHOLOGY,PREP/ SCREEN/INTERPRET (25419) [facility]; [facility] Work Phone: Immunizations Immunization Date Immunization Notes Care Provider Fa cili 07-19-2022 influenza, injectabl e, quadrivalent, preservative free Jolly Wright MD Work Phone: [facility]; [facility] Work Phone: Payers Date Payer Category Payer Unknown [id number] 2020 Unknown [id number] 2018 Unknown [id number] 2016 Unknown [id number] 2010 Unknown [id number] 2007 Unknown [id number] 1960 Unknown [id number] Unknown Social History Date Type Detail Facility Alcohol Use Never smoker [facility] Work Phone: Clinical Notes Note Date & Type Note Facility [facility] Work Phone: Instructions* Name Dates Details Patient Instructions Indication:Hypertriglyceridemia, essential Start:04-Oct-2020 Instruction Type:Provider Instructions for Treatment How to Access Health Informa tion Online using Patient Portal and Pro Breath MD Libertarian Apps Indication:Hypertriglyceridemia, essential Start:04-Oct-2020 Instruction Type:Patient Education [...] tion Online using Patient Portal and 3rd Libertarian Apps Indication:Hypertriglyceridemia, essential Start:04-Oct-2020 Instruction Type:Patient Education [...] Informa tion Online using Patient Portal and Pro Breath MD Libertarian Apps Indication:Hypertriglyceridemia, essential Start:04-Oct-2020 Instruction Type:Patient Education [...] Informa tion Online using Patient Portal and [employer] Apps Indication:Hypertriglyceridemia, essential Start:04-Oct-2020 Instruction Type:Patient Education [...] tion Online using Patient Portal and 3rd Libertarian Apps Indication:Hypertriglyceridemia, essential Start:04-Oct-2020 Instruction Type:Patient Education [...] Informa tion Online using Patient Portal and Pro Breath MD Libertarian Apps Indication:Hypertriglyceridemia, essential Start:04-Oct-2020 Instruction Type:Patient Education [...] tion Online using Patient Portal and 3rd Libertarian Apps Indication:Hypertriglyceridemia, essential Start:04-Oct-2020 Instruction Type:Patient Education [...] Informa tion Online using Patient Portal and [employer] Apps Indication:Body mass index [BMI] 23.0-23.9, adult Start:22-May-2022 Instruction Type:Patient Education Patient Instructions Indication:Hypertriglyceridemia, essential Start:04-Oct-2020 Instruction Type:Provider Instructions for Treatment How to Access Health Informa tion Online using Patient Portal and [employer] Apps Indication:Hypertriglyceridemia, essential Start:04-Oct-2020 Instruction Type:Patient Education [...] Informa tion Online using Patient Portal and Pro Breath MD [employer] Apps Indication:Body mass index [BMI] 23.0-23.9, adult Start:22-May-2022 Instruction Type:Patient Education Patient Instructions Indication:Hypertriglyceridemia, essential Start:04-Oct-2020 Instruction Type:Provider Instructions for Treatment How to Access Health Informa tion Online using Patient Portal and Pro Breath MD [employer] Apps Indication:Hypertriglyceridemia, essential Start:04-Oct-2020 Instruction Type:Patient Education [...] tion Online using Patient Portal and 3rd Libert[employer] Apps Indication:Body mass index [BMI] 23.0-23.9, adult Start:22-May-2022 Instruction Type:Patient Education Patient Instructions Indication:Hypertriglyceridemia, essential Start:04-Oct-2020 Instruction Type:Provider Instructions for Treatment How to Access Health Informa tion Online using Patient Portal and 3rd Libert[employer] Apps Indication:Hypertriglyceridemia, essential Start:04-Oct-2020 Instruction Type:Patient Education [...] tion Online using Patient Portal and 3rd Libert[employer] Apps Indication:Body mass index [BMI] 23.0-23.9, adult Start:22-May-2022 Instruction Type:Patient Education Patient Instructions Indication:Hypertriglyceridemia, essential Start:04-Oct-2020 Instruction Type:Provider Instructions for Treatment How to Access Health Informa tion Online using Patient Portal and 3rd Libert[employer] Apps Indication:Hypertriglyceridemia, essential Start:04-Oct-2020 Instruction Type:Patient Education [...] Informa tion Online using Patient Portal and [employer] Apps Indication:Body mass index [BMI] 23.0-23.9, adult Start:22-May-2022 Instruction Type:Patient Education Patient Instructions Indication:Hypertriglyceridemia, essential Start:04-Oct-2020 Instruction Type:Provider Instructions for Treatment How to Access Health Informa tion Online using Patient Portal and Pro Breath MD [employer] Apps Indication:Hypertriglyceridemia, essential Start:04-Oct-2020 Instruction Type:Patient Education [...] tion Online using Patient Portal and 3rd [employer] Apps Indication:Current nonsmoker (Renamed from Current non-smoker) Start:21-Nov-2022 Instruction Type:Patient Education Patient Instructions Indication:Body mass index [BMI] 23.0-23.9, adult Start:22-May-2022 Instruction Type:Provider Instructions for Treatment How to Access Health Informa tion Online using Patient Portal and 3rd Libert[employer] Apps Indication:Body mass index [BMI] 23.0-23.9, adult Start:22-May-2022 Instruction Type:Patient Education Patient Instructions Indication:Hypertriglyceridemia, essential Start:04-Oct-2020 Instruction Type:Provider Instructions for Treatment How to Access Health Informa tion Online using Patient Portal and 3rd Libert[employer] Apps Indication:Hypertriglyceridemia, essential Start:04-Oct-2020 Instruction Type:Patient Education [...] tion Online using Patient Portal and 3rd Libert[employer] Apps Indication:Current nonsmoker (Renamed from Current non-smoker) Start:21-Nov-2022 Instruction Type:Patient Education Patient Instructions Indication:Body mass index [BMI] 23.0-23.9, adult Start:22-May-2022 Instruction Type:Provider Instructions for Treatment How to Access Health Informa tion Online using Patient Portal and 3rd [employer] Apps Indication:Body mass index [BMI] 23.0-23.9, adult Start:22-May-2022 Instruction Type:Patient Education Patient Instructions Indication:Hypertriglyceridemia, essential Start:04-Oct-2020 Instruction Type:Provider Instructions for Treatment How to Access Health Informa tion Online using Patient Portal and 3rd [employer] Apps Indication:Hypertriglyceridemia, essential Start:04-Oct-2020 Instruction Type:Patient Education [...] tion Online using Patient Portal and 3rd [employer] Apps Indication:Current nonsmoker (Renamed from Current non-smoker) Start:21-Nov-2022 Instruction Type:Patient Education Patient Instructions Indication:Body mass index [BMI] 23.0-23.9, adult Start:22-May-2022 Instruction Type:Provider Instructions for Treatment How to Access Health Informa tion Online using Patient Portal and 3rd [employer] Apps Indication:Body mass index [BMI] 23.0-23.9, adult Start:22-May-2022 Instruction Type:Patient Education Patient Instructions Indication:Hypertriglyceridemia, essential Start:04-Oct-2020 Instruction Type:Provider Instructions for Treatment How to Access Health Informa tion Online using Patient Portal and 3rd [employer] Apps Indication:Hypertriglyceridemia, essential Start:04-Oct-2020 Instruction Type:Patient Education [...] tion Online using Patient Portal and 3rd [employer] Apps Indication:BMI 25.0-25.9,adult Start:25-Apr-2023 Instruction Type:Patient Education Patient Instructions Indication:Current nonsmoker (Renamed from Current non-smoker) Start:21-Nov-2022 Instruction Type:Provider Instructions for Treatment How to Access Health Informa tion Online using Patient Portal and 3rd [employer] Apps Indication:Current nonsmoker (Renamed from Current non-smoker) Start:21-Nov-2022 Instruction Type:Patient Education Patient Instructions Indication:Body mass index [BMI] 23.0-23.9, adult Start:22-May-2022 Instruction Type:Provider Instructions for Treatment How to Access Health Informa tion Online using Patient Portal and 3rd [employer] Apps Indication:Body mass index [BMI] 23.0-23.9, adult Start:22-May-2022 Instruction Type:Patient Education Patient Instructions Indication:Hypertriglyceridemia, essential Start:04-Oct-2020 Instruction Type:Provider Instructions for Treatment How to Access Health Informa tion Online using Patient Portal and 3rd [employer] Apps Indication:Hypertriglyceridemia, essential Start:04-Oct-2020 Instruction Type:Patient Education [...] tion Online using Patient Portal and 3rd Libertarian Apps Indication:Hypertriglyceridemia, essential Start:04-Oct-2020 Instruction Type:Patient Education [...] Advance Directives Name Dates Details Immunization Registry [place] - Effective on 01/13/2021. Expiration date unspecified Effective:13-Jan-2021 Name Dates Details Immunization Registry [place] - Effective on 01/13/2021. Expiration date unspecified Effective:13-Jan-2021 Name Dates Details Immunization Registry [place] - Effective on 01/13/2021. Expiration date unspecified Effective:13-Jan-2021 Name Dates Details Immunization Registry [place] - Effective on 01/13/2021. Expiration date unspecified Effective:13-Jan-2021 Name Dates Details Immunization Registry [place] - Effective on 01/13/2021. Expiration date unspecified Effective:13-Jan-2021 Name Dates Details Immunization Registry [place] - Effective on 01/13/2021. Expiration date unspecified Effective:13-Jan-2021 Name Dates Details Immunization Registry [place] - Effective on 01/13/2021. Expiration date unspecified Effective:13-Jan-2021 Name Dates Details Immunization Registry [place] - Effective on 01/13/2021. Expiration date unspecified Effective:13-Jan-2021 Name Dates Details Immunization Registry [place] - Effective on 01/13/2021. Expiration date unspecified Effective:13-Jan-2021 Name Dates Details Immunization Registry [place] - Effective on 01/13/2021. Expiration date unspecified Effective:13-Jan-2021 Name Dates Details Immunization Registry [place] - Effective on 01/13/2021. Expiration date unspecified Effective:13-Jan-2021 Name Dates Details Immunization Registry [place] - Effective on 01/13/2021. Expiration date unspecified Effective:13-Jan-2021 Name Dates Details Immunization Registry [place] - Effective on 01/13/2021. Expiration date unspecified Effective:13-Jan-2021 Name Dates Details Immunization Registry [place] - Effective on 01/13/2021. Expiration date unspecified [...] BE BASED ON THE PRIMARY CLINICAL RECORDS. [facility]. provides no warranty or guarantee of the accuracy or completeness of information in this document.
== END | disposition home or self-care (01) ==
LOC: OPBI 09:48
PROVIDERS: PCP Internal Medicine; Referring Provider Internal Medicine; Visit Provider Internal Medicine
DX: Z12.31 Encounter for screening mammogram for malignant neoplasm of breast (principal)
CPT/HCPCS: 77063; 77067

== ENCOUNTER → 2023-11-15 | Outpatient (CLI) | payer OTHER, SELFPAY ==
[2023-11-15 10:24] LABS: Absolute Lymphocyte Count 1.59 X10^3/uL (0.83-4.51); Absolute Neutrophil Count 4.4 X10^3/uL (2.0-7.7); Basophil# 0.03 X10^3/uL; Basophil% 0.5 % (0-1); Eosinophil# 0.09 X10^3/uL; Eosinophils% 1.4 % (0-5); Hematocrit 40.6 % (37-47); Hemoglobin 13.6 g/dL (12.0-15.0); Lymphocyte # 1.59 X10^3/ul (0.83-4.51); Lymphocyte % 24.5 % (19-41); Mean Corp Hgb Conc 33.5 g/dL (32-36); Mean Corpuscular Hgb 28.7 pg (27.0-32.0); Mean Corpuscular Volume 85.7 fL (81-99); Mean Platelet Vol. 9.7 fl (6.2-12.0); Monocyte% 6.2 % (0-10); NRBC Flagged by Analyzer 0 % (0-5); Neutrophil # 4.36 X10^3/uL (2.7-7.7); Neutrophil % 67.1 % (47-70); Platelet Count 262 K/mm3 (150-450); RBC Distribution Width CV 13.3 % (11.6-14.6); RBC Distribution Width SD 41.3 fl (35.1-43.9); Red Blood Count 4.74 M/mm3 (4.2-5.4); White Blood Count 6.5 K/mm3 (4.4-11.0)
[2023-11-15 11:10] LABS: ALB/GLOB Ratio 1.4 RATIO (0.9-2.4); AST(SGOT) 43 U/L (15-37); Alanine Aminotransfer ALT/SGPT 46 U/L (13-56); Albumin, Serum 4.1 g/dL (3.2-5.0); Alkaline Phosphatase 123 U/L (45-117); Anion Gap 7 (5-15); BUN 10 mg/dL (7-18); BUN/Creat Ratio 12.6 RATIO (10-20); Calcium,Total 9.3 mg/dL (8.5-10.1); Chloride 109 mmol/L (98-107); Creatinine, Serum 0.79 mg/dL (0.55-1.02); EST Glomerular Filtration Rate 78 mL/min (>60); Est Glom Filt Rate - Afr Amer 94 mL/min (>60); Glucose 110 mg/dL (74-106); Potassium 3.9 mmol/L (3.5-5.1); Protein, Total 7.1 g/dL (6.4-8.2); Sodium Level 143 mmol/L (136-145)
== END | disposition home or self-care (01) ==
LOC: LAB 09:22
PROVIDERS: PCP Internal Medicine; Referring Provider Internal Medicine Rheumatology; Visit Provider Internal Medicine Rheumatology
DX: L40.59 Other psoriatic arthropathy (principal); Z79.899 Other long term (current) drug therapy
CPT/HCPCS: 36415; 80053; 85025

== ENCOUNTER → 2023-11-20 | Outpatient (CLI) | payer OTHER, SELFPAY ==
--- NOTE | 2023-11-20 14:14 | NEURO ---
NCS and/or EMG Patient Report Ordering Doctor: Jolly Wright DATE OF SERVICE: 11/20/23 Dominique presents for electrodiagnostic testing of the right lower limb. She reports a 6-month history of weakness and numbness in the right foot. She reports that this began after a prolonged car ride. Electrodiagnostic findings. Right peroneal motor nerve demonstrates normal distal latency with reduced amplitude and approximately 33% drop in conduction across the fibular head. Normal right tibial motor response. Prolonged right peroneal F?wave. H-reflexes are within normal limits. Sensory responses are normal. Needle EMG testing was performed in the right lower limb. Decreased recruitment pattern was noted in the right tibialis anterior. All other muscles tested showed no evidence of denervation. No fasciculations were noted. No denervation was noted in the lumbar paraspinals. Electrodiagnostic impression: This is an abnormal study in the right lower limb 1. 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 There is motor amplitude loss and conduction block at the fibular head, possibly from compression during a long car ride. 2. No EMG evidence for lumbosacral radiculopathy. 3. There were no fasciculations on EMG testing of the right lower limb and therefore suspicion for neuromuscular disorder is low. However, if there are future concerns for neuromuscular disorders, would recommend EMG testing of 3 limbs and bulbar muscles. Multi Select Codes Neurology Neurology Interp Codes: 52930-62 Musc test done w/n test comp (interp) and 74274-90 Nrv cndj test 7-8 studies (interp)
[2023-11-20 15:08] LABS: Erythrocyte Sedimentation Rate 1 mm/hr (0-30)
[2023-11-20 15:40] LABS: CRP < 2.90 mg/L (0.0-3.0)
== END | disposition home or self-care (01) ==
PROVIDERS: Internal Medicine Rheumatology; PCP Internal Medicine; Referring Provider Internal Medicine; Visit Provider Internal Medicine
DX: M21.371 Foot drop, right foot (principal); L40.59 Other psoriatic arthropathy; L40.8 Other psoriasis; K21.00 Gastro-esophageal reflux disease with esophagitis, without bleeding; H93.19 Tinnitus, unspecified ear; E78.5 Hyperlipidemia, unspecified; I10 Essential (primary) hypertension; M65.351 Trigger finger, right little finger; M85.80 Other specified disorders of bone density and structure, unspecified site; Z79.899 Other long term (current) drug therapy
CPT/HCPCS: 36415; 85652; 86140; 95886; 95910

== ENCOUNTER → 2023-11-22 | Outpatient (CLI) | payer OTHER, SELFPAY ==
--- NOTE | 2023-11-22 09:35 | RAD_ITS ---
STUDY: X-RAY - ESOPHAGUS (BARIUM SWALLOW) WITH FLUOROSCOPY REASON FOR EXAM: Female, 63 years old. Pharyngeal dysphagia TECHNIQUE: 20 view(s) of the esophagus were obtained following swallowing of barium. FLUOROSCOPY TIME (if supplied): (33 seconds) minutes/seconds. COMPARISON: None. FINDINGS: There is no demonstrated esophageal foreign body. There is no demonstrated stricture or mucosal abnormality. Normal gastroesophageal junction, without a demonstrated hiatal hernia. No evidence of gastroesophageal reflux. The patient ingested a 12 mm tablet of barium. The tablet is trapped at the gastroesophageal junction. Normal visualized aortic arch and descending thoracic aorta. Normal visualized pulmonary parenchyma. There are degenerative changes of the visualized thoracic spine. RAD/Esophagus Dual Contrast IMPRESSION: The ingested 12 mm tablet of barium is trapped at the gastroesophageal junction. Electronically Signed: Sheldon Mcdaniel MD at 10:09 EDT ,
== END | disposition home or self-care (01) ==
LOC: RAD 09:27
PROVIDERS: PCP Internal Medicine; Referring Provider Internal Medicine; Visit Provider Internal Medicine
DX: R13.13 Dysphagia, pharyngeal phase (principal)
CPT/HCPCS: 74221

== ENCOUNTER → 2024-01-23 | Outpatient (CLI) | payer OTHER, SELFPAY ==
[2024-01-23 08:45] LABS: Cholesterol 237 mg/dL (200); High Density Lipoprotein 28 mg/dL; Triglycerides 731 mg/dL
== END | disposition home or self-care (01) ==
LOC: LAB 06:58
PROVIDERS: PCP Internal Medicine; Referring Provider Internal Medicine; Visit Provider Internal Medicine
DX: E78.1 Pure hyperglyceridemia (principal)
CPT/HCPCS: 36415; 80061

== ENCOUNTER 2024-02-12 12:20 | Outpatient (RCR) | payer OTHER, SELFPAY ==
[2024-02-12 13:29] LABS: Absolute Lymphocyte Count 1.88 X10^3/uL (0.83-4.51); Absolute Neutrophil Count 5.9 X10^3/uL (2.0-7.7); Basophil# 0.04 X10^3/uL; Basophil% 0.5 % (0-1); Eosinophil# 0.19 X10^3/uL; Eosinophils% 2.2 % (0-5); Hematocrit 38.9 % (37-47); Hemoglobin 12.8 g/dL (12.0-15.0); Lymphocyte # 1.88 X10^3/ul (0.83-4.51); Lymphocyte % 21.7 % (19-41); Mean Corp Hgb Conc 32.9 g/dL (32-36); Mean Corpuscular Hgb 28.1 pg (27.0-32.0); Mean Corpuscular Volume 85.3 fL (81-99); Mean Platelet Vol. 9.9 fl (6.2-12.0); Monocyte# 0.61 X10^3/uL; NRBC Flagged by Analyzer 0 % (0-5); Neutrophil # 5.92 X10^3/uL (2.7-7.7); Neutrophil % 68.3 % (47-70); Platelet Count 272 K/mm3 (150-450); RBC Distribution Width CV 12.8 % (11.6-14.6); RBC Distribution Width SD 39.4 fl (35.1-43.9); Red Blood Count 4.56 M/mm3 (4.2-5.4); White Blood Count 8.7 K/mm3 (4.4-11.0)
[2024-02-12 14:21] LABS: ALB/GLOB Ratio 1.3 RATIO (0.9-2.4); AST(SGOT) 33 U/L (15-37); Alanine Aminotransfer ALT/SGPT 31 U/L (13-56); Alkaline Phosphatase 115 U/L (45-117); Anion Gap 6 (5-15); BUN 11 mg/dL (7-18); BUN/Creat Ratio 16.1 RATIO (10-20); Calcium,Total 9.1 mg/dL (8.5-10.1); Chloride 106 mmol/L (98-107); Creatinine, Serum 0.68 mg/dL (0.55-1.02); EST Glomerular Filtration Rate 92 mL/min (>60); Est Glom Filt Rate - Afr Amer 111 mL/min (>60); Glucose 82 mg/dL (74-106); Potassium 3.9 mmol/L (3.5-5.1); Sodium Level 140 mmol/L (136-145)
== END 2024-02-12 18:00 | disposition home or self-care (01) ==
LOC: LAB 12:20
PROVIDERS: PCP Internal Medicine; Referring Provider Internal Medicine Rheumatology; Visit Provider Internal Medicine Rheumatology
DX: Z79.899 Other long term (current) drug therapy; L40.59 Other psoriatic arthropathy; K21.01 Gastro-esophageal reflux disease with esophagitis, with bleeding; H93.19 Tinnitus, unspecified ear; E78.5 Hyperlipidemia, unspecified; I10 Essential (primary) hypertension; M65.351 Trigger finger, right little finger; M85.80 Other specified disorders of bone density and structure, unspecified site
CPT/HCPCS: 36415; 80053; 85025

== ENCOUNTER → 2024-03-10 | Outpatient (CLI) | payer OTHER, SELFPAY ==
--- NOTE | 2024-03-10 08:14 | MRI_ITS ---
STUDY: MRI LUMBAR SPINE WITHOUT CONTRAST REASON FOR EXAM: Female, 63 years old. LUMABR RADICULOPATHY, R FOOT DROP TECHNIQUE: Standardized fat and water weighted pulse sequences were obtained in the sagittal and axial planes. COMPARISON: None FINDINGS: T12-L1: Normal endplates. Normal disc height, hydration and morphology. Normal bilateral facet joints. Normal central canal and bilateral lateral recesses. Normal bilateral intervertebral neural foramina. Normal lumbar lordosis. There is no substantial scoliosis. Normal conus medullaris that terminates at the L1/L2. Lumbarization of the S1 segment with a disc at S1/S2. L1-2: Mild broad disc protrusion asymmetric to the right produces mild spinal stenosis and mild right neural foraminal stenosis. L2-3: Mild bilateral facet hypertrophy with fluid in the facet joints consistent with instability and moderately inflamed hypertrophy. 2 mm retrolisthesis of L2 on L3 with a mild bilobed disc protrusion produces moderate spinal stenosis and moderate bilateral neural foraminal stenosis. L3-4: Mild bilateral facet hypertrophy and moderate ligament flavum hypertrophy. Moderate bilobed disc protrusion induce moderate canal stenosis and moderate bilateral neural foraminal stenosis. L4-5: Mild bilateral facet hypertrophy and moderate ligament flavum hypertrophy. Moderate broad disc protrusion asymmetric left produces moderate spinal stenosis with moderate bilateral lateral recess stenosis with abutment of the L5 nerve roots bilaterally, mild right neural foraminal stenosis and severe left neural foraminal stenosis with effacement of the left L4 nerve root laterally. L5-S1: Mild bilateral facet hypertrophy and moderate ligament flavum hypertrophy. Moderate broad disc osteophyte complex produces moderate spinal stenosis with moderate lateral recess stenosis with abutment of the S1 nerve roots bilaterally and moderate bilateral neural foraminal stenosis with abutment of the exiting L5 nerve roots ventrally. Associated Modic type I endplate changes. Normal visualized sacral ala. Normal visualized paraspinous soft tissue structures. MRI/Spine Lumbar (Routine) IMPRESSION: 1. Lumbarization of the S1 segment with a disc at S1/S2. 2. Degenerative disc disease as described above. Electronically Signed: Nicolas Rivera MD at 10:16 EDT ,
== END | disposition home or self-care (01) ==
LOC: MRI 08:06
PROVIDERS: PCP Internal Medicine; Referring Provider Psychiatry & Neurology Neurology; Visit Provider Psychiatry & Neurology Neurology
DX: M54.16 Radiculopathy, lumbar region (principal)
CPT/HCPCS: 72148

== ENCOUNTER → 2024-05-12 | Outpatient (CLI) | payer MEDICARE, OTHER, SELFPAY ==
[2024-05-12 15:23] LABS: Absolute Neutrophil Count 7.8 X10^3/uL (2.0-7.7); Basophil# 0.05 X10^3/uL; Basophil% 0.5 % (0-1); Eosinophil# 0.07 X10^3/uL; Eosinophils% 0.7 % (0-5); Hematocrit 40.8 % (37-47); Hemoglobin 13.5 g/dL (12.0-15.0); Lymphocyte % 15.8 % (19-41); Mean Corp Hgb Conc 33.1 g/dL (32-36); Mean Corpuscular Hgb 28.7 pg (27.0-32.0); Mean Corpuscular Volume 86.8 fL (81-99); Mean Platelet Vol. 9.8 fl (6.2-12.0); Monocyte# 0.55 X10^3/uL; Monocyte% 5.4 % (0-10); NRBC Flagged by Analyzer 0 % (0-5); Neutrophil % 77.1 % (47-70); Platelet Count 294 K/mm3 (150-450); RBC Distribution Width CV 12.9 % (11.6-14.6); RBC Distribution Width SD 40.6 fl (35.1-43.9); White Blood Count 10.1 K/mm3 (4.4-11.0)
[2024-05-12 15:48] LABS: ALB/GLOB Ratio 1.3 RATIO (0.9-2.4); AST(SGOT) 39 U/L (15-37); Alanine Aminotransfer ALT/SGPT 45 U/L (13-56); Alkaline Phosphatase 124 U/L (45-117); Anion Gap 5 (5-15); BUN 11 mg/dL (7-18); BUN/Creat Ratio 15.6 RATIO (10-20); Calcium,Total 9.4 mg/dL (8.5-10.1); Chloride 106 mmol/L (98-107); Creatinine, Serum 0.71 mg/dL (0.55-1.02); EST Glomerular Filtration Rate 88 mL/min (>60); Est Glom Filt Rate - Afr Amer 107 mL/min (>60); Globulin 3.1 g/dL (2.2-4.2); Glucose 100 mg/dL (74-106); Potassium 4.5 mmol/L (3.5-5.1); Protein, Total 7.1 g/dL (6.4-8.2); Sodium Level 139 mmol/L (136-145)
== END | disposition home or self-care (01) ==
LOC: MTLAB 11:15
PROVIDERS: PCP Internal Medicine; Referring Provider Internal Medicine Rheumatology; Visit Provider Internal Medicine Rheumatology
DX: L40.59 Other psoriatic arthropathy (principal); Z79.899 Other long term (current) drug therapy; L40.8 Other psoriasis
CPT/HCPCS: 36415; 80053; 85025

== ENCOUNTER → 2024-07-22 | Outpatient (CLI) | payer MEDICARE, OTHER, SELFPAY ==
[2024-07-22 11:12] LABS: Absolute Lymphocyte Count 1.93 X10^3/uL (0.83-4.51); Absolute Neutrophil Count 4.2 X10^3/uL (2.0-7.7); Basophil# 0.03 X10^3/uL; Basophil% 0.4 % (0-1); Eosinophil# 0.18 X10^3/uL; Eosinophils% 2.6 % (0-5); Hematocrit 40.4 % (37-47); Hemoglobin 13.4 g/dL (12.0-15.0); Lymphocyte # 1.93 X10^3/ul (0.83-4.51); Lymphocyte % 28.1 % (19-41); Mean Corp Hgb Conc 33.2 g/dL (32-36); Mean Corpuscular Hgb 28.4 pg (27.0-32.0); Mean Corpuscular Volume 85.6 fL (81-99); Mean Platelet Vol. 9.2 fl (6.2-12.0); Monocyte% 7.3 % (0-10); NRBC Flagged by Analyzer 0 % (0-5); Neutrophil # 4.22 X10^3/uL (2.7-7.7); Neutrophil % 61.5 % (47-70); Platelet Count 271 K/mm3 (150-450); RBC Distribution Width CV 13.1 % (11.6-14.6); RBC Distribution Width SD 40.1 fl (35.1-43.9); Red Blood Count 4.72 M/mm3 (4.2-5.4); White Blood Count 6.9 K/mm3 (4.4-11.0)
[2024-07-22 11:16] LABS: Erythrocyte Sedimentation Rate < 1 mm/hr (0-30)
[2024-07-22 11:46] LABS: ALB/GLOB Ratio 1.3 RATIO (0.9-2.4); AST(SGOT) 34 U/L (15-37); Alanine Aminotransfer ALT/SGPT 37 U/L (13-56); Albumin, Serum 3.9 g/dL (3.2-5.0); Alkaline Phosphatase 126 U/L (45-117); Anion Gap 5 (5-15); BUN 11 mg/dL (7-18); CRP < 2.90 mg/L (0.0-3.0); Chloride 104 mmol/L (98-107); Creatinine, Serum 0.73 mg/dL (0.55-1.02); EST Glomerular Filtration Rate 84 mL/min (>60); Est Glom Filt Rate - Afr Amer 102 mL/min (>60); Globulin 3.1 g/dL (2.2-4.2); Glucose 93 mg/dL (74-106); Potassium 4.5 mmol/L (3.5-5.1); Sodium Level 138 mmol/L (136-145)
== END | disposition home or self-care (01) ==
PROVIDERS: PCP Internal Medicine; Referring Provider Internal Medicine Rheumatology; Visit Provider Internal Medicine Rheumatology
DX: L40.59 Other psoriatic arthropathy (principal); Z79.899 Other long term (current) drug therapy; L40.8 Other psoriasis
CPT/HCPCS: 36415; 80053; 85025; 85652; 86140

== ENCOUNTER → 2024-10-05 | Outpatient (CLI) | payer MEDICARE, OTHER, SELFPAY ==
--- NOTE | 2024-10-05 10:10 | BI_ITS ---
PROCEDURE: SCRN MAMM (CAD)W/ALICIA BILAT REASON FOR EXAM: F, Age 64 y/o, sister with breast cancer. Grandmother with breast cancer. TECHNIQUE: Bilateral screening digital breast tomosynthesis with 2D and 3D images. Computer aided detection. COMPARISON: Prior exam(s) dating back to October 01, 2023.. FINDINGS: The breasts are heterogeneously dense which may obscure small masses. Stable fat containing bilateral axillary lymph nodes. No suspicious masses, areas of developing architectural distortion, or suspicious calcifications. BI/SCRN MAMM (CAD)W/ALICIA BILAT IMPRESSION: BI-RADS 2: BENIGN. RECOMMEND ANNUAL MAMMOGRAPHIC SCREENING. Follow-up code: Routine Follow-up The patient will be notified of the results by letter. Reading Location: [id number]
== END | disposition home or self-care (01) ==
LOC: OPBI 10:10
PROVIDERS: PCP Internal Medicine; Referring Provider Internal Medicine; Visit Provider Internal Medicine
DX: Z12.31 Encounter for screening mammogram for malignant neoplasm of breast (principal)
CPT/HCPCS: 77063; 77067

== ENCOUNTER → 2024-10-20 | Outpatient (CLI) | payer MEDICARE, OTHER, SELFPAY ==
[2024-10-20 14:28] LABS: Absolute Lymphocyte Count 1.78 X10^3/uL (0.83-4.51); Absolute Neutrophil Count 5.4 X10^3/uL (2.0-7.7); Basophil# 0.04 X10^3/uL; Basophil% 0.5 % (0-1); Eosinophil# 0.12 X10^3/uL; Eosinophils% 1.5 % (0-5); Hematocrit 37.8 % (37-47); Hemoglobin 13.3 g/dL (12.0-15.0); Lymphocyte # 1.78 X10^3/ul (0.83-4.51); Mean Corp Hgb Conc 35.2 g/dL (32-36); Mean Corpuscular Hgb 29.2 pg (27.0-32.0); Mean Corpuscular Volume 82.9 fL (81-99); Mean Platelet Vol. 9.5 fl (6.2-12.0); Monocyte# 0.43 X10^3/uL; Monocyte% 5.5 % (0-10); NRBC Flagged by Analyzer 0 % (0-5); Neutrophil # 5.36 X10^3/uL (2.7-7.7); Neutrophil % 69.2 % (47-70); Platelet Count 278 K/mm3 (150-450); RBC Distribution Width CV 13.4 % (11.6-14.6); Red Blood Count 4.56 M/mm3 (4.2-5.4); White Blood Count 7.8 K/mm3 (4.4-11.0)
[2024-10-20 18:29] LABS: ALB/GLOB Ratio 1.9 RATIO (0.9-2.4); AST(SGOT) 34 U/L (<=31); Alanine Aminotransfer ALT/SGPT 36 U/L (<=34); Albumin, Serum 4.3 g/dL (3.4-4.8); Alkaline Phosphatase 118 U/L (35-104); Anion Gap 13 (5-15); BUN 14 mg/dL (4-19); BUN/Creat Ratio 19.1 RATIO (10-20); Calcium,Total 9.3 mg/dL (7.6-11.0); Carbon Dioxide 22.1 mmol/L (21.0-32.0); Chloride 104 mmol/L (98-108); Creatinine, Serum 0.74 mg/dL (0.70-1.20); EST Glomerular Filtration Rate 89 (>60); Globulin 2.3 g/dL (2.2-4.2); Glucose 127 mg/dL (70-99); Potassium 4.1 mmol/L (3.3-5.1); Protein, Total 6.7 g/dL (5.9-8.4); Sodium Level 138 mmol/L (133-145); Total Bilirubin 0.34 mg/dL (0.00-1.30)
== END | disposition home or self-care (01) ==
LOC: LAB 13:47
PROVIDERS: PCP Internal Medicine; Referring Provider Internal Medicine Rheumatology; Visit Provider Internal Medicine Rheumatology
DX: L40.59 Other psoriatic arthropathy (principal); Z79.899 Other long term (current) drug therapy
CPT/HCPCS: 36415; 80053; 85025

== ENCOUNTER → 2024-10-27 | Outpatient (CLI) | payer MEDICARE, OTHER, SELFPAY ==
--- NOTE | 2024-10-27 12:33 | RAD_ITS ---
PROCEDURE: CHEST PA AND LATERAL REASON FOR EXAM: PSORIATIC ARTHROPATHY/GENERATOR TECHNICIAN DRUG THERAPY TECHNIQUE: Frontal and lateral views of the chest. COMPARISON: None. FINDINGS: The cardiothymic contour is normal. The lungs are clear. The bones are unremarkable. RAD/Chest PA and Lateral IMPRESSION: NORMAL PEDIATRIC CHEST. Reading Location[facility]
[2024-10-29 13:08] LABS: QNTFERON TB Mitogen Value > 10.00 IU/mL (.); QNTFERON TB Nil Value 0.01 IU/mL (.); QNTFERON TB1+ Ag Value 0.02 IU/mL (.); QNTFERON TB2+ Ag Value 0.03 IU/mL (.); QNTIFERON TB Positive Criteria Negative (Negative)
== END | disposition home or self-care (01) ==
LOC: MTLAB 12:32
PROVIDERS: PCP Internal Medicine; Referring Provider Internal Medicine Rheumatology; Visit Provider Internal Medicine Rheumatology
DX: L40.59 Other psoriatic arthropathy (principal); Z79.899 Other long term (current) drug therapy
CPT/HCPCS: 36415; 71046; 86480

== ENCOUNTER → 2024-11-17 | Outpatient (CLI) | payer MEDICARE, OTHER, SELFPAY ==
[2024-11-17 08:22] LABS: Cholesterol 218 mg/dL (<=200); High Density Lipoprotein 43 mg/dL; Low Density Lipoprotein Calc. 134 mg/dL; Triglycerides 206 mg/dL; Very Low Density Lipoprotein 41 mg/dL (5-40); cholesterol:hdl ratio screen 5.06
== END | disposition home or self-care (01) ==
PROVIDERS: PCP Internal Medicine; Referring Provider Internal Medicine; Visit Provider Internal Medicine
DX: I10 Essential (primary) hypertension (principal)
CPT/HCPCS: 36415; 80061

== ENCOUNTER → 2025-01-05 | Outpatient (CLI) | payer MEDICARE, OTHER, SELFPAY ==
[2025-01-05 08:56] LABS: Absolute Lymphocyte Count 1.82 X10^3/uL (0.83-4.51); Basophil# 0.04 X10^3/uL; Basophil% 0.6 % (0-1); Eosinophil# 0.19 X10^3/uL; Eosinophils% 2.9 % (0-5); Hematocrit 41.5 % (37-47); Hemoglobin 14.1 g/dL (12.0-15.0); Lymphocyte # 1.82 X10^3/ul (0.83-4.51); Lymphocyte % 27.7 % (19-41); Mean Corpuscular Volume 85.4 fL (81-99); Mean Platelet Vol. 9.6 fl (6.2-12.0); Monocyte% 7.6 % (0-10); NRBC Flagged by Analyzer 0 % (0-5); Neutrophil # 3.99 X10^3/uL (2.7-7.7); Neutrophil % 60.9 % (47-70); Platelet Count 232 K/mm3 (150-450); RBC Distribution Width CV 13.2 % (11.6-14.6); RBC Distribution Width SD 41.3 fl (35.1-43.9); Red Blood Count 4.86 M/mm3 (4.2-5.4); White Blood Count 6.6 K/mm3 (4.4-11.0)
[2025-01-05 09:42] LABS: ALB/GLOB Ratio 1.7 RATIO (0.9-2.4); AST(SGOT) 38 U/L (<=31); Alanine Aminotransfer ALT/SGPT 31 U/L (<=34); Albumin, Serum 4.4 g/dL (3.4-4.8); Alkaline Phosphatase 110 U/L (35-104); Anion Gap 12 (5-15); BUN 10 mg/dL (4-19); BUN/Creat Ratio 13.5 RATIO (10-20); Calcium,Total 9.5 mg/dL (7.6-11.0); Carbon Dioxide 25.5 mmol/L (21.0-32.0); Chloride 101 mmol/L (98-108); Creatinine, Serum 0.74 mg/dL (0.70-1.20); EST Glomerular Filtration Rate 90 (>60); Globulin 2.6 g/dL (2.2-4.2); Glucose 109 mg/dL (70-99); Potassium 3.9 mmol/L (3.3-5.1); Protein, Total 7.1 g/dL (5.9-8.4); Sodium Level 139 mmol/L (133-145); Total Bilirubin 0.66 mg/dL (0.00-1.30)
== END | disposition home or self-care (01) ==
LOC: LAB 07:55
PROVIDERS: PCP Internal Medicine; Referring Provider Internal Medicine Rheumatology; Visit Provider Internal Medicine Rheumatology
DX: L40.59 Other psoriatic arthropathy (principal); Z79.899 Other long term (current) drug therapy
CPT/HCPCS: 36415; 80053; 85025

== ENCOUNTER → 2025-01-15 | Outpatient (CLI) | payer MEDICARE, OTHER, SELFPAY ==
--- NOTE | 2025-01-15 07:54 | US_ITS ---
PROCEDURE: LIVER 01/15/2025 REASON FOR EXAM: ELEVATED LIVER ENZYMES COMPARISON: None FINDINGS: Liver: Minimal hepatomegaly measuring up to 16.9 cm. Increased echogenicity. Gallbladder: Multiple polyps are noted measuring up to 0.4 cm and 0.3 cm. No gallstones. No pericholecystic fluid. Negative Garcia's sign. No gallbladder wall thickening. Common bile duct: Measures 4.4 mm. Pancreas: Increased echogenicity Right kidney: Measures 9.2 cm. Normal in echogenicity. No hydronephrosis. US/Liver IMPRESSION: Gallbladder polyps are noted as above. No acute cholecystitis. Minimal hepato megaly and hepatic steatosis. Reading Location: [id number]
== END | disposition home or self-care (01) ==
LOC: US 07:53
PROVIDERS: PCP Internal Medicine; Referring Provider Internal Medicine Rheumatology; Visit Provider Internal Medicine Rheumatology
DX: R74.8 Abnormal levels of other serum enzymes (principal); L40.59 Other psoriatic arthropathy; Z79.899 Other long term (current) drug therapy
CPT/HCPCS: 76705

== ENCOUNTER → 2025-03-09 | Outpatient (CLI) | payer MEDICARE, OTHER, SELFPAY ==
[2025-03-09 10:17] LABS: Hematocrit 38.7 % (37-47); Hemoglobin 13.4 g/dL (12.0-15.0); Immature Granulocytes Count 0.020 X10^3/uL (0.0-0.0); Mean Corp Hgb Conc 34.6 g/dL (32-36); Mean Corpuscular Volume 83.4 fL (81-99); Mean Platelet Vol. 10.0 fl (6.2-12.0); NRBC Flagged by Analyzer 0 % (0-5); Platelet Count 235 K/mm3 (150-450); RBC Distribution Width CV 12.9 % (11.6-14.6); RBC Distribution Width SD 38.5 fl (35.1-43.9); Red Blood Count 4.64 M/mm3 (4.2-5.4); White Blood Count 5.6 K/mm3 (4.4-11.0)
[2025-03-09 11:39] LABS: AST(SGOT) 44 U/L (<=31); Alanine Aminotransfer ALT/SGPT 33 U/L (<=34); Albumin, Serum 4.2 g/dL (3.4-4.8); Anion Gap 14 (5-15); BUN 11 mg/dL (4-19); BUN/Creat Ratio 17.9 RATIO (10-20); Calcium,Total 9.2 mg/dL (7.6-11.0); Carbon Dioxide 23.0 mmol/L (21.0-32.0); Chloride 103 mmol/L (98-108); Globulin 2.1 g/dL (2.2-4.2); Glucose 97 mg/dL (70-99); Potassium 4.4 mmol/L (3.3-5.1)
[2025-03-09 11:51] LABS: Alkaline Phosphatase 104 U/L (35-104)
== END | disposition home or self-care (01) ==
LOC: LAB 09:25
PROVIDERS: PCP Internal Medicine; Referring Provider Internal Medicine Rheumatology; Visit Provider Internal Medicine Rheumatology
DX: L40.59 Other psoriatic arthropathy (principal); Z79.899 Other long term (current) drug therapy
CPT/HCPCS: 36415; 80053; 85025

== ENCOUNTER → 2025-04-02 | Outpatient (CLI) | payer MEDICARE, OTHER, SELFPAY ==
[2025-04-02 11:32] LABS: Hepatitis C Antibody Nonreactive (Nonreactive)
[2025-04-02 13:40] LABS: Vitamin D,25 Hydroxy 36.3 ng/mL (30-100)
== END | disposition home or self-care (01) ==
LOC: LAB 09:46
PROVIDERS: PCP Internal Medicine; Referring Provider Internal Medicine; Visit Provider Internal Medicine
DX: E55.9 Vitamin D deficiency, unspecified (principal); Z11.59 Encounter for screening for other viral diseases
CPT/HCPCS: 36415; 82306; 82652; 86803

== ENCOUNTER → 2025-04-13 | Outpatient (CLI) | payer MEDICARE, OTHER, SELFPAY ==
--- NOTE | 2025-04-13 10:28 | BD_ITS ---
PROCEDURE: DEXA BONE DENSITY STUDY 04/13/2025 REASON FOR EXAM: F, age 64 y/o . Postmenopausal. TECHNIQUE: DEXA BONE DENSITY STUDY COMPARISON: Prior study dated April 02, 2023. FINDINGS: BMD and T-SCORES Lumbar spine: 0.862 g/cm2, T-score -1.4 Levels: L1 through L4 Change from prior: Improvement of 0.3%. Left femoral neck: 0.595 g/cm2, T-score -2.3 Femoral neck comparison data not recommended for monitoring change. Left total hip: 0.777 g/cm2, T-score -1.4 Change from prior: Loss of 4.6%. Right femoral neck: 0.574 g/cm2, T-score -2.5 Femoral neck comparison data not recommended for monitoring change. Right total hip: 0.737 g/cm2, T-score -1.7 Change from prior: Loss of 4.4%. The World Health Organization has defined the following categories based on bone density: Normal bone density: T-score equal to or greater than -1.0 Osteopenia: T-score between -1.0 and -2.5 Osteoporosis: T-score equal to or less than -2.5 FRAX (or Comparable) Fracture Risk Assessment: 10 Year Probability of Fracture: Major Osteoporotic Fracture: 29% Hip Fracture: 4.7% (Note: FRAX is not to be reported in setting of normal range bone density, osteoporosis on DEXA, known history of osteoporosis, prior osteoporotic hip or vertebral fracture, or for any patient undergoing pharmacological treatment for bone loss.) The National Osteoporosis Foundation (NOF) recommends pharmacological treatment for patients with a FRAX 10-year risk of 3% or higher for a hip fracture, or 20% or higher for a major osteoporotic fracture, to prevent osteoporosis and reduce fracture risk. The patient does meet the pharmacological treatment recommendations for prevention of osteoporosis. BD/Dexa Bone Density Study IMPRESSION: OSTEOPENIA. Recommend follow-up as clinically warranted. Reading Location: [id number]
== END | disposition home or self-care (01) ==
PROVIDERS: PCP Internal Medicine; Referring Provider Internal Medicine; Visit Provider Internal Medicine
DX: M85.80 Other specified disorders of bone density and structure, unspecified site (principal); Z78.0 Asymptomatic menopausal state
CPT/HCPCS: 77080

== ENCOUNTER → 2025-05-07 | Outpatient (CLI) | payer MEDICARE, OTHER, SELFPAY ==
[2025-05-07 14:02] LABS: Hematocrit 38.4 % (37-47); Hemoglobin 13.2 g/dL (12.0-15.0); Immature Granulocytes Count 0.040 X10^3/uL (0.0-0.0); Mean Corp Hgb Conc 34.4 g/dL (32-36); Mean Corpuscular Volume 83.7 fL (81-99); Mean Platelet Vol. 9.6 fl (6.2-12.0); NRBC Flagged by Analyzer 0 % (0-5); Platelet Count 281 K/mm3 (150-450); RBC Distribution Width CV 12.8 % (11.6-14.6); RBC Distribution Width SD 38.8 fl (35.1-43.9); Red Blood Count 4.59 M/mm3 (4.2-5.4); White Blood Count 7.8 K/mm3 (4.4-11.0)
[2025-05-07 14:57] LABS: AST(SGOT) 34 U/L (<=31); Alanine Aminotransfer ALT/SGPT 26 U/L (<=34); Albumin, Serum 4.4 g/dL (3.4-4.8); Alkaline Phosphatase 125 U/L (35-104); Anion Gap 11 (5-15); BUN 16 mg/dL (4-19); BUN/Creat Ratio 19.8 RATIO (10-20); Calcium,Total 9.4 mg/dL (7.6-11.0); Carbon Dioxide 25.2 mmol/L (21.0-32.0); Chloride 103 mmol/L (98-108); Globulin 2.4 g/dL (2.2-4.2); Glucose 85 mg/dL (70-99); Potassium 4.5 mmol/L (3.3-5.1)
== END | disposition home or self-care (01) ==
LOC: LAB 13:30
PROVIDERS: PCP Internal Medicine; Referring Provider Internal Medicine Rheumatology; Visit Provider Internal Medicine Rheumatology
DX: L40.59 Other psoriatic arthropathy (principal); Z79.899 Other long term (current) drug therapy; L40.8 Other psoriasis
CPT/HCPCS: 36415; 80053; 85025

== ENCOUNTER → 2025-05-25 | Outpatient (CLI) | payer MEDICARE, OTHER, SELFPAY ==
[2025-05-25 11:07] LABS: Mucous, Urine 0 SEEN /hpf (<or=2+); Red Blood Cells-Urine 0 SEEN /hpf (0-5)
[2025-05-25 11:09] LABS: Color, Urine Yellow (Yellow); Glucose, Dipstick Normal (Normal); Ketone-Dipstick Negative (Negative); Leukocyte Esterase-Dipstick 25 /ul (Negative); Nitrite-Dipstick Negative (Negative); Occult Blood-Urine Negative /ul (Negative); Protein-Dipstick 15 mg/dl (Negative); Specific Gravity, Urine 1.010 (1.002-1.030); Urine Bilirubin Dipstick Negative (Negative)
[2025-05-25 11:19] LABS: Squamous Epithelial Cells - UA 0-5 SEEN /hpf (5-10)
[2025-05-25 11:28] LABS: Creatinine, Urine (random) 55.10 mg/dL (28.00-217.00); Microalbumin,Random Urine < 12.0 mg/L (<20 mg/L)
== END | disposition home or self-care (01) ==
LOC: LABSPEC 10:32
PROVIDERS: PCP Internal Medicine; Referring Provider Internal Medicine; Visit Provider Internal Medicine
DX: I10 Essential (primary) hypertension (principal)
CPT/HCPCS: 81001; 82043; 82570

== ENCOUNTER → 2025-07-12 | Outpatient (CLI) | payer MEDICARE, OTHER, SELFPAY ==
[2025-07-12 10:35] LABS: Hematocrit 41.0 % (37-47); Hemoglobin 13.7 g/dL (12.0-15.0); Immature Granulocytes Count 0.020 X10^3/uL (0.0-0.0); Mean Corp Hgb Conc 33.4 g/dL (32-36); Mean Corpuscular Volume 85.8 fL (81-99); Mean Platelet Vol. 9.9 fl (6.2-12.0); NRBC Flagged by Analyzer 0 % (0-5); Platelet Count 269 K/mm3 (150-450); RBC Distribution Width CV 13.0 % (11.6-14.6); RBC Distribution Width SD 40.1 fl (35.1-43.9); Red Blood Count 4.78 M/mm3 (4.2-5.4); White Blood Count 7.3 K/mm3 (4.4-11.0)
[2025-07-12 11:35] LABS: AST(SGOT) 32 U/L (<=31); Alanine Aminotransfer ALT/SGPT 30 U/L (<=34); Albumin, Serum 4.4 g/dL (3.4-4.8); Alkaline Phosphatase 112 U/L (35-104); Anion Gap 10 (5-15); BUN 14 mg/dL (4-19); BUN/Creat Ratio 15.5 RATIO (10-20); Calcium,Total 9.4 mg/dL (7.6-11.0); Carbon Dioxide 27.9 mmol/L (21.0-32.0); Chloride 102 mmol/L (98-108); Globulin 2.3 g/dL (2.2-4.2); Glucose 94 mg/dL (70-99); Potassium 4.8 mmol/L (3.3-5.1)
== END | disposition home or self-care (01) ==
LOC: LAB 09:51
PROVIDERS: PCP Internal Medicine; Referring Provider Internal Medicine Rheumatology; Visit Provider Internal Medicine Rheumatology
DX: L40.59 Other psoriatic arthropathy (principal); Z79.899 Other long term (current) drug therapy
CPT/HCPCS: 36415; 80053; 85025